=== PATIENT | male | born 1960 | race Caucasian/White ===

== ENCOUNTER 2019-01-20 11:30 | Inpatient (IN) ==
[2019-01-20] MEDS ORDERED: ASPIRIN CHEW 324 MG PO STA (12:30)
--- NOTE | 2019-01-20 13:02 | XRay Report ---
XR chest 1V portable CLINICAL HISTORY: 59 years-old Male presenting with Chest Pain. TECHNIQUE: Portable upright AP view of the chest was obtained. COMPARISON: 09/15/2018. FINDINGS: Cardiac silhouette moderately enlarged. Pulmonary vascular prominence. Bronchial wall cuffing. Vague added density in the central and bibasilar regions. Prominent lung markings. Trace right pleural effu crys. No pneumothorax. Degenerative changes of the thoracic spine. IMPRESSION: 1. Cardiomegaly with volume overload/congestive change and mild pulmonary edema. Electronically signed by: Bryan Cottrell M.D. 01/20/2019 1:01 PM
[2019-01-20 13:07] LABS: Basophils # (auto) 0.02 K/uL (0-0.2); Basophils % (auto) 0.2 %; Eosinophils # (auto) 0.09 K/uL (0-0.5); Hematocrit (blood only) 41.3 % (42-52); Hemoglobin 12.9 g/dL (14.0-18.0); Immature Granulocytes # (auto) 0.02 K/uL (0.00-0.02); Immature Granulocytes % (auto) 0.2 %; Lymphocytes # (auto) 1.16 K/uL (1.2-3.4); Lymphocytes % (auto) 12.7 %; Mean Corpuscular Hgb Conc 31.2 g/dL (32-36); Mean Corpuscular Volume 84.1 fL (80-100); Mean Platelet Volume 9.7 fL (7.4-10.4); Monocytes # (auto) 0.77 K/uL (0.11-0.59); Monocytes % (auto) 8.4 %; Neutrophils # (auto) 7.08 K/uL (1.4-6.5); Neutrophils % (auto) 77.5 %; Platelet Count 276 K/uL (130-400); RDW Coefficient of Variation 15.8 % (11.5-14.5); RDW Standard Deviation 48.3 fL (36.4-46.3); Red Blood Count 4.91 M/uL (4.7-6.1); White Blood Count 9.14 K/uL (4.8-10.8)
[2019-01-20 13:08] LABS: Albumin Level 3.1 gm/dl (3.4-5.0); BUN Creatinine Ratio 16.3 (10-20); Calcium 8.4 mg/dl (8.5-10.1); Creatinine Clr Calc Pharmacy 118.2 ml/min; Est GFR (African American) 111.1; Est GFR (Non-African American) 95.8; Potassium 4.3 mmol/L (3.5-5.1)
[2019-01-20 13:13] LABS: Albumin Globulin Ratio 0.9 (0.9-2); Globulin 3.3 gm/dl (2.5-4.0); Total Protein 6.4 gm/dl (6.4-8.2); Troponin I 0.032 ng/ml (0-0.045)
[2019-01-20 13:16] LABS: D Dimer 1880 ug/L FEU (0-500)
[2019-01-20 13:33] LABS: iSTAT Creatinine 0.9 mg/dl (0.6-1.3); iSTAT Hemoglobin 14.3 g/dl (14.0-18.0); iSTAT Ionized Calcium 1.2 mmol/l (1.12-1.32); iSTAT Potassium 4.3 mEq/L (3.3-5.0)
[2019-01-20] MEDS ORDERED: OPTIRAY 320 125ml IV PRN (13:36)
--- NOTE | 2019-01-20 13:38 | Ultrasound Report ---
US venous doppler LE LT CLINICAL HISTORY: Left lower extremity swelling COMPARISON STUDY: No previous studies for comparison. FINDINGS: Real-time and color flow Doppler imaging were performed. Flow was seen within the femoral, popliteal and calf veins with no intraluminal thrombus demonstrated. The saphenous vein is patent. IMPRESSION: No evidence of left lower extremity DVT. Electronically signed by: Kuldip Flowers M.D. 01/20/2019 1:37 PM
[2019-01-20] MEDS ORDERED: FUROSEMIDE 40 MG/4 ML VIAL IV STA (13:51)
--- NOTE | 2019-01-20 13:53 | CT Scan Report ---
CT ANGIOGRAPHY OF THE CHEST, PULMONARY EMBOLUS PROTOCOL CLINICAL HISTORY: Shortness of breath. Chest pain. Evaluate for pulmonary embolus. COMPARISON STUDY: Chest radiograph January 20, 2019 and September 15, 2018. TECHNIQUE: Following IV administration of 119 mL of Optiray-320, helical axial images of the chest we re obtained utilizing the pulmonary embolus protocol. Maximal intensity projections and sagittal and coronal reformats were viewed on an independent 3D workstation. IV contrast was administered withou t complication. Automated exposure control was utilized for the study. A dose lowering technique wa s utilized adhering to the principles of ALARA. CT DOSE: 538.47 mGy.cm FINDINGS: No pulmonary emboli are identified. The heart is moderately enlarged. Coronary artery sten t is noted. There is no pericardial effusion. There are mildly enlarged mediastinal and bilateral hil ar lymph nodes. Index prevascular node on image 186 of 301 measures 1.1 cm in short axis diameter. Ca lcified thoracic lymph nodes indicating a prior granulomatous process. Small right and trace left ple ural effusions are noted. There is no pneumothorax. Interlobular septal thickening indicates pulmonar y edema. Ground glass opacities within the lungs are noted. A few small airspace opacities within the right lung are noted. The largest is a 1.4 cm right upper lobe opacity on image 184 of 301. No centr al obstructing mass is present. Mild dilatation of the ascending aorta, measuring 4.1 cm is noted. John ny thorax and upper abdomen are unremarkable. IMPRESSION: 1. No pulmonary emboli identified. 2. Small right and trace left pleural effusions. Interstitial and alveolar pulmonary edema. 3. A few airspace opacities within the right upper lung, including a 1.4 cm right upper lobe opacity. This favors alveolar edema or a mild infectious process. A pulmonary nodule is considered less likel y however a follow-up chest CT in 3 months to ensure resolution is recommended. 4. Moderate cardiomegaly. 5. Mild mediastinal and bilateral hilar lymphadenopathy which may be related to pulmonary edema howev er can be assessed on follow-up chest CT to ensure resolution. Electronically signed by: Rene Davis M.D. 01/20/2019 1:51 PM
--- NOTE | 2019-01-20 16:54 | Cardiology Consultation ---
Date of Consultation January 20, 2019 Assessment & Plan (1) Acute HFrEF (heart failure with reduced ejection fraction): (2) Ischemic cardiomyopathy: The patient presents with progressive symptoms of systolic heart failure. He has new decline in his LVEF compared to his initial myocardial infarction in August. Is difficult to determine if this is all scar related to his initial MD, as the degree of LV systolic dysfunction appears to be out of proportion to the single- vessel distribution of his myocardial infarction. At present, we will proceed with cautious diuresis as he received IV contrast today for CT of the chest. He has received 40 mg IV furosemide so far in the emergency room, I would provide a dose of 40 mg IV tomorrow morning. Continue prior to hospital cardiac medications including aspirin, clopidogrel, metoprolol succinate, lisinopril, and spironolactone. Ultimate plan is for optimization of his volume status and then consideration toward diagnostic cardiac catheterization. (3) Abnormality of lung: Abnormal CT of the lung, this could be atypical heart failure findings versus a lung nodule per the radiology findings, a repeat CT of the chest was recommended in the radiology report at a 3-month interval. History of Present Illness History of Present Illness Chuy Underwood is a 59 year old male seen in cardiology consultation per the request of Dr Espinoza of the emergency room for the evaluation of shortness of breath, with recent abnormal outpatient nuclear stress test. The patient and his note that he has been having progressive generalized fatigue and exertional shortness of breath since his initial hospital stay back in August. The patient's recent medical history dates back to 09/15/18 when he presented to the emergency department with 2 hours of severe chest discomfort. He was found to have an anterior, anterolateral ST segment elevation myocardial infarction and was taken to the cardiac catheterization laboratory in a emergent fashion via the "Heart Alert" protocol by Dr Galeana of interventional cardiology where he was found to have a 100% acute late proximal occlusion of the LAD at the takeoff of the first diagonal. The report describes that after flow was reestablished severe diffuse disease extending into the mid segment LAD past the third diagonal was noted. In addition to stenosis of diagonal 1, the second diagonal was noted to have a 50-60% ostial stenosis in the third diagonal with a 70% ostial stenosis. Circumflex coronary was a codominant large caliber vessel without significant disease. The right coronary artery was a codominant vessel with 20-30% proximal to mid disease distal luminal irregularities without significant obstruction. The patient underwent complex intervention of the p roximal to mid LAD with 2 overlapping drug-eluting stents and plain balloon angioplasty of the ostium of the third diagonal. The troponin peaked to greater than 200 NG per mL. The day after the procedure and echocardiogram was performed on 09/16/18 revealed a large wall motion abnormality with akinesis of the apical wall, mid anterior, septal, anteroseptal with an ejection fraction in the range of 35-40%. The patient was discharged on medications including metoprolol tartrate, lovastatin, lisinopril, aspirin, and clopidogrel. He was also diagnosed with diabetes and was transitioned to metformin at discharge. The patient had not establish with a primary care provider, until ultimately seeing Dr. Lagos on 11/30/18. At that time arrangements were made for him to establish with [facility] cardiology. The patient underwent an echocardiogram performed as an outpatient at [facility] on 12/29/18 that revealed an interval decline in his LVEF with ejection fraction now in the range of 25-29%. Grade 3 diastolic dysfunction was noted. Mild mitral regurgitation was present, mild tricuspid regurgitation was present mild pulmonary hypertension was present with the PA systolic pressure in the range of 51 mmHg. The patient had recently seen Dr. Tamez of our practice on 01/12/19 which time the patient described exertional shortness of breath and fatigue. Medication changes were made including transition to metoprolol succinate, spironolactone,. The patient was on uninterrupted aspirin and clopidogrel. A nuclear stress test performed in our office yesterday 01/19/19 revealed a large scar involving the mid and apical levels of the left ventricle with sparing of only the basal segments. Severe LV systolic dysfunction was noted in the range of 25%. Past Medical History: CAD Ischemic CM DM2 HTN Dyslipidemia smoker up until August 2018 Social History: Former smoker Marrried Works at [employer] Allergies Allergy/AdvReac Type Severity Reaction Status Date / Time No Known Allergies Allergy Unverified 01/20/19 12:20 Home Medications Home Medications Medication Instructions Recorded Confirmed Type aspirin [Ecotrin Low Strength] 81 mg PO QAM #30 tab 09/17/18 01/20/19 Rx clopidogrel 75 mg PO QAM #30 tab 09/17/18 01/20/19 Rx lisinopril [Zestril] 5 mg PO QAM #30 tab 09/17/18 01/20/19 Rx lovastatin 20 mg PO DAILY@1700 #30 tab 09/17/18 01/20/19 Rx metformin 500 mg PO BID17 01/20/19 01/20/19 History metoprolol tartrate 25 mg PO BID17 01/20/19 01/20/19 History spironolactone 25 mg PO 1700 01/20/19 01/20/19 History Patient History Medical History Tobacco use disorder (Chronic) HLD (hyperlipidemia) (Chronic) HTN (hypertension) (Chronic) Tobacco use disorder Social History Preferred Language: Malawian Beliefs That Will Affect Care: None marital status: Current Living Situation: Spouse current occupational status: employed Feels Safe at Home: Yes Smoking Status: Former smoker Hx Alcohol Use: No Hx Substance Use: No Review of Systems 10 point review of systems is reviewed and is negative with the exception of that above Physical Exam Vital Signs (Past 24 Hours): Last Vital Signs Temp 36.8 C 01/20/19 11:35 Pulse 80 01/20/19 16:35 Resp 18 01/20/19 16:35 BP 131/81 01/20/19 16:35 Pulse Ox 94 01/20/19 16:35 Physical Exam: General: no acute distress and stated age Chest: normal shape and normal respiratory effort Lungs: Decreased breath sounds the bases Cardiac Exam: - regular heart sounds, no murmurs, rubs, or gallops, no jugular venous distention Abdomen: abdomen soft, non-tender, no abnormal masses and no hepatosplenomegaly Extremities: 1+ left lower extremity edema Neuro:awake, coversant, follows commands, no focal motor deficits Psych: appropriate affect and insight. Results & Data Laboratory Results Cardiac Enzymes 01/20/19 Range/Units 12:10 AST 28 (15-37) U/L CK-MB (CK-2) 5.0 H (0.5-3.6) ng/ml Troponin I 0.032 (0-0.045) ng/ml CBC 01/20/19 Range/Units 12:10 WBC 9.14 (4.8-10.8) K/uL RBC 4.91 (4.7-6.1) M/uL Hgb 12.9 L (14.0-18.0) g/dL Hct 41.3 L (42-52) % Plt Count 276 (130-400) K/uL Neut # (Auto) 7.08 H (1.4-6.5) K/uL Lymph # (Auto) 1.16 L (1.2-3.4) K/uL [place] # (Auto) 0.77 H (0.11-0.59) K/uL Eos # (Auto) 0.09 (0-0.5) K/uL Baso # (Auto) 0.02 (0-0.2) K/uL Comprehensive Metabolic Panel 01/20/19 Range/Units 12:10 Sodium 139 (136-145) mmol/L Potassium 4.3 (3.5-5.1) mmol/L Chloride 108 H (98-107) mmol/L Carbon Dioxide 26 (21-32) mmol/L BUN 14 (7-18) mg/dl Creatinine 0.84 (0.6-1.4) mg/dl Glucose 107 H (70-99) mg/dl Calcium 8.4 L (8.5-10.1) mg/dl AST 28 (15-37) U/L ALT 54 (12-78) U/L Alkaline Phosphatase 232 H (45-117) U/L Total Protein 6.4 (6.4-8.2) gm/dl Albumin 3.1 L (3.4-5.0) gm/dl Intake and Output 01/20/19 01/20/19 01/20/19 06:59 14:59 22:59 Other: Weight 107.6 kg Patient Weight 01/21/19 06:59 Weight 107.6 kg Diagnostic Findings EKG performed today 01/20/19 reviewed and apparently revealed sinus rhythm at 88 bpm, with right bundle branch block QRS duration 120 ms, age-indeterminate anteroseptal infarction pattern dating back to August 2018, compared to the prior tracing performed 09/15/[address] segment elevation is no longer present. Summary of transthoracic echocardiogram recently performed 12/29/18 at [facility] with images having been reviewed independently by the undersigned at that time: The left ventricular cavity size is severely enlarged. There is a large sized apical, septal, anteroseptal, anterior, and lateral wall motion abnormality with hypokinesis to akinesis of the segments. The qualitative LV ejection fraction is 25-29% (severely reduced). The left ventricular diastolic function is severely abnormal (grade III). The left ventricular diastolic fillling pressure is elevated. Mild mitral regurgitation is present. Mild tricuspid regurgitation is present. Moderate pulmonary hypertension is present. The estimated pulmonary artery systolic pressure is 51mm Hg. The aortic root and proximal ascending aorta are mildly enlarged. Compared to the report the prior echocardiogram performed at [facility] dated 09/16/2018, a large left anterior descending coronary artery territory wall motion abnormality was described at that time with apical akinesis, and hypokinesis of the anterior, lateral, anteroseptum and septum. The ejection fraction at that time was graded to be 35 to 40%. Left lower extremity venous duplex study performed 01/20/19 reveals no evidence of left lower extremity DVT CT angiogram of the chest performed 01/20/19 revealed no pulmonary emboli Small right and trace left pleural effusions, interstitial and alveolar pulmonary edema pattern, 1.4 cm right upper lobe opacity, alveolar edema versus mild infectious process versus pulmonary nodule, radiology recommends repeat CT in 3 months.
--- NOTE | 2019-01-20 18:15 | History & Physical Report ---
Date of Service January 20, 2019 Assessment & Plan (1) Acute HFrEF (heart failure with reduced ejection fraction): (2) Ischemic cardiomyopathy: This is a 59yo M with a PMH of systolic heart failure, ischemic cardiomyopathy, HTN, HLD and h/o tobacco use who presents after an abnormal nuclear stress test yesterday and evidence of decompensated systolic heart failure. -H/o anterior wall IA in August 2018 and had 2 stents placed emergently by Dr Galeana. -Has progressive systolic heart failure with nuclear stress test performed yesterday and showed severe systolic dysfunction was noted in the range of 25% -CTA chest with small right and trace left pleural effusions. Interstitial and alveolar pulmonary edema. No pulmonary emboli identified -Given 40mg IV Lasix in ED and will continue to diurese with 40mg IV Lasix daily. Strict I&Os, daily weights -Per Dr Sevilla, the degree of LV systolic dysfunction appears to be out of proportion to the single-vessel distribution of his myocardial infarction -Cardiology to follow over weekend with plans for possible cardiac catheterization on Wednesday/Wednesday depending on renal function -Continue home dose aspirin, plavix, toprol, lisinopril and spironolactone (3) HTN (hypertension): Normotensive. Continue Toprol, spironolactone, lisinopril (4) HLD (hyperlipidemia): Continue statin (5) Diabetes mellitus, type II: Recently diagnosed during Aug 2018 admission with a1c of 7.3 -Repeat a1c -Hold oral agent -SSI while in-patient -BSG AC HS (6) Tobacco use disorder: Has not smoked for the past 4 months since STEMI (7) Lung abnormality: Alveolar edema vs pulmonary nodule seen on chest CTA -A repeat CT of the chest was recommended in the radiology report at a 3-month interval DVT Ppx: SCDs Code status: FULL PCP: [facility] Dispo: Admitted to telemetry. Plan to return home once medically stable. Patient seen in collaboration with Dr. Aguilera. Please see addendum. History of Present Illness Chief Complaint: fatigue, lower extremity swelling Primary Care Provider: Zachary Lagos This is a 59yo M with a PMH of systolic heart failure, ischemic cardiomyopathy, HTN, HLD and h/o tobacco use who presents after an abnormal nuclear stress test yesterday. Patient had an anterior wall IA in August 2018 and had 2 stents placed emergently by Dr Galeana, where he was found to have a 100% acute late proximal occlusion of the LAD at the takeoff of the first diagonal. Echo performed during this admission showed EF of 35-40% with akinesis of the apical wall, mid anterior, septal and anteroseptal leavitt. Did not establish with PCP or [facility] cardiology until recently, when he had a resting 2D echo with ED: 25- 29% with grade 3 diastolic dysfunction as well as mild valvular disease. A nuclear stress test performed yesterday and showed severe systolic dysfunction was noted in the range of 25%. Patient denies any chest pain but endorses fatigue and dyspnea on exertion. Also has been having intermittent edema of left lower extremity. States he has been taking all medications as prescribed and has not missed doses. Denies fever, chills, lightheadedness, headache, chest pain, palpitations, SOB, nausea, vomiting, abdominal pain, dysuria, diarrhea or constipation. CXR with evidence of cardiomegaly with volume overload and congestive change. Given 40mg IV Lasix in ED and evaluated by Dr. Sevilla. Allergies Allergy/AdvReac Type Severity Reaction Status Date / Time No Known Allergies Allergy Unverified 01/20/19 12:20 Home Medications Home Medications Medication Instructions Recorded Confirmed Type aspirin [Ecotrin Low Strength] 81 mg PO QAM #30 tab 09/17/18 01/20/19 Rx clopidogrel 75 mg PO QAM #30 tab 09/17/18 01/20/19 Rx lisinopril [Zestril] 5 mg PO QAM #30 tab 09/17/18 01/20/19 Rx atorvastatin 80 mg PO HS 01/20/19 01/20/19 History metformin 500 mg PO BID17 01/20/19 01/20/19 History metoprolol tartrate 25 mg PO BID17 01/20/19 01/20/19 History spironolactone 12.5 mg PO 1700 01/20/19 01/20/19 History Past Med/Surg History Medical History Diabetes mellitus, type II (Chronic) History of acute anterior wall IA (Resolved) s/p stents x 2 Tobacco use disorder (Resolved) NSVT (nonsustained ventricular tachycardia) (Resolved) HLD (hyperlipidemia) (Chronic) HTN (hypertension) (Chronic) Surgical History H/O heart artery stent (Chronic) August 2018 Family History Other Diabetes mellitus Social History Preferred Language: Dominican Communication Ability: Effective Staff Trainer Required: No Beliefs That Will Affect Care: Hinduism marital status: Current Living Situation: Spouse current occupational status: employed Other Information That Helps Us Care for You: No Feels Safe at Home: Yes Safety Concerns: Feels Safe At This Time Smoking Status: Former smoker Hx Alcohol Use: Yes Hx Substance Use: No Review of Systems All systems reviewed & are unremarkable except as noted in HPI & below Physical Exam Vital Signs (Past 24 Hours): Last Vital Signs Temp 36.8 C 01/20/19 11:35 Pulse 80 01/20/19 16:35 Resp 18 01/20/19 16:35 BP 131/81 01/20/19 16:35 Pulse Ox 94 01/20/19 16:35 Physical Exam: General Appearance: WD/WN, no apparent distress, resting comfortably Head: normocephalic, atraumatic Eyes: normal inspection, PERRL, EOMI ENT: hearing grossly normal, pharynx normal (moist mucous membranes) Neck: supple, no JVD, no adenopathy Respiratory/Chest: lungs clear to auscultation. No wheezes, rales or rhonci. No respiratory distress or accessory muscle use Cardiovascular: regular rate, rhythm, no murmur, normal peripheral pulses, 1+ LLE edema, trace RLE edema Abdomen/GI: normal bowel sounds, soft, non-tender to palpation Extremities/Musculoskelatal: normal inspection, no calf tenderness, normal capillary refill, BLE with hyperpigmentation Neurologic/Psych: alert, normal mood/affect, oriented x 3 Skin: normal color, warm/dry Results & Data Laboratory Results Short CBC 01/20/19 Range/Units 12:10 WBC 9.14 (4.8-10.8) K/uL Hgb 12.9 L (14.0-18.0) g/dL Hct 41.3 L (42-52) % Plt Count 276 (130-400) K/uL BMP 01/20/19 12:10 Sodium 139 Potassium 4.3 Chloride 108 H Carbon Dioxide 26 BUN 14 Creatinine 0.84 Glucose 107 H Calcium 8.4 L Cardiac Enzymes 01/20/19 Range/Units 12:10 Total Creatine Kinase 157 (39-308) U/L CK-MB (CK-2) 5.0 H (0.5-3.6) ng/ml Troponin I 0.032 (0-0.045) ng/ml Liver Function 01/20/19 Range/Units 12:10 Total Bilirubin 1.0 (0.2-1) mg/dl AST 28 (15-37) U/L ALT 54 (12-78) U/L Alkaline Phosphatase 232 H (45-117) U/L Albumin 3.1 L (3.4-5.0) gm/dl Diagnostic Findings CXR: IMPRESSION: 1. Cardiomegaly with volume overload/congestive change and mild pulmonary edema. Left venous doppler: IMPRESSION: No evidence of left lower extremity DVT. Chest CTA: IMPRESSION: 1. No pulmonary emboli identified. 2. Small right and trace left pleural effusions. Interstitial and alveolar pulmonary edema. 3. A few airspace opacities within the right upper lung, including a 1.4 cm right upper lobe opacity. This favors alveolar edema or a mild infectious process. A pulmonary nodule is considered less likely however a follow-up chest CT in 3 months to ensure resolution is recommended. 4. Moderate cardiomegaly. 5. Mild mediastinal and bilateral hilar lymphadenopathy which may be related to pulmonary edema however can be assessed on follow-up chest CT to ensure resolution. ECG Additional Comments: Normal sinus rhythm, Possible Left atrial enlargement, Left anterior fascicular block, Right bundle branch block, Anteroseptal infarct (cited on or before 15-SEP-2018) When compared with ECG of 15-SEP-2018 14:13, ST no longer elevated in Anterior leads, T wave inversion now evident in Anterior leads Supervising Physician Co-Signing Physician Notes Attending Addendum The patient was seen and examined in ER He is a 59yo M with a PMH of systolic heart failure, ischemic cardiomyopathy, HTN, HLD and h/o tobacco use who presents after an abnormal nuclear stress test yesterday and evidence of decompensated systolic heart failure. Minimal symptoms during my exam On Exam No apparent distress Hemodynamically stable Chest-decreased breath sound bilaterally with bi basilar crackles Heart-S1 S2 Abdomen-benign Extremities-1 + edema bilaterally Admission labs and imaging studies were reviewed Agree with thw assessment and plan as outlined by Dulce Aguilera
[2019-01-20] MEDS ORDERED: CARBOHYDRATES FOR HYPOGLYCEMIA PO PRN (19:32)
[2019-01-20] MEDS ORDERED: POLYETHYLENE (MIRALAX) 17 GM PACK PO PRN (19:32)
[2019-01-20] MEDS ORDERED: ONDANSETRON INJ 2 MG/ML 2 ML VIAL IV PRN (19:32)
[2019-01-20] MEDS ORDERED: DEXTROSE 50% 50 ML SYRINGE IV PRN (19:32)
[2019-01-20] MEDS ORDERED: GLUCOSE 10 TABS/TUBE PO PRN (19:32)
[2019-01-20] MEDS ORDERED: GLUCAGON FOR INJ 1 MG VIAL SQ PRN (19:32)
[2019-01-20] MEDS ORDERED: GLUCOSE 40% GEL 15 GM TUBE PO PRN (19:32)
--- NOTE | 2019-01-20 19:43 | Emergency Department Note ---
Entered by Kelsey Sanches acting as a scribe for Jitendra Espinoza MD History of Present Illness General Chief complaint: Cardiac Assessment Stated complaint: LABORED BREATHING,PROBLEMS WITH STENTS Time Seen by Provider: 01/20/19 12:10 Source: patient History of Present Illness Onset (ago): day(s) (a few days ago) Location: chest Pain Consistency: + other (worsening) Maximum Pain Intensity: 0 Quality: + other (shortness of breath) Exacerbated By: + movement (exertion) Associated symptoms: + other (difficulty sleeping, fatigue); no chest pain The patient is a 59 year old male who presents to the Emergency Room with complaints of worsening shortness of breath starting a few days ago. The patient states that he has a history of two stents being placed in August of last year. He states that recently he hasn�t been sleeping well and his breathing has been labored. He states that yesterday he ran a stress test and when he called into Dr. Tamez today, he said to come to the ED as both of his stents that were placed are blocked. He notes that exertion makes his shortness of breath worse. The patient complains of fatigue. The patient denies chest pain. The patient notes that he does take a baby aspirin daily and is on Plavix. He notes that he hasn�t missed a dose and took them both 7 hours ago. Home Medications Home Medications Medication Instructions Recorded Confirmed Type aspirin [Ecotrin Low Strength] 81 mg PO QAM #30 tab 09/17/18 01/20/19 Rx clopidogrel 75 mg PO QAM #30 tab 09/17/18 01/20/19 Rx lisinopril [Zestril] 5 mg PO QAM #30 tab 09/17/18 01/20/19 Rx atorvastatin 80 mg PO HS 01/20/19 01/20/19 History metformin 500 mg PO BID17 01/20/19 01/20/19 History metoprolol tartrate 25 mg PO BID17 01/20/19 01/20/19 History spironolactone 12.5 mg PO 1700 01/20/19 01/20/19 History Allergies Allergy/AdvReac Type Severity Reaction Status Date / Time No Known Allergies Allergy Unverified 01/20/19 12:20 Past Med/Surg History Medical History Diabetes mellitus, type II (Chronic) History of acute anterior wall CT (Resolved) s/p stents x 2 Tobacco use disorder (Resolved) NSVT (nonsustained ventricular tachycardia) (Resolved) HLD (hyperlipidemia) (Chronic) HTN (hypertension) (Chronic) Surgical History H/O heart artery stent (Chronic) August 2018 Family History Other Diabetes mellitus Social History Preferred Language: Ukrainian Communication Ability: Effective 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 and A total of 10 systems reviewed and were otherwise negative Physical Exam Vital Signs Vital Signs - 24 hr 01/20/19 11:35 01/20/19 12:04 01/20/19 12:11 Temperature 36.8 C Temperature Source Oral Sepsis Recent Fever Within 48 Hours No Sepsis New/Unexplained Change in Mental Status No Sepsis Action Taken by Nursing No Action Required Pulse Rate 88 81 81 Pulse Rate [Finger] Pulse Rate from SpO2 Sensor 81 81 Pulse Rhythm [Finger] Pulse Strength [Finger] Respiratory Rate 18 14 18 Respiratory Effort / Characteristics Non-Labored Spontaneous Respiratory Depth Normal Respiratory Pattern Regular Blood Pressure 122/81 121/78 Blood Pressure [Right Arm] Blood Pressure Mean 94 92 Blood Pressure Mean [Right Arm] Blood Pressure Position Sitting Blood Pressure Position [Right Arm] Pulse Oximetry 98 96 95 Oxygen Delivery Method Room Air 01/20/19 14:43 01/20/19 16:35 01/20/19 17:45 Temperature Temperature Source Sepsis Recent Fever Within 48 Hours Sepsis New/Unexplained Change in Mental Status Sepsis Action Taken by Nursing Pulse Rate Pulse Rate [Finger] 87 80 Pulse Rate from SpO2 Sensor Pulse Rhythm [Finger] Pulse Strength [Finger] Respiratory Rate 22 18 Respiratory Effort / Characteristics Non-Labored Spontaneous Respiratory Depth Normal Respiratory Pattern Regular Blood Pressure Blood Pressure [Right Arm] 135/80 131/81 Blood Pressure Mean Blood Pressure Mean [Right Arm] 98 97 Blood Pressure Position Blood Pressure Position [Right Arm] Pulse Oximetry 96 94 Oxygen Delivery Method Room Air Room Air Room Air 01/20/19 18:27 01/20/19 18:38 01/20/19 19:32 Temperature 36.9 C Temperature Source Oral Sepsis Recent Fever Within 48 Hours Sepsis New/Unexplained Change in Mental Status Sepsis Action Taken by Nursing Pulse Rate Pulse Rate [Finger] 88 87 Pulse Rate from SpO2 Sensor Pulse Rhythm [Finger] Regular Pulse Strength [Finger] Normal Respiratory Rate 22 22 20 Respiratory Effort / Characteristics Non-Labored Spontaneous Respiratory Depth Normal Respiratory Pattern Regular Blood Pressure Blood Pressure [Right Arm] 137/92 146/93 H Blood Pressure Mean Blood Pressure Mean [Right Arm] 107 110 Blood Pressure Position Blood Pressure Position [Right Arm] Sitting Pulse Oximetry 100 100 98 Oxygen Delivery Method Room Air Room Air Room Air GENERAL: Awake, alert, well-appearing, in no distress HENT: Normocephalic, atraumatic. Oropharynx unremarkable. EYES: Normal conjunctiva. Sclera non-icteric. NECK: Supple. No nuchal rigidity. FROM. No masses. RESPIRATORY: Clear to auscultation. No wheezes. No rales. Normal respiratory effort. CARDIAC: Normal rate. Normal rhythm. No murmurs. No rubs. Extremities warm and well perfused. Pulses equal. No JVD. GI: Soft, non-distended. No tenderness to palpation. No rebound or guarding. No masses. RECTAL: Deferred. MUSCULOSKELETAL: Atraumatic. Chest examination reveals no tenderness. The back is symmetrical on inspection without obvious abnormality. There is no CVA tenderness to palpation. No joint edema. LOWER EXTREMITIES: Calves are equal size bilaterally and non-tender. No edema. No discoloration. NEURO: Normal sensorium. No sensory or motor deficits noted. Course 1226: Past medical records reviewed. The patient was evaluated in room C8, and a complete history and physical examination were performed. 1243: I discussed the patient's case with Dr. Pisano Cardiology. He states that the patient hasn't followed up since his initial CT, but his last EF was 25%. He states that we should do a D-Dimer and a duplex. 1244: I reevaluated the patient and updated him on the plan. He verbally agrees and understands. 1434: I discussed the patient's case with Dr. Pisano Cardiology. He will come see the patient. 1436: I reevaluated the patient and updated him on his test results and the treatment plan. He verbally agrees and understands. 1601: I reevaluated the patient and he is currently eating. Dr. Sevilla is at bedside. 1623: I discussed the patient's case with Dr. Pisano Cardiology. He is going to talk to internal medicine to bring the patient in for further evaluation. Consultations Consultation #1: I discussed the patient's case with Dr. Norris Oglesby. He states that the patient hasn't followed up since his initial CT, but his last EF was 25%. He states that we should do a D-Dimer and a duplex. Time: 12:43 Consultation #2: I discussed the patient's case with Dr. Norris Oglesby. He will come see the patient. Time: 14:34 Consultation #3: I discussed the patient's case with Dr. Norris Oglesby. He is going to talk to internal medicine to bring the patient in for further evaluation. Time: 16:23 Administered Medications Discontinued Medications Aspirin (Aspirin) 324 mg PO NOW STA Stop: 01/20/19 12:31 Last Admin: 01/20/19 12:58 Dose: 324 mg Documented by: [id number] Furosemide (Lasix) 40 mg IV NOW STA Stop: 01/20/19 13:52 Last Admin: 01/20/19 14:39 Dose: 40 mg Documented by: [id number] Ioversol (Optiray 320 125ml) 119 ml IV ONCE PRN PRN Reason: Interaction Checking Stop: 01/24/19 13:35 Last Admin: 01/20/19 13:38 Dose: 119 ml Documented by: [id number] Medical Decision Making Differential Diagnosis Differential diagnosis: Etiologies such as infections, reactive airway disease, COPD, pneumonia, pleural effusion, pulmonary edema, ARDS, pneumothorax, CHF, cardiac ischemia, cardiac tamponade, dysrhythmia, anemia, pulmonary embolism, musculoskeletal, gastrointestinal process, as well as others were entertained. Medical Records Attestation: I reviewed the patient's medical records. Home Medications Current Medication List: was personally reviewed by me Laboratory Data Attestation: I reviewed the patient's lab results. Result diagrams: 01/20/19 12:10 01/20/19 12:10 Lab Results 01/20/19 01/20/19 01/20/19 Range/Units 12:10 12:10 12:10 WBC 9.14 (4.8-10.8) K/uL RBC 4.91 (4.7-6.1) M/uL Hgb 12.9 L (14.0-18.0) g/dL POC Hgb (14.0-18.0) g/dl Hct 41.3 L (42-52) % POC Hct (42-52) % MCV 84.1 (80-100) fL MCH 26.3 (25-34) pg MCHC 31.2 L (32-36) g/dL RDW Std Deviation 48.3 H (36.4-46.3) fL RDW Coeff of Sebastian 15.8 H (11.5-14.5) % Plt Count 276 (130-400) K/uL MPV 9.7 (7.4-10.4) fL Immature Gran % (Auto) 0.2 % Neut % (Auto) 77.5 % Lymph % (Auto) 12.7 % Hand % (Auto) 8.4 % Eos % (Auto) 1.0 % Baso % (Auto) 0.2 % Immature Gran # (Auto) 0.02 (0.00-0.02) K/uL Neut # (Auto) 7.08 H (1.4-6.5) K/uL Lymph # (Auto) 1.16 L (1.2-3.4) K/uL Hand # (Auto) 0.77 H (0.11-0.59) K/uL Eos # (Auto) 0.09 (0-0.5) K/uL Baso # (Auto) 0.02 (0-0.2) K/uL D-Dimer 1880 H* (0-500) ug/L FEU POC Sodium (135-144) mEq/L Sodium 139 (136-145) mmol/L POC Potassium (3.3-5.0) mEq/L Potassium 4.3 (3.5-5.1) mmol/L POC Chloride (101-112) mEq/L Chloride 108 H (98-107) mmol/L Carbon Dioxide 26 (21-32) mmol/L POC Total CO2 (24-31) mEq/l Anion Gap 5.0 (3-11) POC Anion Gap (16-25) mmol/L POC BUN (7-18) mg/dl BUN 14 (7-18) mg/dl Creatinine 0.84 (0.6-1.4) mg/dl POC Creatinine (0.6-1.3) mg/dl Est Cr Clr Drug Dosing 118.2 ml/min Est GFR ( Amer) 111.1 Est GFR (Non-Af Amer) 95.8 BUN/Creatinine Ratio 16.3 (10-20) Glucose 107 H (70-99) mg/dl POC Glucose (other) (70-99) mg/dl Calcium 8.4 L (8.5-10.1) mg/dl POC Ioniz Calcium Janice (1.12-1.32) mmol/l Total Bilirubin 1.0 (0.2-1) mg/dl AST 28 (15-37) U/L ALT 54 (12-78) U/L Alkaline Phosphatase 232 H (45-117) U/L Total Creatine Kinase 157 (39-308) U/L CK-MB (CK-2) 5.0 H (0.5-3.6) ng/ml CK/CKMB % Calc 3.2 H (0-3.0) Troponin I 0.032 (0-0.045) ng/ml NT-Pro-B Natriuret Pep 3813 H (0-900) pg/ml Total Protein 6.4 (6.4-8.2) gm/dl Albumin 3.1 L (3.4-5.0) gm/dl Globulin 3.3 (2.5-4.0) gm/dl Albumin/Globulin Ratio 0.9 (0.9-2) Lipase 66 L (73-393) U/L 01/20/19 Range/Units 13:00 WBC (4.8-10.8) K/uL RBC (4.7-6.1) M/uL Hgb (14.0-18.0) g/dL POC Hgb 14.3 (14.0-18.0) g/dl Hct (42-52) % POC Hct 42 (42-52) % MCV (80-100) fL MCH (25-34) pg MCHC (32-36) g/dL RDW Std Deviation (36.4-46.3) fL RDW Coeff of Sebastian (11.5-14.5) % Plt Count (130-400) K/uL MPV (7.4-10.4) fL Immature Gran % (Auto) % Neut % (Auto) % Lymph % (Auto) % Hand % (Auto) % Eos % (Auto) % Baso % (Auto) % Immature Gran # (Auto) (0.00-0.02) K/uL Neut # (Auto) (1.4-6.5) K/uL Lymph # (Auto) (1.2-3.4) K/uL Hand # (Auto) (0.11-0.59) K/uL Eos # (Auto) (0-0.5) K/uL Baso # (Auto) (0-0.2) K/uL D-Dimer (0-500) ug/L FEU POC Sodium 142 (135-144) mEq/L Sodium (136-145) mmol/L POC Potassium 4.3 (3.3-5.0) mEq/L Potassium (3.5-5.1) mmol/L POC Chloride 103 (101-112) mEq/L Chloride (98-107) mmol/L Carbon Dioxide (21-32) mmol/L POC Total CO2 26 (24-31) mEq/l Anion Gap (3-11) POC Anion Gap 18.0 (16-25) mmol/L POC BUN 14 (7-18) mg/dl BUN (7-18) mg/dl Creatinine (0.6-1.4) mg/dl POC Creatinine 0.9 (0.6-1.3) mg/dl Est Cr Clr Drug Dosing ml/min Est GFR ( Amer) Est GFR (Non-Af Amer) BUN/Creatinine Ratio (10-20) Glucose (70-99) mg/dl POC Glucose (other) 108 H (70-99) mg/dl Calcium (8.5-10.1) mg/dl POC Ioniz Calcium Janice 1.20 (1.12-1.32) mmol/l Total Bilirubin (0.2-1) mg/dl AST (15-37) U/L ALT (12-78) U/L Alkaline Phosphatase (45-117) U/L Total Creatine Kinase (39-308) U/L CK-MB (CK-2) (0.5-3.6) ng/ml CK/CKMB % Calc (0-3.0) Troponin I (0-0.045) ng/ml NT-Pro-B Natriuret Pep (0-900) pg/ml Total Protein (6.4-8.2) gm/dl Albumin (3.4-5.0) gm/dl Globulin (2.5-4.0) gm/dl Albumin/Globulin Ratio (0.9-2) Lipase (73-393) U/L Imaging Data Radiologist's Impression: Radiology results as stated below per my review and the radiologist's interpretation: XR chest 1V portable CLINICAL HISTORY: 59 years-old Male presenting with Chest Pain. TECHNIQUE: Portable upright AP view of the chest was obtained. COMPARISON: 09/15/2018. FINDINGS: Cardiac silhouette moderately enlarged. Pulmonary vascular prominence. Bronchial wall cuffing. Vague added density in the central and bibasilar regions. Prominent lung markings. Trace right pleural effusion. No pneumothorax. Degenerative changes of the thoracic spine. IMPRESSION: 1. Cardiomegaly with volume overload/congestive change and mild pulmonary edema. Electronically signed by: Bryan Cottrell M.D. 01/20/2019 1:01 PM US venous doppler LE LT CLINICAL HISTORY: Left lower extremity swelling COMPARISON STUDY: No previous studies for comparison. FINDINGS: Real-time and color flow Doppler imaging were performed. Flow was seen within the femoral, popliteal and calf veins with no intraluminal thrombus demonstrated. The saphenous vein is patent. IMPRESSION: No evidence of left lower extremity DVT. Electronically signed by: Kuldip Flowers M.D. 01/20/2019 1:[address] ANGIOGRAPHY OF THE CHEST, PULMONARY EMBOLUS PROTOCOL CLINICAL HISTORY: Shortness of breath. Chest pain. Evaluate for pulmonary embolus. COMPARISON STUDY: Chest radiograph January 20, 2019 and September 15, 2018. TECHNIQUE: Following IV administration of 119 mL of Optiray-320, helical axial images of the chest were obtained utilizing the pulmonary embolus protocol. Maximal intensity projections and sagittal and coronal reformats were viewed on an independent 3D workstation. IV contrast was administered without complic ation. Automated exposure control was utilized for the study. A dose lowering technique was utilized adhering to the principles of ALARA. CT DOSE: 538.47 mGy.cm FINDINGS: No pulmonary emboli are identified. The heart is moderately enlarged. Coronary artery stent is noted. There is no pericardial effusion. There are mildly enlarged mediastinal and bilateral hilar lymph nodes. Index prevascular node on image 186 of 301 measures 1.1 cm in short axis diameter. Calcified thoracic lymph nodes indicating a prior granulomatous process. Small right and trace left pleural effusions are noted. There is no pneumothorax. Interlobular septal thickening indicates pulmonary edema. Ground glass opacities within the lungs are noted. A few small airspace opacities within the right lung are noted. The largest is a 1.4 cm right upper lobe opacity on image 184 of 301. No central obstructing mass is present. Mild dilatation of the ascending aorta, measuring 4.1 cm is noted. Bony thorax and upper abdomen are unremarkable. IMPRESSION: 1. No pulmonary emboli identified. 2. Small right and trace left pleural effusions. Interstitial and alveolar pulmonary edema. 3. A few airspace opacities within the right upper lung, including a 1.4 cm right upper lobe opacity. This favors alveolar edema or a mild infectious process. A pulmonary nodule is considered less likely however a follow-up chest CT in 3 months to ensure resolution is recommended. 4. Moderate cardiomegaly. 5. Mild mediastinal and bilateral hilar lymphadenopathy which may be related to pulmonary edema however can be assessed on follow-up chest CT to ensure resolution. Electronically signed by: Rene Davis M.D. 01/20/2019 1:51 PM ECG Data Attestation: I personally reviewed and interpreted this ECG as follows: Indication: SOB/dyspnea Rate (beats per minute): 88 Rhythm: normal sinus Findings: + other (old anterior septal infarct), + RBBB and + T-wave inversion (lateral leads) Comparison ECG Date: from (09/15/2018) Change: the following changes noted (markedly improved) Blood Pressure Blood Pressure Findings: Normal blood pressure Blood Pressure Disposition: did not require urgent referral MDM Narrative This is a 59-year-old male who presents emergency department. The patient has a history of an CT approximately 4 months ago. He reports he is extremely short of breath lately. He apparently failed a stress test yesterday. He arrives to the emergency department during. Of high-volume high acuity. I did discuss his case with the testing engineer who asked for the patient to be admitted to the hospitalist service. Patient was given Lasix for what appears to be pulmonary edema on CAT scan. Patient and are in agreement with the treatment plan. Impression & Plan Shortness of breath, CHF (congestive heart failure) Discharge Plan Visit Data *Final* Discharge Date/Time: 01/20/19 18:38 Chief Complaint: Cardiac Assessment Stated Complaint: LABORED BREATHING,PROBLEMS WITH STENTS ED Provider: Jitendra Espinoza Discharge Problem: Shortness of breath, CHF (congestive heart failure) Patient Disposition: Admitted As Inpatient Discharge Instructions Interventions: ED Discharge Assessment Last Done: 01/20/19 18:38 The scribe's documentation has been prepared under my direction and personally reviewed by me in its entirety. I confirm that the note above accurately reflects all work, treatment, procedures, and medical decision making performed by me.
[2019-01-20] MEDS: ATORVASTATIN 40 MG TAB PO SCH (20:57)
[2019-01-20] MEDS: INSULIN ASPART 100 UNITS/ML 3 ML PEN SC SCH (21:01)
[2019-01-21 06:15] LABS: Hematocrit (blood only) 40.6 % (42-52); Hemoglobin 13.1 g/dL (14.0-18.0); Mean Corpuscular Hgb Conc 32.3 g/dL (32-36); Mean Corpuscular Volume 83.9 fL (80-100); Mean Platelet Volume 9.4 fL (7.4-10.4); Platelet Count 228 K/uL (130-400); RDW Standard Deviation 48.4 fL (36.4-46.3); Red Blood Count 4.84 M/uL (4.7-6.1); White Blood Count 9.08 K/uL (4.8-10.8)
[2019-01-21 06:52] LABS: BUN Creatinine Ratio 13.3 (10-20); Calcium 8.6 mg/dl (8.5-10.1); Creatinine Clr Calc Pharmacy 108.6 ml/min; Est GFR (African American) 108.5; Est GFR (Non-African American) 93.6; Potassium 4.2 mmol/L (3.5-5.1)
[2019-01-21 07:16] LABS: Estimated Average Glucose 154 mg/dl
--- NOTE | 2019-01-21 08:20 | Cardiology Progress Note ---
Date of Service January 21, 2019 Assessment & Plan (1) Acute HFrEF (heart failure with reduced ejection fraction): Volume status improving. Will increase Lasix to 40 mg IV twice daily. Increase Aldactone to 25 mg daily. (2) Ischemic cardiomyopathy: Optimize current heart failure medications. Heart rate borderline elevated. Recommend titration of metoprolol to 25 mg 3 times daily. Increase Aldactone to 25 mg daily and continue lisinopril at current dose. Follow fluid balance, daily weight, electrolytes, and glomerular filtration rate. Consider repeat cardiac catheterization prior to discharge given significant decline in LV function which appears to be out of proportion to CAD noted at time of myocardial infarction August 2018. (3) Abnormality of lung: Abnormal CT of the lung, this could be atypical heart failure findings versus a lung nodule per the radiology findings, a repeat CT of the chest was recommended in the radiology report at a 3-month interval. Subjective Patient seen and examined at the bedside. Left lower extremity edema improving. Patient slept better last evening. Reports difficulty sleeping over the past few nights. In general,he sleeps in 2-3-hour intervals. Denies paroxysmal nocturnal dyspnea or orthopnea. Telemetry demonstrates sinus rhythm with borderline elevated heart rates. No dysrhythmias. Occasional PVCs with one isolated PVC triplet recorded. Patient denies palpitations. No signs/symptoms of GI/ blood loss. Review of Systems All systems reviewed & are unremarkable except as noted in HPI & below Physical Exam Vital Signs (Past 24 Hours): Last Vital Signs Temp 36.9 C 01/21/19 04:00 Pulse 82 01/21/19 04:00 Resp 16 01/21/19 04:00 BP 137/90 01/21/19 04:00 Pulse Ox 94 01/21/19 04:00 Physical Exam: General: NAD, AAO x3, well nourished. HEENT: Normocephalic. Atraumatic. Conjunctiva pink, no scleral icterus. Neck: No carotid bruits, the carotid upstrokes are brisk. No JVD. No HJR Heart: Regular, borderline tachycardic, normal S-1 and S-2 no S-3 or S-4 gallop. No murmurs or rub appreciated. PMI is not displaced. No RV heave. Lungs: Scant crackles at the bases bilaterally. No rhonchi or wheeze. Abdomen: Normal bowel sounds. Soft. Nontender. No masses or organomegaly. No abdominal bruits. Extremities: 1+ bilateral pedal and ankle edema, left greater than right. No clubbing, or cyanosis. Pulses: radial=2/4, Dorsalis pedis =2/4, posterior tibial=2/4. Neuro: Cranial nerves grossly intact. No focal motor deficit.
[2019-01-21] MEDS ORDERED: FUROSEMIDE 40 MG in SYRINGE 0 ML IV SCH (09:00)
[2019-01-21] MEDS ORDERED: METOPROLOL TARTRATE 25 MG TAB PO SCH (09:00)
[2019-01-21] MEDS ORDERED: FUROSEMIDE 40 MG/4 ML VIAL IV SCH (09:00)
[2019-01-21] MEDS: METOPROLOL TARTRATE 25 MG TAB PO SCH ×3 (09:06→21:11)
[2019-01-21] MEDS: ASPIRIN 81 MG ECTAB PO SCH (09:07)
[2019-01-21] MEDS: CLOPIDOGREL BISULFATE 75 MG TAB PO SCH (09:07)
[2019-01-21] MEDS: LISINOPRIL 5 MG TAB PO SCH (09:07)
[2019-01-21] MEDS: FUROSEMIDE 40 MG in SYRINGE 0 ML IV SCH ×2 (09:08→21:12)
[2019-01-21] MEDS: INSULIN ASPART 100 UNITS/ML 3 ML PEN SC SCH ×4 (09:16→21:09)
--- NOTE | 2019-01-21 14:49 | Hospitalist Progress Note ---
Date of Service January 21, 2019 Assessment & Plan (1) Acute HFrEF (heart failure with reduced ejection fraction): (2) Ischemic cardiomyopathy: per admitting service notes: This is a 59yo M with a PMH of systolic heart failure, ischemic cardiomyopathy, HTN, HLD and h/o tobacco use who presents after an abnormal nuclear stress test yesterday and evidence of decompensated systolic heart failure. -H/o anterior wall CT in August 2018 and had 2 stents placed emergently by Dr Galeana. -Has progressive systolic heart failure with nuclear stress test performed yesterday and showed severe systolic dysfunction was noted in the range of 25% -CTA chest with small right and trace left pleural effusions. Interstitial and alveolar pulmonary edema. No pulmonary emboli identified -Given 40mg IV Lasix in ED and will continue to diurese with 40mg IV Lasix daily. Strict I&Os, daily weights - Lasix increased to 40mg IV BID Spironalactone also increased to 25mg po daily Metoprolol increased to 25m po TID - monitor closely (3) HTN (hypertension): stable continue Lisinopril (4) HLD (hyperlipidemia): Continue statin (5) Diabetes mellitus, type II: Recently diagnosed during Aug 2018 admission with a1c of 7.3 A1c 7.0 -Hold oral agent -SSI while in-patient -BSG AC HS (6) Tobacco use disorder: Has not smoked for the past 4 months since STEMI (7) Lung abnormality: Alveolar edema vs pulmonary nodule seen on chest CTA -A repeat CT of the chest was recommended in the radiology report at a 3-month interval (8) Fever: tmax 38.1 denies symptoms of infection no clear focus of infection identified at this time will continue to monitor trend if persistent, will order blood and urine cultures (9) DVT prophylaxis: SCDs (10) Discharge planning issues: DVT Ppx: SCDs Code status: FULL PCP: [facility] Dispo: Plan to return home once medically stable. Subjective ff up for systolic CHF seen sitting up in bed, watching TV comfortable states he feels fine overall denies dyspnea, chest pain, palpitations, nausea, dizziness no other symptoms Physical Exam Vital Signs (Past 24 Hours): Last Vital Signs Temp 38.1 C H 01/21/19 12:00 Pulse 87 01/21/19 12:00 Resp 18 01/21/19 12:00 BP 110/69 01/21/19 12:00 Pulse Ox 94 01/21/19 12:00 Physical Exam: General- oriented x 3, not in distress, speaks in sentences with no effort or accessory muscle use Eyes- anicteric Neck- no JVD Lungs- clear breath sounds bilaterally, no rales/wheezes Heart- normal rate, regular rhythm; no murmurs Abdomen- normal bowel sounds, nondistended, soft, nontender Extremities- grade 1 lower leg edema left >right, no calf tenderness/erythema/warmth Neuro- alert, oriented x 3; no gross focal neurologic deficits Skin- warm & dry Results & Data Laboratory Results Laboratory Results - last 24 hr 01/20/19 01/21/19 01/21/19 20:42 05:57 05:57 WBC 9.08 RBC 4.84 Hgb 13.1 L Hct 40.6 L MCV 83.9 MCH 27.1 MCHC 32.3 RDW Std Deviation 48.4 H RDW Coeff of Sebastian 16.0 H Plt Count 228 MPV 9.4 Sodium 139 Potassium 4.2 Chloride 106 Carbon Dioxide 28 Anion Gap 5.0 BUN 12 Creatinine 0.89 Est Cr Clr Drug Dosing 108.6 Est GFR ( Amer) 108.5 Est GFR (Non-Af Amer) 93.6 BUN/Creatinine Ratio 13.3 Glucose 120 H POC Glucose 127 H Estimat Average Glucose Hemoglobin A1c Calcium 8.6 NT-Pro-B Natriuret Pep 3844 H 01/21/19 01/21/19 01/21/19 05:57 07:31 11:44 WBC RBC Hgb Hct MCV MCH MCHC RDW Std Deviation RDW Coeff of Sebastian Plt Count MPV Sodium Potassium Chloride Carbon Dioxide Anion Gap BUN Creatinine Est Cr Clr Drug Dosing Est GFR ( Amer) Est GFR (Non-Af Amer) BUN/Creatinine Ratio Glucose POC Glucose 118 H 147 H Estimat Average Glucose 154 Hemoglobin A1c 7.0 H Calcium NT-Pro-B Natriuret Pep
[2019-01-21] MEDS ORDERED: SPIRONOLACTONE 25 MG TAB PO SCH (17:00)
[2019-01-21] MEDS: SPIRONOLACTONE 25 MG TAB PO SCH (17:37)
[2019-01-21] MEDS: ATORVASTATIN 40 MG TAB PO SCH (21:12)
[2019-01-22] MEDS: METOPROLOL TARTRATE 25 MG TAB PO SCH ×3 (06:12→21:11)
[2019-01-22 06:40] LABS: Hematocrit (blood only) 42.3 % (42-52); Hemoglobin 13.4 g/dL (14.0-18.0); Mean Corpuscular Hgb Conc 31.7 g/dL (32-36); Mean Corpuscular Volume 83.4 fL (80-100); Mean Platelet Volume 9.5 fL (7.4-10.4); Platelet Count 238 K/uL (130-400); RDW Standard Deviation 48.1 fL (36.4-46.3); Red Blood Count 5.07 M/uL (4.7-6.1); White Blood Count 9.05 K/uL (4.8-10.8)
[2019-01-22 07:30] LABS: BUN Creatinine Ratio 14.2 (10-20); Calcium 8.3 mg/dl (8.5-10.1); Creatinine Clr Calc Pharmacy 116.1 ml/min; Est GFR (African American) 112.2; Est GFR (Non-African American) 96.8
[2019-01-22] MEDS: ASPIRIN 81 MG ECTAB PO SCH (08:08)
[2019-01-22] MEDS: FUROSEMIDE 40 MG in SYRINGE 0 ML IV SCH ×2 (08:08→21:11)
[2019-01-22] MEDS: LISINOPRIL 5 MG TAB PO SCH (08:09)
[2019-01-22] MEDS: CLOPIDOGREL BISULFATE 75 MG TAB PO SCH (08:09)
[2019-01-22] MEDS: INSULIN ASPART 100 UNITS/ML 3 ML PEN SC SCH ×4 (08:12→21:11)
--- NOTE | 2019-01-22 10:54 | Cardiology Progress Note ---
Date of Service January 22, 2019 Assessment & Plan (1) Acute HFrEF (heart failure with reduced ejection fraction): Volume status improving. Will increase Lasix to 40 mg IV twice daily. Increase Aldactone to 25 mg daily. (2) Ischemic cardiomyopathy: Metoprolol and Aldactone increased yesterday. Continue current medications including intravenous furosemide. Patient will receive his evening dose of IV Lasix with recommendations to hold the a.m. dose in anticipation of repeat basic metabolic panel. We will likely proceed with cardiac catheterization if renal function remains stable. (3) Abnormality of lung: Abnormal CT of the lung, this could be atypical heart failure findings versus a lung nodule per the radiology findings, a repeat CT of the chest was recommended in the radiology report at a 3-month interval. Subjective Patient seen and examined at the bedside. Edema improving. Reports episodes of orthopnea and paroxysmal nocturnal dyspnea in the outpatient setting. This is improved significantly. Renal function remained stable. No chest discomfort. Heart rate mildly improved with titration of metoprolol. Blood pressure stable. Patient offers no complaints at this time. Review of Systems All systems reviewed & are unremarkable except as noted in HPI & below Physical Exam Vital Signs (Past 24 Hours): Last Vital Signs Temp 37.1 C 01/22/19 07:35 Pulse 68 01/22/19 07:35 Resp 18 01/22/19 07:35 BP 101/65 01/22/19 07:35 Pulse Ox 96 01/22/19 07:35 Physical Exam: General: NAD, AAO x3, well nourished. HEENT: Normocephalic. Atraumatic. Conjunctiva pink, no scleral icterus. Neck: No carotid bruits, the carotid upstrokes are brisk. No JVD. No HJR Heart: Regular, borderline tachycar dic, normal S-1 and S-2 no S-3 or S-4 gallop. No murmurs or rub appreciated. PMI is not displaced. No RV heave. Lungs: Scant crackles at the bases bilaterally. No rhonchi or wheeze. Abdomen: Normal bowel sounds. Soft. Nontender. No masses or organomegaly. No abdominal bruits. Extremities: 1+ bilateral pedal and ankle edema, left greater than right. No clubbing, or cyanosis. Pulses: radial=2/4, Dorsalis pedis =2/4, posterior tibial=2/4. Neuro: Cranial nerves grossly intact. No focal motor deficit.
--- NOTE | 2019-01-22 13:34 | Hospitalist Progress Note ---
Date of Service January 22, 2019 Assessment & Plan (1) Acute HFrEF (heart failure with reduced ejection fraction): (2) Ischemic cardiomyopathy: per admitting service notes: This is a 59yo M with a PMH of systolic heart failure, ischemic cardiomyopathy, HTN, HLD and h/o tobacco use who presents after an abnormal nuclear stress test yesterday and evidence of decompensated systolic heart failure. -H/o anterior wall [place] in August 2018 and had 2 stents placed emergently by Dr Galeana. -Has progressive systolic heart failure with nuclear stress test performed yesterday and showed severe systolic dysfunction was noted in the range of 25% -CTA chest with small right and trace left pleural effusions. Interstitial and alveolar pulmonary edema. No pulmonary emboli identified -Given 40mg IV Lasix in ED and will continue to diurese with 40mg IV Lasix daily. Strict I&Os, daily weights - Lasix increased to 40mg IV BID Spironolactone also increased to 25mg po daily Metoprolol increased to 25m po TID -Diuresing well Plan for cardiac cath tomorrow (3) HTN (hypertension): stable continue Lisinopril (4) HLD (hyperlipidemia): Continue statin (5) Diabetes mellitus, type II: Recently diagnosed during Aug 2018 admission with a1c of 7.3 A1c 7.0 -Hold oral agent -SSI while in-patient -BSG AC HS (6) Tobacco use disorder: Has not smoked for the past 4 months since STEMI (7) Lung abnormality: Alveolar edema vs pulmonary nodule seen on chest CTA -A repeat CT of the chest was recommended in the radiology report at a 3-month interval (8) Fever: 01/21/2019 Tmax 38.1 denies symptoms of infection no clear focus of infection identified at this time will continue to monitor trend if persistent, will order blood and urine cultures 01/22/2019 No fever Monitor (9) DVT prophylaxis: SCDs (10) Discharge planning issues: DVT Ppx: SCDs Code status: FULL PCP: [facility] Dispo: Plan to return home once medically stable. Subjective ff up for systolic CHF seen sitting up at the edge of the bed, comfortable States he feels fine today Denies shortness of breath, dizziness, chest pain, palpitations no other symptoms Physical Exam Vital Signs (Past 24 Hours): Last Vital Signs Temp 37.1 C 01/22/19 12:00 Pulse 75 01/22/19 12:00 Resp 18 01/22/19 12:00 BP 106/68 01/22/19 12:00 Pulse Ox 95 01/22/19 12:00 Physical Exam: General- oriented x 3, not in distress, speaks in sentences with no effort or accessory muscle use Eyes- anicteric Neck- no JVD Lungs- clear BS bilaterally, no crackles or wheezing Heart- normal rate, regular rhythm; no murmurs Abdomen- normal bowel sounds, nondistended, soft, nontender Extremities-mild lower leg edema, no calf tenderness Neuro- alert, oriented x 3; no gross focal neurologic deficits Skin- warm & dry Results & Data Laboratory Results Laboratory Results - last 24 hr 01/21/19 01/22/19 01/22/19 20:06 06:05 06:05 WBC 9.05 RBC 5.07 Hgb 13.4 L Hct 42.3 MCV 83.4 MCH 26.4 MCHC 31.7 L RDW Std Deviation 48.1 H RDW Coeff of Sebastian 16.0 H Plt Count 238 MPV 9.5 Sodium 139 Potassium 4.0 Chloride 103 Carbon Dioxide 30 Anion Gap 6.0 BUN 12 Creatinine 0.82 Est Cr Clr Drug Dosing 116.1 Est GFR ( Amer) 112.2 Est GFR (Non-Af Amer) 96.8 BUN/Creatinine Ratio 14.2 Glucose 115 H POC Glucose 112 H Calcium 8.3 L NT-Pro-B Natriuret Pep 3153 H 01/22/19 01/22/19 01/22/19 07:30 11:24 16:18 WBC RBC Hgb Hct MCV MCH MCHC RDW Std Deviation RDW Coeff of Sebastian Plt Count MPV Sodium Potassium Chloride Carbon Dioxide Anion Gap BUN Creatinine Est Cr Clr Drug Dosing Est GFR ( Amer) Est GFR (Non-Af Amer) BUN/Creatinine Ratio Glucose POC Glucose 136 H 108 H 81 Calcium NT-Pro-B Natriuret Pep
[2019-01-22] MEDS: SPIRONOLACTONE 25 MG TAB PO SCH (16:59)
[2019-01-22] MEDS: ATORVASTATIN 40 MG TAB PO SCH (21:11)
[2019-01-23 02:13] LABS: Potassium 3.8 mmol/L (3.5-5.1)
[2019-01-23 02:15] LABS: Magnesium 1.9 mg/dl (1.8-2.4)
[2019-01-23] MEDS: METOPROLOL TARTRATE 25 MG TAB PO SCH ×3 (06:18→21:09)
[2019-01-23] MEDS: INSULIN ASPART 100 UNITS/ML 3 ML PEN SC SCH ×4 (06:28→21:10)
[2019-01-23] MEDS: LISINOPRIL 5 MG TAB PO SCH (08:46)
[2019-01-23] MEDS: ASPIRIN 81 MG ECTAB PO SCH (08:47)
[2019-01-23] MEDS: CLOPIDOGREL BISULFATE 75 MG TAB PO SCH (08:47)
[2019-01-23 08:50] LABS: BUN Creatinine Ratio 13.3 (10-20); Calcium 9.2 mg/dl (8.5-10.1); Creatinine Clr Calc Pharmacy 99.3 ml/min; Est GFR (African American) 101.1; Est GFR (Non-African American) 87.3; Potassium 4.3 mmol/L (3.5-5.1)
[2019-01-23 10:17] LABS: INR 1.1 (0.9-1.1); Partial Thromboplastin Ratio 0.9; Partial Thromboplastin Time 25.3 Seconds (21.0-31.0); Prothrombin Time 11.5 Seconds (9.0-12.0)
[2019-01-23] MEDS ORDERED: LIDOCAINE HCL 1% 20 ML VIAL ONE (10:43)
[2019-01-23] MEDS ORDERED: MIDAZOLAM HCL 1 MG/ML 2ML VIAL ONE (10:44)
[2019-01-23] MEDS ORDERED: NiCARDipine HCL INJ 2.5 MG/ML 10 ML AMP ONE (10:45)
[2019-01-23] MEDS ORDERED: fentaNYL citrate 100 MCG/2 ML VIAL ONE (10:45)
[2019-01-23] MEDS ORDERED: HEPARIN (PORCINE) 1000 UNIT/ML 10 ML (CATH LAB USE ONLY) ONE (10:45)
[2019-01-23] MEDS ORDERED: NITROGLYCERIN/D5W 100MCG/ML 20ML SYR ONE (10:45)
--- NOTE | 2019-01-23 11:14 | Cardiology Progress Note ---
Date of Service January 23, 2019 Assessment & Plan (1) Acute HFrEF (heart failure with reduced ejection fraction): Cardiac catheterization with coronary angiography will be performed today. Risks, benefits, alternatives discussed with patient. Intravenous Lasix on hold. Further recommendation pending review of result. Consider transition to Entresto after 48-hour washout of AUDREY inhibitor. Transition to metoprolol succinate prior to discharge. (2) Ischemic cardiomyopathy: As Above. (3) Abnormality of lung: Abnormal CT of the lung, this could be atypical heart failure findings versus a lung nodule per the radiology findings, a repeat CT of the chest was recommended in the radiology report at a 3-month interval. Subjective Patient seen and examined the bedside. Edema improving. Ambulating in the halls. Previously noted orthopnea has resolved. Denies chest pain. Nonsustained ventricular tachycardia noted on telemetry overnight. Review of Systems All systems reviewed & are unremarkable except as noted in HPI & below Physical Exam Vital Signs (Past 24 Hours): Last Vital Signs Temp 37.0 C 01/23/19 10:34 Pulse 71 01/23/19 10:34 Resp 18 01/23/19 10:34 BP 105/65 01/23/19 10:34 Pulse Ox 98 01/23/19 10:34 Physical Exam: General: NAD, AAO x3, well nourished. HEENT: Normocephalic. Atraumatic. Conjunctiva pink, no scleral icterus. Neck: No carotid bruits, the carotid upstrokes are brisk. No JVD. No HJR Heart: Regular normal S-1 and S-2 no S-3 or S-4 gallop. No murmurs or rub appreciated. PMI is not displaced. No RV heave. Lungs: Clear bilateral without rales , rhonchi, or wheeze. Abdomen: Normal bowel sounds. Soft. Nontender. No masses or organomegaly. No abdominal bruits. Extremities: Trace to mild bilateral pedal edema, left greater than right. No clubbing, or cyanosis. Pulses: radial=2/4, Dorsalis pedis =2/4, posterior tibial=2/4. Neuro: Cranial nerves grossly intact. No focal motor deficit.
--- NOTE | 2019-01-23 11:15 | Pre Anesthesia Assessment ---
Date of Service January 23, 2019 Pre Sedation Assessment Vital Signs Temp Pulse Pulse Resp BP BP Pulse Ox 01/25/19 10:57 36.9 C 79 19 112/80 97 01/25/19 08:00 88 01/25/19 07:15 36.6 C 75 18 128/78 98 01/25/19 04:52 36.9 C 81 18 135/93 95 01/24/19 23:47 37.3 C 81 18 130/92 96 01/24/19 19:07 37.0 C 75 18 112/67 95 01/24/19 17:38 80 01/24/19 15:30 37.2 C 81 18 122/80 96 Cardiovascular + regular rate + pedal edema Respiratory normal respiratory effort, lungs clear to auscultation Pre-Sedation Airway Assessment Smoking Status: Former smoker Hx Sleep Apnea: No Hx Difficult Intubation: No Short, Thick Neck: No Thyromental Distance: > or= 3.5 Finger Breadths Oral Cavity: + WNL Mallampati Class: III ASA: ASA3 NPO Status Date of Last Intake of Fluids: 01/23/19 Time of Last Intake of Fluids: 08:00 Date of Last Intake of Solid Food: 01/22/19 Procedure Planning Contraindications for Sedation: none Current Medications Reviewed: Yes Notes The planned sedation has been discussed with the patient. Informed Consent was obtained. I have identified the patient, determined the appropriateness of sedation and have assessed the patient immediately prior to the procedure. All medicine(s) and interventions are by my order.
--- NOTE | 2019-01-23 11:54 | Post Anesthesia Assessment ---
Date of Service January 23, 2019 Post Sedation Assessment Vital Signs Temp Pulse Pulse Resp BP BP Pulse Ox 01/25/19 10:57 36.9 C 79 19 112/80 97 01/25/19 08:00 88 01/25/19 07:15 36.6 C 75 18 128/78 98 01/25/19 04:52 36.9 C 81 18 135/93 95 01/24/19 23:47 37.3 C 81 18 130/92 96 01/24/19 19:07 37.0 C 75 18 112/67 95 01/24/19 17:38 80 01/24/19 15:30 37.2 C 81 18 122/80 96 Post Sedation Plan On clinical assessment, the patient appears to have tolerated the sedation without complications. Patient is recovering as anticipated. Patient will continue to be monitored by nursing and may be discharged when sedation discharge criteria are met per below protocol. Upon Completions of procedure and additional 15 minutes continue every 5 minute vital signs and the P.A.R. score; then discharge to a Phase I or Fast Track to Phase II per the following guidelines: * Discharge Patient to appropriate Phase II area if PAR is 8 or greater or return to pre- procedure baseline. The post - procedure orders will be as directed. * If PAR score is less than 8 or not return to pre-procedure baseline then patient will follow Phase I monitoring till PAR is reached for Phase II. The Phase I may be done in procedure room or may call to secure a Phase I area. * �If naloxone or flumazenil are used for reversal, hold in Phase I for continued monitoring from when last reversal dose was given for a minimum of 60 minutes or longer pending the nurse and/or physician discretion of patient condition before discharge to Phase II.� Please call the Sedation Physician to re-evaluate and complete post-note for discharge to Phase II area. Do NOT discharge from procedure sedation or Phase 1 until post- sedation evaluation note is complete by procedure /sedation MD Sedation Discharge Instructions to be given to the patient at discharge to home.
--- NOTE | 2019-01-23 11:57 | Cardiac Catheterization ---
Cardiac Cath Procedure Full Procedure Date January 23, 2019 Pre-Procedure Diagnosis Pre-Procedure Diagnosis: CAD, CHF, Cardiomyopathy and Cardiothoracic Symptom AUC Score AUC Score: 9 Post-Procedure Diagnosis Post-Procedure Diagnosis: Mild CAD and Elevated Intracardiac Pressures Procedure(s) Performed Procedure(s) Performed: Coronary Angiography, Left Heart Cath and LV Angiography Chief Librarian Branch Leno Voss DO Nurse General Duty(s) Maude CORPORATE RECEPTIONIST Estimated Blood Loss Estimated Blood Loss: 5cc Medication(s) Medication(s): Fentanyl, Heparin, Nicardipine and Versed Summary of Findings Patent LAD stent Hemodynamics Rest Ao:: 90/56/70 Final Ao: 96/59/75 LV: 88/3/15 Recommendations Recommendations: Medical Therapy and/or Counseling and Management Recommendatons (Electrophysiology consultation for ICD implantation.) Specimens Specimens: None Radiation Exposure (mGy) 1174 Contrast (mls) 100 Fluids (cc crystalloids) Fluids (cc crystalloids): 30nss Anesthesia Moderate sedation. Start 1122. End 1147. Sedation monitor: Showers RN Procedural Complication(s) None Disposition PCU ACC Data: Good Humor Vendor Cardiac Status Clinical evaluation leading to the procedure CAD Presenation: Stable angina Anginal Classification: CCS III Heart Failure: NYHA Class: CCS III Coronary Anatomy Dominant: Co-Dominant Left Main (% Stenosis): Normal LAD (% Stenosis): Proximal (Patent stent extending through the mid segment.) and Distal (20%) D1 (% Stenosis): Ostial (70% covered by LAD stent) D2 (% Stenosis): Ostial (70%, covered by LAD stent) D3 (% Stenosis): Ostial (70% covered by LAD stent.) Circumflex (% Stenosis): Normal OM1 (% Stenosis): Normal OM2 (% Stenosis): Normal L PL1 (% Stenosis): Normal L PL2 (% Stenosis): Normal L PDA (% Stenosis): Normal RCA (% Stenosis): Proximal (30%) R PDA (% Stenosis): Normal AM (% Stenosis): Mid (30%) Left Ventricular Angiography EF (%): 20% Wall Motion: Anterior (Akinetic), Apical (Akinetic) and Inferior (Apical segment is akinetic with hypokinetic mid segment. The basal portion appears to contract normally.) Mitral Regurgitation: None Diagnostic Physicians Name: Leno Voss DO Status: Elective Closure Device Percutaneous Entry Location: Radial Recommendations: Medical Therapy and/or Counseling and Management Recommendatons (Electrophysiology consultation for ICD implantation.) Intraprocedure Events Significant Disection: No Perforation: No
[2019-01-23] MEDS ORDERED: Nursing to Pharmacy Communication ONE (16:27)
[2019-01-23] MEDS: SPIRONOLACTONE 25 MG TAB PO SCH (16:37)
--- NOTE | 2019-01-23 17:27 | Hospitalist Progress Note ---
Date of Service January 23, 2019 Assessment & Plan (1) Acute HFrEF (heart failure with reduced ejection fraction): (2) Ischemic cardiomyopathy: per admitting service notes: This is a 59yo M with a PMH of systolic heart failure, ischemic cardiomyopathy, HTN, HLD and h/o tobacco use who presents after an abnormal nuclear stress test yesterday and evidence of decompensated systolic heart failure. -H/o anterior wall [place] in August 2018 and had 2 stents placed emergently by Dr Galeana. -Has progressive systolic heart failure with nuclear stress test performed yesterday and showed severe systolic dysfunction was noted in the range of 25% -CTA chest with small right and trace left pleural effusions. Interstitial and alveolar pulmonary edema. No pulmonary emboli identified -Given 40mg IV Lasix in ED and will continue to diurese with 40mg IV Lasix daily. Strict I&Os, daily weights - Lasix 40mg IV BID Spironolactone 25mg po daily Metoprolol increased to 25m po TID - diuresed well s/p Cardiac Cath 01/23/19 Dr. Fajardo consulted for possible ICD placement (3) HTN (hypertension): stable continue Lisinopril (4) HLD (hyperlipidemia): Continue statin (5) Diabetes mellitus, type II: Recently diagnosed during Aug 2018 admission with a1c of 7.3 A1c 7.0 -Hold oral agent -SSI while in-patient -BSG AC HS (6) Tobacco use disorder: Has not smoked for the past 4 months since STEMI (7) Lung abnormality: Alveolar edema vs pulmonary nodule seen on chest CTA -A repeat CT of the chest was recommended in the radiology report at a 3-month interval (8) Fever: 01/21/2019 Tmax 38.1 denies symptoms of infection no clear focus of infection identified at this time will continue to monitor trend if persistent, will order blood and urine cultures 01/22/2019 No fever Monitor 01/23/19 remains afebrile (9) DVT prophylaxis: SCDs (10) Discharge planning issues: DVT Ppx: SCDs Code status: FULL PCP: [facility] Dispo: Plan to return home once medically stable. Subjective ff up for CHF s/p Cardiac Cath today seen resting in bedside chair, comfortable states he feels fine overall denies chest pain, dizziness, nausea noted to have non sustained V tach overnight - asymptomatic no other symptoms Physical Exam Vital Signs (Past 24 Hours): Last Vital Signs Temp 36.8 C 01/23/19 15:06 Pulse 73 01/23/19 15:06 Resp 18 01/23/19 15:06 BP 96/62 L 01/23/19 15:06 Pulse Ox 99 01/23/19 15:06 Physical Exam: General- oriented x 3, not in distress, speaks in sentences with no effort or accessory muscle use Eyes- anicteric Neck- no JVD Lungs- clear BS BL, no rales/wheezing Heart- normal rate, regular rhythm; no murmurs Abdomen- normal bowel sounds, nondistended, soft, nontender Extremities- trace lower ext edema, no calf tenderness Neuro- alert, oriented x 3; no gross focal neurologic deficits Skin- warm & dry Results & Data Laboratory Results Laboratory Results - last 24 hr 01/22/19 01/23/19 01/23/19 20:38 01:53 06:06 PT INR APTT PTT Ratio Sodium Potassium 3.8 Chloride Carbon Dioxide Anion Gap BUN Creatinine Est Cr Clr Drug Dosing Est GFR ( Amer) Est GFR (Non-Af Amer) BUN/Creatinine Ratio Glucose POC Glucose 126 H 101 H Calcium Magnesium 1.9 01/23/19 01/23/19 01/23/19 08:21 09:43 10:37 PT 11.5 INR 1.1 APTT 25.3 PTT Ratio 0.9 Sodium 140 Potassium 4.3 Chloride 102 Carbon Dioxide 31 Anion Gap 7.0 BUN 13 Creatinine 0.95 Est Cr Clr Drug Dosing 99.3 Est GFR ( Amer) 101.1 Est GFR (Non-Af Amer) 87.3 BUN/Creatinine Ratio 13.3 Glucose 112 H POC Glucose 108 H Calcium 9.2 Magnesium 01/23/19 16:15 PT INR APTT PTT Ratio Sodium Potassium Chloride Carbon Dioxide Anion Gap BUN Creatinine Est Cr Clr Drug Dosing Est GFR ( Amer) Est GFR (Non-Af Amer) BUN/Creatinine Ratio Glucose POC Glucose 120 H Calcium Magnesium
[2019-01-23] MEDS: ATORVASTATIN 40 MG TAB PO SCH (21:11)
[2019-01-24] MEDS: METOPROLOL TARTRATE 25 MG TAB PO SCH ×3 (06:43→21:45)
[2019-01-24] MEDS: INSULIN ASPART 100 UNITS/ML 3 ML PEN SC SCH ×4 (09:44→20:23)
[2019-01-24] MEDS: CLOPIDOGREL BISULFATE 75 MG TAB PO SCH (10:53)
[2019-01-24] MEDS: ASPIRIN 81 MG ECTAB PO SCH (10:53)
[2019-01-24] MEDS: ACETAMINOPHEN 325 MG TAB PO PRN (16:01)
[2019-01-24] MEDS: SPIRONOLACTONE 25 MG TAB PO SCH (16:54)
--- NOTE | 2019-01-24 18:46 | Cardiology Progress Note ---
Date of Service January 24, 2019 Assessment & Plan (1) Acute HFrEF (heart failure with reduced ejection fraction): Cardiac catheterization performed 01/23/19 demonstrating patent LAD stents otherwise nonobstructive CAD. Elevated left ventricular end-diastolic pressure noted. Patient appears compensated. Transition to oral furosemide tomorrow, 40 mg daily. Lisinopril discontinued. Will initiate low-dose Entresto in a.m. as well. Transition metoprolol tartrate to succinate formulation at time of discharge. Continue Aldactone 25 mg daily. Plan for defibrillator implantation tomorrow. Patient will be n.p.o. except medications after midnight. (2) Ischemic cardiomyopathy: As Above. (3) Abnormality of lung: Abnormal CT of the lung, this could be atypical heart failure findings versus a lung nodule per the radiology findings, a repeat CT of the chest was recommended in the radiology report at a 3-month interval. Subjective Patient seen and examined at the bedside. ICD was not implanted due to scheduling constraints. Denies chest pain or shortness of breath. No lower extremity edema. Tolerating medications listed below. Review of Systems All systems reviewed & are unremarkable except as noted in HPI & below Physical Exam Vital Signs (Past 24 Hours): Last Vital Signs Temp 37.2 C 01/24/19 15:30 Pulse 80 01/24/19 17:38 Resp 18 01/24/19 15:30 BP 122/80 01/24/19 15:30 Pulse Ox 96 01/24/19 15:30 Physical Exam: General: NAD, AAO x3, well nourished. HEENT: Normocephalic. Atraumatic. Conjunctiva pink, no scleral icterus. Neck: No carotid bruits, the carotid upstrokes are brisk. No JVD. No HJR Heart: Regular normal S-1 and S-2 no S-3 or S-4 gallop. No murmurs or rub appreciated. PMI is not displaced. No RV heave. Lungs: Clear bilateral without rales , rhonchi, or wheeze. Abdomen: Normal bowel sounds. Soft. Nontender. No masses or organomegaly. No abdominal bruits. Extremities: No clubbing, cyanosis, or edema. Pulses: radial=2/4, Dorsalis pedis =2/4, posterior tibial=2/4. Neuro: Cranial nerves grossly intact. No focal motor deficit.
[2019-01-24] MEDS: ATORVASTATIN 40 MG TAB PO SCH (20:22)
[2019-01-25] MEDS: ACETAMINOPHEN 325 MG TAB PO PRN ×2 (02:36→19:49)
[2019-01-25] MEDS: METOPROLOL TARTRATE 25 MG TAB PO SCH ×3 (06:11→20:36)
[2019-01-25] MEDS: SACUBITRIL-VALSARTAN 24-26 MG TAB PO SCH ×2 (06:11→17:31)
[2019-01-25 06:53] LABS: BUN Creatinine Ratio 19.6 (10-20); Calcium 8.7 mg/dl (8.5-10.1); Creatinine Clr Calc Pharmacy 117.8 ml/min; Est GFR (African American) 113.3; Est GFR (Non-African American) 97.8; Potassium 4.3 mmol/L (3.5-5.1)
[2019-01-25] MEDS: ASPIRIN 81 MG ECTAB PO SCH (08:03)
[2019-01-25] MEDS: CLOPIDOGREL BISULFATE 75 MG TAB PO SCH (08:03)
[2019-01-25] MEDS: FUROSEMIDE 40 MG TAB PO SCH (08:03)
[2019-01-25] MEDS: INSULIN ASPART 100 UNITS/ML 3 ML PEN SC SCH ×4 (08:04→20:37)
--- NOTE | 2019-01-25 08:34 | Hospitalist Progress Note ---
Date of Service January 25, 2019 delayed entry date of service as noted above Assessment & Plan (1) Acute HFrEF (heart failure with reduced ejection fraction): (2) Ischemic cardiomyopathy: per admitting service notes: This is a 59yo M with a PMH of systolic heart failure, ischemic cardiomyopathy, HTN, HLD and h/o tobacco use who presents after an abnormal nuclear stress test yesterday and evidence of decompensated systolic heart failure. -H/o anterior wall [place] in August 2018 and had 2 stents placed emergently by Dr Galeana. -Has progressive systolic heart failure with nuclear stress test performed yesterday and showed severe systolic dysfunction was noted in the range of 25% -CTA chest with small right and trace left pleural effusions. Interstitial and alveolar pulmonary edema. No pulmonary emboli identified -Given 40mg IV Lasix in ED and will continue to diurese with 40mg IV Lasix daily. Strict I&Os, daily weights - on Lasix 40mg IV BID Spironolactone 25mg po daily Metoprolol increased to 25m po TID - diuresed well s/p Cardiac Cath 01/23/19 EPS consulted for possible ICD placement--> plan for placement tomorrow (3) HTN (hypertension): stable continue Lisinopril (4) HLD (hyperlipidemia): Continue statin (5) Diabetes mellitus, type II: Recently diagnosed during Aug 2018 admission with a1c of 7.3 A1c 7.0 -Hold oral agent -SSI while in-patient -BSG HS (6) Tobacco use disorder: Has not smoked for the past 4 months since STEMI (7) Lung abnormality: Alveolar edema vs pulmonary nodule seen on chest CTA -A repeat CT of the chest was recommended in the radiology report at a 3-month interval (8) Fever: 01/21/2019 Tmax 38.1 denies symptoms of infection no clear focus of infection identified at this time will continue to monitor trend if persistent, will order blood and urine cultures 01/22/2019 No fever Monitor 01/24/19 remains afebrile (9) DVT prophylaxis: SCDs (10) Discharge planning issues: DVT Ppx: SCDs Code status: FULL PCP: [facility] Dispo: Plan to return home once medically stable. Subjective ff up for CHF states he feels fine overall comfortable, resting in bed denies chest pain, dizziness ambulating with no problems no other symptoms Physical Exam Vital Signs (Past 24 Hours): Last Vital Signs Temp 36.6 C 01/25/19 07:15 Pulse 75 01/25/19 07:15 Resp 18 01/25/19 07:15 BP 128/78 01/25/19 07:15 Pulse Ox 98 01/25/19 07:15 Physical Exam: General- oriented x 3, not in distress, speaks in sentences with no effort or accessory muscle use Eyes- anicteric Neck- no JVD Lungs- clear breath sounds bilaterally, no crackles Heart- normal rate, regular rhythm; no murmurs Abdomen- normal bowel sounds, nondistended, soft, nontender Extremities- no edema, no calf tenderness Neuro- alert, oriented x 3; no gross focal neurologic deficits Skin- warm & dry Results & Data Laboratory Results noted and reviewed
--- NOTE | 2019-01-25 12:40 | Cardiology Progress Note ---
Date of Service January 25, 2019 Assessment & Plan (1) Acute HFrEF (heart failure with reduced ejection fraction): Cardiac catheterization performed 01/23/19 demonstrating patent LAD stents. Elevated left ventricular end-diastolic pressure noted. Patient appears compensated. Continue current heart failure medications including furosemide 40 mg daily, Aldactone 25 mg daily, and Entresto. Transition metoprolol tartrate to succinate formulation at time of discharge. ICD implantation scheduled today. (2) Ischemic cardiomyopathy: As Above. (3) Abnormality of lung: Abnormal CT of the lung, this could be atypical heart failure findings versus a lung nodule per the radiology findings, a repeat CT of the chest was recommended in the radiology report at a 3-month interval. Subjective Patient seen and examined the bedside. Scheduled for ICD implantation today. Received his first dose of Entresto this a.m. Labs are stable. Denies chest pain or shortness of breath. Orthopnea has resolved. No edema. Offers no complaints. No wrist ecchymosis or hematoma. Review of Systems All systems reviewed & are unremarkable except as noted in HPI & below Physical Exam Vital Signs (Past 24 Hours): Last Vital Signs Temp 36.9 C 01/25/19 10:57 Pulse 79 01/25/19 10:57 Resp 19 01/25/19 10:57 BP 112/80 01/25/19 10:57 Pulse Ox 97 01/25/19 10:57 Physical Exam: General: NAD, AAO x3, well nourished. HEENT: Normocephalic. Atraumatic. Conjunctiva pink, no scleral icterus. Neck: No carotid bruits, the carotid upstrokes are brisk. No JVD. No HJR Heart: Regular normal S-1 and S-2 no S-3 or S-4 gallop. No murmurs or rub appreciated. PMI is not displaced. No RV heave. Lungs: Clear bilateral without rales , rhonchi, or wheeze. Abdomen: Normal bowel sounds. Soft. Nontender. No masses or organomegaly. No abdominal bruits. Extremities: No clubbing, cyanosis, or edema. Pulses: radial=2/4, Dorsalis pedis =2/4, posterior tibial=2/4. Neuro: Cranial nerves grossly intact. No focal motor deficit.
--- NOTE | 2019-01-25 14:48 | Pre Anesthesia Assessment ---
Date of Service January 25, 2019 Pre Sedation Assessment Vital Signs Temp Pulse Pulse Resp BP BP Pulse Ox 01/25/19 10:57 36.9 C 79 19 112/80 97 01/25/19 08:00 88 01/25/19 07:15 36.6 C 75 18 128/78 98 01/25/19 04:52 36.9 C 81 18 135/93 95 01/24/19 23:47 37.3 C 81 18 130/92 96 01/24/19 19:07 37.0 C 75 18 112/67 95 01/24/19 17:38 80 01/24/19 15:30 37.2 C 81 18 122/80 96 Cardiovascular + regular rate Respiratory + respiratory effort normal Pre-Sedation Airway Assessment Smoking Status: Former smoker Hx Sleep Apnea: No Hx Difficult Intubation: No Short, Thick Neck: No Thyromental Distance: > or= 3.5 Finger Breadths Oral Cavity: + WNL Mallampati Class: III ASA: ASA3 NPO Status Date of Last Intake of Fluids: 01/23/19 Time of Last Intake of Fluids: 08:00 Date of Last Intake of Solid Food: 01/22/19 Procedure Planning Contraindications for Sedation: none Current Medications Reviewed: Yes Notes The planned sedation has been discussed with the patient. Informed Consent was obtained. I have identified the patient, determined the appropriateness of sedation and have assessed the patient immediately prior to the procedure. All medicine(s) and interventions are by my order.
--- NOTE | 2019-01-25 14:48 | History & Physical Bridge Note ---
Date of Service January 25, 2019 History & Physical Bridge Note I have examined the patient, reviewed the History & Physical and in the interval since the performance of the History & Physical I have noted the following changes of clinical significance: Pt underwent cardiac cath that revealed patent stents. He has a persistent cardiomyopathy; for a single chamber ICD. I discussed the procedure and potential risks with the patient. Consents obtained.
[2019-01-25] MEDS ORDERED: LIDOCAINE HCL 1% 20 ML VIAL ONE (15:03)
[2019-01-25] MEDS ORDERED: BUPIVACAINE 0.5 % 5 MG/1 ML PF 10ML VIAL ONE (15:03)
[2019-01-25] MEDS ORDERED: BACITRACIN INJ 50,000 UNIT VIAL ONE (15:03)
[2019-01-25] MEDS ORDERED: CEFAZOLIN 250 MG/ML 1 GM VIAL ONE (15:10)
[2019-01-25] MEDS ORDERED: MIDAZOLAM HCL 5 MG/ML 1 ML VIAL ONE (15:10)
[2019-01-25] MEDS ORDERED: fentaNYL citrate 100 MCG/2 ML VIAL ONE (15:10)
[2019-01-25] MEDS ORDERED: OXYCODONE/ACETAMINOPHEN 5mg/325mg TAB PO PRN (16:14)
--- NOTE | 2019-01-25 16:15 | Post Anesthesia Assessment ---
Date of Service January 25, 2019 Post Sedation Assessment Vital Signs Temp Pulse Pulse Resp BP BP Pulse Ox 01/25/19 10:57 36.9 C 79 19 112/80 97 01/25/19 08:00 88 01/25/19 07:15 36.6 C 75 18 128/78 98 01/25/19 04:52 36.9 C 81 18 135/93 95 01/24/19 23:47 37.3 C 81 18 130/92 96 01/24/19 19:07 37.0 C 75 18 112/67 95 01/24/19 17:38 80 Recovery Score Activity: Moves 4 extremities Respiration: Deep Breath/Cough Circulation: +/-20% PreAnes Value Consciousness: Fully Awake Oxygen Saturation: > 92% On Room Air Discharge Sedation Level of Care: Fast Track Phase II Post Sedation Plan On clinical assessment, the patient appears to have tolerated the sedation without complications. Patient is recovering as anticipated. Patient will continue to be monitored by nursing and may be discharged when sedation discharge criteria are met per below protocol. Upon Completions of procedure and additional 15 minutes continue every 5 minute vital signs and the P.A.R. score; then discharge to a Phase I or Fast Track to Phase II per the following guidelines: * Discharge Patient to appropriate Phase II area if PAR is 8 or greater or return to pre- procedure baseline. The post - procedure orders will be as directed. * If PAR score is less than 8 or not return to pre-procedure baseline then patient will follow Phase I monitoring till PAR is reached for Phase II. The Phase I may be done in procedure room or may call to secure a Phase I area. * �If naloxone or flumazenil are used for reversal, hold in Phase I for continued monitoring from when last reversal dose was given for a minimum of 60 minutes or longer pending the nurse and/or physician discretion of patient condition before discharge to Phase II.� Please call the Sedation Physician to re-evaluate and complete post-note for discharge to Phase II area. Do NOT discharge from procedure sedation or Phase 1 until post- sedation evaluation note is complete by procedure /sedation MD Sedation Discharge Instructions to be given to the patient at discharge to home.
--- NOTE | 2019-01-25 16:16 | Operative Report ---
Post Operative Report Pre & Post Diagnosis ICM Operation Date: 01/23/19 11:00 <No data on this case meets the specified criteria> Operation Date: 01/25/19 15:00 <No data on this case meets the specified criteria> Procedure Operation Date: 01/23/19 11:00 Actual Procedures p Cath, Left with Cors and Vent - Leno Voss DO s Cineradiography w/Routine Exam - Leno Voss DO Operation Date: 01/25/19 15:00 Actual Procedures p ICD Insertion Single or Dual - Belen Lopez DO Surgeon Belen Lopez, [employer]er none Estimated Blood Loss 5 Findings Consistent with Post-Op Diagnosis Specimens none Description of Procedure see official report I attest to the content of the Intraoperative Record and any orders documented therein. Any exceptions are noted below.
[2019-01-25] MEDS: SPIRONOLACTONE 25 MG TAB PO SCH (17:31)
[2019-01-25] MEDS: ATORVASTATIN 40 MG TAB PO SCH (20:36)
--- NOTE | 2019-01-25 21:00 | Hospitalist Progress Note ---
Date of Service January 25, 2019 Assessment & Plan (1) Acute HFrEF (heart failure with reduced ejection fraction): (2) Ischemic cardiomyopathy: per admitting service notes: This is a 59yo M with a PMH of systolic heart failure, ischemic cardiomyopathy, HTN, HLD and h/o tobacco use who presents after an abnormal nuclear stress test yesterday and evidence of decompensated systolic heart failure. -H/o anterior wall [place] in August 2018 and had 2 stents placed emergently by Dr Galeana. -Has progressive systolic heart failure with nuclear stress test performed yesterday and showed severe systolic dysfunction was noted in the range of 25% -CTA chest with small right and trace left pleural effusions. Interstitial and alveolar pulmonary edema. No pulmonary emboli identified -Given 40mg IV Lasix in ED and will continue to diurese with 40mg IV Lasix daily. Strict I&Os, daily weights - on Lasix 40mg po daily Spironolactone 25mg po daily Metoprolol increased to 25m po TID - diuresed well s/p Cardiac Cath 01/23/19 EPS consulted for possible ICD placement--> ICD placement today (3) HTN (hypertension): stable continue Lisinopril (4) HLD (hyperlipidemia): Continue statin (5) Diabetes mellitus, type II: Recently diagnosed during Aug 2018 admission with a1c of 7.3 A1c 7.0 -Hold oral agent -SSI while in-patient -BSG AC HS (6) Tobacco use disorder: Has not smoked for the past 4 months since STEMI (7) Lung abnormality: Alveolar edema vs pulmonary nodule seen on chest CTA -A repeat CT of the chest was recommended in the radiology report at a 3-month interval (8) Fever: 01/21/2019 Tmax 38.1 denies symptoms of infection no clear focus of infection identified at this time will continue to monitor trend if persistent, will order blood and urine cultures 01/22/2019 No fever Monitor 01/24/19 remains afebrile (9) DVT prophylaxis: SCDs (10) Discharge planning issues: DVT Ppx: SCDs Code status: FULL PCP: [facility] Dispo: Plan to return home once medically stable. Subjective ff up for CHF resting in bed, comfortable states he feels fine denies dizziness, dyspnea, palpitations, chest pain awaiting ICD placement no other symptoms Physical Exam Vital Signs (Past 24 Hours): Last Vital Signs Temp 37 C 03/06/19 19:53 Pulse 87 01/25/19 19:53 Resp 18 01/25/19 19:53 BP 121/86 01/25/19 19:53 Pulse Ox 97 01/25/19 19:53 Physical Exam: General- oriented x 3, not in distress, speaks in sentences with no effort or accessory muscle use Eyes- anicteric Neck- no JVD Lungs- clear BS BL, no rales, no wheezing Heart- normal rate, regular rhythm; no murmurs Abdomen- normal bowel sounds, nondistended, soft, nontender Extremities- no pretibial edema, no calf tenderness Neuro- alert, oriented x 3; no gross focal neurologic deficits Skin- warm & dry Results & Data Laboratory Results Laboratory Results - last 24 hr 01/25/19 01/25/19 01/25/19 06:03 07:18 11:10 Sodium 138 Potassium 4.3 Chloride 106 Carbon Dioxide 26 Anion Gap 6.0 BUN 16 Creatinine 0.80 Est Cr Clr Drug Dosing 117.8 Est GFR ( Amer) 113.3 Est GFR (Non-Af Amer) 97.8 BUN/Creatinine Ratio 19.6 Glucose 133 H POC Glucose 117 H 125 H Calcium 8.7 01/25/19 01/25/19 16:31 20:24 Sodium Potassium Chloride Carbon Dioxide Anion Gap BUN Creatinine Est Cr Clr Drug Dosing Est GFR ( Amer) Est GFR (Non-Af Amer) BUN/Creatinine Ratio Glucose POC Glucose 104 H 151 H Calcium
[2019-01-26] MEDS: ACETAMINOPHEN 325 MG TAB PO PRN (00:07)
[2019-01-26] MEDS: METOPROLOL TARTRATE 25 MG TAB PO SCH (06:29)
[2019-01-26] MEDS: SACUBITRIL-VALSARTAN 24-26 MG TAB PO SCH (06:29)
--- NOTE | 2019-01-26 06:45 | XRay Report ---
XR chest 2V routine CLINICAL HISTORY: post implant COMPARISON STUDY: 01/20/2019 FINDINGS: Placement of a permanent unipolar cardiac pacemaker/defibrillator. Slight prominence of pul monary vasculature. Diaphragms smooth. No evidence of pneumothorax. IMPRESSION: Anatomic alignment post cardiac pacemaker/fibrillator placement. No evidence for pneumot horax. The above report was generated using voice recognition software. It may contain grammatical, syntax or spelling errors. Electronically signed by: Florian Jenkins M.D. 01/26/2019 6:43 AM
[2019-01-26] MEDS: FUROSEMIDE 40 MG TAB PO SCH (07:30)
[2019-01-26] MEDS: CLOPIDOGREL BISULFATE 75 MG TAB PO SCH (07:30)
[2019-01-26] MEDS: ASPIRIN 81 MG ECTAB PO SCH (07:30)
--- NOTE | 2019-01-26 09:56 | Cardiology Progress Note ---
Date of Service January 26, 2019 Assessment & Plan (1) Acute HFrEF (heart failure with reduced ejection fraction): Cardiac catheterization performed 01/23/19 demonstrating patent LAD stents. Elevated left ventricular end-diastolic pressure noted. Patient appears compensated. Continue current heart failure medications including furosemide 40 mg daily, Aldactone 25 mg daily, and Entresto. Prophylactic ICD placed. We will change metoprolol tartrate to metoprolol succinate 25 mg twice per day Plan follow-up with [facility] cardiology scheduled Stable for discharge today (2) Ischemic cardiomyopathy: As Above. (3) Abnormality of lung: Abnormal CT of the lung, this could be atypical heart failure findings versus a lung nodule per the radiology findings, a repeat CT of the chest was recommended in the radiology report at a 3-month interval. Subjective Patient seen and examined at the bedside. Chart, telemetry, laboratory studies reviewed. Patient tolerated ICD implantation well. No complaints overnight. Ambulatory in room this morning without difficulty. Telemetry reveals no arrhythmias Patient denies chest pain shortness of breath orthopnea worsening peripheral edema. Procedure incisions healing well. Physical Exam Vital Signs (Past 24 Hours): Last Vital Signs Temp 36.5 C 01/26/19 07:18 Pulse 79 01/26/19 07:18 Resp 18 01/26/19 07:18 BP 95/92 L 01/26/19 07:18 Pulse Ox 96 01/26/19 07:18 Constitutional: WD/WN, vitals as above Eyes: PERRL Neck: trachea midline, no thyromegaly Respiratory: normal respiratory effort, lungs clear to auscultation Cardiovascular: RRR, no murmur, no edema Heart Sounds: no gallop Chest (Breasts): Additional Comments: Pacer defibrillator site and left shoulder with surrounding mild ecchymosis but no hematoma incisional line intact Gastrointestinal (Abdomen): normal bowel sounds, soft, nontender, no hepatosplenomegaly Musculoskeletal: no cyanosis or clubbing, extremities motor strength 5/5 Psychiatric: A+Ox3, euthymic affect Results & Data Laboratory Results Laboratory Results - last 24 hr 01/25/19 01/25/19 01/25/19 11:10 16:31 20:24 POC Glucose 125 H 104 H 151 H 01/26/19 07:16 POC Glucose 144 H
[2019-01-26] MEDS: INSULIN ASPART 100 UNITS/ML 3 ML PEN SC SCH (10:02)
--- NOTE | 2019-01-26 13:17 | Hospitalist Progress Note ---
Date of Service January 26, 2019 Assessment & Plan (1) Acute HFrEF (heart failure with reduced ejection fraction): (2) Ischemic cardiomyopathy: per admitting service notes: This is a 59yo M with a PMH of systolic heart failure, ischemic cardiomyopathy, HTN, HLD and h/o tobacco use who presents after an abnormal nuclear stress test yesterday and evidence of decompensated systolic heart failure. -H/o anterior wall [place] in August 2018 and had 2 stents placed emergently by Dr Galeana. -Has progressive systolic heart failure with nuclear stress test performed yesterday and showed severe systolic dysfunction was noted in the range of 25% -CTA chest with small right and trace left pleural effusions. Interstitial and alveolar pulmonary edema. No pulmonary emboli identified -Given 40mg IV Lasix in ED and will continue to diurese with 40mg IV Lasix daily. Strict I&Os, daily weights the patient was referred to terrazzo pol[employer] helper Dr. Voss Given Lasix IV twice a day and Aldactone Diuresed well Underwent a cardiac catheterization January 23, 2019 demonstrating patent LAD stents. Elevated left ventricular end-diastolic pressure noted. underwent AICD placement on January 25, 2019 Discharge medications: Entresto 1 tablet twice a day Toprol succinate 25 mg p.o. daily Lasix 40 mg p.o. daily Aldactone 25 mg p.o. daily Aspirin 81 mg daily Plavix 70 mg p.o. daily Lipitor 80 mg p.o. daily Follow-up with primary care physician in 1 week as outlined in discharge instruction Follow-up with [employer] pol[employer] helper as scheduled s/p Cardiac Cath 01/23/19 EPS consulted for possible ICD placement--> ICD placement today (3) HTN (hypertension): stable Medication management as noted above (4) HLD (hyperlipidemia): Continue Lipitor 80 mg p.o. daily (5) Diabetes mellitus, type II: Recently diagnosed during Aug 2018 admission with a1c of 7.3 A1c 7.0 Resume metformin p.o. daily Outpatient follow-up (6) Tobacco use disorder: Has not smoked for the past 4 months since STEMI (7) Lung abnormality: Alveolar edema vs pulmonary nodule seen on chest CTA -A repeat CT of the chest was recommended in the radiology report at a 3-month interval (8) Fever: 01/21/2019 Tmax 38.1 denies symptoms of infection no clear focus of infection identified at this time will continue to monitor trend if persistent, will order blood and urine cultures 01/22/2019 No fever Monitor 01/24/19 remains afebrile (9) DVT prophylaxis: SCDs (10) Discharge planning issues: DVT Ppx: SCDs Code status: FULL PCP: [facility] Dispo: Plan to return home once medically stable. Disposition discharge home Follow-up as per #1 diagnosis Subjective ff up for CHF Seen sitting up in bedside chair, comfortable States he feels fine overall Denies chest pain, shortness of breath, dizziness, palpitations Minimal discomfort on the incision site of the pacemaker Denies other symptoms States he is ready would like to be surgery no other symptoms Physical Exam Vital Signs (Past 24 Hours): Last Vital Signs Temp 36.5 C 01/26/19 13:01 Pulse 77 01/26/19 13:01 Resp 18 01/26/19 13:01 BP 97/60 L 01/26/19 13:01 Pulse Ox 92 01/26/19 13:01 Physical Exam: General- oriented x 3, not in distress, speaks in sentences with no effort or accessory muscle use Eyes- anicteric Neck- no JVD Lungs- clear breath sounds bilaterally No crackles No wheezing Left upper anterior chest: Pacemaker incision site healing well, no bleeding no discharge no erythema no warmth, no hematoma Heart- normal rate, regular rhythm; no murmurs Abdomen- normal bowel sounds, nondistended, soft, nontender Extremities- no pretibial edema, no calf tenderness Neuro- alert, oriented x 3; no gross focal neurologic deficits Skin- warm & dry Results & Data Laboratory Results Laboratory Results - last 24 hr 01/25/19 01/25/19 01/25/19 11:10 16:31 20:24 POC Glucose 125 H 104 H 151 H 01/26/19 01/26/19 07:16 11:05 POC Glucose 144 H 273 H
--- NOTE | 2019-01-26 13:21 | Discharge Summary ---
Date of Service January 26, 2019 Admission HPI Per Admitting Provider This is a 59yo M with a PMH of systolic heart failure, ischemic cardiomyopathy, HTN, HLD and h/o tobacco use who presents after an abnormal nuclear stress test yesterday. Patient had an anterior wall DE in August 2018 and had 2 stents placed emergently by Dr Galeana, where he was found to have a 100% acute late proximal occlusion of the LAD at the takeoff of the first diagonal. Echo performed during this admission showed EF of 35-40% with akinesis of the apical wall, mid anterior, septal and anteroseptal leavitt. Did not establish with PCP or [facility] cardiology until recently, when he had a resting 2D echo with ED: 25- 29% with grade 3 diastolic dysfunction as well as mild valvular disease. A nuclear stress test performed yesterday and showed severe systolic dysfunction was noted in the range of 25%. Patient denies any chest pain but endorses fatigue and dyspnea on exertion. Also has been having intermittent edema of left lower extremity. States he has been taking all medications as prescribed and has not missed doses. Denies fever, chills, lightheadedness, headache, chest pain, palpitations, SOB, nausea, vomiting, abdominal pain, dysuria, diarrhea or constipation. CXR with evidence of cardiomegaly with volume overload and congestive change. Given 40mg IV Lasix in ED and evaluated by Dr. Sevilla. Admission Exam Per Admitting Provider Vital Signs (Past 24 Hours): Last Vital Signs Temp 36.8 C 01/20/19 11:35 Pulse 80 01/20/19 16:35 Resp 18 01/20/19 16:35 BP 131/81 01/20/19 16:35 Pulse Ox 94 01/20/19 16:35 Physical Exam: General Appearance: WD/WN, no apparent distress, resting comfortably Head: normocephalic, atraumatic Eyes: normal inspection, PERRL, EOMI ENT: hearing grossly normal, pharynx normal (moist mucous membranes) Neck: supple, no JVD, no adenopathy Respiratory/Chest: lungs clear to auscultation. No wheezes, rales or rhonci. No respiratory distress or accessory muscle use Cardiovascular: regular rate, rhythm, no murmur, normal peripheral pulses, 1+ LLE edema, trace RLE edema Abdomen/GI: normal bowel sounds, soft, non-tender to palpation Extremities/Musculoskelatal: normal inspection, no calf tenderness, normal capillary refill, BLE with hyperpigmentation Neurologic/Psych: alert, normal mood/affect, oriented x 3 Skin: normal color, warm/dry Principal Diagnosis Acute decompensation of systolic congestive heart failure Discharge Exam Vital Signs (Past 24 Hours): Last Vital Signs Temp 36.5 C 01/26/19 13: Pulse 77 01/26/19 13:01 Resp 18 01/26/19 13:01 BP 97/60 L 01/26/19 13:01 Pulse Ox 92 01/26/19 13:01 Physical Exam: General- oriented x 3, not in distress, speaks in sentences with no effort or accessory muscle use Eyes- anicteric Neck- no JVD Lungs- clear breath sounds bilaterally No crackles No wheezing Left upper anterior chest: Pacemaker incision site healing well, no bleeding no discharge no erythema no warmth, no hematoma Heart- normal rate, regular rhythm; no murmurs Abdomen- normal bowel sounds, nondistended, soft, nontender Extremities- no pretibial edema, no calf tenderness Neuro- alert, oriented x 3; no gross focal neurologic deficits Skin- warm & dry Discharge Data Allergies Allergy/AdvReac Type Severity Reaction Status Date / Time No Known Allergies Allergy Unverified 01/20/19 12:20 Consultations 01/20/19 14:34 Consult Cardiology Stat 01/20/19 16:24 ED Decision to Admit Stat 01/23/19 12:11 Consult Cardiology Routine Procedures Performed Operation Date: 01/23/19 11:00 Actual Procedures p Cath, Left with Cors and Vent - Leno Voss DO s Cineradiography w/Routine Exam - Leno Voss DO Operation Date: 01/25/19 15:00 Actual Procedures p ICD Insertion Single or Dual - Belen Lopez DO Ordered Studies 01/20/19 12:44 US venous doppler LE LT Stat IMPRESSION: No evidence of left lower extremity DVT. 01/20/19 13:20 CT angio chest PE protocol Stat IMPRESSION: 1. No pulmonary emboli identified. 2. Small right and trace left pleural effusions. Interstitial and alveolar pulmonary edema. 3. A few airspace opacities within the right upper lung, including a 1.4 cm right upper lobe opacity. This favors alveolar edema or a mild infectious process. A pulmonary nodule is considered less likely however a follow-up chest CT in 3 months to ensure resolution is recommended. 4. Moderate cardiomegaly. 5. Mild mediastinal and bilateral hilar lymphadenopathy which may be related to pulmonary edema however can be assessed on follow-up chest CT to ensure resolution. 01/23/19 10:40 CL Cath Imgs for PACS use only Routine 01/25/19 15:00 EP Lab Images for PACS ONCE Hospital Course (1) Acute HFrEF (heart failure with reduced ejection fraction): (2) Ischemic cardiomyopathy: per admitting service notes: This is a 59yo M with a PMH of systolic heart failure, ischemic cardiomyopathy, HTN, HLD and h/o tobacco use who presents after an abnormal nuclear stress test yesterday and evidence of decompensated systolic heart failure. -H/o anterior wall DE in August 2018 and had 2 stents placed emergently by Dr Galeana. -Has progressive systolic heart failure with nuclear stress test performed yesterday and showed severe systolic dysfunction was noted in the range of 25% -CTA chest with small right and trace left pleural effusions. Interstitial and alveolar pulmonary edema. No pulmonary emboli identified -Given 40mg IV Lasix in ED and will continue to diurese with 40mg IV Lasix daily. Strict I&Os, daily weights the patient was referred to ingot supervisor Dr. Voss Given Lasix IV twice a day and Aldactone Diuresed well Underwent a cardiac catheterization January 23, 2019 demonstrating patent LAD stents. Elevated left ventricular end-diastolic pressure noted. underwent AICD placement on January 25, 2019 Discharge medications: Entresto 1 tablet twice a day Toprol succinate 25 mg p.o. daily Lasix 40 mg p.o. daily Aldactone 25 mg p.o. daily Aspirin 81 mg daily Plavix 70 mg p.o. daily Lipitor 80 mg p.o. daily Follow-up with primary care physician in 1 week as outlined in discharge instruction Follow-up with ingot supervisor as scheduled (3) HTN (hypertension): stable Medication management as noted above (4) HLD (hyperlipidemia): Continue Lipitor 80 mg p.o. daily (5) Diabetes mellitus, type II: Recently diagnosed during Aug 2018 admission with a1c of 7.3 A1c 7.0 Resume metformin p.o. daily Outpatient follow-up (6) Tobacco use disorder: Has not smoked for the past 4 months since STEMI (7) Lung abnormality: Alveolar edema vs pulmonary nodule seen on chest CTA -A repeat CT of the chest was recommended in the radiology report at a 3-month interval (8) Discharge planning issues: DVT Ppx: SCDs Code status: FULL PCP: [facility] Dispo: Plan to return home once medically stable. Disposition discharge home Follow-up as per #1 diagnosis Total Time Total Time Spent Total Time Spent (In Minutes): 30 minutes Discharge Plan Discharge Items Patient Disposition: Home - Home Health Services Reason For Visit: ACUTE DECOMPENSATED SYSTOLIC HF,CARDIOMYOPATHY Discharge Diagnosis: Acute decompensated systolic congestive heart failure Discharge Goals: Diagnostic testing and Therapeutic intervention Activity: As commented below Activity Comment: do not lift the left elbow over the left shoulder for 1 month Lifting: No more than 10 pounds Lifting Comment: do not lift more than 10 pounds with the left arm for 2 weeks Bathing Comment: can shower wednesday01/27/2019 Exercise/Sports: Wait until after follow-up appointment Driving/Machine Use Comment: No driving until reevaluated by primary care physician Non-emergency contact: Primary Care Provider Call non-emergency contact if: you have any medication questions, your symptoms worsen, your pain is not controlled and you have a fever Follow-up/Referrals: Zachary Lagos M.D. [Primary Care Provider] - 02/01/19 12:45 pm Diet: Carb Consistent or DM2 and Heart Healthy Addtl Provider Instructions: Please follow-up with primary care physician as noted above. Please follow-up with ingot supervisor as scheduled. Call primary care physician or return to the ER immediately if increasing shortness of breath, leg swelling, weakness, dizziness, increasing swelling/pain/discharge on the incision site, fever/chills. Please review your new medication list as noted below. Prescriptions: New spironolactone 25 mg Tablet 25 mg PO 1700 30 Days Qty: 30 RF: 2 metoprolol succinate 25 mg Tablet Extended Release 24 Hr 25 mg PO BID 30 Days Qty: 60 RF: 2 Entresto 24-26 mg Tablet 1 tab PO Q12H 30 Days Qty: 60 RF: 2 furosemide 40 mg Tablet 40 mg PO QAM 30 Days Qty: 30 RF: 2 Continued clopidogrel 75 mg Tablet 75 mg PO QAM Qty: 30 RF: 11 aspirin [Ecotrin Low Strength] 81 mg Tablet,Delayed Release (Dr/Ec) 81 mg PO QAM Qty: 30 RF: 0 metformin 500 mg tablet 500 mg PO BID17 RF: 0 atorvastatin 80 mg tablet 80 mg PO HS RF: 0 Discontinued lisinopril [Zestril] 5 mg Tablet 5 mg PO QAM Qty: 30 RF: 6 spironolactone 25 mg tablet 12.5 mg PO 1700 RF: 0 metoprolol tartrate 25 mg tablet 25 mg PO BID17 RF: 0 Stand-Alone Forms: [facility] Discharge Orders: Discharge Order (Routine); Ordered 01/26/19 Ordered By: Filemon Vazquez Admission Data Admit Date/Time: 01/20/19 17:36 Attending Provider: Filemon Vazquez Admit Provider: Giuseppe Aguilera Primary Care Provider: Zachary Lagos Other Providers: Thom Sevilla ; Giuseppe Aguilera ; Cecilio Fajardo Service: Telemetry Other Interventions: Discharge Summary Assessment (RN) Last Done: 01/26/19 13:01
[2019-01-26] MEDS ORDERED: METOPROLOL SUCC 25MG EXT REL TAB PO SCH (21:00)
--- NOTE | 2019-01-27 12:50 | Operative Report ---
Post Operative Report Pre & Post Diagnosis Operation Date: 01/23/19 11:00 <No data on this case meets the specified criteria> Operation Date: 01/25/19 15:00 <No data on this case meets the specified criteria> Procedure Operation Date: 01/23/19 11:00 Actual Procedures p Cath, Left with Cors and Vent - Leno Voss DO s Cineradiography w/Routine Exam - Leno Voss DO Operation Date: 01/25/19 15:00 Actual Procedures p ICD Insertion Single or Dual - Belen Lopez DO Surgeon Belen Lopez, Furnace [employer] Equipment Operator none Estimated Blood Loss 5 I attest to the content of the Intraoperative Record and any orders documented therein. Any exceptions are noted below.
--- NOTE | 2019-01-31 01:03 | Operative Report ---
DATE OF OPERATION: 01/25/2019 PREOPERATIVE DIAGNOSIS: Ischemic cardiomyopathy. POSTOPERATIVE DIAGNOSIS: Ischemic cardiomyopathy. PROCEDURE: Single chamber defibrillator under fluoroscopic guidance. SURGEON: Belen Lopez DO RN TRIAGE: None. ANESTHESIA: Monitored conscious sedation administered under my supervision by Brenda Ardon Start time 1521 end time 1606. Total of 4 mg of Versed, 100 mcg of fentanyl. IV FLUIDS: 25 mL ANTIBIOTICS: Two grams of Ancef. ESTIMATED BLOOD LOSS: Less than 20 mL URINE OUTPUT: Not applicable. SPECIMENS: None. FINDINGS: See below. DRAINS: None. INDICATIONS: This is a 59-year-old who has a past medical history for ischemic cardiomyopathy, chronic coronary artery disease, history of a catheterization in 01/2018 where his stents were patent. Most recent catheterization in this month during this hospitalization, stents were still patent, right bundle branch block, chronic systolic heart failure, [place] Heart Association class II, hypertension, hyperlipidemia, tobacco and diabetes. Due to the patient's persistent ischemic cardiomyopathy and most recent catheterization showed patent stents. He was recommended a single chamber defibrillator. CONSENT: Consent was obtained prior to the patient going into electrophysiology lab. The patient, benefits, alternatives of procedure. Risks include but not limited to sudden cardiac , cardiac as fast as migration, injury to the blood vessels, chamber of the heart, lung, bleeding and infection. The patient understood these risks and agreed to the 10. DESCRIPTION OF THE PROCEDURE: The patient was brought into the electrophysiology lab in a fasting state. He was connected to continuous network systems administrator. A timeout was performed to ensure patient identity and procedure correctly. The patient was prepped and draped over the left infraclavicular space in normal surgical standard fashion. Monitored conscious was given throughout the procedure for patient's comfort level. [place] precautions maintained throughout the procedure. Ten mL of 1% lidocaine and bupivacaine mixture were given in left deltopectoral groove. Incision was made in the left deltopectoral groove. Blunt dissection was performed down to identify cephalic vein. Cephalic vein was identified and isolated using 0 silk ties. The vein was nicked with #11 blade and a guidewire was inserted without any resistance. A 9.5-[place] sheath was inserted over the guidewire without any resistance. The guidewire and dilator were removed. The right ventricular lead was then advanced into right ventricle and positioned into intraventricular apex under fluoroscopic guidance. There was adequate pacing and sensing thresholds and no diaphragmatic stimulation with pacing. The 9.5-[place] sheath was peeled away and lead was fixated to pectoralis muscle using a silk suture. The defibrillator pocket was then created over the pectoralis muscle within the pectoralis fascia using blunt dissection. The pocket was flushed with copious amounts bacitracin and saline wash and inspected for hemostasis. The defibrillator was then attached to the leads, making sure that the pins were in appropriate position, passed set screw and set screws were tightened. Defibrillator then placed in the pocket making sure that the leads were lying flat beneath the device. Felipe stat was placed in the pocket. The incision was closed in a 3-layer fashion using a 2-0 Vicryl interrupted suture followed by a 3-0 Vicryl interrupted suture followed by a 4-0 Monocryl running stitch and Dermabond was applied. EQUIPMENT: 1. Pulse generator is a [employer] AF MRI SureScan [id number], serial number [id number]. 2. Right ventricular lead [employer] 6935M-62 cm, serial # [id number]. INTRAOPERATIVE TESTING: Right ventricular lead: R-wave 17.3 millivolts, impedance 963 ohms, threshold 0.8 volts at 0.9 milliamps. FINAL MEASUREMENTS THROUGH THE DEVICE: 1. Right ventricular lead: R-wave 18 millivolts, impedance 817 ohms, threshold 1 volt at 0.4 milliseconds. 2. RV coil is 65 ohms. FINAL PARAMETERS: VVI 40; right ventricular amplitude 3.5 volts, pulse width 0.4 milliseconds, sensitivity 0.3 millivolts, VF zone 188 beats per minute for 30/40 detection intervals. IMPRESSION: Successful implantation of a single chamber rate responsive implantable cardiac defibrillator secondary to ischemic cardiomyopathy. PLAN: Monitor patient overnight with 12-lead ECG, chest x-ray. He is not allowed to lift left elbow or left shoulder for 1 month. He cannot lift more than 10 pounds with the left arm for 2 weeks. He can shower tomorrow, let water run over incision, do not scrub it. He should follow up in our [facility] office for device and wound check on Wednesday02/03/2019. I attest to the content of the Intraoperative Record and any orders documented therein. Any exceptions are noted below. MTDD
== END 2019-01-26 14:19 | disposition home health service (06) | DRG 224 ==
LOC: ED 11:30 → 2E 17:36
PROC: EPB.ICD (2019-01-25 15:00)

== ENCOUNTER 2022-12-28 11:08 | Inpatient (IN) ==
[2022-12-28 11:44] LABS: Basophils # (auto) 0.03 K/uL (0-0.2); Basophils % (auto) 0.4 %; Eosinophils # (auto) 0.12 K/uL (0-0.50); Eosinophils % (auto) 1.5 %; Hematocrit (blood only) 41.5 % (42.0-52.0); Hemoglobin 13.2 g/dl (14.0-18.0); Immature Granulocytes # (auto) 0.04 K/uL (0.01-0.20); Immature Granulocytes % (auto) 0.5 %; Lymphocytes # (auto) 1.12 K/uL (1.2-3.4); Lymphocytes % (auto) 14.2 %; Mean Corpuscular Hemoglobin 26.9 pg (25.0-34.0); Mean Corpuscular Hgb Conc 31.8 g/dL (32.0-36.0); Mean Corpuscular Volume 84.5 fL (80.0-100.0); Mean Platelet Volume 9.4 fL (9.4-12.4); Monocytes # (auto) 0.62 K/uL (0.11-0.59); Monocytes % (auto) 7.9 %; Neutrophils # (auto) 5.94 K/uL (1.40-6.50); Neutrophils % (auto) 75.5 %; Platelet Count 228 K/uL (130-400); RDW Coefficient of Variation 19.3 % (11.5-14.5); RDW Standard Deviation 59.5 fL (36.4-46.3); Red Blood Count 4.91 M/uL (4.70-6.10); White Blood Count 7.87 K/ul (4.8-10.8)
--- NOTE | 2022-12-28 11:46 | XRay Report ---
XR chest 1V portable HISTORY: 62 years-old Male chf acute shortness of breath COMPARISON: 01/26/2019 TECHNIQUE: AP view of the chest FINDINGS: Cardiac silhouette is enlarged. Coronary arterial stenting. Left subclavian pacer/AICD. No pneumothor ax or large pleural effusion. Pulmonary vascular congestion with mild interstitial coarsening. Degene rative changes of the shoulders and spine. IMPRESSION: Cardiomegaly with pulmonary vascular congestion. ACT 112: Negative or not required by law. The above report was generated using voice recognition software. It may contain grammatical, syntax o r spelling errors. Electronically signed by: Seferino Ruvalcaba M.D. 12/28/2022 11:44 AM
[2022-12-28 12:07] LABS: INR 5.2 (0.9-1.1); Prothrombin Time 50.9 Seconds (9.0-12.0)
[2022-12-28 12:23] LABS: Albumin Globulin Ratio 1.1 (0.9-2); Albumin Level 3.6 gm/dl (3.4-5.0); BUN Creatinine Ratio 23.6 (10-20); Bilirubin,Total 1.6 mg/dl (0.2-1.0); Creatinine Clr Calc Pharmacy 92.7 ml/min; Est GFR (African American) 82.9 ml/min; Est GFR (Non-African American) 71.6 ml/min; Globulin 3.2 gm/dl (2.5-4.0); Potassium 4.6 mmol/L (3.5-5.1); Total Protein 6.8 gm/dl (6.0-8.3)
[2022-12-28 12:26] LABS: Troponin I High Sensitivity 45.3 pg/ml (0-20)
[2022-12-28] MEDS ORDERED: FUROSEMIDE 40 MG/4 ML VIAL IV ONE ×2 (12:27→19:13)
--- NOTE | 2022-12-28 12:34 | Electrocardiogram Report ---
Test Reason : Blood Pressure : / mmHG Vent. 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
--- NOTE | 2022-12-28 12:40 | Emergency Department Note ---
Impression & Plan DM type 2 (diabetes mellitus, type 2), Atrial flutter with rapid ventricular response, Supratherapeutic INR, Acute HFrEF (heart failure with reduced ejection fraction) ED Provider Note NAME: ALESHIA TORRES AGE: 62 SEX: M ARRIVES VIA: Walk-In INFORMANT: Patient ED PROVIDER(S): Alejo Nolasco MD CHIEF COMPLAINT: Edema, SOB, referred. PLAN: Disposition: Admit MEDICAL DECISION MAKING: The patient is a pleasant 62-year-old gentleman with a past medical history ischemic cardiomyopathy with EF of 20% status post AICD, hypertension, diabetes, history of apical mural thrombus on warfarin who presents to the emergency department accompanied by his via walk-in, referred by his cardiology office for evaluation of decompensated heart failure in the setting of the patient reporting rapid increase in fluid retention with lower extremity edema, orthopnea. The patient also further noted that he has had uncontrolled blood sugar over the past week or so in the 200s-300s where previously he was well controlled in the 100s. Patient denies any cough, congestion, chest pain but does feel increased shortness of breath from his baseline. He denies any change in his diet or increase in fluid intake. He reports he has been urinating his normal amount and frequently needs to urinate abruptly when he is in bed at night. On arrival the patient is in acute distress, afebrile, heart in the 100s and other with stable vital signs. He appears hypervolemic with 2+ bilateral lower extremity pitting edema. EKG demonstrates suspected atrial flutter with variable AV block. No overt acute ischemia. Chest x-ray demonstrates evidence of congestive failure. WBC and platelets within normal limits. H/H 13.2/41.5 similar to prior values in 2019. INR 5.2 supratherapeutic but no evidence of active bleeding. Chemistry without metabolic acidosis though with glucose of 273. TB. 1.6, nonspecific. ALT 53 and alk phos 475 without recent value for comparison. H igh-sensitivity troponin 45.3 likely related to the patient's hypervolemia as is his elevated BNP of 888. Lipase is not elevated. TSH within normal limits. Patient ordered for IV Lasix. Given the extent of the patient's worsening complicated by his uncontrolled diabetes and new onset aFib/flutter reasonable to admit the patient for further treatment of his decompensated CHF. Case was discussed with Martina PEREZ with Dr. Shelton, [facility] hospitalist, who will evaluate the patient for admission. Triage Nursing notes reviewed and agree them. Prior/outside medical records reviewed Vital Signs: reviewed Differential diagnosis: Reactive airway disease, pneumonia, pneumothorax, COPD, CHF, infections, cardiac ischemia, pulmonary embolism, musculoskeletal, gastrointestinal, as well as other pathologies. ER treatment provided: See below. Diagnostics interpreted by me: ECG: Suspected atrial flutter with variable AV block and PVCs, right bundle branch block, no overt ST elevation or depression, QTc 456, QRS 140 Cardiac Monitoring: An order for continuous cardiac monitoring was placed and demonstrated atrial flutter with variable AV block, 106 bpm, intermittent PVCs per my interpretation. Laboratory studies: See below Imaging studies: See below Consultation(s): Case was discussed with Martina PEREZ with Dr[facility] Shel[facility], [facility], who will evaluate the patient for admission. HPI: The patient is a pleasant 62-year-old gentleman with a past medical history ischemic cardiomyopathy with EF of 20% status post AICD, hypertension, diabetes, history of apical mural thrombus on warfarin who presents to the emergency department accompanied by his via walk-in, referred by his cardiology office for evaluation of decompensated heart failure in the setting of the sara ent reporting rapid increase in fluid retention with lower extremity edema, orthopnea. The patient also further noted that he has had uncontrolled blood sugar over the past week or so in the 200s-300s where previously he was well controlled in the 100s. Patient denies any cough, congestion, chest pain but does feel increased shortness of breath from his baseline. He denies any change in his diet or increase in fluid intake. He reports he has been urinating his normal amount and frequently needs to urinate abruptly when he is in bed at night. ROS: See above HPI for pertinent positives & negatives. A total of 10 systems reviewed and were otherwise negative. VITALS:See Below PHYSICAL EXAMINATION: GENERAL: Awake, alert, fatigued-appearing, in no distress HENT: Normocephalic, atraumatic. Oropharynx unremarkable. EYES: Normal conjunctiva. Sclera non-icteric. NECK: Supple. No nuchal rigidity. FROM. No JVD. RESPIRATORY: Clear to auscultation. CARDIAC: Tachycardic rate, irregular rhythm. Extremities warm and well perfused. Pulses equal. ABDOMEN: Soft, non-distended. No tenderness to palpation. No rebound or guarding. No masses. RECTAL: Deferred. MUSCULOSKELETAL: Chest examination reveals no tenderness. The back is symmetrical on inspection without obvious abnormality. There is no CVA tenderness to palpation. No joint edema. LOWER EXTREMITIES: Calves are equal size bilaterally and non-tender. 2+ BLE pit ting edema. No discoloration. NEURO: Normal sensorium. No sensory or motor deficits noted. SKIN: No rash or jaundice noted. Alejo Nolasco MD Past Med/Surg History Medical History (Updated 12/29/22 @ 02:22 by Alejo Nolasco MD) Apical mural thrombus Diabetes mellitus, type II History of acute anterior wall HI s/p PCI to LAD HLD (hyperlipidemia) HTN (hypertension) Ischemic cardiomyopathy NSVT (nonsustained ventricular tachycardia) Tobacco use disorder Surgical History H/O heart artery stent August 2018 Family History Other Diabetes Social History (Updated 12/28/22 @ 15:24 by CHRIS Wheeler) Smoking Status: Former smoker Cigarettes Per Day: 10; Second Hand Exposure: No; Hx Alcohol Use: Yes Alcohol type: wine Hx Substance Use: No Preferred Language: Cape Verdean Communication Ability: Effective Showroom Executive Director Required: No Beliefs That Will Affect Care: Adventist Adventist Beliefs: Hoahaoism marital status: Current Living Situation: Spouse current occupational status: employed current occupation: [employer] Other Information That Helps Us Care for You: No Feels Safe at Home: Yes Safety Concerns: Feels Safe At This Time Assistive Devices: None Allergies Allergies Allergy/AdvReac Type Severity Reaction Status Date / Time No Known Allergies Allergy Unverified 01/20/19 12:20 Home Meds Home Medications Medication Instructions Recorded Confirmed atorvastatin 80 mg tablet 80 mg PO HS 01/20/19 12/28/22 metformin 500 mg tablet 1,000 mg PO BID 01/20/19 12/28/22 furosemide 40 mg tablet 40 mg PO DAILY 12/28/22 12/28/22 metoprolol succinate 50 mg 50 mg PO DAILY 12/28/22 12/28/22 tablet,extended release 24 hr sacubitril 24 mg-valsartan 26 mg 1 tab PO BID 12/28/22 12/28/22 tablet (Entresto) spironolactone 25 mg tablet 12.5 mg PO DAILY 12/28/22 12/28/22 warfarin 5 mg tablet 7.5 mg PO DAILY 12/28/22 12/28/22 Previous Rx's Medication Instructions Recorded aspirin 81 mg tablet,delayed 81 mg PO QAM #30 tabs 09/17/18 release (Ecotrin Low Strength) Results & Data (ED) Vital Signs Vital Signs - 24 hr 12/28/22 11:12 12/28/22 11:38 12/28/22 12:54 Temperature 36.7 C Temperature Source Temporal Artery Scan Pulse Rate 113 H 103 H Pulse Rate [Apical] 102 H Pulse Rhythm Regular Respiratory Rate 18 18 Respiratory Effort / Characteristics Non-Labored Spontaneous Non-Labored Spontaneous Respiratory Depth Normal Normal Respiratory Pattern Regular Blood Pressure 135/86 Blood Pressure [Right Arm] 132/72 Blood Pressure Mean 102 Blood Pressure Mean [Right Arm] 92 Pulse Oximetry 94 95 96 Oxygen Delivery Method Room Air Room Air Room Air Sepsis Recent Fever Within 48 Hours No Sepsis New/Unexplained Change in Mental Status N/A Sepsis Action Taken by Nursing No Action Required Laboratory Data Attestation: I reviewed the patient's lab results. 12/28/22 11:30 12/28/22 11:30 Lab Results 12/28/22 12/28/22 12/28/22 Range/Units 11:30 11:30 11:30 WBC 7.87 (4.8-10.8) K/ul RBC 4.91 (4.70-6.10) M/uL Hgb 13.2 L (14.0-18.0) g/dl Hct 41.5 L (42.0-52.0) % MCV 84.5 (80.0-100.0) fL MCH 26.9 (25.0-34.0) pg MCHC 31.8 L (32.0-36.0) g/dL RDW Std Deviation 59.5 H (36.4-46.3) fL RDW Coeff of Sebastian 19.3 H (11.5-14.5) % Plt Count 228 (130-400) K/uL MPV 9.4 (9.4-12.4) fL Immature Gran % (Auto) 0.5 % Neut % (Auto) 75.5 % Lymph % (Auto) 14.2 % Charles % (Auto) 7.9 % Eos % (Auto) 1.5 % Baso % (Auto) 0.4 % Neut # (Auto) 5.94 (1.40-6.50) K/uL Lymph # (Auto) 1.12 L (1.2-3.4) K/uL Charles # (Auto) 0.62 H (0.11-0.59) K/uL Eos # (Auto) 0.12 (0-0.50) K/uL Baso # (Auto) 0.03 (0-0.2) K/uL Immature Gran # (Auto) 0.04 (0.01-0.20) K/uL PT (9.0-12.0) Seconds INR (0.9-1.1) Sodium 136 (136-145) mmol/L Potassium 4.6 (3.5-5.1) mmol/L Chloride 104 (98-107) mmol/L Carbon Dioxide 25 (21-32) mmol/L Anion Gap 7 (3-11) BUN 26 H (6-23) mg/dl Creatinine 1.10 (0.6-1.4) mg/dl Est Cr Clr Drug Dosing 92.7 ml/min Est GFR ( Amer) 82.9 ml/min Est GFR (Non-Af Amer) 71.6 ml/min BUN/Creatinine Ratio 23.6 H (10-20) Glucose 273 H (70-99(Fasting)) mg/dl Calcium 9.0 (8.5-10.1) mg/dl Magnesium 2.0 (1.7-2.4) mg/dl Total Bilirubin 1.6 H (0.2-1.0) mg/dl AST 35 (13-39) U/L ALT 53 H (7-52) U/L Alkaline Phosphatase 475 H (34-104) U/L Troponin I High Sens 45.3 H (0-20) pg/ml B-Natriuretic Peptide 888 H (0-100) pg/ml Total Protein 6.8 (6.0-8.3) gm/dl Albumin 3.6 (3.4-5.0) gm/dl Globulin 3.2 (2.5-4.0) gm/dl Albumin/Globulin Ratio 1.1 (0.9-2) Lipase 32 (11-82) U/L TSH (0.300-4.500) uIu/ml SARS-CoV-2, RNA, NAAT (NEGATIVE) 12/28/22 12/28/22 12/28/22 Range/Units 11:30 11:30 12:53 WBC (4.8-10.8) K/ul RBC (4.70-6.10) M/uL Hgb (14.0-18.0) g/dl Hct (42.0-52.0) % MCV (80.0-100.0) fL MCH (25.0-34.0) pg MCHC (32.0-36.0) g/dL RDW Std Deviation (36.4-46.3) fL RDW Coeff of Sebastian (11.5-14.5) % Plt Count (130-400) K/uL MPV (9.4-12.4) fL Immature Gran % (Auto) % Neut % (Auto) % Lymph % (Auto) % Charles % (Auto) % Eos % (Auto) % Baso % (Auto) % Neut # (Auto) (1.40-6.50) K/uL Lymph # (Auto) (1.2-3.4) K/uL Charles # (Auto) (0.11-0.59) K/uL Eos # (Auto) (0-0.50) K/uL Baso # (Auto) (0-0.2) K/uL Immature Gran # (Auto) (0.01-0.20) K/uL PT 50.9 H (9.0-12.0) Seconds INR 5.2 H (0.9-1.1) Sodium (136-145) mmol/L Potassium (3.5-5.1) mmol/L Chloride (98-107) mmol/L Carbon Dioxide (21-32) mmol/L Anion Gap (3-11) BUN (6-23) mg/dl Creatinine (0.6-1.4) mg/dl Est Cr Clr Drug Dosing ml/min Est GFR ( Amer) ml/min Est GFR (Non-Af Amer) ml/min BUN/Creatinine Ratio (10-20) Glucose (70-99(Fasting)) mg/dl Calcium (8.5-10.1) mg/dl Magnesium (1.7-2.4) mg/dl Total Bilirubin (0.2-1.0) mg/dl AST (13-39) U/L ALT (7-52) U/L Alkaline Phosphatase (34-104) U/L Troponin I High Sens (0-20) pg/ml B-Natriuretic Peptide (0-100) pg/ml Total Protein (6.0-8.3) gm/dl Albumin (3.4-5.0) gm/dl Globulin (2.5-4.0) gm/dl Albumin/Globulin Ratio (0.9-2) Lipase (11-82) U/L TSH 2.324 (0.300-4.500) uIu/ml SARS-CoV-2, RNA, NAAT NEGATIVE (NEGATIVE) Administered Medications Furosemide (Furosemide 40 Mg/4 Ml Vial) 40 mg IV BID LAURI Stop: 01/27/23 20:59 Last Admin: 12/28/22 19:15 Dose: Not Given Documented By: JAN Insulin Aspart (Insulin Aspart Per Unit) 0 units SC ACHS LAURI Stop: 01/27/23 16:29 Last Admin: 12/28/22 20:47 Dose: 2 units Documented By: JAN Co-signed By: AMANDA Admin: 12/28/22 17:18 Dose: 6 units Documented By: JAN Co-signed By: WEST Insulin Glargine (Lantus Per Unit Charge) 10 units SQ HS [facility] Stop: 01/27/23 16:59 Last Admin: 12/28/22 17:17 Dose: 10 units Documented By: JAN Co-signed By: WEST Metoprolol Tartrate (Metoprolol Tartrate 25 Mg Tab) 25 mg PO TID LAURI Stop: 01/27/23 20:59 Last Admin: 12/28/22 20:14 Dose: 25 mg Documented By: JAN Sacubitril/Valsartan (Valsartan/Sacubitril 26/24mg Tab) 1 tab PO BID LAURI Stop: 01/27/23 20:59 Last Admin: 12/28/22 20:14 Dose: 1 tab Documented By: JAN Discontinued Medications Furosemide (Furosemide 40 Mg/4 Ml Vial) 40 mg IV ONE ONE Stop: 12/28/22 12:28 Last Admin: 12/28/22 12:45 Dose: 40 mg Documented By: NA Furosemide (Furosemide 40 Mg/4 Ml Vial) Confirm Administered Dose 40 mg IV .STK- MED ONE Stop: 12/28/22 19:14 Last Admin: 12/28/22 19:15 Dose: 40 mg Documented By: JAN Metoprolol Tartrate (Metoprolol Tartrate 25 Mg Tab) 25 mg PO NOW STA Stop: 12/28/22 14:28 Last Admin: 12/28/22 14:41 Dose: 25 mg Documented By: PETEY Imaging Data Radiologist's Impression: Chest X-Ray 12/28/22 11:19 XR chest 1V portable HISTORY: 62 years-old Male chf acute shortness of breath COMPARISON: 01/26/2019 TECHNIQUE: AP view of the chest FINDINGS: Cardiac silhouette is enlarged. Coronary arterial stenting. Left subclavian p acer/AICD. No pneumothorax or large pleural effusion. Pulmonary vascular congestion with mild interstitial coarsening. Degenerative changes of the shoulders and spine. IMPRESSION: Cardiomegaly with pulmonary vascular congestion. ACT 112: Negative or not required by law. The above report was generated using voice recognition software. It may contain grammatical, syntax or spelling errors. Electronically signed by: Seferino Ruvalcaba M.D. 12/28/2022 11:44 AM Discharge Plan Visit Data Chief Complaint: Swelling/Edema to Extremity Stated Complaint: EDEMA BUILD UP ED Provider: Alejo Nolasco Discharge Problem: DM type 2 (diabetes mellitus, type 2), Atrial flutter with rapid ventricular response, Supratherapeutic INR, Acute HFrEF (heart failure with reduced ejection fraction) Patient Disposition: Admitted As Inpatient Discharge Instructions Interventions: ED Discharge Assessment Last Done: 12/28/22 14:56
--- NOTE | 2022-12-28 13:49 | Cardiology Consultation ---
Date of Consultation December 28, 2022 Assessment & Plan (1) Acute HFrEF (heart failure with reduced ejection fraction): (2) Ischemic cardiomyopathy: (3) Atrial flutter with rapid ventricular response: (4) Supratherapeutic INR: Plan 62-year-old patient admitted with acute decompensated heart failure with reduced ejection fraction. ECG with evidence of new onset atrial flutter. ICD interrogation pending to determine onset of atrial flutter. Recommend IV diuresis with furosemide 40mg twice daily. Monitor daily weight, fluid balance, electrolytes, and GFR. Transition metoprolol succinate to tartrate formulation during hospitalization to allow for titration. We will ini tiate metoprolol tartrate 25 mg 3 times daily. First dose now. Continue Entresto and spironolactone as previously ordered. INR therapeutic since August 2022. Patient is chronically anticoagulated due to history of left ventricular apical thrombus. We will plan cardioversion during hospitalization when volume status improved. Repeat INR in a.m. Hold warfarin today due to supratherapeutic INR. Repeat resting 2D transthoracic echocardiogram. History of Present Illness Reason for Consultation: Acute on chronic heart failure with reduced ejection fraction. Requesting Physician: Martina PEREZ Attending Physician: Dr. Aggie Shelton History of Present Illness 62-year-old patient referred to the emergency department by the outpatient cardiology office due to weight gain and shortness of breath. 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 ECG on admission demonstrating probable atrial flutter. Chronically anticoagulated for history of apical mural thrombus. INR therapeutic since 09/14/2022 per review of the [facility] medical record. Supratherapeutic today at 5.2. ICD interrogation performed 10/26/2022 demonstrating elevated OptiVol fluid index indicative of possible volume overload Allergies Allergy/AdvReac Type Severity Reaction Status Date / Time No Known Allergies Allergy Unverified 01/20/19 12:20 Home Medications Medication Instructions Recorded Confirmed Type aspirin 81 mg tablet,delayed 81 mg PO QAM #30 tabs 09/17/18 12/28/22 Rx release (Ecotrin Low Strength) atorvastatin 80 mg tablet 80 mg PO HS 01/20/19 12/28/22 History metformin 500 mg tablet 1,000 mg PO BID 01/20/19 12/28/22 History furosemide 40 mg tablet 40 mg PO DAILY 12/28/22 12/28/22 History metoprolol succinate 50 mg 50 mg PO DAILY 12/28/22 12/28/22 History tablet,extended release 24 hr sacubitril 24 mg-valsartan 26 mg 1 tab PO BID 12/28/22 12/28/22 History tablet (Entresto) spironolactone 25 mg tablet 12.5 mg PO DAILY 12/28/22 12/28/22 History warfarin 5 mg tablet 7.5 mg PO DAILY 12/28/22 12/28/22 History Patient History Medical History Apical mural thrombus Diabetes mellitus, type II History of acute anterior wall NV s/p PCI to LAD HLD (hyperlipidemia) HTN (hypertension) Ischemic cardiomyopathy NSVT (nonsustained ventricular tachycardia) Tobacco use disorder Surgical History H/O heart artery stent August 2018 Family History Other Diabetes Social History Smoking Status: Former smoker Cigarettes Per Day: 10; Second Hand Exposure: No; Hx Alcohol Use: Yes Alcohol type: wine Hx Substance Use: No Preferred Language: Armenian Communication Ability: Effective Computer Networking Instructor Required: No Beliefs That Will Affect Care: Adventism Adventism Beliefs: Spiritism marital status: Current Living Situation: Spouse current occupational status: employed current occupation: [employer] Other Information That Helps Us Care for You: No Feels Safe at Home: Yes Safety Concerns: Feels Safe At This Time Assistive Devices: None Review of Systems Review of Systems: All systems reviewed & are unremarkable except as noted in Subjective Physical Exam Constitutional: well nourished; no acute distress Respiratory: no respiratory distress, no labored breathing and no retractions Auscultation: + rales (Bases bilateral) Cardiovascular: Rate/Rhythm: + irregularly irregular Heart Sounds: normal S1 and normal S2; no murmur Vessels: + JVD and radial pulses present; no carotid bruit Extremities: + edema (2+ bilateral pretibial edema) Gastrointestinal (Abdomen): Inspection/Auscultation: normal bowel sounds; abdomen not distended Percussion/Palpation: abdomen soft; abdomen nontender, no guarding and abdomen not rigid Neurologic: CN's II-XI intact bilaterally and moves all extremities; no focal motor deficits Motor/Sensory: no tremor Psychiatric: A+Ox3, euthymic affect Results & Data (MN) Vital Signs (Past 12 Hours) Vital Signs Temp Pulse Pulse Resp BP BP Pulse Ox 12/28/22 12:54 102 H 18 132/72 96 12/28/22 11:38 103 H 95 12/28/22 11:12 36.7 C 113 H 18 135/86 94 O2 Del Method 12/28/22 12:54 Room Air 12/28/22 11:38 Room Air 12/28/22 11:12 Room Air Diagnostic Findings 2D echocardiogram report summary 05/14/2022: The qualitative LV ejection fraction is 20-24% (severely reduced). The left ventricular cavity is severely dilated (LVED volume >100 ml/m^2). There is a large sized apical, septal, anteroseptal, anterior, inferior, posterior, and lateral wall motion abnormality with hypokinesis to dyskinesis of the segments. There is a moderate sized apical and anteroseptal scar. The left atrium is severely enlarged (>48 ml/m^2,). The left ventricular diastolic function is severely abnormal (grade III). Mild mitral regurgitation is present. Mild tricuspid regurgitation is present. The estimated pulmonary artery systolic pressure is 46mm Hg. The aortic root and proximal ascending aorta are mildly enlarged. Compared to last available study changes are noted as follows: Mild pulmonary hypertension now present. Cardiac catheterization report summary 01/23/2019: Dominant: Co-Dominant Left Main (% Stenosis): Normal LAD (% Stenosis): Proximal (Patent stent extending through the mid segment.) and Distal (20%) D1 (% Stenosis): Ostial (70% covered by LAD stent) D2 (% Stenosis): Ostial (70%, covered by LAD stent) D3 (% Stenosis): Ostial (70% covered by LAD stent.) Circumflex (% Stenosis): Normal OM1 (% Stenosis): Normal OM2 (% Stenosis): Normal L PL1 (% Stenosis): Normal L PL2 (% Stenosis): Normal L PDA (% Stenosis): Normal RCA (% Stenosis): Proximal (30%) R PDA (% Stenosis): Normal AM (% Stenosis): Mid (30%) Left Ventricular Angiography EF (%): 20% Wall Motion: Anterior (Akinetic), Apical (Akinetic) and Inferior (Apical segment is akinetic with hypokinetic mid segment. The basal portion appears to contract normally.) Mitral Regurgitation: None
[2022-12-28] MEDS ORDERED: METOPROLOL TARTRATE 25 MG TAB PO STA (14:27)
--- NOTE | 2022-12-28 15:20 | History & Physical Report ---
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 Holding statin due to elevated LFTs. Metoprolol succinate transitioned to tartrate by cardiology to allow for titration for atrial flutter as below Cardiology consult, Dr. Voss notified via tiger text (3) Atrial flutter with rapid ventricular response: Plan: EKG shows new onset atrial flutter Home dose metoprolol succinate 50 mg daily changed to metoprolol tartrate 25 mg TID by cardiology On Coumadin for history of apical mural thrombus, INR 5.2 --hold Coumadin today AICD interrogation (4) Apical mural thrombus: (5) Supratherapeutic INR: Plan: On Coumadin, INR 5.2 --holding Coumadin today (6) Elevated LFTs: Plan: T. bili 1.6, AST 35, ALT 53, alk phos 475 Likely hepatic congestion in the setting of acute CHF Monitor LFTs Hold statin (7) DM type 2 (diabetes mellitus, type 2): Plan: HgbA1c 8.7 10/2022, metformin increased as an outpatient Glucose 273 today Hold metformin and utilize Lantus and NovoLog per protocol while hospitalized. 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 Patient reports symptoms began about 2 weeks ago. Patient notes increasing lower extremity edema and worsening shortness of breath on exertion. Patient also reports orthopnea. Patient states that he has had a 15 pound weight gain in 2 weeks. Patient denies any changes in dietary habits or medication adjustments. Patient denies chest pain and palpitations. No lightheadedness, dizziness, diaphoresis, syncopal events. Patient reports intermittent nosebleeds over the past couple of weeks as well, last one being 2 days ago. Denies any other recent illnesses, fevers, chills. No abdominal pain, nausea, vomiting, diarrhea. Denies urinary symptoms. In the ED, patient was found to be in new onset atrial flutter. Labs show INR 5.2, glucose 273, total bili 1.6, ALT 53, alk phos 475, HS troponin 45, proBNP 888. CXR showing pulmonary vascular congestion. Patient was given Lasix 40 mg IV. Allergies Allergy/AdvReac Type Severity Reaction Status Date / Time No Known Allergies Allergy Unverified 01/20/19 12:20 Home Medications Medication Instructions Recorded Confirmed Type aspirin 81 mg tablet,delayed 81 mg PO QAM #30 tabs 09/17/18 12/28/22 Rx release (Ecotrin Low Strength) atorvastatin 80 mg tablet 80 mg PO HS 01/20/19 12/28/22 History metformin 500 mg tablet 1,000 mg PO BID 01/20/19 12/28/22 History furosemide 40 mg tablet 40 mg PO DAILY 12/28/22 12/28/22 History metoprolol succinate 50 mg 50 mg PO DAILY 12/28/22 12/28/22 History tablet,extended release 24 hr sacubitril 24 mg-valsartan 26 mg 1 tab PO BID 12/28/22 12/28/22 History tablet (Entresto) spironolactone 25 mg tablet 12.5 mg PO DAILY 12/28/22 12/28/22 History warfarin 5 mg tablet 7.5 mg PO DAILY 12/28/22 12/28/22 History Past Med/Surg History Medical History (Updated 12/28/22 @ 15:32 by CHRIS Wheeler) Apical mural thrombus Diabetes mellitus, type II History of acute anterior wall TX s/p PCI to LAD HLD (hyperlipidemia) HTN (hypertension) Ischemic cardiomyopathy NSVT (nonsustained ventricular tachycardia) Tobacco use disorder Surgical History H/O heart artery stent August 2018 Family History Other Diabetes Social History (Updated 12/28/22 @ 15:24 by CHRIS Wheeler) Smoking Status: Former smoker Cigarettes Per Day: 10; Second Hand Exposure: No; Hx Alcohol Use: Yes Alcohol type: wine Hx Substance Use: No Preferred Language: Pashto Communication Ability: Effective 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 Beliefs That Will Affect Care: Yazidism Yazidism Beliefs: Mosque marital status: Current Living Situation: Spouse current occupational status: employed current occupation: [employer] Other Information That Helps Us Care for You: No Feels Safe at Home: Yes Safety Concerns: Feels Safe At This Time Assistive Devices: None Review of Systems Review of Systems: ROS per HPI, all other systems reviewed and negative Physical Exam Constitutional: WD/WN, vitals as above Eyes: PERRL, conjunctivae normal, anicteric sclerae ENMT: external ear and nose normal, oropharynx normal Respiratory: normal respiratory effort; no respiratory distress Auscultation: + crackles (faint, BL bases) Cardiovascular: Rate/Rhythm: regular rhythm and + tachycardic Vessels: normal peripheral pulses Extremities: + edema (+3 pitting edema BLE) Gastrointestinal (Abdomen): normal bowel sounds, soft, nontender, no hepatosplenomegaly Musculoskeletal: no cyanosis or clubbing, extremities motor strength 5/5 Skin: no rashes, warm and dry chronic venous changes BLE, small area of weeping noted right anterior prasad Neurologic: PERRL, EOMI, accommodation nl, no face palsy, no dysarthria Psychiatric: A+Ox3, euthymic affect Genitourinary: + scrotal swelling Results & Data Results & Data ([facility]) Vital Signs (Past 12 Hours) Vital Signs Temp Pulse Pulse Resp BP BP Pulse Ox 12/28/22 14:56 12/28/22 14:40 105 H 20 125/79 95 12/28/22 12:54 102 H 18 132/72 96 12/28/22 11:38 103 H 95 12/28/22 11:12 36.7 C 113 H 18 135/86 94 O2 Del Method 12/28/22 14:56 Room Air 12/28/22 14:40 Room Air 12/28/22 12:54 Room Air 12/28/22 11:38 Room Air 12/28/22 11:12 Room Air Laboratory Results Short CBC 12/28/22 Range/Units 11:30 WBC 7.87 (4.8-10.8) K/ul Hgb 13.2 L (14.0-18.0) g/dl Hct 41.5 L (42.0-52.0) % Plt Count 228 (130-400) K/uL BMP 12/28/22 11:30 Sodium 136 Potassium 4.6 Chloride 104 Carbon Dioxide 25 BUN 26 H Creatinine 1.10 Glucose 273 H Calcium 9.0 Liver Function 12/28/22 Range/Units 11:30 Total Bilirubin 1.6 H (0.2-1.0) mg/dl AST 35 (13-39) U/L ALT 53 H (7-52) U/L Alkaline Phosphatase 475 H (34-104) U/L Albumin 3.6 (3.4-5.0) gm/dl Diagnostic Findings Chest X-Ray 12/28/22 11:19 XR chest 1V portable HISTORY: 62 years-old Male chf acute shortness of breath COMPARISON: 01/26/2019 TECHNIQUE: AP view of the chest FINDINGS: Cardiac silhouette is enlarged. Coronary arterial stenting. Left subclavian pacer/AICD. No pneumothorax or large pleural effusion. Pulmonary vascular congestion with mild interstitial coarsening. Degenerative changes of the shoulders and spine. IMPRESSION: Cardiomegaly with pulmonary vascular congestion. ACT 112: Negative or not required by law. The above report was generated using voice recognition software. It may contain grammatical, syntax or spelling errors. Electronically signed by: Seferino Ruvalcaba M.D. 12/28/2022 11:44 AM Code Status & VTE Plan Code Status Patient is a full code as per my discussion with him. Supervising Physician Co-Signing Physician Notes I have seen and examined the patient and have discussed the case with the provider above. I agree with the assessment and plan as stated with the following exceptions. 62 yo diabetic man with a h/o CAD and heart failure presents with progressive shortness of breath x 2 weeks. Clinical picture is consistent with an acute heart failure exacerbation including weight gain, progressive dyspnea, orthopnea, and lower extremity swelling. On physical exam he appears hypervolemic but is in NAD. He is mentating clearly. There is no increased work of breathing, but he is winded with minimal exertion. Pulmonary auscultation with crackles throughout, cardiac exam with S1/2 heard and no murmurs present. 2+LE charito and there is seepage of serosanguinous fluid coming thorught the anterior right lower extremity. Workup in the ER reveals INR 5.2, which was likely contributing to hiss reported recent epistaxis. LFTs mildly elevated. CXR with pulmonary congestion. Trop trended down 45?44. EKG reveals atrial flutter with rate of 106bpm and no ST changes to indicate acute ischemia. He is being admitted for acute heart failure exacerbation in the setting of new onset atrial flutter with rapid ventricular response. He has been seen by cardiology who performed a repeat echo tonight. He will continue intravenous furosemide, daily standing weights, strict I/Os and replacement of electrolytes as needed. Cont home Entresto, ASA, spironolactone, beta mariely. DO Nikita
[2022-12-28] MEDS ORDERED: GLUCAGON FOR INJ 1 MG VIAL SQ PRN (15:52)
[2022-12-28] MEDS ORDERED: DEXTROSE 50% 50 ML SYRINGE IV PRN (15:52)
[2022-12-28] MEDS ORDERED: ACETAMINOPHEN 325 MG TAB PO PRN (15:52)
[2022-12-28] MEDS ORDERED: CARBOHYDRATES FOR HYPOGLYCEMIA PO PRN (15:52)
[2022-12-28] MEDS ORDERED: GLUCOSE 40% GEL 15 GM TUBE PO PRN (15:52)
[2022-12-28] MEDS ORDERED: PHARMACY GLYCEMIC MGMT CONSULT PRN (15:52)
[2022-12-28] MEDS ORDERED: GLUCOSE 10 TAB/TUBE PO PRN (15:52)
[2022-12-28] MEDS: LANTUS PER UNIT CHARGE SQ SCH (17:17)
[2022-12-28] MEDS: INSULIN ASPART PER UNIT SC SCH ×2 (17:18→20:47)
[2022-12-28] MEDS: FUROSEMIDE 40 MG/4 ML VIAL IV SCH (19:15)
[2022-12-28] MEDS: VALSARTAN/SACUBITRIL 26/24MG TAB PO SCH (20:14)
[2022-12-28] MEDS: METOPROLOL TARTRATE 25 MG TAB PO SCH (20:14)
[2022-12-28] MEDS ORDERED: LANTUS PER UNIT CHARGE SQ SCH (21:00)
[2022-12-29 06:15] LABS: Hematocrit (blood only) 42.2 % (42.0-52.0); Hemoglobin 13.3 g/dl (14.0-18.0); Mean Corpuscular Hemoglobin 26.8 pg (25.0-34.0); Mean Corpuscular Hgb Conc 31.5 g/dL (32.0-36.0); Mean Corpuscular Volume 84.9 fL (80.0-100.0); Mean Platelet Volume 9.5 fL (9.4-12.4); Platelet Count 223 K/uL (130-400); RDW Coefficient of Variation 19.1 % (11.5-14.5); RDW Standard Deviation 58.7 fL (36.4-46.3); Red Blood Count 4.97 M/uL (4.70-6.10); White Blood Count 7.98 K/ul (4.8-10.8)
[2022-12-29 06:26] LABS: Albumin Globulin Ratio 1.1 (0.9-2); Albumin Level 3.5 gm/dl (3.4-5.0); BUN Creatinine Ratio 25.4 (10-20); Bilirubin,Total 1.5 mg/dl (0.2-1.0); Calcium 9.3 mg/dl (8.5-10.1); Creatinine Clr Calc Pharmacy 89.7 ml/min; Est GFR (African American) 79.4 ml/min; Est GFR (Non-African American) 68.5 ml/min; Globulin 3.1 gm/dl (2.5-4.0); Potassium 4.3 mmol/L (3.5-5.1); Total Protein 6.6 gm/dl (6.0-8.3)
[2022-12-29 06:42] LABS: INR 3.6 (0.9-1.1); Prothrombin Time 35.7 Seconds (9.0-12.0)
--- NOTE | 2022-12-29 08:01 | Electrocardiogram Report ---
Test Reason : Blood Pressure : / mmHG Vent. 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
[2022-12-29] MEDS: INSULIN ASPART PER UNIT SC SCH ×4 (08:09→20:31)
[2022-12-29] MEDS: METOPROLOL TARTRATE 25 MG TAB PO SCH ×3 (08:12→20:31)
[2022-12-29] MEDS: SPIRONOLACTONE 12.5 MG TAB PO SCH (08:12)
[2022-12-29] MEDS: ASPIRIN 81 MG ECTAB PO SCH (08:12)
[2022-12-29] MEDS: FUROSEMIDE 40 MG/4 ML VIAL IV SCH ×2 (08:12→20:30)
[2022-12-29] MEDS: METOPROLOL SUCC 50MG EXT REL TAB PO SCH (08:12)
[2022-12-29] MEDS: VALSARTAN/SACUBITRIL 26/24MG TAB PO SCH ×2 (08:12→20:31)
[2022-12-29 11:12] LABS: Estimated Average Glucose 249 mg/dl; Hemoglobin A1C 10.3 % (4.5-5.6)
--- NOTE | 2022-12-29 11:14 | Cardiology Progress Note ---
Date of Service December 29, 2022 Assessment & Plan (1) Acute HFrEF (heart failure with reduced ejection fraction): (2) Ischemic cardiomyopathy: (3) Atrial flutter with rapid ventricular response: (4) Supratherapeutic INR: Plan 62-year-old patient admitted with acute decompensated heart failure with reduced ejection fraction. ECG with evidence of new onset atrial flutter. ICD interrogation pending. Continue IV diuresis with furosemide 40mg twice daily. Monitor daily weight, fluid balance, electrolytes, and GFR. Continue Entresto, metoprolol, and spironolactone as previously ordered. Coumadin on hold due to supratherapeutic INR on admission. Trending downward to 3.6 today. Patient is chronically anticoagulated due to history of left ventricular apical thrombus. Plan cardioversion during hospitalization when volume status improved. Repeat INR in a.m. Hold warfarin today due to supratherapeutic INR. Admission and Anticipated Discharge Date Admission Date: December 28, 2022 Subjective Patient seen examined the bedside. Fluid balance negative more than 2 L overnight. Respiratory status improved. Edema unchanged. Telemetry reveals atrial flutter with heart rate ranging from 80 bpm at rest up to 110 bpm with minimal activity. No orthopnea overnight. Review of Systems Review of Systems: All systems reviewed & are unremarkable except as noted in Subjective Physical Exam Constitutional: well nourished; no acute distress Respiratory: no respiratory distress, no labored breathing and no retractions Auscultation: + rales (Bases bilateral) Cardiovascular: Rate/Rhythm: + irregularly irregular Heart Sounds: normal S1 and normal S2; no murmur Vessels: + JVD and radial pulses present; no carotid bruit Extremities: + edema (2+ bilateral pretibial edema) Gastrointestinal (Abdomen): Inspection/Auscultation: normal bowel sounds; abdomen not distended Percussion/Palpation: abdomen soft; abdomen nontender, no guarding and abdomen not rigid Neurologic: CN's II-XI intact bilaterally and moves all extremities; no focal motor deficits Motor/Sensory: no tremor Psychiatric: A+Ox3, euthymic affect Results & Data ([facility]) Vital Signs (Past 12 Hours) Vital Signs Temp Pulse Pulse Resp BP Pulse Ox O2 Del Method 12/29/22 07:45 103 H 12/29/22 07:45 Room Air 12/29/22 07:36 36.5 C 16 104/72 93 Room Air 12/29/22 03:27 36.6 C 88 16 105/60 93 Room Air
--- NOTE | 2022-12-29 13:25 | Pharmacy Report ---
Pharmacy Glycemic Short Note 2 - Date of Service December 29, 2022 - Glycemic Short BSG Results (Last 24 hours): 12/28/22 12/28/22 12/29/22 16:13 20:22 05:29 Glucose 97 POC Glucose 212 H 179 H 12/29/22 12/29/22 07:39 11:16 Glucose POC Glucose 107 H 191 H OUTPATIENT ANTIDIABETIC REGIMEN: * Metformin 1000mg BID ASSESSMENT: * Mr Underwood is a 62 year old gentleman who presented to [facility] 12/28/22 due to HF exacerbation. * Upon admission, POC glucose was measured at 273 mg/dL. He was given 10 units of lantus and started on Novolog with 35-10 parameters, which was calculated from a weight-based stress of 1. * Since then, BSG's have been 179 mg/dL at bedtime on 12/28, 107 mg/dL fasting on 12/29, and then 191 mg/dL at lunch time. * Novolog parameters will be tightened to provider better carbohydrate coverage and to correct higher values more efficiently. * Will continue 10 units of Lantus at bedtime given deficit of fasting data; will reevaluate tomorrow when another fasting has been recorded. PLAN FOR INPATIENT GLYCEMIC CONTROL: * Hold outpatient oral diabetes medications * Basal insulin * Lantus 10 units SQ HS * Bolus insulin * NovoLog per scale ACHS or Q6hrs while NPO * Goal Range: Low 110 mg/dL - High 140 mg/dL * Correction Factor: 30 mg/dL/unit * Nutritional / Prandial insulin per carb ratio of 1 unit per 10 grams CHO consumed
--- NOTE | 2022-12-29 14:17 | Hospitalist Progress Note ---
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 Patient reports drinking 1 to 1-1/2 gallons of fluid per day. 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 Patient reports drinking excessive fluids, patient counseled regarding importance of low-sodium diet and fluid restricted diet and long-term management of heart failure. Admitting BNP 888, admitting CXR with cardiomegaly with pulmonary vascular congestion. 12/28 echo: EF of 15 to 20%, severely reduced LV systolic function, severely dilated LV. Moderately reduced RV systolic function. Patient started on IV diuresis, reports improvement in his breathing, cumulative fluid balance -2.4 L. Monitor and replete electrolytes as appropriate. Continue with home Entresto/Aldactone. Continue with telemetry monitoring Cardiology on board, appreciate recommendation. On metoprolol tartrate and succinate, and IV diuresis. Supratherapeutic INR: 5.2 at presentation, downtrending, hold Coumadin today, INR in AM. Patient on Coumadin for history of left ventricular apical thrombus. Atrial flutter with rapid ventricular response, new onset Admitting EKG showed new onset atrial flutter Cardiology on board, metoprolol being optimized, plan for cardioversion during hospitalization when volume status improves. AICD interrogation. Monitor replete electrolytes INR supratherapeutic due to Coumadin use for a different reason. Elevated LFTs: Likely secondary to hepatic congestion in the setting of acute CHF. Monitor LFT. Other chronic medical conditions History of apical mural thrombus: INR in a.m., resume Coumadin likely tomorrow DM type II: A1c of 8.7 in 10/2022, sliding scale while in hospital, glycemic pharmacy consult. telehealth nurse educator consult. Consider adding Jardiance at discharge. DVT prophylaxis: On Coumadin, on hold, currently supratherapeutic INR Full code Admission and Anticipated Discharge Date Admission Date: December 28, 2022 Subjective Patient seen and examined at bedside as a follow-up of acute on chronic heart failure with reduced ejection fraction, supratherapeutic INR, atrial flutter with rapid ventricular response, elevated LFTs. Patient was sitting up in bed, on room air, NAD, reports no new acute event overnight, reports eating okay and moving bowels okay, reports improvement in his shortness of breath. Patient denies any headache or dizziness or chest pain or palpitation or sore throat or cough or other review of symptoms. Patient reports drinking 1 to 1-1/2 gallons of fluid per day. Patient counseled regarding importance of low-sodium diet and fluid restricted diet for chronic management of heart failure. Physical Exam Physical Exam: GENERAL: Alert and oriented x3. NAD, on RA. HEENT: No pallor, no icterus. Pupils equal, round and reactive to light. Oral mucosa moist. NECK: No JVD, no neck masses. HEART: S1 and S2 heard. irregular rate and rhythm. No murmur, no gallop. RESPIRATORY SYSTEM: Normal AP diameter. No accessory muscle use. No wheezing, b/b rales. ABDOMEN: Soft, bowel sounds present, nontender, no distention. CENTRAL NERVOUS SYSTEM: No facial droop. Speech is clear. Obeys simple commands. Moves extremities. EXTREMITIES: 2+ BLE edema, ble chronic skin changes noted. Results & Data Results & Data ([facility]) Vital Signs (Past 12 Hours) Vital Signs Temp Pulse Pulse Resp BP Pulse Ox O2 Del Method 12/29/22 11:26 36.7 C 48 L 16 90/59 L 95 Room Air 12/29/22 07:45 103 H 12/29/22 07:45 Room Air 12/29/22 07:36 36.5 C 16 104/72 93 Room Air 12/29/22 03:27 36.6 C 88 16 105/60 93 Room Air
[2022-12-29] MEDS: LANTUS PER UNIT CHARGE SQ SCH (20:32)
[2022-12-29] MEDS ORDERED: bisacodyL 5 MG TABEC PO ONE (21:48)
[2022-12-30 06:28] LABS: BUN Creatinine Ratio 28.3 (10-20); Calcium 9.3 mg/dl (8.5-10.1); Creatinine Clr Calc Pharmacy 67.3 ml/min; Est GFR (African American) 56.1 ml/min; Est GFR (Non-African American) 48.4 ml/min; Magnesium 2.1 mg/dl (1.7-2.4); Potassium 4.3 mmol/L (3.5-5.1)
[2022-12-30 06:36] LABS: INR 2.1 (0.9-1.1); Prothrombin Time 21.7 Seconds (9.0-12.0)
[2022-12-30] MEDS: METOPROLOL SUCC 50MG EXT REL TAB PO SCH (08:23)
[2022-12-30] MEDS: METOPROLOL TARTRATE 25 MG TAB PO SCH ×3 (08:23→21:56)
[2022-12-30] MEDS: VALSARTAN/SACUBITRIL 26/24MG TAB PO SCH (08:24)
[2022-12-30] MEDS: SPIRONOLACTONE 12.5 MG TAB PO SCH (08:24)
[2022-12-30] MEDS: ASPIRIN 81 MG ECTAB PO SCH (08:24)
[2022-12-30] MEDS: INSULIN ASPART PER UNIT SC SCH ×4 (08:27→21:56)
--- NOTE | 2022-12-30 08:31 | Electrocardiogram Report ---
Test Reason : Blood Pressure : / mmHG Vent. 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
[2022-12-30] MEDS ORDERED: WARFARIN SOD 7.5 MG TAB PO ONE (08:45)
--- NOTE | 2022-12-30 10:45 | Cardiology Progress Note ---
Date of Service December 30, 2022 Assessment & Plan (1) Acute HFrEF (heart failure with reduced ejection fraction): (2) Ischemic cardiomyopathy: (3) Atrial flutter with rapid ventricular response: (4) Supratherapeutic INR: Plan 62-year-old patient admitted with acute decompensated heart failure with reduced ejection fraction. ECG with evidence of new onset atrial flutter. Serum creatinine trending upward. Will place IV diuretics and Aldactone on hold today. Repeat basic metabolic panel in a.m. Remains in atrial flutter on telemetry. Recommend external direct-current cardioversion. INR therapeutic dating back to August 2022. Patient will be n.p.o. except medications after midnight with plans for external direct-current cardioversion in a.m. 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 Recommend 7.5 mg of oral warfarin now. Then restart 7.5 mg daily. Patient chronically anticoagulated due to history of left ventricular apical thrombus. No thrombus per repeat echocardiogram on admission. Admission and Anticipated Discharge Date Admission Date: December 28, 2022 Subjective Patient seen and examined at bedside. Feeling better today. Able to sleep overnight without orthopnea. Creatinine trending upward today to 1.5. Denies palpitations. Heart rate unchanged on telemetry. INR therapeutic. Review of Systems Review of Systems: All systems reviewed & are unremarkable except as noted in Subjective Physical Exam Constitutional: well nourished; no acute distress Respiratory: no respiratory distress, no labored breathing and no retractions Auscultation: + rales (Bases bilateral) Cardiovascular: Rate/Rhythm: + irregularly irregular Heart Sounds: normal S1 and normal S2; no murmur Vessels: + JVD and radial pulses present; no carotid bruit Extremities: + edema (1+ bilateral pretibial edema) Gastrointestinal (Abdomen): Inspection/Auscultation: normal bowel sounds; abdomen not distended Percussion/Palpation: abdomen soft; abdomen nontender, no guarding and abdomen not rigid Neurologic: CN's II-XI intact bilaterally and moves all extremities; no focal motor deficits Motor/Sensory: no tremor Psychiatric: A+Ox3, euthymic affect Results & Data ([facility]) Vital Signs (Past 12 Hours) Vital Signs Temp Pulse Resp BP Pulse Ox O2 Del Method 12/30/22 07:53 37.1 C 86 18 118/69 94 Room Air 12/30/22 04:30 36.6 C 86 20 105/72 93 Room Air
--- NOTE | 2022-12-30 12:29 | Anesthesiology Consultation ---
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 History Height/Weight Height: 6 ft Weight: 118.5 kg Allergies Allergy/AdvReac Type Severity Reaction Status Date / Time No Known Allergies Allergy Unverified 01/20/19 12:20 Medications Home Medications Medication Instructions Recorded Confirmed Last Taken aspirin 81 mg tablet,delayed 81 mg PO QAM #30 tabs 09/17/18 12/28/22 01/20/19 06:30 release (Ecotrin Low Strength) atorvastatin 80 mg tablet 80 mg PO HS 01/20/19 12/28/22 Unknown metformin 500 mg tablet 1,000 mg PO BID 01/20/19 12/28/22 01/20/19 06:30 furosemide 40 mg tablet 40 mg PO DAILY 12/28/22 12/28/22 Unknown metoprolol succinate 50 mg 50 mg PO DAILY 12/28/22 12/28/22 Unknown tablet,extended release 24 hr sacubitril 24 mg-valsartan 26 mg 1 tab PO BID 12/28/22 12/28/22 Unknown tablet (Entresto) spironolactone 25 mg tablet 12.5 mg PO DAILY 12/28/22 12/28/22 Unknown warfarin 5 mg tablet 7.5 mg PO DAILY 12/28/22 12/28/22 Unknown Active Medications Generic Name Dose Route Start Last Admin Trade Name Freq PRN Reason Stop Dose Admin Aspirin 81 mg 12/29/22 09:00 12/30/22 08:24 Aspirin 81 Mg Ectab PO 01/28/23 08:59 81 mg QAM LAURI Administration Furosemide 40 mg 12/28/22 21:00 12/29/22 20:30 Furosemide 40 Mg/4 Ml Vial IV 01/27/23 20:59 40 mg BID LAURI Administration Insulin Aspart 0 units 12/28/22 16:30 12/30/22 08:27 Insulin Aspart Per Unit SC 01/27/23 16:29 5 units ACHS LAURI Administration Insulin Glargine 10 units 12/28/22 17:00 12/29/22 20:32 Lantus Per Unit Charge SQ 01/27/23 16:59 10 units HS LAURI Administration Metoprolol Tartrate 25 mg 12/28/22 21:00 12/30/22 08:23 Metoprolol Tartrate 25 Mg Tab PO 01/27/23 20:59 25 mg TID LAURI Administration Sacubitril/Valsartan 1 tab 12/28/22 21:00 12/30/22 08:24 Valsartan/Sacubitril 26/24mg Tab PO 01/27/23 20:59 1 tab BID LAURI Administration Spironolactone 12.5 mg 12/29/22 09:00 12/30/22 08:24 Spironolactone 12.5 Mg Tab PO 01/28/23 08:59 12.5 mg DAILY LAURI Administration Past Medical History Medical History Apical mural thrombus Diabetes mellitus, type II History of acute anterior wall SD s/p PCI to LAD HLD (hyperlipidemia) HTN (hypertension) Ischemic cardiomyopathy NSVT (nonsustained ventricular tachycardia) Tobacco use disorder Past Family History Family History Other Diabetes Past Surgical History Surgical History H/O heart artery stent August 2018 Social History Smoking Status: Former smoker tobacco type: cigarettes Smoking cigarettes per day: 10 Hx Alcohol Use: Yes Alcohol type: wine alcohol intake frequency: holidays/special occasions only Hx Substance Use: No substance use type: does not use Physical Exam Vital Signs Last Vital Signs Temp 98.1 F 12/30/22 11:01 Pulse 85 12/30/22 11:01 Resp 18 12/30/22 11:01 BP 91/62 L 12/30/22 11:01 Pulse Ox 94 12/30/22 11:01 O2 Del Method 12/30/22 11:01 Testing Laboratory Results 12/29/22 05:29 12/30/22 05:23 PT 21.7 Seconds (9.0-12.0) H 12/30/22 05:23 INR 2.1 (0.9-1.1) H 12/30/22 05:23 Hemoglobin A1c 10.3 % (4.5-5.6) H 12/29/22 05:29 12/30/22 12/30/22 11:29 07:25 POC Glucose 139 H 84 Electrocardiogram Date: 12/30/22 Probable Atrial flutter with occasional Premature ventricular complexes, rate 91 bpm Left axis deviation Right bundle branch block 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 Coronary arterial stenting. Left subclavian pacer/AICD. No pneumothorax or large pleural effusion. Pulmonary vascular congestion with mild interstitial coarsening. Degenerative changes of the shoulders and spine. IMPRESSION: Cardiomegaly with pulmonary vascular congestion. Echocardiogram Date: 12/28/22 Compared to study dated 09/16/2018, LV systolic function has declined LV is severely dilated LV systolic function is severely reduced EF = 15-20% RV is mildly dilated RV systolic function is moderately reduced Moderated biatrial enlargement Mod MR Mod TR Estimated systolic pulmonary pressure is 51mmHg Dilated IVC with normal inspiratory variation suggesting right atrial pressure of 8mmHg
--- NOTE | 2022-12-30 15:26 | Hospitalist Progress Note ---
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 Patient stated that he had 15 pound weight gain in 2 weeks [employer]ESS TANK T[employer]ER. Patient reports drinking 1 to 1-1/2 gallons of fluid per day. 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 Patient reports drinking excessive fluids, patient counseled regarding importance of low-sodium diet and fluid restricted diet and long-term management of heart failure. Admitting BNP 888, admitting CXR with cardiomegaly with pulmonary vascular congestion. 12/28 echo: EF of 15 to 20%, severely reduced LV systolic function, severely dilated LV. Moderately reduced RV systolic function. Patient started on IV diuresis, reports improvement in his breathing, cumulative fluid balance -2.3 L. Cr uptrending, iv diuresis, entresto and aldactone on hold. Monitor and replete electrolytes as appropriate. Continue with telemetry monitoring Cardiology on board, appreciate recommendation. On metoprolol tartrate and succinate. Supratherapeutic INR: 5.2 at presentation, therapeutic today, coumadin restarted with additional dose today per cardio, INR in AM. Patient on Coumadin for history of left ventricular apical thrombus. Atrial flutter with rapid ventricular response, new onset Admitting EKG showed new onset atrial flutter Cardiology on board, metoprolol being optimized, plan for cardioversion likely evens, npo midnight Monitor replete electrolytes Therapeutic inr, c/w coumadin Elevated LFTs: Likely secondary to hepatic congestion in the setting of acute CHF. Monitor LFT. Other chronic medical conditions History of apical mural thrombus: c/w coumadin DM type II: A1c of 8.7 in 10/2022, sliding scale while in hospital, glycemic pharmacy consult. senior health educator consult. Consider adding Jardiance at discharge.a1c 10.3 this admission DVT prophylaxis: On Coumadin Full code Admission and Anticipated Discharge Date Admission Date: December 28, 2022 Subjective Patient seen and examined at bedside as a follow-up of acute on chronic heart failure with reduced ejection fraction, supratherapeutic INR, atrial flutter with rapid ventricular response, elevated LFTs. Patient was lying in bed, on room air, NAD, reports no new acute event overnight, reports eating okay and moving bowels okay, reports continued improvement in his shortness of breath. Patient denies any headache or dizziness or chest pain or palpitation or sore throat or cough or other review of symptoms. Telemetry review w/ a flutter in 70s. Physical Exam Physical Exam: GENERAL: Alert and oriented x3. NAD, on RA. HEENT: No pallor, no icterus. Pupils equal, round and reactive to light. Oral mucosa moist. NECK: No JVD, no neck masses. HEART: S1 and S2 heard. irregular rate and rhythm. No murmur, no gallop. RESPIRATORY SYSTEM: Normal AP diameter. No accessory muscle use. No wheezing, b/b rales. ABDOMEN: Soft, bowel sounds present, nontender, no distention. CENTRAL NERVOUS SYSTEM: No facial droop. Speech is clear. Obeys simple commands. Moves extremities. EXTREMITIES: 2+ BLE edema, ble chronic skin changes noted. Results & Data Results & Data ([facility]) Vital Signs (Past 12 Hours) Vital Signs Temp Pulse Resp BP Pulse Ox O2 Del Method 12/30/22 11:01 36.7 C 85 18 91/62 L 94 Room Air 12/30/22 07:53 37.1 C 86 18 118/69 94 Room Air 12/30/22 04:30 36.6 C 86 20 105/72 93 Room Air
[2022-12-30] MEDS ORDERED: WARFARIN SOD 7.5 MG TAB PO SCH (16:00)
[2022-12-30 16:50] LABS: BUN Creatinine Ratio 29.2 (10-20); Calcium 9.2 mg/dl (8.5-10.1); Est GFR (African American) 44.2 ml/min; Est GFR (Non-African American) 38.2 ml/min; Potassium 4.6 mmol/L (3.5-5.1)
[2022-12-30 19:27] LABS: INR 1.8 (0.9-1.1); Prothrombin Time 18.2 Seconds (9.0-12.0)
[2022-12-30] MEDS ORDERED: HEPARIN SODIUM/DEXTROSE 25,000 UNITS/500 ML BAG IV SCH (21:45)
[2022-12-30] MEDS: LANTUS PER UNIT CHARGE SQ SCH (21:56)
[2022-12-30] MEDS ORDERED: HEPARIN SOD (PORCINE) 1000 UNIT/ML IV ONE (22:15)
[2022-12-30 23:02] LABS: Basophils # (auto) 0.05 K/uL (0-0.2); Basophils % (auto) 0.6 %; Eosinophils # (auto) 0.08 K/uL (0-0.50); Hematocrit (blood only) 42.3 % (42.0-52.0); Hemoglobin 13.6 g/dl (14.0-18.0); Immature Granulocytes # (auto) 0.03 K/uL (0.01-0.20); Immature Granulocytes % (auto) 0.4 %; Lymphocytes # (auto) 1.54 K/uL (1.2-3.4); Lymphocytes % (auto) 18.8 %; Mean Corpuscular Hemoglobin 26.9 pg (25.0-34.0); Mean Corpuscular Hgb Conc 32.2 g/dL (32.0-36.0); Mean Corpuscular Volume 83.8 fL (80.0-100.0); Mean Platelet Volume 9.3 fL (9.4-12.4); Monocytes # (auto) 0.78 K/uL (0.11-0.59); Monocytes % (auto) 9.5 %; Neutrophils # (auto) 5.72 K/uL (1.40-6.50); Neutrophils % (auto) 69.7 %; Platelet Count 247 K/uL (130-400); RDW Coefficient of Variation 19.2 % (11.5-14.5); RDW Standard Deviation 57.4 fL (36.4-46.3); Red Blood Count 5.05 M/uL (4.70-6.10)
[2022-12-30 23:29] LABS: Partial Thromboplastin Ratio 1.2; Partial Thromboplastin Time 32.2 Seconds (21.0-31.0)
[2022-12-31 06:16] LABS: BUN Creatinine Ratio 32.9 (10-20); Calcium 8.8 mg/dl (8.5-10.1); Creatinine Clr Calc Pharmacy 65.9 ml/min; Est GFR (African American) 54.8 ml/min; Est GFR (Non-African American) 47.3 ml/min; Phosphorus 4.7 mg/dl (2.5-4.9); Potassium 4.5 mmol/L (3.5-5.1)
[2022-12-31 06:41] LABS: INR 2.1 (0.9-1.1); Partial Thromboplastin Ratio > 5.1; Prothrombin Time 21.8 Seconds (9.0-12.0)
[2022-12-31 06:50] LABS: Partial Thromboplastin Time > 139.0 Seconds (21.0-31.0)
[2022-12-31] MEDS ORDERED: HEPARIN STOP ORDER ONE (07:45)
[2022-12-31] MEDS ORDERED: ePHEDrine sulfate 50 MG/ML AMP IV PRN (07:47)
[2022-12-31] MEDS ORDERED: ATROPINE SULFATE 0.1 MG/ML 10ML SYR IV PRN (07:47)
[2022-12-31] MEDS ORDERED: LIDOCAINE 2% MPF LOCAL 5 ML VIAL INFIL ONE (08:13)
[2022-12-31] MEDS ORDERED: PROPOFOL IV EMULSION 10 MG/ML 20 ML VIAL IV ONE (08:13)
--- NOTE | 2022-12-31 08:30 | Cardioversion ---
Date of Service December 31, 2022 Electrical Cardioversion Rpt Electrical Cardioversion Report Indication: Paroxysmal atrial flutter with rapid ventricular response. Complications: None Estimated blood loss: None Anesthesia: Conscious sedation provided by the anesthesia service with propofol. Please see separate report. Procedural summary: Patient was brought to the cardiac catheterization holding area in a fasting state. Defibrillator pads were placed in anterior and posterior position. Atrial flutter confirmed on monitor. Defibrillator synced to the QRS complex. When adequate sedation achieved, a single 100 J shock was delivered. Patient successfully converted from atrial flutter to sinus rhythm. ICD interrogated post procedure demonstrating normal function. Patient tolerated procedure well. No focal neurologic deficits post procedure. Conclusion: Successful external direct-current cardioversion from atrial flutter to sinus rhythm with 100 J.
[2022-12-31] MEDS: METOPROLOL TARTRATE 25 MG TAB PO SCH ×3 (09:15→20:40)
[2022-12-31] MEDS: ASPIRIN 81 MG ECTAB PO SCH (09:15)
[2022-12-31] MEDS: Heparin IV Adult Wt-Based Standard WITH Bolus Protocol IV SCH ×4 (09:26→19:06)
[2022-12-31] MEDS: INSULIN ASPART PER UNIT SC SCH ×4 (09:28→20:39)
--- NOTE | 2022-12-31 12:03 | Anesthesiology Progress Note ---
Date of Service December 31, 2022 Anesthesia Post Procedure Vital Signs Vital Signs: Temp Pulse Pulse Resp BP BP Pulse Ox 12/31/22 08:25 72 14 98/70 L 96 12/31/22 08:10 74 14 91/65 L 96 12/31/22 07:21 92 H 16 109/86 96 12/31/22 02:56 36.3 C L 86 20 94/59 L 98 12/30/22 22:14 85 12/30/22 20:05 12/30/22 23:04 36.9 C 86 20 95/66 L 92 12/30/22 21:39 88 20 118/79 97 12/30/22 19:19 36.6 C 70 18 92/59 L 96 12/30/22 16:10 37 C 80 18 103/64 92 O2 Del Method 12/31/22 08:25 Room Air 12/31/22 08:10 Room Air 12/31/22 07:21 Room Air 12/31/22 02:56 Room Air 12/30/22 22:14 12/30/22 20:05 Room Air 12/30/22 23:04 Room Air 12/30/22 21:39 Room Air 12/30/22 19:19 Room Air 12/30/22 16:10 Room Air Transfer of Care Handoff Completed per policy Notes Mental Status: alert / awake / arousable Patient Amnestic to Procedure: Yes Nausea / Vomiting: adequately controlled Pain: adequately controlled Airway Patency, RR, SpO2: stable & adequate BP & HR: stable & adequate Hydration State: stable & adequate Anesthetic Complications: no major complications apparent
--- NOTE | 2022-12-31 12:17 | Electrocardiogram Report ---
Test Reason : Blood Pressure : / mmHG Vent. 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
--- NOTE | 2022-12-31 12:38 | Cardiology Progress Note ---
Date of Service December 31, 2022 Assessment & Plan (1) Acute HFrEF (heart failure with reduced ejection fraction): (2) Ischemic cardiomyopathy: (3) Atrial flutter with rapid ventricular response: (4) Supratherapeutic INR: Plan 62-year-old patient admitted with acute decompensated heart failure with reduced ejection fraction. ECG with evidence of new onset atrial flutter. Continue to hold Lasix, Aldactone, and Entresto today. Continue metoprolol tartrate 25 mg 3 times daily. Repeat basic metabolic panel in a.m. Continue warfarin 7.5 mg daily for goal INR of 2.0-3.0. Admission and Anticipated Discharge Date Admission Date: December 28, 2022 Subjective Patient seen examined the bedside post cardioversion. Remains in sinus rhythm in the 70s. States "I slept better last night and and weeks". No orthopnea or PND. Lower extremity edema unchanged. Diuretic, Aldactone, and Entresto on hold due to renal insufficiency. Intermittent asymptomatic mild hypotension unchanged. Review of Systems Review of Systems: All systems reviewed & are unremarkable except as noted in Subjective Physical Exam Constitutional: well nourished; no acute distress Respiratory: no respiratory distress, no labored breathing and no retractions Auscultation: + rales (Bases bilateral) Cardiovascular: Rate/Rhythm: + irregularly irregular Heart Sounds: normal S1 and normal S2; no murmur Vessels: + JVD and radial pulses present; no carotid bruit Extremities: + edema (1+ bilateral pretibial edema) Gastrointestinal (Abdomen): Inspection/Auscultation: normal bowel sounds; abdomen not distended Percussion/Palpation: abdomen soft; abdomen nontender, no guarding and abdomen not rigid Neurologic: CN's II-XI intact bilaterally and moves all extremities; no focal motor deficits Motor/Sensory: no tremor Psychiatric: A+Ox3, euthymic affect Results & Data ([facility]) Vital Signs (Past 12 Hours) Vital Signs Temp Pulse Pulse Resp BP BP Pulse Ox 12/31/22 08:00 78 12/31/22 12:20 36.7 C 74 16 112/74 97 12/31/22 08:25 72 14 98/70 L 96 12/31/22 08:10 74 14 91/65 L 96 12/31/22 07:21 92 H 16 109/86 96 12/31/22 02:56 36.3 C L 86 20 94/59 L 98 O2 Del Method 12/31/22 08:00 12/31/22 12:20 Room Air 12/31/22 08:25 Room Air 12/31/22 08:10 Room Air 12/31/22 07:21 Room Air 12/31/22 02:56 Room Air
--- NOTE | 2022-12-31 13:19 | Pharmacy Report ---
Pharmacy Glycemic Short Note 2 - Date of Service December 31, 2022 - Glycemic Short BSG Results (Last 24 hours): 12/30/22 12/30/22 12/30/22 15:22 16:29 21:32 Glucose 163 H POC Glucose 142 H 130 H 12/31/22 12/31/22 05:31 11:43 Glucose 130 H POC Glucose 131 H OUTPATIENT ANTIDIABETIC REGIMEN: * Metformin 1000mg BID ASSESSMENT: 12/31/22 * Since being taken on as a pharmacy glycemic consult, Mr Underwood's blood glucose values have been well in order in respect to his target goal range. * on 12/30, fasting BSG was recorded at 84 mg/dL. HS lantus dose was decreased in response; a fasting was not obtained today (12/31) to assess the effect of this change as the patient was being cardioverted. Lab-drawn AM BSG of 130 mg/dL and lunchtime BSG of 131 suggests this dose would be appropriate to repeat this evening. Initial Assessment, 12/29/22: * Mr Underwood is a 62 year old gentleman who presented to [facility] 12/28/22 due to HF exacerbation. * Upon admission, POC glucose was measured at 273 mg/dL. He was given 10 units of lantus and started on Novolog with 35-10 parameters, which was calculated from a weight-based stress of 1. * Since then, BSG's have been 179 mg/dL at bedtime on 12/28, 107 mg/dL fasting on 12/29, and then 191 mg/dL at lunch time. * Novolog parameters will be tightened to provider better carbohydrate coverage and to correct higher values more efficiently. * Will continue 10 units of Lantus at bedtime given deficit of fasting data; will reevaluate tomorrow when another fasting has been recorded. PLAN FOR INPATIENT GLYCEMIC CONTROL: * Hold outpatient oral diabetes medications * Basal insulin * Lantus 8 units SQ HS * Bolus insulin * NovoLog per scale ACHS or Q6hrs while NPO * Goal Range: Low 110 mg/dL - High 140 mg/dL * Correction Factor: 30 mg/dL/unit * Nutritional / Prandial insulin per carb ratio of 1 unit per 10 grams CHO consumed
[2022-12-31] MEDS: WARFARIN SOD 7.5 MG TAB PO SCH (15:37)
--- NOTE | 2022-12-31 15:46 | Hospitalist Progress Note ---
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 Patient reports drinking 1 to 1-1/2 gallons of fluid per day. 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 Patient reports drinking excessive fluids, patient counseled regarding importance of low-sodium diet and fluid restricted diet and long-term management of heart failure. Admitting BNP 888, admitting CXR with cardiomegaly with pulmonary vascular congestion. 12/28 echo: EF of 15 to 20%, severely reduced LV systolic function, severely dilated LV. Moderately reduced RV systolic function. Patient started on IV diuresis, reports improvement in his breathing, cumulative fluid balance -1.7 L. Cr elevated, iv diuresis, entresto and aldactone on hold. Monitor and replete electrolytes as appropriate. Continue with telemetry monitoring Cardiology on board, appreciate recommendation. On metoprolol Supratherapeutic INR: 5.2 at presentation, therapeutic today, coumadin restarted 12/30, INR in AM. Patient on Coumadin for history of left ventricular apical thrombus. Atrial flutter with rapid ventricular response, new onset Admitting EKG showed new onset atrial flutter Cardiology on board, metoprolol being optimized, s/p successful cardioversion 12/31 am Monitor replete electrolytes Therapeutic inr, c/w coumadin Elevated LFTs: Likely secondary to hepatic congestion in the setting of acute CHF. Monitor LFT. Other chronic medical conditions History of apical mural thrombus: c/w coumadin DM type II: A1c of 8.7 in 10/2022, sliding scale while in hospital, glycemic pharmacy consult. hydrotechnical specialist consult. Consider adding Jardiance at discharge.a1c 10.3 this admission DVT prophylaxis: On Coumadin Full code Admission and Anticipated Discharge Date Admission Date: December 28, 2022 Subjective Patient seen and examined at bedside as a follow-up of acute on chronic heart failure with reduced ejection fraction, supratherapeutic INR, atrial flutter with rapid ventricular response, elevated LFTs. Patient was lying in bed, on room air, NAD, reports no new acute event overnight, reports eating okay and moving bowels okay, denies shortness of breath. Patient denies any headache or dizziness or chest pain or palpitation or sore throat or cough or other review of symptoms. Telemetry review w/ a flutter overnight, s/p cardioversion in am, sinus rhythm since then. Physical Exam Physical Exam: GENERAL: Alert and oriented x3. NAD, on RA. HEENT: No pallor, no icterus. Pupils equal, round and reactive to light. Oral mucosa moist. NECK: No JVD, no neck masses. HEART: S1 and S2 heard. irregular rate and rhythm. No murmur, no gallop. RESPIRATORY SYSTEM: Normal AP diameter. No accessory muscle use. No wheezing, no crackles. ABDOMEN: Soft, bowel sounds present, nontender, no distention. CENTRAL NERVOUS SYSTEM: No facial droop. Speech is clear. Obeys simple commands. Moves extremities. EXTREMITIES: 2+ BLE edema, ble chronic skin changes noted. Results & Data Results & Data ([facility]) Vital Signs (Past 12 Hours) Vital Signs Temp Pulse Pulse Resp BP BP Pulse Ox 12/31/22 08:00 78 12/31/22 12:20 36.7 C 74 16 112/74 97 12/31/22 08:25 72 14 98/70 L 96 12/31/22 08:10 74 14 91/65 L 96 12/31/22 07:21 92 H 16 109/86 96 O2 Del Method 12/31/22 08:00 12/31/22 12:20 Room Air 12/31/22 08:25 Room Air 12/31/22 08:10 Room Air 12/31/22 07:21 Room Air
[2022-12-31] MEDS: LANTUS PER UNIT CHARGE SQ SCH (20:42)
[2023-01-01 06:34] LABS: INR 2.1 (0.9-1.1); Prothrombin Time 21.5 Seconds (9.0-12.0)
[2023-01-01 06:40] LABS: Magnesium 2.2 mg/dl (1.7-2.4); Potassium 4.6 mmol/L (3.5-5.1)
[2023-01-01 06:46] LABS: BUN Creatinine Ratio 35.2 (10-20); Creatinine Clr Calc Pharmacy 79.7 ml/min; Est GFR (African American) 69.1 ml/min; Est GFR (Non-African American) 59.6 ml/min
[2023-01-01] MEDS: ASPIRIN 81 MG ECTAB PO SCH (08:40)
[2023-01-01] MEDS: INSULIN ASPART PER UNIT SC SCH ×4 (08:40→21:12)
[2023-01-01] MEDS: METOPROLOL TARTRATE 25 MG TAB PO SCH (08:41)
[2023-01-01] MEDS: FUROSEMIDE 40 MG/4 ML VIAL IV SCH (08:43)
--- NOTE | 2023-01-01 10:31 | Cardiology Progress Note ---
Date of Service January 01, 2023 Assessment & Plan (1) Acute HFrEF (heart failure with reduced ejection fraction): (2) Ischemic cardiomyopathy: (3) Atrial flutter with rapid ventricular response: Plan Successful external direct-current cardioversion performed 12/31/2022. Patient re daphney in sinus rhythm. Renal function has trended down towards baseline. Patient received 1 dose of IV Lasix this morning. We will hold additional Lasix at this time. Restart Aldactone and Entresto. Transition metoprolol to tartrate to succinate. Follow daily weight, electrolytes, GFR, and fluid balance. Titrate evidence- based heart failure therapy as tolerated. Admission and Anticipated Discharge Date Admission Date: December 28, 2022 Subjective Patient seen examined the bedside. Slept well overnight. Remains in sinus rhythm. Denies orthopnea or PND. Lower extremity edema unchanged. Right leg more swollen than left. No palpitations or lightheadedness. Entresto, and Aldactone remain on hold. Received a.m. dose of IV Lasix today. Review of Systems Review of Systems: All systems reviewed & are unremarkable except as noted in Subjective Physical Exam Constitutional: well nourished; no acute distress Respiratory: no respiratory distress, no labored breathing and no retractions Auscultation: + rales (Bases bilateral) Cardiovascular: Rate/Rhythm: + irregularly irregular Heart Sounds: normal S1 and normal S2; no murmur Vessels: + JVD and radial pulses present; no carotid bruit Extremities: + edema (1+ bilateral pretibial edema R>L) Gastrointestinal (Abdomen): Inspection/Auscultation: normal bowel sounds; abdomen not distended Percussion/Palpation: abdomen soft; abdomen nontender, no guarding and abdomen not rigid Neurologic: CN's II-XI intact bilaterally and moves all extremities; no focal motor deficits Motor/Sensory: no tremor Psychiatric: A+Ox3, euthymic affect Results & Data ([facility]) Vital Signs (Past 12 Hours) Vital Signs Temp Pulse Pulse Resp BP Pulse Ox O2 Del Method 01/01/23 07:37 36.3 C L 48 L 18 117/79 92 Room Air 01/01/23 03:00 36.6 C 61 18 101/76 94 Room Air 01/01/23 00:39 68 12/31/22 23:12 36.7 C 82 18 100/68 97 Room Air
[2023-01-01] MEDS ORDERED: SPIRONOLACTONE 12.5 MG TAB PO ONE (10:45)
--- NOTE | 2023-01-01 11:39 | Ultrasound Report ---
US venous doppler LE RT HISTORY: 62 years-old Male Asymmetric edema acute pain and swelling of the right lower leg COMPARISON: 01/20/2019 TECHNIQUE: Multiple real-time sonographic images of the right lower extremity deep venous structures were obtained assessing grayscale appearance, color and spectral flow. FINDINGS: Normal flow, compressibility, phasicity and augmentation. Subcutaneous edema. IMPRESSION: No sonographic evidence of deep venous thrombosis. ACT 112: Negative or not required by law. The above report was generated using voice recognition software. It may contain grammatical, syntax o r spelling errors. Electronically signed by: Seferino Ruvalcaba M.D. 01/01/2023 11:37 AM
[2023-01-01] MEDS: METOPROLOL SUCC 50MG EXT REL TAB PO SCH (12:00)
--- NOTE | 2023-01-01 13:59 | Pharmacy Report ---
Pharmacy Glycemic Short Note 2 - Date of Service January 01, 2023 - Glycemic Short BSG Results (Last 24 hours): 12/31/22 12/31/22 01/01/23 16:31 20:03 05:45 Glucose 78 POC Glucose 106 H 122 H 01/01/23 01/01/23 07:31 11:38 Glucose POC Glucose 74 137 H OUTPATIENT ANTIDIABETIC REGIMEN: * Metformin 1000mg BID ASSESSMENT: 01/01/23: * Last evening (12/31/22), patient received Lantus 8 units at bedtime and no bolus insulin overnight. Patient experienced lower fasting BSG's this morning (74 and 78 mg/dL). Correction factor and carbohydrate ratio were loosened to CF 35 and CR 15, and HS Lantus dose was reduced to 5 units. 12/31/22 * Since being taken on as a pharmacy glycemic consult, Mr Underwood's blood glucose values have been well in order in respect to his target goal range. * on 12/30, fasting BSG was recorded at 84 mg/dL. HS lantus dose was decreased in response; a fasting was not obtained today (12/31) to assess the effect of this change as the patient was being cardioverted. Lab-drawn AM BSG of 130 mg/dL and lunchtime BSG of 131 suggests this dose would be appropriate to repeat this evening. Initial Assessment, 12/29/22: * Mr Underwood is a 62 year old gentleman who presented to [facility] 12/28/22 due to HF exacerbation. * Upon admission, POC glucose was measured at 273 mg/dL. He was given 10 units of lantus and started on Novolog with 35-10 parameters, which was calculated from a weight-based stress of 1. * Since then, BSG's have been 179 mg/dL at bedtime on 12/28, 107 mg/dL fasting on 12/29, and then 191 mg/dL at lunch time. * Novolog parameters will be tightened to provider better carbohydrate coverage and to correct higher values more efficiently. * Will continue 10 units of Lantus at bedtime given deficit of fasting data; will reevaluate tomorrow when another fasting has been recorded. PLAN FOR INPATIENT GLYCEMIC CONTROL: * Hold outpatient oral diabetes medications * Basal insulin * Lantus 5 units SQ HS * Bolus insulin * NovoLog per scale ACHS or Q6hrs while NPO * Goal Range: Low 110 mg/dL - High 140 mg/dL * Correction Factor: 35 mg/dL/unit * Nutritional / Prandial insulin per carb ratio of 1 unit per 15 grams CHO consumed
--- NOTE | 2023-01-01 16:11 | Hospitalist Progress Note ---
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 Patient stated that he had 15 pound weight gain in 2 weeks AMBULANCE ATTENDANT. Patient reports drinking 1 to 1-1/2 gallons of fluid per day. He is being managed for the following: Acute on chronic HFrEF History of ischemic cardiomyopathy Patient presents with worsening leg edema/weight gain/shortness of breath for 2 weeks AMBULANCE ATTENDANT. Patient reports drinking excessive fluids, patient counseled regarding importance of low-sodium diet and fluid restricted diet and long-term management of heart failure. Admitting BNP 888, admitting CXR with cardiomegaly with pulmonary vascular congestion. 12/28 echo: EF of 15 to 20%, severely reduced LV systolic function, severely dilated LV. Moderately reduced RV systolic function. Cards on board, aldactone and entresto restarted w/ improvement of renal fxn, received a dose of iv lasix in am, further dose held. Monitor and replete electrolytes as appropriate. Continue with telemetry monitoring metoprolol succinate, cumulative balace of -2.7 litre, track is and os Supratherapeutic INR: 5.2 at presentation, therapeutic today, coumadin restarted 12/30, INR in AM. Patient on Coumadin for history of left ventricular apical thrombus. Atrial flutter with rapid ventricular response, new onset Admitting EKG showed new onset atrial flutter Cardiology on board, metoprolol being optimized, s/p successful cardioversion 12/31 am Monitor replete electrolytes Therapeutic inr, c/w coumadin Elevated LFTs: Likely secondary to hepatic congestion in the setting of acute CHF. Monitor LFT. Other chronic medical conditions History of apical mural thrombus: c/w coumadin DM type II: A1c of 8.7 in 10/2022, sliding scale while in hospital, glycemic pharmacy consult. rounding machine tender consult. Consider adding Jardiance at discharge.a1c 10.3 this admission DVT prophylaxis: On Coumadin Full code Admission and Anticipated Discharge Date Admission Date: December 28, 2022 Subjective Patient seen and examined at bedside as a follow-up of acute on chronic heart failure with reduced ejection fraction, supratherapeutic INR, atrial flutter with rapid ventricular response, elevated LFTs. Patient was lying in bed, on room air, NAD, reports no new acute event overnight, reports eating okay and moving bowels okay, denies shortness of breath. Patient denies any headache or dizziness or chest pain or palpitation or sore throat or cough or other review of symptoms. Telemetry review w/ sinus rhythm after cardioversion on 12/31/22 AM. Physical Exam Physical Exam: GENERAL: Alert and oriented x3. NAD, on RA. HEENT: No pallor, no icterus. Pupils equal, round and reactive to light. Oral mucosa moist. NECK: No JVD, no neck masses. HEART: S1 and S2 heard. irregular rate and rhythm. No murmur, no gallop. RESPIRATORY SYSTEM: Normal AP diameter. No accessory muscle use. No wheezing, no crackles. ABDOMEN: Soft, bowel sounds present, nontender, no distention. CENTRAL NERVOUS SYSTEM: No facial droop. Speech is clear. Obeys simple commands. Moves extremities. EXTREMITIES: 2+ BLE edema, ble chronic skin changes noted. Results & Data Results & Data ([facility]) Vital Signs (Past 12 Hours) Vital Signs Temp Pulse Pulse Resp BP Pulse Ox O2 Del Method 01/01/23 11:42 36.8 C 91 H 16 139/83 93 Room Air 01/01/23 08:00 75 01/01/23 07:37 36.3 C L 48 L 18 117/79 92 Room Air
[2023-01-01] MEDS: WARFARIN SOD 7.5 MG TAB PO SCH (17:22)
[2023-01-01] MEDS ORDERED: METOPROLOL SUCC 25MG EXT REL TAB PO SCH (21:00)
[2023-01-01] MEDS ORDERED: LANTUS PER UNIT CHARGE SQ SCH (21:00)
[2023-01-01] MEDS: VALSARTAN/SACUBITRIL 26/24MG TAB PO SCH (21:11)
[2023-01-02 06:57] LABS: BUN Creatinine Ratio 29.7 (10-20); Calcium 8.9 mg/dl (8.5-10.1); Creatinine Clr Calc Pharmacy 86.4 ml/min; Est GFR (African American) 76.2 ml/min; Est GFR (Non-African American) 65.7 ml/min; Potassium 4.2 mmol/L (3.5-5.1)
[2023-01-02 07:02] LABS: INR 2.7 (0.9-1.1); Prothrombin Time 26.8 Seconds (9.0-12.0)
[2023-01-02] MEDS: INSULIN ASPART PER UNIT SC SCH ×2 (08:48→13:24)
[2023-01-02] MEDS: METOPROLOL SUCC 50MG EXT REL TAB PO SCH (09:08)
[2023-01-02] MEDS: SPIRONOLACTONE 12.5 MG TAB PO SCH (09:08)
[2023-01-02] MEDS: ASPIRIN 81 MG ECTAB PO SCH (09:08)
[2023-01-02] MEDS: VALSARTAN/SACUBITRIL 26/24MG TAB PO SCH (09:08)
--- NOTE | 2023-01-02 12:17 | Cardiology Progress Note ---
Date of Service January 02, 2023 Assessment & Plan (1) Acute HFrEF (heart failure with reduced ejection fraction): (2) Ischemic cardiomyopathy: (3) Atrial flutter with rapid ventricular response: Plan Successful external direct-current cardioversion performed 12/31/2022. Patient re daphney in sinus rhythm. Renal function has trended down towards baseline. Patient on guideline directed medical regimen Stable for discharge with plan to follow-up with Dr. Tamez on 01/04/2020 Would recommend sleep medicine evaluation post disc Admission and Anticipated Discharge Date Admission Date: December 28, 2022 Subjective Patient seen and examined, chart, medications, telemetry reviewed. Patient comfortable lying flat in bed. No shortness of breath no dizziness. Ambulatory in room. Telemetry demonstrates persistent sinus with short runs of atrial tachycardia nonsustained Review of Systems Review of Systems: All systems reviewed & are unremarkable except as noted in Subjective Physical Exam Constitutional: well nourished; no acute distress Respiratory: no respiratory distress, no labored breathing and no retractions Auscultation: + rales (Bases bilateral) Cardiovascular: Rate/Rhythm: + irregularly irregular Heart Sounds: normal S1 and normal S2; no murmur Vessels: + JVD and radial pulses present; no carotid bruit Extremities: + edema (1+ bilateral pretibial edema R>L) Gastrointestinal (Abdomen): Inspection/Auscultation: normal bowel sounds; abdomen not distended Percussion/Palpation: abdomen soft; abdomen nontender, no guarding and abdomen not rigid Neurologic: CN's II-XI intact bilaterally and moves all extremities; no focal motor deficits Motor/Sensory: no tremor Psychiatric: A+Ox3, euthymic affect Results & Data ([facility]) Vital Signs (Past 12 Hours) Vital Signs Temp Pulse Resp BP Pulse Ox O2 Del Method 01/02/23 08:00 36.8 C 88 20 109/66 97 Room Air 01/02/23 03:51 36.5 C 76 18 115/74 97 Room Air Laboratory Results Laboratory Results - last 24 hr 01/01/23 01/01/23 01/02/23 16:27 20:56 06:04 PT INR Sodium 136 Potassium 4.2 Chloride 101 Carbon Dioxide 28 Anion Gap 7 BUN 35 H Creatinine 1.18 Est Cr Clr Drug Dosing 86.4 Est GFR ( Amer) 76.2 Est GFR (Non-Af Amer) 65.7 BUN/Creatinine Ratio 29.7 H Glucose 113 H POC Glucose 131 H 146 H Calcium 8.9 01/02/23 01/02/23 06:04 11:49 PT 26.8 H INR 2.7 H Sodium Potassium Chloride Carbon Dioxide Anion Gap BUN Creatinine Est Cr Clr Drug Dosing Est GFR ( Amer) Est GFR (Non-Af Amer) BUN/Creatinine Ratio Glucose POC Glucose 167 H Calcium
--- NOTE | 2023-01-02 13:13 | Discharge Summary ---
Date of Service January 02, 2023 Admission HPI Per Admitting Provider 62-year-old female with PMH of mixed ischemic and nonischemic cardiomyopathy s/p AICD EF 20%, CAD s/p PCI to LAD in 2018, DM type II, HTN, apical mural thrombus on Coumadin, and other problems listed below who presents to the ED for evaluation of weight gain and shortness of breath. Patient reports symptoms began about 2 weeks ago. Patient notes increasing lower extremity edema and worsening shortness of breath on exertion. Patient also reports orthopnea. Patient states that he has had a 15 pound weight gain in 2 weeks. Patient denies any changes in dietary habits or medication adjustments. Patient denies chest pain and palpitations. No lightheadedness, dizziness, diaphoresis, syncopal events. Patient reports intermittent nosebleeds over the past couple of weeks as well, last one being 2 days ago. Denies any other recent illnesses, fevers, chills. No abdominal pain, nausea, vomiting, diarrhea. Denies urinary symptoms. In the ED, patient was found to be in new onset atrial flutter. Labs show INR 5.2, glucose 273, total bili 1.6, ALT 53, alk phos 475, HS troponin 45, proBNP 888. CXR showing pulmonary vascular congestion. Patient was given Lasix 40 mg IV. Admission Exam Per Admitting Provider Constitutional: WD/WN, vitals as above Eyes: PERRL, conjunctivae normal, anicteric sclerae ENMT: external ear and nose normal, oropharynx normal Respiratory: normal respiratory effort; no respiratory distress Auscultation: + crackles (faint, BL bases) Cardiovascular: Rate/Rhythm: regular rhythm and + tachycardic Vessels: normal peripheral pulses Extremities: + edema (+3 pitting edema BLE) Gastrointestinal (Abdomen): normal bowel sounds, soft, nontender, no hepatosplenomegaly Musculoskeletal: no cyanosis or clubbing, extremities motor strength 5/5 Skin: no rashes, warm and dry chronic venous changes BLE, small area of weeping noted right anterior prasad Neurologic: PERRL, EOMI, accommodation nl, no face palsy, no dysarthria Psychiatric: A+Ox3, euthymic affect Genitourinary: + scrotal swelling Principal Diagnosis Acute on chronic HFrEF History of ischemic cardiomyopathy Supratherapeutic INR Atrial flutter with rapid ventricular response, new onset History of apical mural thrombus on Coumadin Discharge Exam GENERAL: Alert and oriented x3. NAD, on RA. HEENT: No pallor, no icterus. Pupils equal, round and reactive to light. Oral mucosa moist. NECK: No JVD, no neck masses. HEART: S1 and S2 heard. irregular rate and rhythm. No murmur, no gallop. RESPIRATORY SYSTEM: Normal AP diameter. No accessory muscle use. No wheezing, no crackles. ABDOMEN: Soft, bowel sounds present, nontender, no distention. CENTRAL NERVOUS SYSTEM: No facial droop. Speech is clear. Obeys simple commands. Moves extremities. EXTREMITIES: 1-2+ BLE edema, ble chronic skin changes noted. Discharge Data Allergies Allergy/AdvReac Type Severity Reaction Status Date / Time No Known Allergies Allergy Unverified 01/20/19 12:20 Consultations 12/28/22 12:59 ED Decision to Admit Stat 12/28/22 13:35 Consult Cardiology Routine 12/30/22 10:01 Consult Anesthesiology Routine Procedures Performed Operation Date: 12/31/22 07:45 Actual Procedures p Cardioversion - Leno Voss DO Ordered Studies 01/01/23 10:25 US venous duplex leg [US venous doppler LE RT] Routine Diabetes Follow up Diabetes Follow-up Needed for HgbA1c >9% Hospital Course (1) Acute HFrEF (heart failure with reduced ejection fraction): (2) Atrial flutter with rapid ventricular response: Plan 62-year-old male with PMH of 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 Patient stated that he had 15 pound weight gain in 2 weeks MUD MILL TENDER. Patient reports drinking 1 to 1-1/2 gallons of fluid per day. He was managed for the following: Acute on chronic HFrEF History of ischemic cardiomyopathy Patient presents with worsening leg edema/weight gain/shortness of breath for 2 weeks MUD MILL TENDER. Patient reports drinking excessive fluids, patient counseled regarding importance of low-sodium diet and fluid restricted diet and long-term management of heart failure. Admitting BNP 888, admitting CXR with cardiomegaly with pulmonary vascular congestion. 12/28 echo: EF of 15 to 20%, severely reduced LV systolic function, severely dilated LV. Moderately reduced RV systolic function. Status post successful cardioversion on 12/31/2022, patient has remained in sinus rhythm. Cardiology evaluated, continuing with prior dose of Aldactone, Entresto, Lasix, optimized dose of metoprolol succinate. Patient to follow-up with PCP and cardiology in a week time upon discharge, and likely he will need labs CBC/CMP/magnesium/phosphorus. Patient advised to follow-up with heart healthy diet, low-sodium diet, fluid restriction of 50 to 70 ounces per day. Patient agreeable. Supratherapeutic INR: 5.2 at presentation, therapeutic today, coumadin restarted 12/30, INR in AM. Patient on Coumadin for history of left ventricular apical thrombus. Patient to follow-up with Coumadin clinic upon discharge in a week time. Atrial flutter with rapid ventricular response, new onset Admitting EKG showed new onset atrial flutter Cardiology on board, metoprolol being optimized, s/p successful cardioversion 12/31 am Monitor replete electrolytes Therapeutic inr, c/w coumadin Elevated LFTs: Likely secondary to hepatic congestion in the setting of acute CHF. Improving trend. Other chronic medical conditions History of apical mural thrombus: c/w coumadin DM type II: A1c of 8.7 in 10/2022, sliding scale while in hospital, glycemic pharmacy consult. family living educator consult. Added Jardiance at discharge.a1c 10.3 this admission. Patient to follow-up closely with either PCP office or diabetic clinic for ongoing management of his diabetes. DVT prophylaxis: On Coumadin Full code Patient being discharged home with following instruction at the point of discharge: Follow-up with your primary care physician within a week time and likely you will need labs CBC/CMP/magnesium/phosphorus. You were evaluated for acute on chronic heart failure with reduced ejection fraction and new onset atrial flutter with rapid ventricular response. You underwent cardioversion on 12/31/2022 which was successful. You will continue your Coumadin, continue to follow-up with your Coumadin clinic. Your cardiac medication has been optimized, take them as prescribed. Follow-up with Dr. Tamez on 01/04/2023. Maintain heart healthy diet, low-sodium diet [less than 2 g/day], maintain fluid intake between 50 to 70 ounces of fluids per day. You are A1c was 10.3 this admission, your diabetes is poorly controlled, hence Jardiance has been added to your diabetic medication on discharge. Continue to follow-up with your PCP or diabetic clinic for ongoing management of her diabetes. Take your medications as prescribed. Please make sure that you are able to get your medications today by calling your pharmacy before you leave the hospital so that your treatment continuity is not broken. Home Health Attestation I certify that this patient is under my care and that I, or a physicians cardiology physician assistant working with me, had a face to-face encounter that meets the home health [id number] encounter requirements with this patient. The encounter with the patient was in whole, or in part, for the following medical condition, which is the primary reason for home health care (list medical condition): I certify that, based on my findings, the following services are medically necessary home health services: My clinical findings support the need for the above services because: Further, I certify that my clinical findings support that this patient is homebound (i.e. absences from home require considerable and taxing effort and are for medical reasons or worship services or infrequently or of short duration when for other reasons) because: Certification for Home Health Services: Based on the above findings, I certify that this patient is confined to the home and needs intermittent shelter care, physical therapy and/or speech therapy or continues to need occupational therapy. The patient is under my care, and I have initiated the establishment of the plan of care. This patient will be followed by a physician who will periodically review the plan of care. Total Time Total Time Spent Total Time Spent (In Minutes): 45 Discharge Plan Discharge Items Patient Disposition: Home - Self-Care Reason For Visit: CHF Discharge Diagnosis: Acute on chronic HFrEF History of ischemic cardiomyopathy Supratherapeutic INR Atrial flutter with rapid ventricular response, new onset History of apical mural thrombus on Coumadin Activity: Resume your previous activity Non-emergency contact: Primary Care Provider Call non-emergency contact if: you have any medication questions, your symptoms worsen and your temperature is above 101 Follow-up/Referrals: Zachary Lagos MD [Primary Care Provider] - Diet: Carb Consistent or DM2 and Heart Healthy Addtl Attending Provider Instructions: Follow-up with your primary care physician within a week time and likely you will need labs CBC/CMP/magnesium/phosphorus. You were evaluated for acute on chronic heart failure with reduced ejection fraction and new onset atrial flutter with rapid ventricular response. You underwent cardioversion on 12/31/2022 which was successful. You will continue your Coumadin, continue to follow-up with your Coumadin clinic. Your cardiac medication has been optimized, take them as prescribed. Follow-up with Dr. Tmaez on 01/04/2023. Maintain heart healthy diet, low-sodium diet [less than 2 g/day], maintain fluid intake between 50 to 70 ounces of fluids per day. You are A1c was 10.3 this admission, your diabetes is poorly controlled, hence Jardiance has been added to your diabetic medication on discharge. Continue to follow-up with your PCP or diabetic clinic for ongoing management of her diabetes. Take your medications as prescribed. Please make sure that you are able to get your medications today by calling your pharmacy before you leave the hospital so that your treatment continuity is not broken. Addtl Ambulette Driver Provider Instructions: Call 911 and go to the Emergency Room if: * You have tightness or pain in your chest that does not go away with rest or Nitroglycerin * You are very short of breath even with rest Call your doctor if any of the following symptoms or problems start or get worse: * Shortness of breath or difficulty breathing * Wake up at night short of breath * Chest pain * Cough * Swelling of your hands, fee, or legs * More fatigued or tired with your normal activity * Palpitations - sudden fast heart beats WEIGHT * Weigh yourself every morning after using the bathroom. * Use the same scale. * Wear the same amount of clothing. * Write your weight down on your chart. * Call your doctor if you gain more than 2-3 pounds in 1-2 days. MEDICATIONS * Use this discharge instruction sheet for instructions. * Take your medications at the time your doctor ordered. * Do not skip a dose of your medicines. * If you miss a dose of medicine, take as soon as possible, but DO NOT DOUBLE A DOSE. * Read your medicine information when you get home. * Know all of the side effects of your medicine. * Call your doctor's office if you have any side effects. * Be sure all of your doctors know what medicine and herbs you take (including cold, flu, and herbal medicine). * Pain Medicine: If you do not get relief from your pain, please call your doctor for help. Take the following with you to your follow-up doctor appointments: * Weight Chart * Medication List * List of questions Do not drink excessive alcohol, beer or wine. Pending Studies at Discharge: No Stand-Alone Forms: [facility], Smoking Cessation Medications and DC Order Prescriptions: New metoprolol succinate 25 mg Tablet Extended Release 24 Hr 25 mg PO HS Qty: 30 0RF metoprolol succinate 50 mg Tablet Extended Release 24 Hr 50 mg PO QAM Qty: 30 0RF Jardiance 10 mg tablet 10 mg PO DAILY Qty: 30 0RF Continued aspirin [Ecotrin Low Strength] 81 mg Tablet,Delayed Release (Dr/Ec) 81 mg PO QAM Qty: 30 0RF metformin 500 mg tablet 1,000 mg PO BID atorvastatin 80 mg tablet 80 mg PO HS furosemide 40 mg Tablet 40 mg PO DAILY spironolactone 25 mg Tablet 12.5 mg PO DAILY warfarin 5 mg tablet 7.5 mg PO DAILY Entresto 24-26 mg tablet 1 tab PO BID Discontinued metoprolol succinate 50 mg tablet extended release 24 hr 50 mg PO DAILY Discharge Orders: Discharge Order- CHF (Routine); Ordered 01/02/23 Ordered By: Suyapa Kwong Admission Data Admit Date/Time: 12/28/22 13:01 Attending Provider: Suyapa Kwong Admit Provider: Aggie Shelton Primary Care Provider: Zachary Lagos Other Providers: Leno Voss ; Aggie Shelton ; Jadyn Easton ; Shameka Marlow ; Nancy Jaramillo ; Nicolette Handley ; Daria Sales ; Mk Rodarte ; Addison Woods ; Alfonso Poole ; Bert Rincon ; Sol Rincon ; Jesús Menjivar ; Aixa Becerril ; Rony Naik ; Ryan Abernathy ; Jeffrey Bernardo ; Chinmay Eldridge ; Angelita Alvares ; Florian Diane ; Lilian Maynard ; Martina Diane ; Yonis Lara ; Thu Pearson ; Lucas Byrnes ; Deepali Luciano ; Belen Herrera ; Eddie Nunn ; Mckenzie Macias ; Kerline Rivera ; Jael Mckeon ; Savana Blanc A ; Nico Blanc V ; Nikolay Rachel ; Shameka Kelly ; Bird Cuevas ; Adelia Mcconnell ; Nico Nieves ; Jacky Alvares ; Figueroa Loera ; Annamarie Benedict ; Cata Vela ; Nico Louise ; Froy Mejia ; Veena Duval ; Thom Daigle ; Ramiro Eldridge ; Fidelia Mcmahon ; Papo Chiu ; Inderjit Calles ; Mo Hollingsworth ; Papo Kidd ; Mk Hirsch Jr ; Astrid Mauricio ; Dottie Dorantes A. ; Yessenia Saucedo. ; Eddie Meier ; Nicolette Hoff ; Bert Menard ; Jonel Santillan I. ; Torri Smith S. ; Dottie Cherry A. ; Licha Perez. ; Michelet Ruvalcaba ; Satya Raman
== END 2023-01-02 16:02 | disposition home health service (06) | DRG 291 ==
LOC: ED 11:08 → SUATTDRO 13:01 → 2S 13:01

== ENCOUNTER 2025-02-13 19:09 | Inpatient (IN) ==
[2025-02-13 20:22] LABS: Basophils # (auto) 0.06 K/uL (0.00-0.20); Basophils % (auto) 0.7 %; Eosinophils # (auto) 0.09 K/uL (0.00-0.50); Hemoglobin 12.3 g/dl (14.0-18.0); Immature Granulocytes # (auto) 0.03 K/uL (0.01-0.20); Immature Granulocytes % (auto) 0.3 %; Lymphocytes # (auto) 1.07 K/uL (1.20-3.40); Lymphocytes % (auto) 12.4 %; Mean Corpuscular Hemoglobin 21.8 pg (25.0-34.0); Mean Corpuscular Volume 72.8 fL (80.0-100.0); Mean Platelet Volume 9.5 fL (9.4-12.4); Monocytes # (auto) 0.86 K/uL (0.11-0.59); Monocytes % (auto) 9.9 %; Neutrophils # (auto) 6.55 K/uL (1.40-6.50); Neutrophils % (auto) 75.7 %; Nucleated RBC # (auto) 0.06 K/uL (0.00-0.12); Nucleated RBC % (auto) 0.7 %; Platelet Count 324 K/uL (130-400); RDW Standard Deviation 46.7 fL (36.4-46.3); Red Blood Count 5.63 M/uL (4.70-6.10); White Blood Count 8.66 K/ul (4.8-10.8)
[2025-02-13 20:39] LABS: Albumin Globulin Ratio 1.5 (0.9-2); Albumin Level 4.4 gm/dl (3.4-5.0); BUN Creatinine Ratio 34.7 (10-20); Bilirubin,Total 1.4 mg/dl (0.2-1.0); Calcium 9.8 mg/dl (8.6-10.3); Creatinine Clr Calc Pharmacy 74.4 ml/min; Potassium 6.3 mmol/L (3.5-5.1); Total Protein 7.4 gm/dl (6.0-8.3)
[2025-02-13] MEDS ORDERED: INSULIN HUMAN REGULAR PER UNIT 5 UNITS in SYRINGE 9.9 ML IV STA (20:48)
[2025-02-13 20:50] LABS: Troponin I High Sensitivity 46.8 pg/ml (0-20)
[2025-02-13] MEDS: INSULIN HUMAN REGULAR PER UNIT 5 UNITS in SYRINGE 4.95 ML IV STA (21:07)
[2025-02-13] MEDS: CALCIUM GLUCONATE 1,000 MG/60 ML BAG IV STA (21:08)
[2025-02-13] MEDS: DEXTROSE 50% 50 ML SYRINGE IV STA (21:08)
--- NOTE | 2025-02-13 21:10 | XRay Report ---
Exam(s): XR CXR 1 VIEW EXAM: XR Chest, 1 View CLINICAL HISTORY: Reason for exam: Chest pain, nonspecific. TECHNIQUE: Frontal view of the chest. COMPARISON: 01/20/19 FINDINGS: Lungs: Vascular congestion and interstitial prominence suggesting pulmonary edema. Pleural space: No pleural effusion or pneumothorax. Heart: Cardiomegaly. Bones/joints: No acute fracture. No dislocation. Tubes, lines and devices: Left chest wall ICD with single right ventricular lead. IMPRESSION: 1. Vascular congestion and interstitial prominence suggesting pulmonary edema. 2. Cardiomegaly. Electronically signed by: Tung Garzon M.D. 02/13/25 21:10 PM
[2025-02-13] MEDS: FUROSEMIDE 40 MG/4 ML VIAL IV ONE (21:25)
--- NOTE | 2025-02-13 21:40 | History & Physical Report ---
Date of Service February 13, 2025 Assessment & Plan (1) Acute HFrEF (heart failure with reduced ejection fraction): Plan: Will continue diuresis with Lasix 40 mg IV twice daily Daily weights Accurate I&O Consult cardiology Patient had an echocardiogram in September 2024. Will defer to cardiology if they want a repeat echo (2) Hyperkalemia: Plan: Trend labs Will hold spironolactone for now Patient given insulin and calcium gluconate in the ED (3) History of atrial fibrillation: Plan: Continue apixaban His rate is controlled Continue metoprolol succinate (4) DM type 2 (diabetes mellitus, type 2): Plan: Sliding scale insulin Hold metformin Continue Jardiance Check hemoglobin A1c (5) HLD (hyperlipidemia): Plan: Continue high-dose atorvastatin (6) HTN (hypertension): Plan: Follow BPs Continue metoprolol Patient is a full code VTE prophylaxis: Continue apixaban A total of 80 minutes was spent in the care plan for this patient. 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 He presents to the ED for evaluation of weight gain, edema and shortness of breath. Patient reports symptoms began about 1 weeks ago. Patient notes increasing lower extremity edema up to abdomen and worsening shortness of breath on exertion. Patient also reports orthopnea. Patient states that he has had weight gain in the past week. Patient denies any changes in dietary habits or medication adjustments. Patient denies chest pain and palpitations. No lightheadedness, dizziness, diaphoresis, syncopal events. Denies any other recent illnesses, fevers, chills. No abdominal pain, nausea, vomiting, diarrhea. Denies urinary symptoms. In the ED, patient was found to be hyperkalemic. He was given calcium gluconate and insulin. Labs show glucose 133, total bili 1.4, HS troponin 46.85, proBNP 1425. CXR shows pulmonary vascular congestion, interstitial prominence and cardiomegaly. Patient was given Lasix 40 mg IV in the ED. Allergies Allergy/AdvReac Type Severity Reaction Status Date / Time No Known Allergies Allergy Verified 02/13/25 21:40 Home Medications Medication Instructions Recorded Confirmed Type aspirin 81 mg tablet,delayed 81 mg PO QAM #30 tabs 09/17/18 02/13/25 Rx release (Ecotrin Low Strength) atorvastatin 80 mg tablet 80 mg PO HS 01/20/19 02/13/25 History sacubitril 24 mg-valsartan 26 mg 1 tab PO BID 12/28/22 02/13/25 History tablet (Entresto) empagliflozin 10 mg tablet 10 mg PO QAM 05/07/23 02/13/25 History (Jardiance) apixaban 5 mg tablet (Eliquis) 5 mg PO BID 02/13/25 02/13/25 History ascorbic acid (vitamin C) 500 mg 500 mg PO DAILY 02/13/25 02/13/25 History capsule,extended release cholecalciferol (vitamin D3) 25 25 mcg PO DAILY 02/13/25 02/13/25 History mcg (1,000 unit) capsule (Vitamin D3) coenzyme Q10 100 mg capsule 100 mg PO DAILY 02/13/25 02/13/25 History (CoQ-10) furosemide 40 mg tablet 40 mg PO QAM 02/13/25 02/13/25 History metformin 500 mg tablet,extended 1,000 mg PO BID 02/13/25 02/13/25 History release 24 hr metoprolol succinate 25 mg 25 mg PO QAM 02/13/25 02/13/25 History tablet,extended release 24 hr spironolactone 25 mg tablet 25 mg PO QAM 02/13/25 02/13/25 History Past Med/Surg History Problem List (Updated 02/13/25 @ 22:39 by Ramiro Pichardo DO) Hyperkalemia Atrial fibrillation with RVR CAD (coronary artery disease) s/p PCI to LAD 2017 (anterior wall [place] 2017) History of atrial fibrillation dx'ed during [facility] admission 12/2022>cardioversion effective per patient (done at [facility]) on warfarin Acute HFrEF (heart failure with reduced ejection fraction) (Acute) Atrial flutter with rapid ventricular response (Acute) Supratherapeutic INR (Acute) DM type 2 (diabetes mellitus, type 2) (Acute) Elevated LFTs Encounter for pre-operative examination Apical mural thrombus On Coumadin Ischemic cardiomyopathy (Acute) mixed ischemic and nonischemic CM per records EF 20% followed by [facility] cardiology HLD (hyperlipidemia) (Chronic) HTN (hypertension) (Chronic) Medical History Heart failure EF 15-20% per 12/2022 ECHO ICD (implantable cardioverter-defibrillator) in place Implanted 2018 "Primary prevention ICD" per cardio records- EF 15-20% per 12/2022 ECHO History of cardioversion 12/2022>[facility] [place] [facility] Diabetes mellitus, type II Surgical History H/O abdominal surgery ? details>done as an infant for poor digestion of food History of tooth extraction History of tonsillectomy H/O heart artery stent August 2018>1 stent placed [facility] Family History Other Diabetes No family history of adverse response to anesthesia Social History Smoking Status: Never smoker Cigarettes Per Day: 2018; Second Hand Exposure: Yes (as a child); Do You Dip or Chew Tobacco: No; Hx Alcohol Use: Yes Alcohol type: wine Hx Substance Use: No Preferred Language: Turkmen Communication Ability: Effective [employer] Che[employer] Specials Required: No Beliefs That Will Affect Care: None marital status: Current Living Situation: Spouse current occupational status: employed current occupation: [employer] Feels Safe at Home: Yes Assistive Devices: Contacts and Glasses Review of Systems Review of Systems: Constitutional- no fever; pos weight gain Eyes- no acute visual changes ENT- no sinus drainage; no pharyngitis Pulmonary- no cough, no wheezing, has shortness of breath Cardiac- no chest pain, no palpitations, has orthopnea and dependent edema GI- no nausea, no vomiting, no diarrhea, no melena, no hematochezia - no dysuria, no hematuria Musculoskeletal- no arthralgias, no myalgias Derm- no rashes, no new skin lesions, no changing skin lesions Hematologic- no unusual bruising, no unusual bleeding Lymphatics- no adenopathy Endocrine- no polyuria or polydipsia; no heat or cold intolerance Neuro- no headaches, no focal neurologic symptoms Psych- no anxiety, no depression Physical Exam Physical Exam: General- adult obese male examined at bedside in the ED. Head- atraumatic Eyes- PERRL, EOMI, anicteric ENT- oropharynx clear Neck- supple, no JVD, no adenopathy, no thyromegaly; carotids +2/2, no bruits appreciated Lungs-fine crackles bilateral bases Heart-irregularly irregular with a controlled rate of 88; Abdomen- normal bowel sounds, soft, nontender, no masses or hepatosplenomegaly Extremities- 3 plus pretibial edema, no calf tenderness; peripheral pulses intact Neuro- alert, oriented x 3; PERRL, EOMI; no facial palsy; no dysarthria; motor 5/5 bilaterally; Skin- warm & dry Results & Data Results & Data Vital Signs (Past 12 Hours) Vital Signs Temp Pulse Pulse Resp BP BP Pulse Ox 02/13/25 21:00 104/70 02/13/25 21:00 95 H 18 104/70 97 02/13/25 20:30 94 H 20 107/75 95 02/13/25 20:00 100 H 20 95/74 L 94 02/13/25 19:48 103 H 02/13/25 19:45 98 02/13/25 19:43 94 H 20 126/103 H 98 02/13/25 19:14 36.6 C 109 H 18 127/63 100 O2 Del Method 02/13/25 21:00 02/13/25 21:00 02/13/25 20:30 02/13/25 20:00 02/13/25 19:48 02/13/25 19:45 Room Air 02/13/25 19:43 Room Air 02/13/25 19:14 Room Air Diagnostic Findings Laboratory Results WBC 8.66 K/ul (4.8-10.8) 02/13/25 19:33 RBC 5.63 M/uL (4.70-6.10) 02/13/25 19:33 Hgb 12.3 g/dl (14.0-18.0) L 02/13/25 19:33 Hct 41.0 % (42.0-52.0) L 02/13/25 19:33 MCV 72.8 fL (80.0-100.0) L 02/13/25 19:33 MCH 21.8 pg (25.0-34.0) L 02/13/25 19: MCHC 30.0 g/dL (32.0-36.0) L 02/13/25 19: RDW Std Deviation 46.7 fL (36.4-46.3) H 02/13/25: RDW Coeff of Sebastian 19.0 % (11.5-14.5) H 02/13/25: Plt Count 324 K/uL (130-400) 02/13/25 19: MPV 9.5 fL (9.4-12.4) 02/13/25: Immature Gran % (Auto) 0.3 % 02/13/25: Neut % (Auto) 75.7 % 02/13/25 19: Lymph % (Auto) 12.4 % 02/13/25: [place] % (Auto) 9.9 % 02/13/25: Eos % (Auto) 1.0 % 02/13/25: Baso % (Auto) 0.7 % 02/13/25: Neut # (Auto) 6.55 K/uL (1.40-6.50) H 02/13/25 19: Lymph # (Auto) 1.07 K/uL (1.20-3.40) L 02/13/25 19: [place] # (Auto) 0.86 K/uL (0.11-0.59) H 02/13/25: Eos # (Auto) 0.09 K/uL (0.00-0.50) 02/13/25 19: Baso # (Auto) 0.06 K/uL (0.00-0.20) 02/13/25: Immature Gran # (Auto) 0.03 K/uL (0.01-0.20) 02/13/25: Absolute Nucleated RBC 0.06 K/uL (0.00-0.12) 02/13/25: Nucleated RBC % (auto) 0.7 % 02/13/25 19: PT Cancelled 02/13/25: INR Cancelled 02/13/25 19: APTT Cancelled 02/13/25 19:33 PTT Ratio Cancelled 02/13/25 19:33 Sodium 134 mmol/L (136-145) L 02/13/25 19:33 Potassium 6.3 mmol/L (3.5-5.1) H* 02/13/25 19:33 Chloride 103 mmol/L (98-107) 02/13/25 19:33 Carbon Dioxide 22 mmol/L (21-32) 02/13/25 19:33 Anion Gap 9 (3-11) 02/13/25 19:33 BUN 43 mg/dl (6-23) H 02/13/25 19:33 Creatinine 1.24 mg/dl (0.6-1.4) 02/13/25 19:33 Est Cr Clr Drug Dosing 74.4 ml/min 02/13/25 19:33 eGFR 64.52 02/13/25 19:33 BUN/Creatinine Ratio 34.7 (10-20) H 02/13/25 19:33 Glucose 133 mg/dl (70-99(Fasting)) H 02/13/25 19:33 Calcium 9.8 mg/dl (8.6-10.3) 02/13/25 19:33 Total Bilirubin 1.4 mg/dl (0.2-1.0) H 02/13/25 19:33 AST 49 U/L (13-39) H 02/13/25 19:33 ALT 29 U/L (7-52) 02/13/25 19:33 Alkaline Phosphatase 300 U/L (34-104) H 02/13/25 19:33 Troponin I High Sens 46.8 pg/ml (0-20) H 02/13/25 19:33 B-Natriuretic Peptide 1425 pg/ml (0-100) H 02/13/25 19:33 Total Protein 7.4 gm/dl (6.0-8.3) 02/13/25 19:33 Albumin 4.4 gm/dl (3.4-5.0) 02/13/25 19:33 Globulin 3.0 gm/dl (2.5-4.0) 02/13/25 19:33 Albumin/Globulin Ratio 1.5 (0.9-2) 02/13/25 19:33 Impressions Chest X-Ray 02/13/25 19:19 Exam(s): XR CXR 1 VIEW EXAM: XR Chest, 1 View CLINICAL HISTORY: Reason for exam: Chest pain, nonspecific. TECHNIQUE: Frontal view of the chest. COMPARISON: 01/20/19 FINDINGS: Lungs: Vascular congestion and interstitial prominence suggesting pulmonary edema. Pleural space: No pleural effusion or pneumothorax. Heart: Cardiomegaly. Bones/joints: No acute fracture. No dislocation. Tubes, lines and devices: Left chest wall ICD with single right ventricular lead. IMPRESSION: 1. Vascular congestion and interstitial prominence suggesting pulmonary edema. 2. Cardiomegaly. Electronically signed by: Tung Garzon M.D. 02/13/25 21:10 PM
[2025-02-13 22:10] LABS: INR 1.3 (0.9-1.1); Partial Thromboplastin Ratio 1.1; Partial Thromboplastin Time 30 Seconds (21-31); Prothrombin Time 13.6 Seconds (9.0-12.0)
--- NOTE | 2025-02-13 23:38 | Emergency Department Note ---
History of Present Illness General Chief Complaint: Hypotension Stated Complaint: EDEMA, LOW BP, SOB, WEIGHT GAIN Time Seen by Provider: 02/13/25 20:47 History of Present Illness Provider Complaint: shortness of breath Onset (ago): week(s) (2) Severity: similar to previous episodes Consistency/Duration: + progressively worsening Relieved By: + nothing Exacerbated By: + lying flat Known history of: congestive heart failure Associated symptoms: + orthopnea and + chest congestion; no chest pain, no pain with inspiration, no fever, no cough, no wheezing, no sputum production, no lower extremity pain or no abdominal pain Home Medications Medication Instructions Recorded Confirmed Type aspirin 81 mg tablet,delayed 81 mg PO QAM #30 tabs 09/17/18 02/13/25 Rx release (Ecotrin Low Strength) atorvastatin 80 mg tablet 80 mg PO HS 01/20/19 02/13/25 History sacubitril 24 mg-valsartan 26 mg 1 tab PO BID 12/28/22 02/13/25 History tablet (Entresto) empagliflozin 10 mg tablet 10 mg PO QAM 05/07/23 02/13/25 History (Jardiance) apixaban 5 mg tablet (Eliquis) 5 mg PO BID 02/13/25 02/13/25 History ascorbic acid (vitamin C) 500 mg 500 mg PO DAILY 02/13/25 02/13/25 History capsule,extended release cholecalciferol (vitamin D3) 25 25 mcg PO DAILY 02/13/25 02/13/25 History mcg (1,000 unit) capsule (Vitamin D3) coenzyme Q10 100 mg capsule 100 mg PO DAILY 02/13/25 02/13/25 History (CoQ-10) furosemide 40 mg tablet 40 mg PO QAM 02/13/25 02/13/25 History metformin 500 mg tablet,extended 1,000 mg PO BID 02/13/25 02/13/25 History release 24 hr metoprolol succinate 25 mg 25 mg PO QAM 02/13/25 02/13/25 History tablet,extended release 24 hr spironolactone 25 mg tablet 25 mg PO QAM 02/13/25 02/13/25 History Allergies Allergy/AdvReac Type Severity Reaction Status Date / Time No Known Allergies Allergy Verified 02/13/25 21:40 Past Med/Surg History Problem List (Updated 02/13/25 @ 23:37 by Zack Vargas MD) Hyperkalemia (Acute) Atrial fibrillation with RVR CAD (coronary artery disease) s/p PCI to LAD 2017 (anterior wall [place] 2017) History of atrial fibrillation dx'ed during [facility] admission 12/2022>cardioversion effective per patient (done at [facility]) on warfarin Acute HFrEF (heart failure with reduced ejection fraction) (Acute) Atrial flutter with rapid ventricular response (Acute) Supratherapeutic INR (Acute) DM type 2 (diabetes mellitus, type 2) (Acute) Elevated LFTs Encounter for pre-operative examination Apical mural thrombus On Coumadin Ischemic cardiomyopathy (Acute) mixed ischemic and nonischemic CM per records EF 20% followed by [facility] cardiology HLD (hyperlipidemia) (Chronic) HTN (hypertension) (Chronic) Medical History Heart failure EF 15-20% per 12/2022 ECHO ICD (implantable cardioverter-defibrillator) in place Implanted 2018 "Primary prevention ICD" per cardio records- EF 15-20% per 12/2022 ECHO History of cardioversion 12/2022>[facility] [place] Diabetes mellitus, type II Surgical History H/O abdominal surgery ? details>done as an for poor digestion of food History of tooth extraction History of tonsillectomy H/O heart artery stent August 2018>1 stent placed [facility] Family History Other Diabetes No family history of adverse response to anesthesia Social History Smoking Status: Never smoker Cigarettes Per Day: 2018; Second Hand Exposure: Yes (as a child); Do You Dip or Chew Tobacco: No; Hx Alcohol Use: Yes Alcohol type: wine Hx Substance Use: No Preferred Language: German Communication Ability: Effective Concrete Mixer Required: No Beliefs That Will Affect Care: None marital status: Current Living Situation: Spouse current occupational status: employed current occupation: [employer] Feels Safe at Home: Yes Assistive Devices: Contacts and Glasses Physical Exam 2 Vital Signs: Vital Signs - 24 hr 02/13/25 19:14 02/13/25 19:43 02/13/25 19:45 Temperature 36.6 C Temperature Source Temporal Artery Sc an Pulse Rate 109 H Pulse Rate [Finger ] 94 H Respiratory Rate 18 20 Respiratory Effort / Characteristics Non-Labored Sponta neous Non-Labored Sponta neous Respiratory Depth Normal Normal Respiratory Patter n Regular Blood Pressure 127/63 Blood Pressure [Ri ght Arm] 126/103 H Blood Pressure Apryl n 84 Blood Pressure Apryl n [Right Arm] 110 Blood Pressure Pos ition Sitting Pulse Oximetry 100 98 98 Oxygen Delivery Me thod Room Air Room Air Room Air Sepsis Recent Feve r Within 48 Hours No Sepsis New/Unexpla ined Change in Men rocael Status N/A Sepsis Action Take n by Nursing No Action Required 02/13/25 19:48 02/13/25 20:00 02/13/25 20:30 Temperature Temperature Source Pulse Rate 103 H 100 H 94 H Pulse Rate [Finger ] Respiratory Rate 20 20 Respiratory Effort / Characteristics Respiratory Depth Respiratory Patter n Blood Pressure 95/74 L 107/75 Blood Pressure [Ri ght Arm] Blood Pressure Apryl n 79 78 Blood Pressure Apryl n [Right Arm] Blood Pressure Pos ition Pulse Oximetry 94 95 Oxygen Delivery Me thod Sepsis Recent Feve r Within 48 Hours Sepsis New/Unexpla ined Change in Men rocael Status Sepsis Action Take n by Nursing 02/13/25 21:00 02/13/25 21:00 02/13/25 21:30 Temperature Temperature Source Pulse Rate 95 H 96 H Pulse Rate [Finger ] Respiratory Rate 18 20 Respiratory Effort / Characteristics Respiratory Depth Respiratory Patter n Blood Pressure 104/70 104/70 108/66 Blood Pressure [Ri ght Arm] Blood Pressure Apryl n 81 75 90 Blood Pressure Apryl n [Right Arm] Blood Pressure Pos ition Pulse Oximetry 97 98 Oxygen Delivery Me thod Sepsis Recent Feve r Within 48 Hours Sepsis New/Unexpla ined Change in Men rocael Status Sepsis Action Take n by Nursing 02/13/25 22:01 02/13/25 23:26 Temperature Temperature Source Pulse Rate 97 H Pulse Rate [Finger ] Respiratory Rate 20 Respiratory Effort / Characteristics Respiratory Depth Respiratory Patter n Blood Pressure 106/81 Blood Pressure [Ri ght Arm] Blood Pressure Apryl n 93 Blood Pressure Apryl n [Right Arm] Blood Pressure Pos ition Pulse Oximetry 98 Oxygen Delivery Me thod Room Air Sepsis Recent Feve r Within 48 Hours Sepsis New/Unexpla ined Change in Men rocael Status Sepsis Action Take n by Nursing Physical Exam: Physical Exam GENERAL: oriented to person, place, and time. appears well-developed and well- nourished. HENT: Exam performed. - Head: Normocephalic and atraumatic. EYES: Conjunctivae and EOM are normal. Right eye exhibits no discharge. Left eye exhibits no discharge. No scleral icterus. NECK: Normal range of motion. Neck supple. No JVD present. CV: Normal rate, irregular rhythm, normal heart sounds and intact distal pulses. There is 2+ pitting edema of the bilateral lower extremities. Palpable radial pulses bue. PULM/CHEST: Rales bilaterally ABD: The abdomen is soft. There is no tenderness. NEURO: Motor and sensation grossly intact. SKIN: Skin is warm and dry. He is not diaphoretic. PSYCH: normal mood and affect. Behavior is normal. Judgment and thought content normal. Course Course 2046: The patient was evaluated in room 90. A complete history and physical exam was performed Administered Medications Discontinued Medications Dextrose (Dextrose 50% 50 Ml Syringe) 50 ml IV NOW STA Stop: 02/13/25 20:49 Last Admin: 02/13/25 21:08 Dose: 50 ml Documented By: RASHAD Furosemide (Furosemide 40 Mg/4 Ml Vial) 40 mg IV ONE ONE Stop: 02/13/25 21:14 Last Admin: 02/13/25 21:25 Dose: 40 mg Documented By: RASHAD Calcium Gluconate () 1,000 mg in 60 mls @ 240 mls/hr IV NOW STA Stop: 02/13/25 21:02 Last Infusion: 02/13/25 21:25 Dose: Infused Documented By: Admin: 02/13/25 21:08 Dose: 240 mls/hr Documented By: RASHAD Insulin Human Regular 5 units/ (Syringe) 5 mls @ 3 mls/sec IV ONE STA Stop: 02/13/25 20:58 Last Admin: 02/13/25 21:07 Dose: 3 mls/sec Documented By: RASHAD Co-signed By: EMERSON Medical Decision Making Laboratory Data Attestation: I reviewed the patient's lab results. 02/13/25 19:33 02/13/25 19:33 Lab Results 02/13/25 02/13/25 02/13/25 Range/Units 19:33 21:21 22:31 WBC 8.66 (4.8-10.8) K/ul RBC 5.63 (4.70-6.10) M/uL Hgb 12.3 L (14.0-18.0) g/dl Hct 41.0 L (42.0-52.0) % MCV 72.8 L (80.0-100.0) fL MCH 21.8 L (25.0-34.0) pg MCHC 30.0 L (32.0-36.0) g/dL RDW Std Deviation 46.7 H (36.4-46.3) fL RDW Coeff of Sebastian 19.0 H (11.5-14.5) % Plt Count 324 (130-400) K/uL MPV 9.5 (9.4-12.4) fL Immature Gran % (Auto) 0.3 % Neut % (Auto) 75.7 % Lymph % (Auto) 12.4 % [place] % (Auto) 9.9 % Eos % (Auto) 1.0 % Baso % (Auto) 0.7 % Neut # (Auto) 6.55 H (1.40-6.50) K/uL Lymph # (Auto) 1.07 L (1.20-3.40) K/uL [place] # (Auto) 0.86 H (0.11-0.59) K/uL Eos # (Auto) 0.09 (0.00-0.50) K/uL Baso # (Auto) 0.06 (0.00-0.20) K/uL Immature Gran # (Auto) 0.03 (0.01-0.20) K/uL Absolute Nucleated RBC 0.06 (0.00-0.12) K/uL Nucleated RBC % (auto) 0.7 % PT Cancelled 13.6 H INR Cancelled 1.3 H APTT Cancelled 30 PTT Ratio Cancelled 1.1 Sodium 134 L (136-145) mmol/L Potassium 6.3 H* (3.5-5.1) mmol/L Chloride 103 (98-107) mmol/L Carbon Dioxide 22 (21-32) mmol/L Anion Gap 9 (3-11) BUN 43 H (6-23) mg/dl Creatinine 1.24 (0.6-1.4) mg/dl Est Cr Clr Drug Dosing 74.4 ml/min eGFR 64.52 BUN/Creatinine Ratio 34.7 H (10-20) Glucose 133 H (70-99(Fasting)) mg/dl POC Glucose 93 (70-99) mg/dl Calcium 9.8 (8.6-10.3) mg/dl Total Bilirubin 1.4 H (0.2-1.0) mg/dl AST 49 H (13-39) U/L ALT 29 (7-52) U/L Alkaline Phosphatase 300 H (34-104) U/L Troponin I High Sens 46.8 H 42.9 H (0-20) pg/ml B-Natriuretic Peptide 1425 H (0-100) pg/ml Total Protein 7.4 (6.0-8.3) gm/dl Albumin 4.4 (3.4-5.0) gm/dl Globulin 3.0 (2.5-4.0) gm/dl Albumin/Globulin Ratio 1.5 (0.9-2) Imaging Data Attestation: I personally reviewed and interpreted this imaging study as follows: My Impression: Chest x-ray: Cardiomegaly with cephalization Radiologist's Impression: Chest X-Ray 02/13/25 19:19 Exam(s): XR CXR 1 VIEW EXAM: XR Chest, 1 View CLINICAL HISTORY: Reason for exam: Chest pain, nonspecific. TECHNIQUE: Frontal view of the chest. COMPARISON: 01/20/19 FINDINGS: Lungs: Vascular congestion and interstitial prominence suggesting pulmonary edema. Pleural space: No pleural effusion or pneumothorax. Heart: Cardiomegaly. Bones/joints: No acute fracture. No dislocation. Tubes, lines and devices: Left chest wall ICD with single right ventricular lead. IMPRESSION: 1. Vascular congestion and interstitial prominence suggesting pulmonary edema. 2. Cardiomegaly. Electronically signed by: Tung Garzon M.D. 02/13/25 21:10 PM ECG Data Attestation: I personally reviewed and interpreted this ECG as follows: Interpretation: Atrial fibrillation with rate of 97. QRS [address] elevation or ST depression. Right bundle branch block present. No significant change from the EKG done in July 2024. MDM Narrative Cardiac monitoring: An order was placed for continuous cardiac monitoring. The monitor shows a rate of atrial fibrilation with 90 rhythm interpreted by me Patient was seen during a time of extreme volume and extreme acuity in the emergency department. Nursing triage protocols were initiated and labs were drawn by protocol in the triage area. Labs show an elevated high-sensitivity troponin. Potassium 6.3. Patient was treated with calcium gluconate IV insulin and IV dextrose. Lasix ordered for the patient IV. [facility] Impression & Plan Hyperkalemia, Acute HFrEF (heart failure with reduced ejection fraction) Critical Care Time Critical Care Time: Yes Total Critical Care Time: 36 I have personally spent greater than 36 minutes of critical care time in the direct management of this patient. This includes bedside care, interpretation of diagnostic studies, and testing, discussion with consultants, patient, and family members, and other required patient management activities. This 36 minutes is in excess of all separately billable procedures. Discharge Plan Visit Data Chief Complaint: Hypotension Stated Complaint: EDEMA, LOW BP, SOB, WEIGHT GAIN ED Provider: Zack Vargas Discharge Problem: Hyperkalemia, Acute HFrEF (heart failure with reduced ejection fraction) Patient Disposition: Admitted As Inpatient Discharge Instructions Interventions: ED Discharge Assessment Last Done: 02/13/25 23:26 Forms Stand Alone Forms: [facility] Prescriptions Prescriptions: No Action aspirin [Ecotrin Low Strength] 81 mg Tablet,Delayed Release (Dr/Ec) 81 mg PO QAM Qty: 30 0RF atorvastatin 80 mg tablet 80 mg PO HS Entresto 24-26 mg tablet 1 tab PO BID Jardiance 10 mg tablet 10 mg PO QAM furosemide 40 mg tablet 40 mg PO QAM spironolactone 25 mg tablet 25 mg PO QAM ascorbic acid (vitamin C) [Vitamin C] 500 mg Capsule, Extended Release 500 mg PO DAILY metformin 500 mg tablet extended release 24 hr 1,000 mg PO BID cholecalciferol (vitamin D3) [Vitamin D3] 25 mcg (1,000 unit) Capsule 25 mcg PO DAILY coenzyme Q10 [CoQ-10] 100 mg Capsule 100 mg PO DAILY Eliquis 5 mg tablet 5 mg PO BID metoprolol succinate 25 mg tablet extended release 24 hr 25 mg PO QAM Referrals Referrals: Kelvin Gongora M.D. [Primary Care Provider] -
[2025-02-13] MEDS ORDERED: NITROGLYCERIN SL 0.4 MG/TAB TAB SL PRN (23:42)
[2025-02-13] MEDS ORDERED: GLUCOSE 40% GEL 15 GM TUBE PO PRN (23:42)
[2025-02-13] MEDS ORDERED: ONDANSETRON INJ 2 MG/ML 2 ML VIAL IV PRN (23:42)
[2025-02-13] MEDS ORDERED: DEXTROSE 50% 50 ML SYRINGE IV PRN (23:42)
[2025-02-13] MEDS ORDERED: CARBOHYDRATES FOR HYPOGLYCEMIA PO PRN (23:42)
[2025-02-13] MEDS ORDERED: GLUCAGON FOR INJ 1 MG VIAL SQ PRN (23:42)
[2025-02-13] MEDS ORDERED: MAGNESIUM HYDROXIDE SUSP 30 ML UDC PO PRN (23:42)
[2025-02-13] MEDS ORDERED: GLUCOSE 10 TAB/TUBE PO PRN (23:42)
[2025-02-13] MEDS ORDERED: ACETAMINOPHEN 325 MG TAB PO PRN (23:42)
[2025-02-13] MEDS ORDERED: POLYETHYLENE (MIRALAX) 17 GM PACK PO PRN (23:42)
[2025-02-14 07:02] LABS: Hematocrit (blood only) 38.1 % (42.0-52.0); Hemoglobin 11.4 g/dl (14.0-18.0); Mean Corpuscular Hemoglobin 21.6 pg (25.0-34.0); Mean Corpuscular Hgb Conc 29.9 g/dL (32.0-36.0); Mean Corpuscular Volume 72.2 fL (80.0-100.0); Mean Platelet Volume 9.3 fL (9.4-12.4); Nucleated RBC # (auto) 0.03 K/uL (0.00-0.12); Nucleated RBC % (auto) 0.4 %; Platelet Count 299 K/uL (130-400); RDW Coefficient of Variation 18.7 % (11.5-14.5); RDW Standard Deviation 46.7 fL (36.4-46.3); Red Blood Count 5.28 M/uL (4.70-6.10); White Blood Count 8.41 K/ul (4.8-10.8)
[2025-02-14 07:16] LABS: BUN Creatinine Ratio 40.5 (10-20); Calcium 9.3 mg/dl (8.6-10.3); Creatinine Clr Calc Pharmacy 82.8 ml/min; Magnesium 2.1 mg/dl (1.7-2.4); Potassium 5.5 mmol/L (3.5-5.1)
[2025-02-14 08:26] LABS: Estimated Average Glucose 186 mg/dl; Hemoglobin A1C 8.1 % (4.5-5.6)
--- NOTE | 2025-02-14 08:48 | Cardiology Consultation ---
Date of Consultation February 14, 2025 Assessment & Plan (1) Acute HFrEF (heart failure with reduced ejection fraction): (2) Hyperkalemia: (3) Atrial fibrillation with RVR: Plan Patient admitted with acute on chronic HFrEF with evidence of volume overload on exam. Treated with IV lasix on admission. Received several doses so far with good diuresis. Monitor I+O's Daily weight with standing scale. Continue furosemide IV 40 BID today Spironolactone on hold Hyperkalemia note don admission -Hold spironolactone -Hold Entresto -Continue IV lasix -He received calcium gluconate and insulin on admission -Veltassa ordered this morning. Repeat Potassium levels this afternoon. PAF, likely more persistent afib per device interrogations and EP notes. Rates borderline elevated on admission Increase metoprolol to 25 mg BID. Continue anticoagulation with Eliquis 5 mg BID. CAD/ischemic cardiomyopathy -known LVEF < 20% -Dual chamber ICD in place. Further recommendations pending review and evaluation with Dr. Sevilla I spent a total of 60 minutes on the date of service in preparation, delivery, and documentation of the care provided to this patient, excluding any time spent in the performance of separately billed services. Depeali Walker PA-C Department of Cardiology, [facility] This chart was completed in part utilizing Speech Voice Recognition Software. Grammatical errors, random word insertions, pronoun errors, and incomplete sentences are an occasional consequence of this system due to software limitations, ambient noise, and hardware issues. Any formal questions or concerns about the content, text, or information contained within the body of this dictation should be directly addressed to the provider for clarification. Supervising Physician Co-Signing Physician Notes Attending attestation: Case reviewed with the advanced practitioner. I have personally performed a history and physical examination on the patient. I have reviewed the advanced practitioner's documentation on the date of service referenced in note, and I agree with, and take responsibility for the plan of care. Continue IV diuretics. Spironolactone and Entresto on hold due to relative hypotension and hyperkalemia. Repeat potassium level has been drawn, results are pending as of 1641. I spent a total of 20 minutes coordinating, documenting, and providing care for this patient excluding time spent in the performance of separately billed services or time spent by another provider. Thom Sevilla, DO History of Present Illness Reason for Consultation: CHF Requesting Physician: [facility] [employer] Attending Physician: Dr. Sevilla History of Present Illness Patient is a complex 65 year old male admitted to [facility] with complaints of worsening SOB, fluid retention, edema, abdominal bloating. Patient reports weight was trending upward over the last week, approx 10-15 lbs above his baseline with worsening SOB, edema, abdominal bloating. No changes to his medications. Compliant with oral medications at home. Upon admission, pulm vascular congestion noted on chest xray. Started on IV lasix. Hyperkalemia noted and started on calcium gluconate and insulin. Potassium improved this morning but remains elevated. At time of consult, patient feeling "better". Down a few lbs on scale this morning. SOB improving. Still has LE edema b/l. No chest pain. No sense of palpitations. No orthopnea. No fever, cough, chills. Complex history, followed by [facility] [place] - Dr. Lopez History includes: CAD s/p PCI of LAD ICM s/p SC ICD 01/25/2019 Hx apical thrombus pAF, becoming more persistent per last EP notes in Nov 2024. Ongoing rate control recommended. HTN DM II HLD History of tobacco use Allergies Allergy/AdvReac Type Severity Reaction Status Date / Time No Known Allergies Allergy Verified 02/13/25 21:40 Home Medications Medication Instructions Recorded Confirmed Type aspirin 81 mg tablet,delayed 81 mg PO QAM #30 tabs 09/17/18 02/13/25 Rx release (Ecotrin Low Strength) atorvastatin 80 mg tablet 80 mg PO HS 01/20/19 02/13/25 History sacubitril 24 mg-valsartan 26 mg 1 tab PO BID 12/28/22 02/13/25 History tablet (Entresto) empagliflozin 10 mg tablet 10 mg PO QAM 05/07/23 02/13/25 History (Jardiance) apixaban 5 mg tablet (Eliquis) 5 mg PO BID 02/13/25 02/13/25 History ascorbic acid (vitamin C) 500 mg 500 mg PO DAILY 02/13/25 02/13/25 History capsule,extended release cholecalciferol (vitamin D3) 25 25 mcg PO DAILY 02/13/25 02/13/25 History mcg (1,000 unit) capsule (Vitamin D3) coenzyme Q10 100 mg capsule 100 mg PO DAILY 02/13/25 02/13/25 History (CoQ-10) furosemide 40 mg tablet 40 mg PO QAM 02/13/25 02/13/25 History metformin 500 mg tablet,extended 1,000 mg PO BID 02/13/25 02/13/25 History release 24 hr metoprolol succinate 25 mg 25 mg PO QAM 02/13/25 02/13/25 History tablet,extended release 24 hr spironolactone 25 mg tablet 25 mg PO QAM 02/13/25 02/13/25 History Patient History Medical History Heart failure EF 15-20% per 12/2022 ECHO ICD (implantable cardioverter-defibrillator) in place Implanted 2018 "Primary prevention ICD" per cardio records- EF 15-20% per 12/2022 ECHO History of cardioversion 12/2022>[facility] Diabetes mellitus, type II Surgical History H/O abdominal surgery ? details>done as an for poor digestion of food History of tooth extraction History of tonsillectomy H/O heart artery stent August 2018>1 stent placed [facility] Family History Other Diabetes No family history of adverse response to anesthesia Social History Smoking Status: Former smoker Cigarettes Per Day: 2018; Second Hand Exposure: Yes (as a child); Do You Dip or Chew Tobacco: No; Hx Alcohol Use: Yes Alcohol type: beer and wine Hx Substance Use: No Preferred Language: Yi Communication Ability: Effective Host/Hostess Head Required: No Beliefs That Will Affect Care: None marital status: Current Living Situation: Spouse current occupational status: employed current occupation: [employer] Other Information That Helps Us Care for You: No Feels Safe at Home: Yes Safety Concerns: Feels Safe At This Time Assistive Devices: None Review of Systems Review of Systems: All systems reviewed & are unremarkable except as noted in HPI & below Physical Exam Constitutional: no acute distress Respiratory: no labored breathing Auscultation: + diminished lung sounds and + crackles (faint bibasilar) Cardiovascular: Rate/Rhythm: + irregularly irregular Heart Sounds: normal S1 and normal S2; no murmur Vessels: + JVD Extremities: + edema (2+ edema b/l to knees) Gastrointestinal (Abdomen): normal bowel sounds, soft, nontender, no hepatosplenomegaly Skin: no rashes, warm and dry Neurologic: PERRL, EOMI, accommodation nl, no face palsy, no dysarthria Results & Data Vital Signs (Past 12 Hours) Vital Signs Temp Pulse Pulse Resp BP BP Pulse Ox 02/14/25 07:00 36.5 C 100 H 20 100/67 94 02/14/25 03:45 36.8 C 96 H 19 106/66 96 02/14/25 00:01 111 H 02/14/25 00:01 02/13/25 23:42 36.5 C 92 H 18 113/70 98 02/13/25 23:26 02/13/25 22:01 97 H 20 106/81 98 02/13/25 21:30 96 H 20 108/66 98 02/13/25 21:00 104/70 02/13/25 21:00 95 H 18 104/70 97 O2 Del Method 02/14/25 07:00 Room Air 02/14/25 03:45 Room Air 02/14/25 00:01 02/14/25 00:01 Room Air 02/13/25 23:42 Room Air 02/13/25 23:26 Room Air 02/13/25 22:01 02/13/25 21:30 02/13/25 21:00 02/13/25 21:00 Laboratory Results Cardiac Enzymes 02/13/25 02/13/25 Range/Units 19:33 21:21 AST 49 H (13-39) U/L Troponin I High Sens 46.8 H 42.9 H (0-20) pg/ml B-Natriuretic Peptide 1425 H (0-100) pg/ml Coagulation 02/13/25 02/13/25 Range/Units 19:33 21:21 PT Cancelled 13.6 H APTT Cancelled 30 B-Natriuretic Peptide 1425 H (0-100) pg/ml CBC 02/13/25 02/14/25 Range/Units 19:33 06:07 WBC 8.66 8.41 (4.8-10.8) K/ul RBC 5.63 5.28 (4.70-6.10) M/uL Hgb 12.3 L 11.4 L (14.0-18.0) g/dl Hct 41.0 L 38.1 L (42.0-52.0) % Plt Count 324 299 (130-400) K/uL Neut # (Auto) 6.55 H (1.40-6.50) K/uL Lymph # (Auto) 1.07 L (1.20-3.40) K/uL [place] # (Auto) 0.86 H (0.11-0.59) K/uL Eos # (Auto) 0.09 (0.00-0.50) K/uL Baso # (Auto) 0.06 (0.00-0.20) K/uL Comprehensive Metabolic Panel 02/13/25 02/14/25 Range/Units 19:33 06:07 Sodium 134 L 134 L (136-145) mmol/L Potassium 6.3 H* 5.5 H (3.5-5.1) mmol/L Chloride 103 104 (98-107) mmol/L Carbon Dioxide 22 23 (21-32) mmol/L BUN 43 H 45 H (6-23) mg/dl Creatinine 1.24 1.11 (0.6-1.4) mg/dl Glucose 133 H 109 H (70-99(Fasting)) mg/dl Calcium 9.8 9.3 (8.6-10.3) mg/dl AST 49 H (13-39) U/L ALT 29 (7-52) U/L Alkaline Phosphatase 300 H (34-104) U/L Total Protein 7.4 (6.0-8.3) gm/dl Albumin 4.4 (3.4-5.0) gm/dl Intake and Output 02/13/25 02/14/25 02/14/25 22:59 06:59 14:59 Intake Total 60 / 610 550 / 610 Output Total 700 / 1250 550 / 1250 Balance -640 / -640 0 / -640 Intake: IV 60 / 60 Calcium Gluconate 1,000 mg In 60 / 60 60 ml @ 240 mls/hr IV NOW STA Rx#:[id number] Oral 550 / 550 Output: Urine 700 / 1250 550 / 1250 Other: Weight 104.9 kg 104.2 kg Weight Measurement Method Chair Scale Standing Scale Diagnostic Findings Telemetry reviewed: Afib with rates ranging 100-110 EKG reviewed from admission: Afib with controlled rates at 97 LAD RBBB Anteroseptal infarct No significant change Chest X-Ray 02/13/25 19:19 IMPRESSION: 1. Vascular congestion and interstitial prominence suggesting pulmonary edema. 2. Cardiomegaly. Electronically signed by: Tung Garzon M.D. 02/13/25 21:10 PM Outpatient data reviewed: Device interrogation reviewed from January 2025: Appropriate function and battery longevity of 4.33 years RV pacing < 0.07%, 0% afib burden Non sustained VT - several episodes of non sustained VT Possible fluid accumulation since Dec 2024 - ongoing Echocardiograms 09/27/24 The examination is adequate to evaluate the referral indication. Rate controlled atrial fibrillation/flutter was present during the echocardiogram study. The left ventricular cavity is severely dilated (LVED volume >100 ml/m^2). There is diffuse myocardial thinning. There is severe diffuse left ventricular hypokinesis. The qualitative LV ejection fraction is <20% (severely reduced). The left atrium is severely enlarged (>48 ml/m^2,). Mild mitral regurgitation is present. Moderate tricuspid regurgitation is present. Intermediate IVC size and collapsability. Right atrial pressure estimated at 8 mmHg. [id number]-[id number] pulmonary hypertension is present (likely related to elevated left-sided filling pressure. The pulmonary artery systolic pressure is estimated to be 50 mm Hg. The aortic root is mildly enlarged, 4.3 cm. The proximal ascending thoracic aorta is mildly enlarged, 4.2 cm. Compared to the previous study performed on 05/14/2022, there has been a subtle further decline in the ejection fraction. The pulmonary artery systolic pressure was estimated be 46 mm Hg at that time. The aortic root and proximal ascending aorta diameters are relatively unchanged Medications Administered Current Inpatient Medications Acetaminophen (Acetaminophen 325 Mg Tab) 650 mg PO Q4H PRN PRN Reason: Pain or Fever Stop: 03/15/25 23:41 Apixaban (Apixaban 5 Mg Tablet) 5 mg PO BID [facility] Stop: 03/16/25 08:59 Ascorbic Acid (Ascorbic Acid 500 Mg Tab) 500 mg PO DAILY [facility] Stop: 03/16/25 08:59 Aspirin (Aspirin 81 Mg Ectab) 81 mg PO QAM [facility] Stop: 03/16/25 08:59 Atorvastatin Calcium (Atorvastatin 40 Mg Tab) 80 mg PO HS [facility] Stop: 03/16/25 20:59 Dextrose (Dextrose 50% 50 Ml Syringe) 25 - 50 ml IV UD PRN; Protocol PRN Reason: Hypoglycemia Protocol Stop: 03/15/25 23:41 Furosemide (Furosemide 40 Mg/4 Ml Vial) 40 mg IV BID17 [facility] Stop: 03/16/25 08:59 Glucagon (Glucagon For Inj 1 Mg Vial) 1 mg SQ UD PRN; Protocol PRN Reason: Hypoglycemia Protocol Stop: 03/15/25 23:41 Glucose (Glucose 40% Gel 15 Gm Tube) 15 - 30 gm PO UD PRN; Protocol PRN Reason: Hypoglycemia Protocol Stop: 03/15/25 23:41 Glucose (Glucose 10 Tab/Tube) 4 - 8 tab PO UD PRN; Protocol PRN Reason: Hypoglycemia Protocol Stop: 03/15/25 23:41 Insulin Aspart (Insulin Aspart Per Unit Charge) 0 units SC ACHS [facility] Stop: 03/16/25 07:29 Magnesium Hydroxide (Magnesium Hydroxide Susp 30 Ml Udc) 30 ml PO Q12H PRN PRN Reason: Constipation Stop: 03/15/25 23:41 Metoprolol Succinate (Metoprolol Succ 25mg Ext Rel Tab) 25 mg PO QAM [facility] Stop: 03/16/25 08:59 Miscellaneous (Jardiance 10mg - Order Awaiting Action) 1 each N/A QS [facility] Stop: 03/16/25 07:59 Miscellaneous (Carbohydrates For Hypoglycemia ) 15 - 30 gm PO UD PRN PRN Reason: Hypoglycemia Protocol Stop: 03/15/25 23:41 Nitroglycerin (Nitroglycerin Sl 0.4 Mg/Tab Tab) 0.4 mg SL Q5M PRN PRN Reason: Chest Pain Stop: 03/15/25 23:41 Ondansetron HCl (Ondansetron Inj 2 Mg/Ml 2 Ml Vial) 4 mg IV Q6H PRN PRN Reason: Nausea Stop: 03/15/25 23:41 Patiromer (Patiromer Calcium Sorbitex 8.4 Gm Pack) 8.4 gm PO DAILY@1200 [facility] Stop: 03/16/25 11:59 Polyethylene Glycol (Polyethylene (Miralax) 17 Gm Pack) 17 gm PO DAILY PRN PRN Reason: Constipation Stop: 03/15/25 23:41 Vitamin D (Cholecalciferol 25 Mcg (1000 Units) Tab) 25 mcg PO DAILY [facility] Stop: 03/16/25 08:59
[2025-02-14] MEDS ORDERED: VALSARTAN/SACUBITRIL 26/24MG TAB PO SCH (09:00)
[2025-02-14] MEDS ORDERED: NON-FORMULARY MEDICATION (Coenzyme Q10 [Coq-10] 100 mg Capsule) PO SCH (09:00)
[2025-02-14] MEDS: INSULIN ASPART PER UNIT CHARGE SC SCH (09:04)
[2025-02-14] MEDS: CHOLECALCIFEROL 25 MCG (1000 UNITS) TAB PO SCH (09:05)
[2025-02-14] MEDS: APIXABAN 5 MG TABLET PO SCH (09:05)
[2025-02-14] MEDS: FUROSEMIDE 40 MG/4 ML VIAL IV SCH (09:05)
[2025-02-14] MEDS: METOPROLOL SUCC 25MG EXT REL TAB PO SCH ×2 (09:06→20:48)
[2025-02-14] MEDS: ASCORBIC ACID 500 MG TAB PO SCH (09:07)
[2025-02-14] MEDS: ASPIRIN 81 MG ECTAB PO SCH (09:07)
--- OUTSIDE RECORDS SUMMARY | 2025-02-14 09:45 | External Medical Summary | Summary of Care ---
Author Name Unknown Organization [facility] Address [address] [facility] [place] [address] Phone [phone] Care Team Providers Care Tenant Relations Coordinator Name Role Phone Kelvin Gongora MD Primary Care Provider Reason for Visit * Reason Onset Date Comments Medication Refill 02/08/2025 Encounter Details Date Type Department Care Team (Late st Contact Info) Description 02/08/2025 Refill Cardiology, [place] [address] [place] [id number] Connie Amaral PA-C [address] [facility] [place] [id number] Allergies No known active allergiesdocumented as of this encounter (statuses as of 02/09/2025) Medications aspirin enteric coated 81 MG TBEC Take 1 Tablet by mouth in the morning. 01/12/2019 Active Metoprolol Succinate ER 25 MG Oral Tablet Extended Release 24 Hour (toPROL XL) Take 1 Tablet by mouth in the morning. 01/02/2023 Active CoQ10 100 MG Oral Capsule Take by mouth at bedtime. Active Vitamin C 500 MG Oral Capsule Take 1 Capsule by mouth in the morning. Active Vitamin D-3 25 MCG (1000 UT) Oral Capsule Take 1 Capsule by mouth in the morning. Active Apixaban 5 MG Oral Tablet (Eliquis) Take 1 Tablet by mouth in the morning and 1 Tablet before bedtime. 180 Tablet 3 08/09/2024 Active metFORMIN HCl ER 500 MG Oral Tablet Extended Release 24 Hour (Glucophage XR)Indications: Type 2 diabetes mellitus with hemoglobin A1c goal of less than 7.0% (HCC) TAKE 2 TABLETS BY MOUTH TWICE A DAY WITH MORNING AND EVENING MEAL 360 Tablet 3 08/16/2024 Active Empagliflozin 10 MG Oral Tablet (Jardiance)Chantel cations:Type 2 diabetes mellitus with hemoglobin A1c goal of less than 7.0% (HCC) Take 1 Tablet by mouth in the morning. 90 Tablet 3 08/30/2024 Active Furosemide 40 MG Oral Tablet (Lasix) Take 1 Tablet by mouth in the morning. 90 Tablet 3 08/30/2024 Active Spironolactone 25 MG Oral Tablet (Aldactone) Take 1 Tablet by mouth in the morning. 90 Tablet 3 08/30/2024 Active Entresto 24-26 MG Oral TabletIndicatio ns:Heart failure, systolic, due to CAD (HCC),HTN, goal below 130/80,Coronary artery disease involving [place] coronary artery of [place] heart without angina pectoris TAKE 1 TABLET BY MOUTH IN THE MORNING AND BEFORE BEDTIME 180 Tablet 1 11/12/2024 Active Atorvastatin Calcium 80 MG Oral Tablet (Lipitor)Indica tions:Dyslipide oxana Take 1 tablet by mouth once daily 90 Tablet 1 02/05/2025 Active documented as of this encounter (statuses as of 02/09/2025) Active Problems Problem Noted Date Diagnosed Date Apical mural thrombus 12/05/2020 Presence of single chamber i mplantable cardioverter-defibrillator (ICD) 02/01/2019 Overview (02/01/2019): Dr. Lopez January 2019 Ischemic cardiomyopathy 02/01/2019 Heart failure, systolic, due to CAD 12/30/2018 Overview (12/30/2018): EF 25% on echo from 12/2018 History of coronary artery stent placement 12/01 Type 2 diabetes mellitus wit h hemoglobin A1c goal of less than 7.0% 11/30/2018 Dyslipidemia 11/30/2018 HTN, goal below 130/80 11/30/2018 Coronary artery disease invo lving [place] coronary artery of [place] heart without angina pectoris 11/30/2018 Old VT (myocardial infarction) 11/30/2018 documented as of this encounter (statuses as of 02/09/2025) Social History Tobacco Use Types Packs/Day Years Used Date Smoking Tobacco: Former Cigarettes 0.5 5 0 06/22/2001 - 06/22/2006 Smokeless Tobacco: Never Alcohol Use Standard Drinks/Week Comments Yes 0 (1 standard drink = 0.6 oz pur e alcohol) glass of wine twice weekly PHQ-2 Answer Date Recorded PHQ Adult Total Score 0 08/30/2024 Hunger Vital Sign Answer Date Recorded Within the past 12 months, y ou worried that your food would run out before you got the money to buy more. Never true 08/30/20 24 Within the past 12 months, t he food you bought just didn't last and you didn't have money to get more. Never true 08/30/2024 Childcare Answer Date Recorded Do you feel overwhelmed with taking care of a child, family member or friend? No 08/30/2024 Does your family need help f inding childcare? (Household - for ages 0-17 years) Not on file 08/30/2024 Clothing Answer Date Recorded Have you been unable to get clothing when it was really needed? No 08/30/2024 Is your family able to get c lothes or diapers when needed? (Household - for ages 0-17 years) Not on file 08/30/2024 Personal Safety Answer Date Recorded Do you feel unsafe or have concerns for your saf ety? No 08/30/2024 Do you have concerns for you r family's safety? (Household - for ages 0-17 years) Not on file 08/30/2024 Utilities Answer Date Recorded Do you have trouble paying y our heating, water, or electric bill? No 08/30/2024 Is your family able to pay t he heat, water, or electric bill? (Household - for ages 0-17 years) Not on file 08/30/2024 Does your family have access to good internet? (Household - for ages 0-17 years) Not on file 08/30/2024 Employment Status Answer Date Recorded Are you unemployed or without regular income? No 08/30/2024 Does the household have a re gular source of income? (Household - for ages 0-17 years) Not on file 08/30/2024 Social Connections Answer Date Recorded How often do you feel lonely or isolated from th ose around you? Never 08/30/2024 Financial Resource Strain Answer Date R ecorded Do you have any trouble payi ng for your medications, or do you think you might in the future? No 08/30/2024 Does your family have troubl e paying for medicine? (Household - for ages 0-17 years) Not on file 08/30/2024 Transportation Needs Answer Date Record ed Do you have trouble getting a ride to medical visits or work? (Adult - for ages 18 years and over) Not on file 08/30/2024 Does your family have a hard time getting a ride to doctors visits? (Household - for ages 0-17 years) Not on file 08/30/2024 Has lack of transportation k ept you from medical appointments, meetings, work, or from getting things needed for daily living? Check all that apply. No 08/30/2024 Do you (or your family) have trouble finding or paying for a ride (transportation)? (Household - for ages 0-17 years) Not on file 08/30/2024 Housing Stability Answer Date Recorded Do you currently live in a s helter or have no steady place to sleep at night? No 08/30/2024 Do you think you are at risk of becoming homeless? (Adult - for ages 18 years and over) Not on file 08/30/2024 Does your family worry about paying for your home or becoming homeless? (Household - for ages 0-17 years) Not on file 1 Are you homeless or worried that you might be in the future? No 08/30/2024 Are you (or your family) adrian eless or worried that you might be in the future? (Household - for ages 0-17 years) Not on file Food Insecurity Answer Date Recorded Do you need food for this week? No 08/30/2024 Are you able to get enough f ood for your family? (Household - for ages 0-17 years) Not on file 08/30/2024 Does your family need food t his week? (Household - for ages 0-17 years) Not on file 08/30/2024 Do you always have enough fo od for your family? (Household - for ages 0-17 years) Not on file 08/30/2024 Food Insecurity Answer Date Recorded Within the past 12 months, y ou worried that your food would run out before you got the money to buy more. Never true 08/30/20 24 Within the past 12 months, t he food you bought just didn't last and you didn't have money to get more. Never true 08/30/2024 Do you need food for this week? 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 Not on file Not on fi le documented as of this encounter Miscellaneous Notes * Telephone Encounter - Arun P[facility] - 02/09/2025 1:28 PM EDTRefused Prescriptions: Disp Refills Apixaban 5 MG Oral Tablet (Eliquis) 180 Ta*3 Sig: Take 1 Tabletby mouth in the morning and 1 Tablet before bedtime.Refused By: ARUN PENA stephania for Refusal: Too soonReason for Refusal Comment: 1 y supply sent 08/09/24 documented in this encounter Plan of Treatment Health Maintenance Due Date Last Done Comments DTap/Tdap Vaccines (1 - Tdap) 1979 Pneumococcal Vaccine: 50+ Years (1 of 2 - PCV) 1979 Colonoscopy 2005 Fecal Occult Blood Test 2005 Sigmoidoscopy 2005 Influenza Vaccine (FLU shot) (#1) 2024 AAA Screening 2025 HbA1c 01/28/2025 07/31/2024, 05/0 06/2024, 03/03/2023, Additional history exists Albumin/Creatinine Ratio 03/29/2025 03/29/2024 B-12 03/29/2025 03/29/2024, 03/23, 12/01/2018 Diabetic Foot Exam 07/31/2025 07/31/2024, 07/31/2024 GFR 08/10/2025 08/10/2024, 09/0 07/2024, 03/29/2024, Additional history exists Depression Screening 08/30/2025 08/30/2024 Diabetic Eye Exam 09/06/2025 09/06/2024 Cologuard 09/14/2027 09/14/2024, 08/22, 09/08/2024 Colorectal Cancer Screening 09/14/2027 COVID-19 Vaccine Discontinued HIV Screening Discontinued HPV (Gardasil) Vaccine Aged Out No lo nger eligible based on patient's age to complete this topic Hepatitis B Vaccine Aged Out No longe r eligible based on patient's age to complete this topic Hepatitis C Screening Discontinued MENINGOCOCCAL (MENACTRA/MENVEO) Aged Out No longer eligible based on patient's age to complete this topic Meningitis B Vaccine (Bexsero/Trumemba) Aged Out No longer eligible based on patient's age to complete this topic Zoster Vaccines Discontinued documented as of this encounter Medical Devices Not on filedocumented as of this encounter Care Teams Tenant Relations Coordinator Relationship Specialty Start Date End Date Kelvin Gongora MD [address] [id number] PCP - General Family Medicine 08/30/24 documented as of this encounter
--- OUTSIDE RECORDS SUMMARY | 2025-02-14 09:45 | External Medical Summary | Summary of Care ---
Author Name Unknown Organization [facility] Address [address] [address] Phone [phone] Care Team Providers Care Commercial Coordinator Name Role Phone Kelvin Gongora MD Primary Care Provider Encounter Details Date Type Department Care Team (Late st Contact Info) Description 02/01/2025 Result Scan Unspecified Department Belen Lopez, DO [address] [facility] [place] [address] <No scans attached> Allergies No known active allergiesdocumented as of this encounter (statuses as of 02/02/2025) Medications aspirin enteric coated 81 MG TBEC [...] the morning. 90 Tablet 3 08/30/2024 Active Atorvastatin Calcium 80 MG Oral Tablet (Lipitor)Indica tions:Dyslipide oxana TAKE 1 TABLET BY MOUTH EVERY DAY 90 Tablet 3 09/20/2024 Active Entresto 24-26 MG Oral TabletIndicatio ns:Heart failure, systolic, due to CAD (HCC),HTN, goal below 130/80,Coronary artery disease involving [place] coronary artery of [place] heart without angina pectoris TAKE 1 TABLET BY MOUTH IN THE MORNING AND BEFORE BEDTIME 180 Tablet 1 11/12/2024 Active documented as of this encounter (statuses as of 02/02/2025) Active Problems Problem Noted Date Diagnosed Date [...] 130/80 11/30/2018 Coronary artery disease invo lving [place] coronary artery of [place] heart without angina pectoris 11/30/2018 [place] (myocardial infarction) 11/30/2018 documented as of this encounter (statuses as of 02/02/2025) Social History Tobacco Use Types Packs/Day Years [...] fi le documented as of this encounter Plan of Treatment Health Maintenance Due Date Last Done Comments DTap/Tdap Vaccines (1 - Tdap) 1979 Pneumococcal Vaccine: 50+ Years (1 of 2 - PCV) 1979 Colonoscopy 2005 Fecal Occult Blood Test 2005 Sigmoidoscopy 2005 Influenza Vaccine (FLU shot) (#1) 2024 AAA Screening 2025 HbA1c 01/28/2025 07/31/2024, 050 06/2024, 03/03/2023, Additional history exists Albumin/Creatinine Ratio 03/29/2025 03/29/2024 B-12 03/29/2025 03/29/2024, 052 01/2022, 12/01/2018 Diabetic Foot Exam 07/31/2025 07/31/2024, 07/31/2024 GFR 08/10/2025 08/10/2024, 090 07/2024, 03/29/2024, Additional history exists Depression Screening [...] Not on filedocumented as of this encounter Procedures Procedure Name Priority Date/Time Associated Diagnosis Comments CARDIOLOGY SCANNED RESULT 02/01/2025 documented in this encounter Results * CARDIOLOGY SCANNED RESULT (02/01/2025) 02/01/2025 Belen Lopez DO OTHER Final R esult documented in this encounter Care Teams Commercial Coordinator Relationship Specialty Start Date End Date Kelvin Gongora MD [address] [facility] [place] [address] PCP - General Family Medicine 08/30/24 documented as of this encounter
--- OUTSIDE RECORDS SUMMARY | 2025-02-14 09:45 | External Medical Summary | Summary of Care ---
Author Name Unknown Organization [facility] Address [address] [place] [address] Phone [phone] Care Team Providers Care Mri Tech Name Role Phone Kelivn Gongora MD Primary Care Provider Reason for Visit * Reason Onset Date Comments Medication Refill 01/31/2025 Encounter Details Date Type Department Care Team (Late st Contact Info) Description 01/31/2025 Refill Family Practice [facility] [address] [place] [address] Zachary Lagos MD [address] [place] [address] Dyslipidemia Allergies No known active allergiesdocumented as of [...] (HCC),HTN, goal below 130/80,Coronary artery disease involving [place] coronary artery of [place] heart without angina pectoris TAKE 1 TABLET [...] 130/80 11/30/2018 Coronary artery disease invo lving [place] coronary artery of [place] heart without angina pectoris 11/30/2018 Old [place] (myocardial infarction) 11/30/2018 documented as of this [...] encounter Miscellaneous Notes * Telephone Encounter - Urbano Guaman [facility] - 02/02/2025 8:03 AM EDT Refused Prescriptions: Disp Refills Atorvastatin Calcium 80 MG Oral Tablet (Li*90 Tab*3 Sig: Take 1 Tablet by mouth in the morning.Refused By: URBANO GUAMAN for Refusal: Too soon------ documented in this encounter Plan of Treatment [...] Not on filedocumented as of this encounter Visit Diagnoses Diagnosis Dyslipidemia Other and unspecified hyperlipidemia documented in this encounter Care Teams Mri Tech Relationship Specialty Start Date End Date Kelvin Gongora MD [address] [place] [address] PCP - General Family Medicine 08/30/24 documented as of this encounter
--- OUTSIDE RECORDS SUMMARY | 2025-02-14 09:45 | External Medical Summary | Summary of Care ---
Author Name Unknown Organization [facility] Address [address] [place] [facility] [place] [address] Phone [phone] Care Team Providers Care Senior Account Director Name Role Phone Kelvin Gongora MD Primary Care Provider Reason for Visit * Reason Comments New Med Request Encounter Details Date Type Department Care Team (Late st Contact Info) Description 02/03/2025 Refill Family Practice [facility] [address] [place] [address] Kelvin Gongora MD [address] [place] [address] Dyslipidemia Allergies No known active allergiesdocumented as of this encounter (statuses as of 02/05/2025) Medications aspirin enteric coated 81 MG TBEC Take 1 Tablet by mouth in the morning. 9 Active Metoprolol Succinate ER 25 MG Oral Tablet Extended Release 24 Hour (toPROL XL) Take 1 Tablet by mouth in the morning. 3 Active CoQ10 100 MG Oral Capsule Take [...] 1 Tablet before bedtime. 180 Tablet 3 4 Active metFORMIN HCl ER 500 MG Oral Tablet Extended Release 24 Hour (Glucophage XR)Indications :Type 2 diabetes mellitus with hemoglobin A1c goal of less than 7.0% (HCC) TAKE 2 TABLETS BY MOUTH TWICE A DAY WITH MORNING AND EVENING MEAL 360 Tablet 3 4 Active Empagliflozin 10 MG Oral Tablet (Jardiance)Ind ications:Type 2 diabetes mellitus with hemoglobin A1c goal of less than 7.0% (HCC) Take 1 Tablet by mouth in the morning. 90 Tablet 3 4 Active Furosemide 40 MG Oral Tablet (Lasix) Take 1 Tablet by mouth in the morning. 90 Tablet 3 4 Active Spironolactone 25 MG Oral Tablet (Aldactone) Take 1 Tablet by mouth in the morning. 90 Tablet 3 4 Active Entresto 24-26 MG Oral TabletIndicati ons:Heart failure, systolic, due to CAD (HCC),HTN, goal below 130/80,Coronar y artery disease involving [place] coronary artery of [place] heart without angina pectoris TAKE 1 TABLET BY MOUTH IN THE MORNING AND BEFORE BEDTIME 180 Tablet 1 4 Active Atorvastatin Calcium 80 MG Oral Tablet (Lipitor)Indic ations:Dyslipi demia Take 1 tablet by mouth once daily 90 Tablet 1 5 Active Atorvastatin Calcium 80 MG Oral Tablet (Lipitor)Indic ations:Dyslipi demia TAKE 1 TABLET BY MOUTH EVERY DAY 90 Tablet 3 4 02/06/20 25 Discontinued documented as of this encounter (statuses as of 02/05/2025) Active Problems Problem Noted Date Diagnosed Date [...] 130/80 11/30/2018 Coronary artery disease invo lving [place] coronary artery of [place] heart without angina pectoris 11/30/2018 Old [place] (myocardial infarction) 11/30/2018 documented as of this encounter (statuses as of 02/05/2025) Social History Tobacco Use Types Packs/Day Years [...] encounter Miscellaneous Notes * Telephone Encounter - Lucía Kim RPh - 02/05/2025 10:39 AM EDT Signed Prescriptions: Disp Refills Atorvastatin Calcium 80 MG Oral Tablet (Li*90 Tab*1 Sig: Take 1 tablet by mouth once dailyAuthorizing Provider: KELVIN GONGORA User: LUCÍA KIM documented in this encounter Plan of Treatment [...] Albumin/Creatinine Ratio 03/29/2025 03/29/2024 B-12 03/29/2025 03/29/2024, 05/2 01/2022, 12/01/2018 Diabetic Foot Exam 07/31/2025 07/31/2024, 07/31/2024 GFR 08/10/2025 08/10/2024, 0 07/2024, 03/29/2024, Additional history exists Depression Screening [...] hyperlipidemia documented in this encounter Care Teams Senior Account Director Relationship Specialty Start Date End Date Kelvin Gongora MD [address] [facility] [place] [address] PCP - General Family Medicine 08/30/24 documented as of this encounter
--- OUTSIDE RECORDS SUMMARY | 2025-02-14 09:45 | External Medical Summary | Summary of Care ---
Author Name Unknown Organization [facility] Address [address] [facility] [place] [address] Phone [phone] Care Team Providers Care Medical Reimbursement Manager Name Role Phone Kelvin Gongora MD Primary Care Provider Reason for Visit * Reason Onset Date Comments Medication Refill 12/29/2024 Encounter Details Date Type Department Care Team (Late st Contact Info) Description 12/29/2024 Refill Family Practice [facility] [address] [place] [address] Kelvin Gongora MD [address] [place] [address] Type 2 diabetes mellitus with hemoglobin A1c goal of less than 7.0% ([facility]) Allergies No known active allergiesdocumented as of this encounter (statuses as of 12/30/2024) Medications aspirin enteric coated 81 MG TBEC [...] (HCC),HTN, goal below 130/80,Coronary artery disease involving [place] coronary artery of [place] heart without angina pectoris TAKE 1 TABLET BY MOUTH IN THE MORNING AND BEFORE BEDTIME 180 Tablet 1 11/12/2024 Active documented as of this encounter (statuses as of 12/30/2024) Active Problems Problem Noted Date Diagnosed Date [...] 130/80 11/30/2018 Coronary artery disease invo lving [place] coronary artery of [place] heart without angina pectoris 11/30/2018 Old [place] (myocardial infarction) 11/30/2018 documented as of this encounter (statuses as of 12/30/2024) Social History Tobacco Use Types Packs/Day Years [...] encounter Miscellaneous Notes * Telephone Encounter - Aniya Khan [facility] - 12/30/2024 1:23 PM EST Refused Prescriptions: Disp Refills Empagliflozin 10 MG Oral Tablet (Jardiance)90 Tab*3 Sig: Take 1Tablet by mouth in the morning.Refused By: ANIYA KHAN for Refusal: Too soon Furosemide 40 MG Oral Tablet (Lasix) 90 Tab*3 Sig: Take 1 Tablet by mouth in the morning.Refused By: ANIYA KHAN for Refusal: Too soon Spironolactone 25 MG Oral Tablet ([place]*90 Tab*3Sig: Take 1 Tablet by mouth in the morning.Refused By: ANIYA KHAN for Refusal: Too s oon documented in this encounter Plan of Treatment Health Maintenance Due Date Last Done Comments DTap/Tdap Vaccines (1 - Tdap) 1979 Pneumococcal Vaccine: 50+ Years (1 of 2 - PCV) 1979 Colonoscopy 2005 Fecal Occult Blood Test 2005 Sigmoidoscopy 2005 Influenza Vaccine (FLU shot) (#1) 2024 HbA1c 01/28/2025 07/31/2024, 0 06/2024, 03/03/2023, Additional history exists Albumin/Creatinine Ratio 03/29/2025 03/29/2024 B-12 03/29/2025 03/29/2024, 2 01/2022, 12/01/2018 Diabetic Foot Exam 07/31/2025 07/31/2024, 07/31/2024 GFR 08/10/2025 08/10/2024, 07/2024, 03/29/2024, Additional history exists Depression Screening [...] as of this encounter Visit Diagnoses Diagnosis Type 2 diabetes mellitus with hemoglobin A1c goal of less than 7.0% (HCC) documented in this encounter Care Teams Medical Reimbursement Manager Relationship Specialty Start Date End Date Kelvin Gongora MD [address] [place] [address] PCP - General Family Medicine 08/30/24 documented as of this encounter
--- OUTSIDE RECORDS SUMMARY | 2025-02-14 09:46 | External Medical Summary | Summary of Care ---
Author Name Unknown Organization [facility] Address [address] [place] [address] Phone [phone] Care Team Providers Care Home Supervisor Name Role Phone Kelvin Gongora MD Primary Care Provider Reason for Visit * Reason Onset Date Comments Health Maintenance 10/05/2024 Encounter Details Date Type Department Care Team (Late st Contact Info) Description 10/05/2024 Telephone Family Practice [facility] [address] [address] [place] [address] Kelvin Gongora MD [address] [facility] [place] [address] Health Maintenance Allergies No known active allergiesdocumented as of this encounter (statuses as of 10/05/2024) Medications aspirin enteric coated 81 MG TBEC [...] EVENING MEAL 360 Tablet 3 08/16/2024 Active Entresto 24-26 MG Oral TabletIndicatio ns:Heart failure, systolic, due to CAD (HCC),HTN, goal below 130/80,Coronary artery disease involving [place] coronary artery of [place] heart without angina pectoris Take 1 Tablet by mouth in the morning and 1 Tablet before bedtime. 180 Tablet 08/24/2024 Active Empagliflozin 10 MG Oral Tablet (Jardiance)Chantel [...] EVERY DAY 90 Tablet 3 09/20/2024 Active documented as of this encounter (statuses as of 10/05/2024) Active Problems Problem Noted Date Diagnosed Date [...] 130/80 11/30/2018 Coronary artery disease invo lving [place] coronary artery of [place] heart without angina pectoris 11/30/2018 [place] (myocardial infarction) 11/30/2018 documented as of this encounter (statuses as of 10/05/2024) Social History Tobacco Use Types Packs/Day Years [...] do you feel lonely or isolated from ose around you? Never 08/30/2024 Financial Resource [...] ages 0-17 years) Not on file 08/30/2024 Sex and Gender Information Value Date [...] encounter Miscellaneous Notes * Telephone Encounter - Sakshi Guardado LPN - 10/05/2024 12:36 PM EST Care Gaps Comprehensive Care Outreach Last Office/Telemedicine Visit: 08/30/2024 (in office), Visit date not found (telemedicine) Next Office Visit: Visit date not found Hemoglobin AIC Results: Lab Results Component Value Date/Time HEMOGLOBIN A1C - [facility] 7.2 (H) 07/31/2024 10:12 AM HEMOGLOBIN A1C - [facility] 7.1 (H) 03/29/2024 01:19 PM HEMOGLOBIN A1C - [facility] 8.2 (H) 03/03/2023 03:16 PM HEMOGLOBIN A1C - [facility] 6.5 (H) 12/01/2018 10:32 AM BP Readings from Last 1 Encounters: 08/30/24 122/66 Reviewed Health Maintenance below: Health Maintenance Topic Date Due DTap/Tdap Vaccines (1 - Tdap) Never done Influenza Vaccine (FLU shot) (1) Never done HbA1c 01/28/2025 Albumin/Creatinine Ratio 03/29/2025 B-12 03/29/2025 Diabetic Foot Exam 07/31/2025 GFR 08/10/2025 Depression Screening 08/30/2025 Diabetic Eye Exam 09/06/2025 Colorectal Cancer Screening 09/14/2027 Hepatitis B Vaccine Aged Out MENINGOCOCCAL (MENACTRA/MENVEO) Aged Out HPV (Gardasil) Vaccine Aged Out Hepatitis C Screening Discontinued HIV Screening Discontinued Zoster Vaccines Discontinued Pneumococcal Vaccine: Pediatrics (0 to 5 Years) and At-Risk Patients (6 to 64 Years) Discontinued COVID-19 Vaccine Discontinued Positive cologuard Referral was placed by pcp scheduling has reached out Care Gap Outreach Action Taken: Outreach not indicated documented in this encounter Plan of Treatment Upcoming Encounters Date Type Department Care Team (Late st Contact Info) Description 11/10/2024 3:30 PM EST Office Visit Cardiology, [facility] [address] [facility] [place] [address] Thu Aguila CRNP [address] [place] [address] Health Maintenance Due Date Last Done Comments DTap/Tdap Vaccines (1 - Tdap) 1979 Colonoscopy 2005 Fecal Occult Blood Test [...] on patient's age to complete this topic Pneumococcal Vaccine: Pediatrics (0 to 5 Years) and At-Risk Patients (6 to 64 Years) Discontinued Zoster Vaccines Discontinued documented as of this encounter Medical Devices Not on filedocumented as of this encounter Care Teams Home Supervisor Relationship Specialty Start Date End Date Kelvin Gongora MD [address] [place] [address] PCP - General Family Medicine 08/30/24 documented as of this encounter
--- OUTSIDE RECORDS SUMMARY | 2025-02-14 09:46 | External Medical Summary | Summary of Care ---
Author Name Unknown Organization [facility] Address [address] [place] [address] Phone [phone] Care Team Providers Care Chemical Laboratory Scientist Name Role Phone Kelvin Gongora MD Primary Care Provider Reason for Referral * Ancillary Services (Within 10 days (routine)) - Pending Review Specialty Diagnoses / Procedures Referred By Contac t Referred To Contact Gastroenterology Diagnoses Positive colorectal cancer screening using DNA-based stool test Kelvin Gongora MD [address] [place] [address] Referral ID Status Reason Start Date Expiration Date Visits Requested Visits Authorized [id number] Pending Review Ancillary Services Required [phone] Question Answer Referral Priority Within 10 days (routine) Where should this appointment be scheduled? [facility] Comments ALERT: Do not order for pediatric patients (18 years or younger). Cancel off screen and order PEDS GASTROENTEROLOGY CONSULT (Type: 1 visit only-Evaluate and Treat) The following Pt. Instructions are available: - Gastro Colonoscopy Prep Instructions [00052] - Gastro Colonoscopy Prep Instructions (Frisian Version) [16331] Go to the Pt. Instructions section within the Visit Navigator to access. Colonoscopy ASGE Guidelines: Average risk screening (begin at age 50, 10 year intervals) and Positive Cologuard ADDITIONAL INFORMATION 1. Is the patient on Coumadin? No 2. Is the patient on Pradaxa? No Reason for Visit * Reason Onset Date Comments Abnormal Test Results 09/14/2024 Encounter Details Date Type Department Care Team ([facility] Contact Info) Description 09/14/2024 Telephone Family Practice [facility] [address] [place] [address] Kelvin Gongora MD [address] [place] [address] Abnormal Test Results Allergies No known active allergiesdocumented as of this encounter (statuses as of 09/19/2024) Medications Medication Sig Dispensed Refills Start Date End Date Status aspirin enteric coated 81 MG TBEC Take 1 Tablet by mouth in the morning. 01/12/2019 Active Metoprolol Succinate ER 25 MG Oral Tablet Extended Release 24 Hour (toPROL XL) Take 1 Tablet by mouth in the morning. 01/02/2023 Active Atorvastatin Calcium 80 MG Oral Tablet (Lipitor)Indications :Dyslipidemia TAKE 1 TABLET BY MOUTH EVERY DAY 90 Tablet 06/21/2024 Active CoQ10 100 MG Oral Capsule Take [...] Oral Tablet Extended Release 24 Hour (Glucophage XR)Indications:Type 2 diabetes mellitus with hemoglobin A1c goal of less than 7.0% ([facility]) TAKE 2 TABLETS BY MOUTH TWICE A DAY WITH MORNING AND EVENING MEAL 360 Tablet 3 08/16/2024 Active Entresto 24-26 MG Oral TabletIndications:He art failure, systolic, due to CAD (HCC),HTN, goal below 130/80,Coronary artery disease involving [place] coronary artery of [place] heart without angina pectoris Take 1 Tablet by mouth in the morning and 1 Tablet before bedtime. 180 Tablet 08/24/2024 Active Empagliflozin 10 MG Oral Tablet (Jardiance)Indicatio ns:Type 2 diabetes mellitus with hemoglobin A1c goal of less than 7.0% (HCC) Take 1 Tablet by mouth in the morning. 90 Tablet 3 08/30/2024 Active Furosemide 40 MG Oral Tablet (Lasix) Take 1 Tablet by mouth in the morning. 90 Tablet 3 08/30/2024 Active Spironolactone 25 MG Oral Tablet (Aldactone) Take 1 Tablet by mouth in the morning. 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 Lopez January 2019 Ischemic cardiomyopathy 02/01/2019 Heart failure, systolic, due to CAD 12/30/2018 Overview: EF 25% on echo from 12/2018 History of coronary artery stent placement 12/01 Type 2 diabetes mellitus wit h hemoglobin A1c goal of less than 7.0% 11/30/2018 Dyslipidemia 11/30/2018 HTN, goal below 130/80 11/30/2018 Coronary artery disease invo lving [place] coronary artery of [place] heart without angina pectoris 11/30/2018 Old [place] (myocardial infarction) 11/30/2018 documented as of this encounter (statuses as of 09/19/2024) Social History Tobacco Use Types Packs/Day Years [...] No 08/30/2024 Does the household have a [facility] source of income? (Household - for ages [...] Assigned at Male 04/08/2023 2:07 PM EDT Gender Identity Male 04/08/2023 2:07 PM EDT Sexual Orientation Straight 04/08/2023 2: 07 PM EDT Job Start Date Occupation Industry Not on file Not on file Not on file documented as of this encounter Miscellaneous Notes * Telephone Encounter - Chantell Vázquez OSA - 09/14/2024 1:14 PM EDT Please see message below and call pt for colonoscopy * Telephone Encounter - Kelvin Gongora MD - 09/14/2024 12:44 PM EDT + cologuard. Referral created for colonoscopy. AC will need to help for procedure. documented in this encounter Plan of Treatment Upcoming Encounters Date Type Department Care Team (Late st Contact Info) Description 09/27/2024 7:15 AM EST Cardiac Studies Cardiac Studies, [facility] [address] [facility] [place] [address] 11/10/2024 3:30 PM EST Office Visit Cardiology, [facility] [address] [facility] [place] [address] Thu Aguila CRNP [address] [place] [address] Scheduled Referrals Name Type Priority Associated Diagnoses Orde r Schedule COLONOSCOPY, GI REFERRAL OP Referral Within 10 days (routine) Positive colorectal cancer screening using DNA-based stool test Ordered: 09/14/2024 Health Maintenance Due Date Last Done Comments DTap/Tdap Vaccines (1 - Tdap) 1979 Colonoscopy 2005 Fecal Occult Blood Test 2005 Sigmoidoscopy 2005 Influenza Vaccine (FLU shot) (#1) 2024 HbA1c 01/28/2025 07/31/2024, 05/0 06/2024, 03/03/2023, Additional history exists Albumin/Creatinine Ratio 03/29/2025 03/29/2024 B-12 03/29/2025 03/29/2024, 052 01/2022, 12/01/2018 Diabetic Foot Exam 07/31/2025 07/31/2024, 07/31/2024 GFR 08/10/2025 08/10/2024, 09/0 07/2024, 03/29/2024, Additional history exists Depression Screening 08/30/2025 08/30/2024 Diabetic Eye Exam 09/06/2025 09/06/2024 Cologuard 09/08/2027 09/08/2024 Colorectal Cancer Screening 09/08/2027 COVID-19 Vaccine Discontinued HIV Screening Discontinued HPV [...] as of this encounter Visit Diagnoses Diagnosis Positive colorectal cancer screening using DNA-based stool test- Primary documented in this encounter Care Teams Chemical Laboratory Scientist Relationship Specialty Start Date End Date Kelvin Gongora MD [address] [place] [address] PCP - General Family Medicine 08/30/24 documented as of this encounter
--- OUTSIDE RECORDS SUMMARY | 2025-02-14 09:46 | External Medical Summary | Summary of Care ---
Author Name Unknown Organization [facility] Address [address] [place] [address] Phone [phone] Care Team Providers Care Salvage Inspector [employer] Name Role Phone Kelvin Gongora MD Primary Care Provider Reason for Visit * Reason Onset Date Comments Scan To Read 09/06/2024 Encounter Details Date Type Department Care Team (Late st Contact Info) Description 09/06/[address] [facility] [place] [address] [place] [address] Kelvin Gongora MD [address] [place] [address] Scan To Read Allergies No known active allergiesdocumented as of this encounter (statuses as of 09/10/2024) Medications Medication Sig Dispensed Refills Start Date [...] (HCC),HTN, goal below 130/80,Coronary artery disease involving [place] coronary artery of [place] heart without angina pectoris Take 1 Tablet [...] as of this encounter (statuses as of 09/10/2024) Active Problems Problem Noted Date Diagnosed Date [...] 130/80 11/30/2018 Coronary artery disease invo lving [place] coronary artery of [place] heart without angina pectoris 11/30/2018 Old [place] (myocardial infarction) 11/30/2018 documented as of this encounter (statuses as of 09/10/2024) Social History Tobacco Use Types Packs/Day Years [...] encounter Miscellaneous Notes * Telephone Encounter - Bryan Wills MD - 09/06/2024 1:10 PM EDT Retinal Scan Imaging [facility] [id number] Retinal Scan Interpretation: There is no retinopathy in both eyes Diabetes Retinal Imaging Care Plan: The retinal scan results are normal - I will forward this encounter to the Ophthalmology DM Letter Pool [[id number]], they will send a normal retinal scan letter to the patient, and the patient will be seen back for a yearly scan. Bryan Wills MD 09/06/2024 1:11 PM * Telephone Encounter - Kierra Hernandez LPN - 09/06/2024 8:36 AM EDT A Diabetic Telemed Eye image was taken and requires your interpretation for Dr Gongora. Please check your inbasket for image. Patient prefers to be seen at [facility] if a follow-up appointment is needed. documented in this encounter Plan of Treatment Upcoming Encounters Date Type Department Care Team (Late st Contact Info) Description 09/27/2024 7:15 AM EST [facility] 132 [facility] [place] [address] 11/10/2024 3:30 PM EST Office Visit Cardiology, [facility] [place] 132 [facility] [place] [address] Thu Aguila CRNP [address] [place] [address] Health Maintenance Due Date Last Done Comments DTap/Tdap Vaccines (1 - Tdap) 1979 Cologuard 2005 Colonoscopy 2005 Colorectal Cancer Screening 2005 Fecal Occult Blood Test 2005 Sigmoidoscopy 2005 Influenza Vaccine (FLU shot) (#1) 2024 HbA1c 01/28/2025 07/31/2024, 05/0 06/2024, 03/03/2023, Additional history exists Albumin/Creatinine Ratio 03/29/2025 03/29/2024 B-12 03/29/2025 03/29/2024, 052 01/2022, 12/01/2018 Diabetic Foot Exam 07/31/2025 07/31/2024, 07/31/2024 GFR 08/10/2025 08/10/2024, 07/2024, 03/29/2024, Additional history exists Depression Screening 08/30/2025 08/30/2024 Diabetic Eye Exam 09/06/2025 09/06/2024 COVID-19 Vaccine Discontinued HIV Screening Discontinued HPV [...] filedocumented as of this encounter Care Teams Salvage Inspector Wood Parts Relationship Specialty Start Date End Date Kelvin Gongora MD 132 [facility] [place] [address] PCP - General Family Medicine 08/30/24 documented as of this encounter
--- OUTSIDE RECORDS SUMMARY | 2025-02-14 09:46 | External Medical Summary | Summary of Care ---
Author Name Unknown Organization [facility] Address [address] [place] [address] Phone [phone] Care Team Providers Care Court Deputy Name Role Phone Kelvin Gongora MD Primary Care Provider Reason for Referral * Ancillary Services (Within 10 days (routine)) - Pending Review Specialty Diagnoses / Procedures Referred By Contac t Referred To Contact Gastroenterology Diagnoses Positive colorectal cancer screening using DNA-based stool test Kelvin Gongora MD [address] [place] [address] Referral ID Status Reason Start Date Expiration Date Visits Requested Visits Authorized [id number] Pending Review Ancillary Services Required [phone] Question Answer Referral Priority Within 10 days (routine) Where should this appointment be scheduled? [facility] Comments ALERT: Do not order for pediatric patients (18 years or younger). Cancel off screen and order PEDS GASTROENTEROLOGY CONSULT (Type: 1 visit only-Evaluate and Treat) The following Pt. Instructions are available: - Gastro Colonoscopy Prep Instructions [[id number]] - Gastro Colonoscopy Prep Instructions (Kinyarwanda Version) [[id number]] Go to the Pt. Instructions section within the Visit Navigator to access. Colonoscopy ASGE Guidelines: Average risk screening (begin at age 50, 10 year intervals) and Positive Cologuard ADDITIONAL INFORMATION 1. Is the patient on Coumadin? No 2. Is the patient on Pradaxa? No Reason for Visit * Reason Onset Date Comments Abnormal Test Results 09/14/2024 Encounter Details Date Type Department Care Team ([facility] Contact Info) Description 09/14/2024 Telephone Family Practice [facility] [address] [place] [address] Kelvin Gongora MD [address] [place] [address] Abnormal Test Results Allergies No known active [...] hemoglobin A1c goal of less than 7.0% ([facility]) TAKE 2 TABLETS BY MOUTH TWICE A DAY WITH MORNING AND EVENING MEAL 360 Tablet 3 08/16/2024 Active Entresto 24-26 MG Oral TabletIndications:He art failure, systolic, due to CAD (HCC),HTN, goal below 130/80,Coronary artery disease involving [place] coronary artery of [place] heart without angina pectoris Take 1 Tablet [...] 130/80 11/30/2018 Coronary artery disease invo lving [place] coronary artery of [place] heart without angina pectoris 11/30/2018 Old [place] [...] No 08/30/2024 Does the household have a [facility] source of income? (Household - for [...] encounter Miscellaneous Notes * Telephone Encounter - Amanda Hinojosa OSA - 09/19/2024 1:50 PM EDT lmm * Telephone Encounter - Chantell Vázquez OSA [...] 7:15 AM EST Cardiac Studies Cardiac Studies, [facility] 132 [facility] [place] [address] 11/10/2024 3:30 PM EST Office Visit Cardiology, [facility] 132 [facility] [place] [address] Thu Aguila CRNP [address] [place] [address] Scheduled Referrals Name Type Priority Associated Diagnoses [...] Primary documented in this encounter Care Teams Court Deputy Relationship Specialty Start Date End Date Kelvin Gongora MD [address] [place] [address] PCP - General Family Medicine 08/30/24 documented as of this encounter
--- OUTSIDE RECORDS SUMMARY | 2025-02-14 09:46 | External Medical Summary | Summary of Care ---
Author Name Unknown Organization [facility] Address [address] [place] [place] [place] [address] Phone [phone] Care Team Providers Care Radon Inspector Name Role Phone Kelvin Gongora MD Primary Care Provider Reason for Visit * Reason Comments Defibrillator Clinic Encounter Details Date Type Department Care Team (Latest Contact Info) Description 09/27/2024 8:00 AM EST Cardiac Studies Cardiology, [facility] [address] [facility] [address] [place] 132 [place] [address] ICD (implantable cardioverter-defibril lator) in place*; Paroxysmal atrial fibrillation (HCC) Allergies No known active allergiesdocumented as of this encounter (statuses as of 09/27/2024) Medications Medication Sig Dispensed Refills Start Date [...] hemoglobin A1c goal of less than 7.0% ([facility]) TAKE 2 TABLETS BY MOUTH TWICE A DAY WITH MORNING AND EVENING MEAL 360 Tablet 3 08/16/2024 Active Entresto 24-26 MG Oral TabletIndications:He art failure, systolic, due to CAD ([facility]),HTN, goal below 130/80,Coronary artery disease involving [place] coronary artery of [place] heart without angina pectoris Take 1 Tablet by mouth in the morning and 1 Tablet before bedtime. 180 Tablet 08/24/2024 Active Empagliflozin 10 MG Oral Tablet (Jardiance)Indicatio ns:Type 2 diabetes mellitus with hemoglobin A1c goal of less than 7.0% ([facility]) Take 1 Tablet by mouth in the [...] EVERY DAY 90 Tablet 3 09/20/2024 Active Hospital, Clinic, or Other Facility Administered Medication Ordered Dose Route Frequency Start Date End Date Status perflutren lipid microsphere inj SUSP 1.956 mgIndications:Acute on chronic systolic congestive heart failure (HCC) 1.956 mg IV ONCE PRN 09/27/2024 09/27/2024 Activ e documented as of this encounter (statuses as of 09/27/2024) Active Problems Problem Noted Date Diagnosed Date [...] 130/80 11/30/2018 Coronary artery disease invo lving [place] coronary artery of [place] heart without angina pectoris 11/30/2018 Old [place] (myocardial infarction) 11/30/2018 documented as of this encounter (statuses as of 09/27/2024) Social History Tobacco Use Types Packs/Day Years [...] on file documented as of this encounter Progress Notes * Shameka Hobson LPN - 09/27/2024 9:22 AM EST Atrial lead/therapies turned off due to chronic AF documented in this encounter Plan of Treatment Upcoming Encounters Date Type Department Care Team (Late st Contact Info) Description 11/10/2024 3:30 PM EST Office Visit Cardiology, [facility] 132 [facility] [place] [phone] Thu Aguila CRNP [address] [place] [address] [place] [address] Scheduled Orders Name Type Priority Associated Diagnoses Orde r Schedule DUAL-LEAD DEFIBRILLATOR + REPROGRAM Procedures Routine ICD (implantable cardioverter-defibrilla tor) in place Paroxysmal atrial fibrillation (HCC) Ordered: 09/27/2024 Health Maintenance Due Date Last Done Comments [...] as of this encounter Visit Diagnoses Diagnosis ICD (implantable cardioverter-defibrillator) in place- Primary Paroxysmal atrial fibrillation (HCC) Atrial fibrillation documented in this encounter Care Teams Radon Inspector Relationship Specialty Start Date End Date Kelvin Gongora MD [address] [place] [address] PCP - General Family Medicine 08/30/24 documented as of this encounter
--- OUTSIDE RECORDS SUMMARY | 2025-02-14 09:46 | External Medical Summary | Summary of Care ---
Author Name Unknown Organization [facility] Address [address] [place] [address] Phone [phone] Care Team Providers Care Home Restoration Service Cleaner Name Role Phone Kelvin Gongora MD Primary Care Provider Reason for Referral * Ancillary Services (Within 10 days (routine)) - Pending Review Specialty Diagnoses / Procedures Referred By Contac t Referred To Contact Gastroenterology Diagnoses Positive colorectal cancer screening using DNA-based stool test Kelvin Gongora MD [address] [place] [address] Referral ID Status Reason Start Date Expiration Date Visits Requested Visits Authorized [id number] Pending Review Ancillary Services Required [phone] Question Answer Referral Priority Within 10 days (routine) Where should this appointment be scheduled? [facility] Comments ALERT: Do not order for pediatric patients (18 years or younger). Cancel off screen and order PEDS GASTROENTEROLOGY CONSULT (Type: 1 visit only-Evaluate and Treat) The following Pt. Instructions are available: - Gastro Colonoscopy Prep Instructions [[id number]] - Gastro Colonoscopy Prep Instructions (Amharic Version) [[id number]] Go to the Pt. Instructions section within the Visit Navigator to access. Colonoscopy ASGE Guidelines: Average risk screening (begin at age 50, 10 year intervals) and Positive Cologuard ADDITIONAL INFORMATION 1. Is the patient on Coumadin? No 2. Is the patient on Pradaxa? No Reason for Visit * Reason Onset Date Comments Abnormal Test Results 09/14/2024 Encounter Details Date Type Department Care Team ([facility] Contact Info) Description 09/14/2024 Telephone Family Practice [facility] [address] [place] [address] Kelvin Gongora MD [address] [place] [address] Abnormal Test Results Allergies No known active allergiesdocumented as of this encounter (statuses as of 09/14/2024) Medications Medication Sig Dispensed Refills Start Date [...] hemoglobin A1c goal of less than 7.0% ([facility]) TAKE 2 TABLETS BY MOUTH TWICE A DAY WITH MORNING AND EVENING MEAL 360 Tablet 3 08/16/2024 Active Entresto 24-26 MG Oral TabletIndications:He art failure, systolic, due to CAD (HCC),HTN, goal below 130/80,Coronary artery disease involving [place] coronary artery of [place] heart without angina pectoris Take 1 Tablet [...] as of this encounter (statuses as of 09/14/2024) Active Problems Problem Noted Date Diagnosed Date [...] 130/80 11/30/2018 Coronary artery disease invo lving [place] coronary artery of [place] heart without angina pectoris 11/30/2018 Old [place] (myocardial infarction) 11/30/2018 documented as of this encounter (statuses as of 09/14/2024) Social History Tobacco Use Types Packs/Day Years [...] No 08/30/2024 Does the household have a [facility] source [facility] income? (Household - for [...] encounter Miscellaneous Notes * Telephone Encounter - Kelvin Gongora MD - 09/14/2024 12:44 PM EDT + cologuard. Referral created for colonoscopy. AC will need to help for procedure. documented in this encounter Plan of Treatment Upcoming Encounters Date Type Department Care Team (Late st Contact Info) Description 09/27/2024 7:15 AM EST Cardiac Studies Cardiac Studies, [address] [place] [address] 11/10/2024 3:30 PM EST Office Visit Cardiology, [facility] 132 [facility] [place] [address] Thu Aguila CRNP [address] [place] [address] [place] [address] Scheduled Referrals Name Type Priority Associated Diagnoses [...] Primary documented in this encounter Care Teams Home Restoration Service Cleaner Relationship Specialty Start Date End Date Kelvin Gongora MD [address] [place] [address] PCP - General Family Medicine 08/30/24 documented as of this encounter
--- OUTSIDE RECORDS SUMMARY | 2025-02-14 09:46 | External Medical Summary | Summary of Care ---
Author Name Unknown Organization [facility] Address [address] [facility] [place] [address] Phone [phone] Care Team Providers Care Animal Cruelty Investigation Supervisor Name Role Phone Kelvin Gongora MD Primary Care Provider Reason for Visit * Reason Comments eRx-Medication Refill Encounter Details Date Type Department Care Team (Late st Contact Info) Description 09/19/2024 Refill Family Practice [facility] [address] [place] [address] Zachary Lagos MD [address] [place] [address] Dyslipidemia Allergies No known active allergiesdocumented as of this encounter (statuses as of 09/20/2024) Medications Medication Sig Dispensed Refills Start Date [...] Oral Tablet Extended Release 24 Hour (Glucophage XR)Indications:Ty pe 2 diabetes mellitus with hemoglobin A1c goal of less than 7.0% (HCC) TAKE 2 TABLETS BY MOUTH TWICE A DAY WITH MORNING AND EVENING MEAL 360 Tablet 3 08/16/2024 Active Entresto 24-26 MG Oral TabletIndications :Heart failure, systolic, due to CAD (HCC),HTN, goal below 130/80,Coronary artery disease involving [place] coronary artery of [place] heart without angina pectoris Take 1 Tablet by mouth in the morning and 1 Tablet before bedtime. 180 Tablet 08/24/2024 Active Empagliflozin 10 MG Oral Tablet (Jardiance)Indica tions:Type 2 diabetes mellitus with hemoglobin A1c goal [...] Active Atorvastatin Calcium 80 MG Oral Tablet (Lipitor)Indicati ons:Dyslipidemia TAKE 1 TABLET BY MOUTH EVERY DAY 90 Tablet 3 09/20/2024 Active Atorvastatin Calcium 80 MG Oral Tablet (Lipitor)Indicati ons:Dyslipidemia TAKE 1 TABLET BY MOUTH EVERY DAY 90 Tablet 06/21/2024 09/20/2024 Discontinued documented as of this encounter (statuses as of 09/20/2024) Active Problems Problem Noted Date Diagnosed Date [...] 130/80 11/30/2018 Coronary artery disease invo lving [place] coronary artery of [place] heart without angina pectoris 11/30/2018 Old [place] (myocardial infarction) 11/30/2018 documented as of this encounter (statuses as of 09/20/2024) Social History Tobacco Use Types Packs/Day Years [...] encounter Miscellaneous Notes * Telephone Encounter - Jesús Galeano [facility] - 09/20/2024 9:54 AM EDTSigned Prescriptions: Disp Refills Atorvastatin Calcium 80 MG Oral Tablet (Li*90 Tab*3 Sig: TAKE 1 TABLET BY MOUTH EVERY DAYAuthorizing Provider: KELVIN GONGORA User: JESÚS GALEANO documented in this encounter Plan of Treatment Upcoming Encounters Date Type Department Care Team (Late st Contact Info) Description 09/27/2024 7:15 AM EST Cardiac Studies [address] [place] [address] 11/10/2024 3:30 PM EST Office [address] Card[address], [address] [place] [address] Thu Aguila CRNP [address] [facility] [place] [id number] Health Maintenance Due Date Last Done Comments [...] hyperlipidemia documented in this encounter Care Teams Animal Cruelty Investigation Supervisor Relationship Specialty Start Date End Date Kelvin Gongora MD [address] [place] [address] PCP - General Family Medicine 08/30/24 documented as of this encounter
--- OUTSIDE RECORDS SUMMARY | 2025-02-14 09:46 | External Medical Summary | Summary of Care ---
Author Name Unknown Organization [facility] Address [address] [facility] [place] [address] Phone [phone] Care Team Providers Care Builder Operator Name Role Phone Kelvin Gongora MD Primary Care Provider Encounter Details Date Type Department Care Team (Late st Contact Info) Description 10/26/2024 Result Scan Unspecified Department Belen Lopez, DO [address] [facility] [place] [address] <No scans attached> Allergies No known active allergiesdocumented as of this encounter (statuses as of 10/27/2024) Medications aspirin enteric coated 81 MG TBEC [...] TabletIndicatio ns:Heart failure, systolic, due to CAD ([facility]),HTN, goal below 130/80,Coronary artery disease involving [place] coronary artery of [place] heart without angina pectoris Take 1 Tablet by mouth in the morning and 1 Tablet before bedtime. 180 Tablet 08/24/2024 Active Empagliflozin 10 MG Oral Tablet (Jardiance)Chantel cations:Type 2 diabetes mellitus with hemoglobin A1c goal of less than 7.0% ([facility]) Take 1 Tablet by mouth in the [...] as of this encounter (statuses as of 10/27/2024) Active Problems Problem Noted Date Diagnosed Date [...] 130/80 11/30/2018 Coronary artery disease invo lving [place] coronary artery of [place] heart without angina pectoris 11/30/2018 Old [place] (myocardial infarction) 11/30/2018 documented as of this encounter (statuses as of 10/27/2024) Social History Tobacco Use Types Packs/Day Years [...] as of this encounter Plan of Treatment Upcoming Encounters Date Type Department Care Team (Late st Contact Info) Description 11/10/2024 3:30 PM EST Office Visit Cardiology, [facility] [address] [place] [address] Thu Aguila CRNP [address] [place] [address] Health Maintenance Due Date [...] Date/Time Associated Diagnosis Comments CARDIOLOGY SCANNED RESULT 10/26/2024 documented in this encounter Results * CARDIOLOGY SCANNED RESULT (10/26/2024) 10/26/2024 Belen Lopez DO OTHER Final R esult documented in this encounter Care Teams Builder Operator Relationship Specialty Start Date End Date Kelvin Gongora MD 132 [facility] [place] [address] PCP - General Family Medicine 08/30/24 documented as of this encounter
--- OUTSIDE RECORDS SUMMARY | 2025-02-14 09:46 | External Medical Summary | Summary of Care ---
Author Name Unknown Organization [facility] Address [address] [facility] [place] [address] Phone [phone] Care Team Providers Care Manager Civil Name Role Phone Kelvin Gongora MD Primary Care Provider Reason for Visit * Reason Onset Date Comments Medication Refill 10/25/2024 Encounter Details Date Type Department Care Team (Late st Contact Info) Description 10/25/2024 Refill Cardiology, [place] [address] [place] [address] Connie mAaral PA-C 400 [facility] [place] [phone] Allergies No known active allergiesdocumented as of this encounter (statuses as of 10/26/2024) Medications aspirin enteric coated 81 MG TBEC [...] TabletIndicatio ns:Heart failure, systolic, due to CAD ([facility]),HTN, goal below 130/80,Coronary artery disease involving [place] coronary artery of [place] heart without angina pectoris Take 1 Tablet [...] as of this encounter (statuses as of 10/26/2024) Active Problems Problem Noted Date Diagnosed Date [...] 130/80 11/30/2018 Coronary artery disease invo lving [place] coronary artery of [place] heart without angina pectoris 11/30/[address] (myocardial infarction) 11/30/2018 documented as of this encounter (statuses as of 10/26/2024) Social History Tobacco Use Types Packs/Day Years [...] encounter Miscellaneous Notes * Telephone Encounter - Puma Mason RP - 10/26/2024 2:12 PM EST Refused Prescriptions: Disp Refills Apixaban 5 MG Oral Tablet (Eliquis) 180 Ta*3 Sig: Take 1 Tablet by mouth in the morning and 1 Tablet before bedtime.Refused By: PUMA MASON for Refusal: Too soon * Telephone Encounter - Karli Figueroa two - 10/26/2024 5:43 AM ESTPending Prescriptions: Disp Refills Apixaban 5 MG Oral Tablet (Eliquis) 180 Ta*3 Sig: Take 1 Tablet by mouth in the morning and 1 Tablet before bedtime. * Telephone Encounter - Karli Figueroa - 10/26/2024 5:41 AM EST Did you pend patient's preferred pharmacy and medication before forwarding?yes Pharmacy: [facility] [place] [id number] [place] [address] Pending Prescriptions: Disp Refills Apixaban 5 MG Oral Tablet (Eliquis) 180 Ta*3 Sig: Take 1 Tablet by mouth in the morning and 1 Tablet before bedtime. Last Visit: 08/09/2024 (in office), Visit date not found (telemedicine) Next Visit: Visit date not found If no future appointments scheduled, and last appointment is greater than a year ago, please schedule patient for a follow-up appointment Last date the medication was ordered: 08/09/2024 Is this request for a controlled substance?No Urine Drug Screen:No results found for this or any previous visit. Patient Phone Numbers Labs: Lab Results Component Value Date/Time CREAT 1.1 08/10/2024 03:52 PM CREAT 0.9 12/05/2020 11:39 AM POTASSIUM 4.5 08/10/2024 03:52 PM POTASSIUM 4.9 12/05/2020 11:39 AM TSH 1.52 08/10/2024 03:52 PM LDL 96 03/29/2024 01:19 PM LDL 89 12/01/2018 10:32 AM LDL NOT APPLICABLE 12/01/2018 10:32 AM ALT 84 (H) 08/10/2024 03:52 PM ALT 32 10/10/2007 01:45 PM HGBA1C 7.2 (H) 07/31/2024 10:12 AM HGBA1C 6.5 (H) 12/01/2018 10:32 AM documented in this encounter Plan of Treatment Upcoming Encounters Date Type Department Care Team (Late st Contact Info) Description 11/10/2024 3:30 PM EST Office Visit Cardiology, [facility] 132 [facility] [place] [address] Thu Aguila CRNP [address] [place] [address] [place] [address] Health Maintenance Due Date Last Done Comments DTap/Tdap Vaccines (1 - Tdap) 1979 Colonoscopy 2005 Fecal Occult Blood Test 2005 Sigmoidoscopy 2005 Influenza Vaccine (FLU shot) (#1) 2024 HbA1c 01/28/2025 07/31/2024, 050 06/2024, 03/03/2023, Additional [...] filedocumented as of this encounter Care Teams Manager Civil Relationship Specialty Start Date End Date Kelvin Gongora MD [address] [place] [address] PCP - General Family Medicine 08/30/24 documented as of this encounter
--- OUTSIDE RECORDS SUMMARY | 2025-02-14 09:46 | External Medical Summary | Summary of Care ---
Author Name Unknown Organization [facility] Address [address] [place] [address] Phone [phone] Care Team Providers Care Corset Maker Name Role Phone Kelvin Gongora MD Primary Care Provider Reason for Referral * Ancillary Services (Within 10 days (routine)) - Pending Review Specialty Diagnoses / Procedures Referred By Contac t Referred To Contact Gastroenterology Diagnoses Positive colorectal cancer screening using DNA-based stool test Kelvin Gongora MD [address] [place] [address] Phone: tel: fax: Referral ID Status Reason Start Date Expiration Date Visits Requested Visits Authorized [id number] Pending Review Ancillary Services Required [phone] Question Answer Referral Priority Within 10 days (routine) Where should this appointment be scheduled? [facility] Comments ALERT: Do not order for pediatric patients (18 years or younger). Cancel off screen and order PEDS GASTROENTEROLOGY CONSULT (Type: 1 visit only-Evaluate and Treat) The following Pt. Instructions are available: - Gastro Colonoscopy Prep Instructions [[id number]] - Gastro Colonoscopy Prep Instructions (English Version) [[id number]] Go to the Pt. Instructions section within [...] Care Team (Late st Contact Info) Description 09/14/2024 Telephone Family Practice [facility] [address] [place] [address] Kelvin Gongora MD [address] [place] [address] Abnormal Test Results Allergies No known active allergiesdocumented as of this encounter (statuses as of 10/10/2024) Medications aspirin enteric coated 81 MG TBEC [...] EVENING MEAL 360 Tablet 3 4 Active Entresto 24-26 MG Oral TabletIndicati ons:Heart failure, systolic, due to CAD (HCC),HTN, goal below 130/80,Coronar y artery disease involving [place] coronary artery of [place] heart without angina pectoris Take 1 Tablet by mouth in the morning and 1 Tablet before bedtime. 180 Tablet 4 Active Empagliflozin 10 MG Oral Tablet [...] the morning. 90 Tablet 3 4 Active Atorvastatin Calcium 80 MG Oral Tablet (Lipitor)Indic ations:Dyslipi demia TAKE 1 TABLET BY MOUTH EVERY DAY 90 Tablet 4 09/20/20 24 Discontinued documented as of this encounter (statuses as of 10/10/2024) Active Problems Problem Noted Date Diagnosed Date [...] 130/80 11/30/2018 Coronary artery disease invo lving [place] coronary artery of [place] heart without angina pectoris 11/30/2018 Old [place] (myocardial infarction) 11/30/2018 documented as of this encounter (statuses as of 10/10/2024) Social History Tobacco Use Types Packs/Day Years [...] 08/30/2024 Does the household have a re lar source of income? (Household - for ages [...] encounter Miscellaneous Notes * Telephone Encounter - Bernadette Castanon OSA - 10/10/2024 3:28 PM EST [facility] Letter sent KEVIN Vergara 10/10/2024 3:28 PM * Telephone Encounter - Amanda Hinojosa OSA [...] 11/10/2024 3:30 PM EST Office Visit Cardiology, [facility] [address] [place] [phone] Thu Aguila CRNP [address] [place] [address] [place] [address] Scheduled Referrals Name Type Priority Associated Diagnoses [...] Primary documented in this encounter Care Teams Corset Maker Relationship Specialty Start Date End Date Kelvin Gongora MD [address] [place] [address] PCP - General Family Medicine 08/30/24 documented as of this encounter
--- OUTSIDE RECORDS SUMMARY | 2025-02-14 09:46 | External Medical Summary | Summary of Care ---
Author Name Unknown Organization [facility] Address [address] [place] [address] Phone [phone] Care Team Providers Care Cloth Shrinking Machine Operator Helper Name Role Phone Kelvin Gongora MD Primary Care Provider Reason for Referral * Ancillary Services (Within 10 days (routine)) - Pending Review Specialty Diagnoses / Procedures Referred By Contac t Referred To Contact Gastroenterology Diagnoses Positive colorectal cancer screening using DNA-based stool test Kelvin Gongora MD [address] [place] [address] Referral ID Status Reason Start Date Expiration Date Visits Requested Visits Authorized [id number] Pending Review Ancillary Services Required [phone] Question Answer Referral Priority Within 10 days (routine) Where should this appointment be scheduled? [facility] Comments ALERT: Do not order for pediatric patients (18 years or younger). Cancel off screen and order PEDS GASTROENTEROLOGY CONSULT (Type: 1 visit only-Evaluate and Treat) The following Pt. Instructions are available: - Gastro Colonoscopy Prep Instructions [[id number]] - Gastro Colonoscopy Prep Instructions (Arabic Version) [[id number]] Go to the Pt. Instructions section within the Visit Navigator to access. Colonoscopy ASGE Guidelines: Average risk screening (begin at age 50, 10 year intervals) and Positive Cologuard ADDITIONAL INFORMATION 1. Is the patient on Coumadin? No 2. Is the patient on Pradaxa? No Reason for Visit * Reason Onset Date Comments Abnormal Test Results 09/14/2024 Encounter Details Date Type Department Care Team ([facility] Contact Info) Description 09/14/2024 Telephone Family Practice [facility] [address] [place] [address] Kelvin Gongora MD [address] [place] [address] Abnormal Test Results Allergies No known active [...] goal of less than 7.0% ([facility]) TAKE 2 TABLETS BY MOUTH TWICE A DAY WITH MORNING AND EVENING MEAL 360 Tablet 3 08/16/2024 Active Entresto 24-26 MG Oral TabletIndications:He art failure, systolic, due to CAD (HCC),HTN, goal below 130/80,Coronary artery disease involving [place] coronary artery of [place] heart without angina pectoris Take 1 Tablet [...] 130/80 11/30/2018 Coronary artery disease invo lving [place] coronary artery of [place] heart without angina pectoris 11/30/2018 [place] (myocardial infarction) 11/30/2018 documented as of this [...] No 08/30/2024 Does the [facility] have a [facility] source [facility]? (Household - for [...] 7:15 AM EST Cardiac Studies Cardiac Studies, [facility] [address] [facility] [place] [address] 11/10/2024 3:30 PM EST Office Visit Cardiology, [facility] [address] [facility] [place] [address] Thu Aguila CRNP [address] [place] [phone] Scheduled Referrals Name Type Priority Associated Diagnoses [...] Primary documented in this encounter Care Teams Cloth Shrinking Machine Operator Helper Relationship Specialty Start Date End Date Kelvin Gongora MD [address] [place] [address] PCP - General Family Medicine 08/30/24 documented as of this encounter
--- OUTSIDE RECORDS SUMMARY | 2025-02-14 09:46 | External Medical Summary | Summary of Care ---
Author Name Unknown Organization [facility] Address [address] [place] [facility] [place] [address] Phone [phone] Care Team Providers Care Music Mixer Name Role Phone Kelvin Gongora MD Primary Care Provider Reason for Visit * Reason Comments eRx-Medication Refill Encounter Details Date Type Department Care Team (Late st Contact Info) Description 11/09/2024 Refill [address]iology, [facility] [address] [place] [address] Thom Sevilla, [address] [place] [address] Heart failure, systolic, due to CAD (HCC); HTN, goal below 130/80; Coronary artery disease involving [place] coronary artery of [place] heart without angina pectoris Allergies No known active allergiesdocumented as of this encounter (statuses as of 11/12/2024) Medications aspirin enteric coated 81 MG TBEC [...] MOUTH EVERY DAY 90 Tablet 3 4 Active Entresto 24-26 MG Oral TabletIndicati ons:Heart failure, systolic, due to CAD (HCC),HTN, goal below 130/80,Coronar y artery disease involving [place] coronary artery of [place] heart without angina pectoris TAKE 1 TABLET BY MOUTH IN THE MORNING AND BEFORE BEDTIME 180 Tablet 1 4 Active Entresto 24-26 MG Oral TabletIndicati ons:Heart failure, systolic, due to CAD (HCC),HTN, goal below 130/80,Coronar y artery disease involving [place] coronary artery of [place] heart without angina pectoris Take 1 Tablet by mouth in the morning and 1 Tablet before bedtime. 180 Tablet 4 11/12/20 24 Discontinued documented as of this encounter (statuses as of 11/12/2024) Active Problems Problem Noted Date Diagnosed Date [...] 130/80 11/30/2018 Coronary artery disease invo lving [place] coronary artery of [place] heart without angina pectoris 11/30/2018 [place] (myocardial infarction) 11/30/2018 documented as of this encounter (statuses as of 11/12/2024) Social History Tobacco Use Types Packs/Day Years [...] encounter Miscellaneous Notes * Telephone Encounter - Ileana Reeder [facility] - 11/12/2024 4:46 PM ESTSigned Prescriptions: Disp Refills Entresto 24-26 MG Oral Tablet 180 Ta*1 Sig: TAKE 1 TABLET BY MOUTH IN THE MORNING AND BEFORE BEDTIME Authorizing Provider: LAUREN NOVAK User: ILEANA REEDER * Telephone Encounter - Marielena King [facility] - 11/11/2024 3:45 PM ESTPending Prescriptions: Disp Refills Entresto 24-26 MG Oral Tablet 180 Ta*1 Sig: TAKE 1 TABLET BY MOUTH IN THE MORNING AND BEFORE BEDTIME documented in this encounter Plan of Treatment [...] as of this encounter Visit Diagnoses Diagnosis Heart failure, systolic, due to CAD (HCC) Unspecified systolic heart failure HTN, goal below 130/80 Unspecified essential hypertension Coronary artery disease involving [place] coronary artery of [place] heart without angina pectoris documented in this encounter Care Teams Music Mixer Relationship Specialty Start Date End Date Kelvin Gongora MD [address] [place] [address] PCP - General Family Medicine 08/30/24 documented as of this encounter
--- OUTSIDE RECORDS SUMMARY | 2025-02-14 09:46 | External Medical Summary | Summary of Care ---
Author Name Unknown Organization [facility] Address [address] [place] [address] Phone [phone] Care Team Providers Care Data Processing Clerk Name Role Phone Kelvin Gongora MD Primary Care Provider Reason for Visit * Reason Comments Follow Up Encounter Details Date Type Department Care Team (Late st Contact Info) Description 11/10/2024 3:30 PM EST Office Visit Cardiology, [facility] [address] [facility] [place] [id number] Thu Aguila CRNP [address] [place] [address] Paroxysmal atrial fibrillation (HCC)*; Coronary artery disease involving [place] coronary artery of [place] heart without angina pectoris; HFrEF (heart failure with reduced ejection fraction) ([facility]); HTN, goal below 130/80; ICD (implantable cardioverter-defibril lator) in place; Ischemic cardiomyopathy; Type 2 diabetes mellitus with hemoglobin A1c goal of less than 7.0% ([facility]) Allergies No known active allergiesdocumented as of this encounter (statuses as of 11/10/2024) Medications aspirin enteric coated 81 MG TBEC [...] hemoglobin A1c goal of less than 7.0% ([facility]) TAKE 2 TABLETS BY MOUTH TWICE A DAY WITH MORNING AND EVENING MEAL 360 Tablet 3 08/16/2024 Active Entresto 24-26 MG Oral TabletIndicatio ns:Heart failure, systolic, due to CAD ([facility]),HTN, goal below 130/80,Coronary artery disease involving [place] coronary artery of [place] heart without angina pectoris Take 1 Tablet by mouth in the morning and 1 Tablet before bedtime. 180 Tablet 08/24/2024 Active Empagliflozin 10 MG Oral Tablet (Jardiance)Chantel cations:Type 2 diabetes mellitus with hemoglobin A1c goal of less than 7.0% ([facility]) Take 1 Tablet by mouth in the [...] as of this encounter (statuses as of 11/10/2024) Active Problems Problem Noted Date Diagnosed Date [...] 130/80 11/30/2018 Coronary artery disease invo lving [place] coronary artery of [place] heart without angina pectoris 11/30/2018 Old MD (myocardial infarction) 11/30/2018 documented as of this encounter (statuses as of 11/10/2024) Social History Tobacco Use Types Packs/Day Years [...] fi le documented as of this encounter Last Filed Vital Signs Vital Sign Reading Time Taken Comments Blood Pressure 102/58 11/10/2024 3:25 PM EST Pulse 86 11/10/2024 3:25 PM EST Temperature - - Respiratory Rate 16 11/10/2024 3:25 PM EST Oxygen Saturation - - Inhaled Oxygen Concentration - - Weight 97.4 kg (214 lb 11.2 oz) 11/10/2024 3:25 PM EST Height - - Body Mass Index 29.53 08/30/2024 11:52 AM EDT documented in this encounter Patient Instructions * Patient Instructions* Thu Aguila CRNP - 11/10/2024 3:38 PM EST Can try saline nasal spray and or [place] nasal gel to help alleviate the nose bleeds Please call if you develop any of the following, which can be signs of worsening heart failure: -Increasing or new shortness of breath -New or worsened cough, especially if you are coughing up frothy or bloody material -An increase in leg or ankle swelling -Weight gain of 2 to 3 pounds (1 kilogram) in one day or five pounds (2 kg) in one week -A fast or irregular heartbeat -You should limit your fluid intake to 64 ounces -This includes anything that turns to liquid at room temp such as ice chips, ice cream, broth, popsicles, and Jell-O. documented in this encounter Progress Notes * Thu Aguila CRNP - 11/10/2024 3:26 PM EST Images from the original note were not included. Subjective Chuy Danielle Underwood is a 64 year old male. Chief Complaint Patient presents with Follow Up Cardiac Problems: CAD s/p PCI of LAD ICM s/p SC ICD 01/25/2019 Hx apical thrombus pAF HTN DM II HLD History of tobacco use HPI: 64-year-old male presents today for routine Cardiology follow up. He was last seen in the clinic approximately 3 months ago. Overall feeling well from a cardiac perspective. Continues to struggle with nosebleeds reporting but not happening as often or lasting as long as when he was on the warfarin. Denies chest pain, SOB, palpitations, dizziness, syncope, edema, orthopnea and PND. No change in activity tolerance. After being restarted on furosemide by his PCP earlier in the fall he feels that his fluid status is back to baseline. Reports compliance with medications without any untoward side effects, or difficulty with affordability. PMH: Patient Active Problem List Diagnosis Type 2 diabetes mellitus with hemoglobin A1c goal of less than 7.0% ([facility]) Dyslipidemia HTN, goal below 130/80 Coronary artery disease involving [place] coronary artery of [place] heart without angina pectoris Old MD (myocardial infarction) History of coronary artery stent placement Heart failure, systolic, due to CAD ([facility]) Presence of single chamber implantable cardioverter-defibrillator (ICD) Ischemic cardiomyopathy Apical mural thrombus Current Outpatient Medications Medication Sig Dispense Refill aspirin enteric coated 81 MG TBEC Take 1 Tablet by mouth in the morning. Metoprolol Succinate ER 25 MG Oral Tablet Extended Release 24 Hour (toPROL XL) Take 1 Tablet by mouth in the morning. CoQ10 100 MG Oral Capsule Take by mouth at bedtime. Vitamin C 500 MG Oral Capsule Take 1 Capsule by mouth in the morning. Vitamin D-3 25 MCG (1000 UT) Oral Capsule Take 1 Capsule by mouth in the morning. Apixaban 5 MG Oral Tablet (Eliquis) Take 1 Tablet by mouth in the morning and 1 Tablet before bedtime. 180 Tablet 3 metFORMIN HCl ER 500 MG Oral Tablet Extended Release 24 Hour (Glucophage XR) TAKE 2 TABLETS BY MOUTH TWICE A DAY WITH MORNING AND EVENING MEAL 360 Tablet 3 Entresto 24-26 MG Oral Tablet Take 1 Tablet by mouth in the morning and 1 Tablet before bedtime. 180 Tablet 0 Empagliflozin 10 MG Oral Tablet (Jardiance) Take 1 Tablet by mouth in the morning. 90 Tablet 3 Furosemide 40 MG Oral Tablet (Lasix) Take 1 Tablet by mouth in the morning. 90 Tablet 3 Spironolactone 25 MG Oral Tablet (Aldactone) Take 1 Tablet by mouth in the morning. 90 Tablet 3 Atorvastatin Calcium 80 MG Oral Tablet (Lipitor) TAKE 1 TABLET BY MOUTH EVERY DAY 90 Tablet 3 No current facility-administered medications for this visit. Past Medical History: Diagnosis Date Coronary artery disease involving [place] coronary artery of [place] heart without angina pectoris 11/30/2018 Diabetes type 2, controlled ([facility]) Dyslipidemia 11/30/2018 Heart failure, systolic, due to CAD ([facility]) 12/30/2018 EF 25% on echo from 12/2018 History of coronary artery stent placement 12/01/2018 HTN, goal below 130/80 11/30/2018 Hyperlipidemia Ischemic cardiomyopathy 02/01/2019 Myocardial infarct (HCC) 09/16/2018 Old MD (myocardial infarction) 11/30/2018 Presence of single chamber implantable cardioverter-defibrillator (ICD) 02/01/2019 Type 2 diabetes mellitus with hemoglobin A1c goal of less than 7.0% ([facility]) 11/30/2018 Past Surgical History: Procedure Laterality Date OTHER (INFORMATION) wisdom teeth removed Review of patient's allergies indicates: No Known Allergies Family History Problem Relation Name Age of Onset Cancer Mother throat Other (dm) Grandmother (Maternal) Family Status Relation Status Mo Alive Fa at age 48 Diabetes PGMA Diabetes MGMA (Not Specified) Social History Socioeconomic History Marital status: Spouse name: Not on file Number of children: Not on file Years of education: Not on file Highest education level: Not on file Occupational History 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 Tobacco Use Smoking status: Former Current packs/day: 0.00 Average packs/day: 0.5 packs/day for 5.0 years (2.5 ttl pk-yrs) Types: Cigarettes Start date: 06/22/2001 Quit date: 06/22/2006 Years since quittin.4 Smokeless tobacco: Never Substance and Sexual Activity Alcohol use: Yes Comment: glass of wine twice weekly Drug use: Never Sexual activity: Not on file Other Topics Concern Not on file Social History Narrative Not on file Social Needs Financial Resource Strain: Low Risk (08/30/2024) Financial Resource Strain Do you have any trouble paying for your medications, or do you think you might in the future? (Adult - for ages 18 years and over): No Does your family have trouble paying for medicine? (Household - for ages 0-17 years): Not on file Food Insecurity: No Food Insecurity (08/30/2024) Food Insecurity Do you need food for this week? (Adult - for ages 18 years and over): No Are you able to get enough food for your family? (Household - for ages 0-17 years): Not on file Does your family need food this week? (Household - for ages 0-17 years): Not on file Do you always have enough food for your family? (Household - for ages 0-17 years): Not on file Transportation Needs: No Transportation Needs (08/30/2024) Transportation Needs Do you have trouble getting a ride to medical visits or work? (Adult - for ages 18 years and over):Not on file Does your family have a hard time getting a ride to doctors visits? (Household - for ages 0-17 years): Not on file Has lack of transportation kept you from medical appointments, meetings, work, or from getting things needed for daily living? Check all that apply. (Adult - for ages 18 years and over): No Do you (or your family) have trouble finding or paying for a ride (transportation)? (Household - for ages 0-17 years): Not on file Social Connections: Socially Integrated (08/30/2024) Social Connections How often do you feel lonely or isolated from those around you? (Adult - for ages 18 years and over): Never Housing Stability: Low Risk (08/30/2024) Housing Stability Do you currently live in a intermediate or have no steady place to sleep at night? (Adult - for ages 18 years and over): No Do you think you are at risk of becoming homeless? (Adult - for ages 18 years and over): Not on file Does your family worry about paying for your home or becoming homeless? (Household - for ages 0-17 years): Not on file Are you homeless or worried that you might be in the future? (Adult - for ages 18 years and over): No Are you (or your family) homeless or worried that you might be in the future? (Household - for ages0-17 years): Not on file Review of Systems Constitutional: Negative for activity change, fatigue and unexpected weight change. HENT: Positive for nosebleeds. Eyes: Negative for visual disturbance. Respiratory: Negative for shortness of breath and wheezing. Cardiovascular: Negative for chest pain, palpitations and leg swelling. Gastrointestinal: Negative for blood in stool, constipation, diarrhea, nausea and vomiting. Genitourinary: Negative for hematuria. Musculoskeletal: Negative for arthralgias and gait problem. Skin: Negative for wound. Neurological: Negative for dizziness and syncope. Objective BP 102/58 (BP Site: Left Arm, BP Position: Sitting) | Pulse 86 | Resp 16 | Wt 97.4 kg (214 lb 11.2 oz) | BMI 29.53 kg/m | BSA 2.22 m Wt Readings from Last 3 Encounters: 11/10/24 97.4 kg (214 lb 11.2 oz) 08/30/24 98.6 kg (217 lb 6.4 oz) 08/09/24 97.5 kg (215 lb) Physical Exam Vitals and nursing note reviewed. Constitutional: General: He is awake. He is not in acute distress. Appearance: Normal appearance. He is well-developed. He is not ill-appearing. HENT: Head: Normocephalic and atraumatic. Eyes: General: No scleral icterus. Extraocular Movements: Extraocular movements intact. Conjunctiva/sclera: Conjunctivae normal. Pupils: Pupils are equal, round, and reactive to light. Neck: Thyroid: No thyromegaly. Vascular: No carotid bruit or JVD. Cardiovascular: Rate and Rhythm: Normal rate. Rhythm irregularly irregular. Pulses: Normal pulses. Carotid pulses are 2+ on the right side and 2+ on the left side. Radial pulses are 2+ on the right side and 2+ on the left side. Posterior tibial pulses are 2+ on the right side and 2+ on the left side. Heart sounds: Normal heart sounds, S1 normal and S2 normal. No murmur heard. Pulmonary: Effort: Pulmonary effort is normal. No respiratory distress. Breath sounds: Normal breath sounds. No wheezing, rhonchi or rales. Chest: Comments: Left pectoral region; ICD site no evidence of threatened erosion. Skin intact. No erythema/edema Abdominal: General: Bowel sounds are normal. There is no distension. Palpations: Abdomen is soft. There is no mass. Tenderness: There is no abdominal tenderness. Musculoskeletal: General: No swelling. Cervical back: Neck supple. Right lower leg: No edema. Left lower leg: No edema. Skin: General: Skin is warm and dry. Capillary Refill: Capillary refill takes less than 2 seconds. Findings: No rash or wound. Neurological: General: No focal deficit present. Mental Status: He is alert and oriented to person, place, and time. Psychiatric: Attention and Perception: Attention and perception normal. Behavior: Behavior is cooperative. Judgment: Judgment normal. Results Labs & Imaging Reviewed Below: Device Interrogation: 10/23/24 [employer]ATING [employer]ER 0.06% 100% atrial fibrillation noted on 09/26 (initiated on 09/10/24) ECG Today A Fib RBBB 88 bpm QTc 500 ms 04/28/23 SB, 1st Deg AV Block 59 bpm QTc 459 ms 10/03/20 NSR/SA 70 bpm QTc 442 ms Echocardiograms 09/27/24 The examination is adequate to evaluate the referral indication. Rate controlled atrial fibrillation/flutter was present during the echocardiogram study. The left ventricular cavity is severely dilated (LVED volume >100 ml/m^2). There is diffuse myocardial thinning. There is severe diffuse left ventricular hypokinesis. The qualitative LV ejection fraction is <20% (severely reduced). The left atrium is severely enlarged (>48 ml/m^2,). Mild mitral regurgitation is present. Moderate tricuspid regurgitation is present. Intermediate IVC size and collapsability. Right atrial pressure estimated at 8 mmHg. [id number] pulmonary hypertension is present (likely related to elevated left-sided filling pressure. The pulmonary artery systolic pressure is estimated to be 50 mm Hg. The aortic root is mildly enlarged, 4.3 cm. The proximal ascending thoracic aorta is mildly enlarged, 4.2 cm. Compared to the previous study performed on 05/14/2022, there has been a subtle further decline in the ejection fraction. The pulmonary artery systolic pressure was estimated be 46 mm Hg at that time. The aortic root and proximal ascending aorta diameters are relatively unchanged 05/14/22 The examination is adequate to evaluate the referral indication. The qualitative LV ejection fraction is 20-24% (severely reduced). The left ventricular cavity is severely dilated (LVED volume >100 ml/m^2). There is a large sized apical, septal, anteroseptal, anterior, inferior, posterior, and lateral wall motion abnormality with hypokinesis to dyskinesis of the segments. There is a moderate sized apical and anteroseptal scar. The left atrium is severely enlarged (>48 ml/m^2,). The left ventricular diastolic function is severely abnormal (grade III). Mild mitral regurgitation is present. Mild tricuspid regurgitation is present. The estimated pulmonary artery systolic pressure is 46mm Hg. The aortic root and proximal ascending aorta are mildly enlarged. Compared to last available study changes are noted as follows: Mild pulmonary hypertension now present. 10/05/21 This study has what is deemed to be a "significant abnormality" consistent with ACT 112. See additional documentation regarding notification of patient and ordering provider. The qualitative LV ejection fraction is 20-24% (severely reduced). There is a large sized apical, septal, anteroseptal, anterior, inferior, posterior, and lateral wall motion abnormality with hypokinesis to akinesis of the segments. There is a moderate sized apical and anteroseptal scar. Mild mitral regurgitation is present. Mild tricuspid regurgitation is present. The aortic root and proximal ascending aorta are mildly enlarged. Compared to last available study changes are noted as follows: Small apical left ventricular thrombus now present. Cardiac Cath 01/23/2019 at [facility] Labs Latest Reference Range & Units 03/29/24 13:19 07/31/24 10:12 08/10/24 15:52 Triglycerides <=174 mg/dL 53 Cholesterol <200 mg/dL 180 Non-HDL Cholesterol <=159 mg/dL 107 HDL Cholesterol >39 mg/dL 73 LDL Cholesterol <=129 mg/dL 96 SODIUM 135 - 146 mmol/L 144 138 141 POTASSIUM 3.5 - 5.1 mmol/L 4.5 4.8 4.5 CHLORIDE 98 - 107 mmol/L 105 104 103 CO2 22 - 32 mmol/L 22 23 26 BUN 6 - 20 mg/dL 13 19 24 (H) CREATININE 0.6 - 1.2 mg/dL 0.8 1.0 1.1 EGFR >=60 mL/min >90 86 78 ANION GAP 7 - 15 mmol/L 17 (H) 11 12 GLUCOSE 70 - 120 mg/dL 146 (H) 111 151 (H) CALCIUM 8.4 - 10.2 mg/dL 9.8 9.2 10.1 Magnesium 1.5 - 2.6 mg/dL 2.2 Phosphorus 2.5 - 4.8 mg/dL 3.4 Protein 6.0 - 8.3 g/dL 7.0 Estimated Average Glucose <126 mg/dL 157 (H) 160 (H) INR 0.8 - 1.2 1.2 Prothrombin Time 11.6 - 15.2 seconds 14.7 Hemoglobin A1C 4.0 - 5.6 % 7.1 (H) 7.2 (H) TSH 0.27 - 4.20 uIU/mL 1.52 TSH WITH FREE T4 IF INDICATED Rpt CBC Rpt Rpt WBC 4.00 - 10.80 K/uL 7.75 10.09 RBC 4.50 - 5.25 M/uL 5.38 5.56 HGB 14.0 - 16.8 g/dL 14.1 14.4 HCT 40.0 - 48.4 % 44.9 45.7 MCV 82.0 - 99.5 fL 83.5 82.2 MCH 27.0 - 34.0 pg 26.2 25.9 MCHC 32.0 - 36.0 g/dL 31.4 31.5 RDW 11.5 - 15.5 % 17.0 16.9 PLT 140 - 400 K/uL 235 350 MPV 6.6 - 11.1 fL 9.3 8.9 Vitamin B12 232 - 1,245 pg/mL 449 Albumin 3.8 - 5.0 g/dL 4.1 4.3 AST 10 - 50 U/L 53 (H) ALT 10 - 50 U/L 84 (H) Alkaline Phosphatase 35 - 130 U/L 263 (H) Bilirubin, Total <=1.2 mg/dL 0.9 Impression CAD s/p PCI of LAD ICM s/p SC ICD 01/25/2019 Hx apical thrombus pAF now likely becoming more persistent/permanent HTN DM II HLD History of tobacco use Plan: -HR and BP well controlled -device checks reveal stable pacing thresholds with adequate pacing burden. -continue to follow with device clinic -does appear that his AFib burden on device interrogations is increasing and he likely has been in AFib since sometime in August, remains asymptomatic despite the atrial dysrhythmia -ECG today indicates AFib with adequate rate control -continue atorvastatin, Jardiance, furosemide, spironolactone, Entresto, apixaban, aspirin and metoprolol -discussed goal of heart rate management around 80 beats per minute, specifically encouraged to reach out if he notices his heart rates are maintaining above 100 for long periods of time as at that juncture we should likely up titrate his beta-mariely -also discussed use of saline nasal spray and nasal gel to help alleviate nosebleeds on therapeuticanticoagulation -may also be helpful to use a humidifier also; particularly during the colder months -CHF education reinforced, specifically discussed importance of avoiding sodium -Educated patient on caution with change in positions to minimize symptomatic orthostatic hypotension -Discussed importance of diet & exercise with the patient. -Discussed with patient subtle changes in how they are feeling or completing daily activities to contact us sooner; don't wait days or weeks. DISPOSITION: Follow up 6 months or if symptoms worsen/fail to improve. All questions were answered to the patients satisfaction. Patient advised to report to ED with any and all emergencies. The patient agrees to the above plan and will call with additional questions or concerns. [facility], [address] [address] This chart was completed in part utilizing [employer] Speech Voice Recognition Software. Grammatical errors, random word insertions, pronoun errors, and incomplete sentences are an occasional consequence of this system due to software limitations, ambient noise, and hardware issues. Any formal questions or concerns about the content, text, or information contained within the body of this dictation should be directly addressed to the provider for clarification. documented in this encounter Nursing Notes * Chantell Ramirez CMA - 11/10/2024 3:24 PM EST Examination Room: 16 Name: Chuy Underwood Date of : (1960). Reason for Visit: follow up Interim Hospitalization(s): denies Problems/Concerns: denies Chest Pain/SOB: denies [facility] Discussed: Not applicable [facility] is a way you can talk to your provider online through e-mail. Would you like to sign up? I can activate it for you? ALREADY ACTIVE Patient was instructed to not get up on the exam table until directed and assisted by their provider; patient is to remain seated in the chair/ wheelchair/ exam table for fall prevention and safety reasons. Patient is aware to have assistance to step down off exam table with personnel. Patient voiced full comprehension of instructions. documented in this encounter Plan of Treatment Scheduled Orders Name Type Priority Associated Diagnoses Orde r Schedule EKG EKG Routine Paroxysmal atrial fibrillation (HCC) Coronary artery disease involving [place] coronary artery of [place] heart without angina pectoris HFrEF (heart failure with reduced ejection fraction) ([facility]) HTN, goal below 130/80 ICD (implantable cardioverter-defibrillator) in place Ischemic cardiomyopathy Type 2 diabetes mellitus with hemoglobin A1c goal of less than 7.0% ([facility]) Expected: 11/10/2024 (Approximate), Expires: 12/11/2025 Health Maintenance Due Date Last Done Comments [...] as of this encounter Visit Diagnoses Diagnosis Paroxysmal atrial fibrillation (HCC)- Primary Atrial fibrillation Coronary artery disease involving [place] coronary artery of [place] heart without angina pectoris HFrEF (heart failure with reduced ejection fraction) (HCC) HTN, goal below 130/80 Unspecified essential hypertension ICD (implantable cardioverter-defibrillator) in place Ischemic cardiomyopathy Other specified forms of chronic ischemic heart disease Type 2 diabetes mellitus with hemoglobin A1c goal of less than 7.0% (HCC) documented in this encounter Care Teams Data Processing Clerk Relationship Specialty Start Date End Date Kelvin Gongora MD [address] [facility] [place] [id number] PCP - General Family Medicine 08/30/24 documented as of this encounter
--- OUTSIDE RECORDS SUMMARY | 2025-02-14 09:47 | External Medical Summary | Summary of Care ---
Author Name Unknown Organization [facility] Address [address] [facility] [address] Phone [phone] Care Team Providers Care Pipe Assembly Worker Name Role Phone Zachary Lagos MD Primary Care Provider [phone] Reason for Visit * Reason Onset Date Comments Test Results 08/11/2024 Encounter Details Date Type Department Care Team (Late st Contact Info) Description 08/11/2024 Telephone Cardiology, [facility] 132 [facility] [place] [address] oCnnie Amaral PA-C [address] [facility] [place] [address] Test Results Allergies No known active allergiesdocumented as of this encounter (statuses as of 08/21/2024) Medications Medication Sig Dispensed Refills Start Date End Date Status aspirin enteric coated 81 MG TBEC Take 1 Tablet by mouth in the morning. 01/12/2019 Active Metoprolol Succinate ER 25 MG Oral Tablet Extended Release 24 Hour (toPROL XL) Take 1 Tablet by mouth in the morning. 01/02/2023 Active Entresto 24-26 MG Oral TabletIndications :Heart failure, systolic, due to CAD (HCC),HTN, goal below 130/80,Coronary artery disease involving [place] coronary artery of [place] heart without angina pectoris Take 1 Tablet by mouth in the morning and 1 Tablet before bedtime. 180 Tablet 05/22/2024 Active Empagliflozin 10 MG Oral Tablet (Jardiance)Indica tions:Type 2 diabetes mellitus with hemoglobin A1c goal of less than 7.0% (HCC) Take 1 Tablet by mouth in the morning. 90 Tablet 3 05/31/2024 Active Atorvastatin Calcium 80 MG Oral Tablet (Lipitor)Indicati ons:Dyslipidemia TAKE 1 TABLET BY MOUTH EVERY DAY 90 Tablet 06/21/2024 Active CoQ10 100 MG Oral Capsule Take by mouth at bedtime. Active Vitamin C 500 MG Oral Capsule Take 1 Capsule by mouth in the morning. Active Vitamin D-3 25 MCG (1000 UT) Oral Capsule Take 1 Capsule by mouth in the morning. Active Spironolactone 25 MG Oral Tablet (Aldactone) Take 1 Tablet by mouth in the morning. 30 Tablet 07/31/2024 Active Furosemide 40 MG Oral Tablet (Lasix) Take 1 Tablet by mouth in the morning. 30 Tablet 07/31/2024 Active Apixaban 5 MG Oral Tablet (Eliquis) Take 1 Tablet by mouth in the morning and 1 Tablet before bedtime. 180 Tablet 3 08/09/2024 Active metFORMIN HCl ER 500 MG Oral Tablet Extended Release 24 Hour (Glucophage XR)Indications:Ty pe 2 diabetes mellitus with hemoglobin A1c goal of less than 7.0% (HCC) Take 2 Tablets by mouth 2 times a day with morning and evening meals. 360 Tablet 05/10/2024 08/16/2024 Discontinued documented as of this encounter (statuses as of 08/21/2024) Active Problems Problem Noted Date Diagnosed Date [...] 11/30/2018 Coronary artery disease invo lving [place] coronary artery of [place] heart without angina pectoris 11/30/2018 Old [place] (myocardial infarction) 11/30/2018 documented as of this encounter (statuses as of 08/21/2024) Social History Tobacco Use Types Packs/Day Years Used Date Smoking Tobacco: Former Cigarettes 0.5 5 0 06/22/2001 - 06/22/2006 Smokeless Tobacco: Never Alcohol Use Standard Drinks/Week Comments Yes 0 (1 standard drink = 0.6 oz pur e alcohol) glass of wine twice weekly PHQ-2 Answer Date Recorded PHQ Adult Total Score 0 04/08/2023 Hunger Vital Sign Answer Date Recorded Within the past 12 months, y ou worried that your food would run out before you got the money to buy more. Never true 04/08/20 23 Within the past 12 months, t he food you bought just didn't last and you didn't have money to get more. Never true 04/08/2023 Utilities Answer Date Recorded Do you have trouble paying y our heating, water, or electric bill? (Adult - for ages 18 years and over) Not on file 05/09/2024 Is your family able to pay t he heat, water, or electric bill? (Household - for ages 0-17 years) Not on file 05/09/2024 Does your family have access to good internet? (Household - for ages 0-17 years) Not on file 05/09/2024 Social Connections Answer Date Recorded How often do you feel lonely or isolated from those around you? (Adult - for ages 18 years and over) Not on file 05/09/2024 Sex and Gender Information Value Date Recorded Sex Assigned at Male 04/08/2023 2:07 PM EDT Gender Identity Male 04/08/2023 2:07 PM EDT Sexual Orientation Straight 04/08/2023 2: 07 PM EDT Job Start Date Occupation Industry Not on file Not on file Not on file documented as of this encounter Miscellaneous Notes * Telephone Encounter - Jitendra Morgan LPN - 08/21/2024 8:37 AM EDT Sent patient a letter to follow up on unread [employer] message. * Telephone Encounter - Jitendra Morgan LPN - 08/11/2024 12:58 PM EDT Sent patient a MyChart message to make aware. ----- Message from Brenda Thompson sent at 08/11/2024 12:57 PM EDT ----- Covering for Connie Peralta PA-C Kidney function, electrolytes are normal Liver function is stable Thyroid function is normal Magnesium is normal Blood count is normal documented in this encounter Plan of Treatment Upcoming Encounters Date Type Department Care Team (Late st Contact Info) Description 08/30/2024 11:40 AM EDT Office Visit Family Practice [facility] 132 [facility] [place] [address] Kelvin Gongora MD 132 [facility] [place] [address] 09/27/2024 7:15 AM EST Cardiac Studies Cardiac Studies, [facility] 132 [facility] [place] [address] 11/10/2024 3:30 PM EST Office Visit Cardiology, [facility] 132 [facility] [place] [address] Thu Aguila CRNP [address] [place] [address] [place] [address] Health Maintenance Due Date Last Done Comments Pneumococcal Vaccine: Pediatrics (0 to 5 Years) and At-Risk Patients (6 to 64 Years) (1 of 2 - PCV) 1966 Diabetic Eye Exam 1978 DTap/Tdap Vaccines (1 - Tdap) 1979 Cologuard 2005 Colonoscopy 2005 Colorectal Cancer Screening 2005 Fecal Occult Blood Test 2005 Sigmoidoscopy 2005 Zoster Vaccines (1 of 2) 2010 Depression Screening 04/08/2024 04/08/2023 Influenza Vaccine (FLU shot) (#1) 2024 HbA1c 01/28/2025 07/31/2024, 05/0 06/2024, 03/03/2023, Additional history exists Albumin/Creatinine Ratio 03/29/2025 03/29/2024 B-12 03/29/2025 03/29/2024, 03/23, 12/01/2018 Diabetic Foot Exam 07/31/2025 07/31/2024, 07/31/2024 GFR 08/10/2025 08/10/2024, 07/2024, 03/29/2024, Additional history exists COVID-19 Vaccine Discontinued HIV Screening Discontinued HPV (Gardasil) Vaccine Aged Out No lo nger eligible based on patient's age to complete this topic Hepatitis B Vaccine Aged Out No longe r eligible based on patient's age to complete this topic Hepatitis C Screening Discontinued MENINGOCOCCAL (MENACTRA/MENVEO) Aged Out No longer eligible based on patient's age to complete this topic documented as of this encounter Medical Devices Not on filedocumented as of this encounter Care Teams Pipe Assembly Worker Relationship Specialty Start Date End Date Zachary Lagos MD [address] [place] [address] PCP - General Family Medicine 05/17/20 documented as of this encounter
--- OUTSIDE RECORDS SUMMARY | 2025-02-14 09:47 | External Medical Summary | Summary of Care ---
Author Name Unknown Organization [facility] Address [address] [place] [facility] [place] [address] Phone [phone] Care Team Providers Care Internet Application Developer Name Role Phone Kelvin Gongora MD Primary Care Provider Reason for Visit * Reason Comments Follow Up Pt here for a 4 wk f /u. No concerns voiced for today. Encounter Details Date Type Department Care Team (Late st Contact Info) Description 08/30/2024 11:40 AM EDT Office Visit Family Practice [facility] [address] [place] [address] Kelvin Gongora MD [address] [place] [address] Acute on chronic systolic congestive heart failure (HCC)*; Type 2 diabetes mellitus with hemoglobin A1c goal of less than 7.0% (HCC); Screening for colon cancer Allergies No known active allergiesdocumented as of this encounter (statuses as of 08/30/2024) Medications Medication Sig Dispensed Refills Start Date [...] (HCC),HTN, goal below 130/80,Coronary artery disease involving [place] [...] the morning. 90 Tablet 3 08/30/2024 Active Empagliflozin 10 MG Oral Tablet (Jardiance)Indica tions:Type 2 diabetes mellitus with hemoglobin A1c goal of less than 7.0% (HCC) Take 1 Tablet by mouth in the morning. 90 Tablet 3 05/31/2024 08/30/2024 Discontinued (Refill) Spironolactone 25 MG Oral Tablet (Aldactone) Take 1 Tablet by mouth in the morning. 30 Tablet 07/31/2024 08/30/2024 Discontinued (Refill) Furosemide 40 MG Oral Tablet (Lasix) Take 1 Tablet by mouth in the morning. 30 Tablet 07/31/2024 08/30/2024 Discontinued (Refill) documented as of this encounter (statuses as of 08/30/2024) Active Problems Problem Noted Date Diagnosed Date [...] [place] heart without angina pectoris 11/30/2018 Old [place] (myocardial infarction) 11/30/2018 documented as of this encounter (statuses as of 08/30/2024) Social History Tobacco Use Types Packs/Day Years [...] on file documented as of this encounter Last Filed Vital Signs Vital Sign Reading Time Taken Comments Blood Pressure 122/66 08/30/2024 11:52 AM EDT Pulse 80 08/30/2024 11:52 AM EDT Temperature 36.9 C (98.4 F) 08/30/2024 11:52 AM E DT Respiratory Rate 16 08/30/2024 11:52 AM EDT Oxygen Saturation 97% 08/30/2024 11:52 AM EDT Inhaled Oxygen Concentration - - Weight 98.6 kg (217 lb 6.4 oz) 08/30/2024 11:52 AM EDT Height 181.6 cm (5' 11.5") 08/30/2024 11:52 AM E DT Body Mass Index 29.9 08/30/2024 11:52 AM EDT documented in this encounter Progress Notes * Kelvin Gongora MD - 08/30/2024 12:19 PM EDT Images from the original note were not included. History of Present Illness Chuy Underwood is a 64 year old male that presents for Follow Up (Pt here for a 4 wk f/u. No concerns voiced for today.) Patient here for DM f/u and HF follow up. Interval notes reviewed and discussed. Physical Exam BP 122/66 (BP Site: Left Arm, BP Position: Sitting, BP Cuff Size: Regular) | Pulse 80 | Temp 36.9 C (98.4 F) (Tympanic) | Resp 16 | Ht 1.816 m (5' 11.5") | Wt 98.6 kg (217 lb 6.4 oz) | SpO2 97% |BMI 29.90 kg/m | BSA 2.23 m AAOx3 Normal affect NCAT/ PERRL Neck supple Throat clear RRR Lungs CTABL Abd soft +BS Ext warm and well perfused No gross neuro deficits Normal gait I have reviewed most recent labs CMP, Hemoglobin A1C, and CBC Assessment and Plan Acute on chronic systolic congestive heart failure (HCC) - no signs exac. Feeling much better. Down 15-20 lbs. Cont diuretic and other medical therapy. Type 2 diabetes mellitus with hemoglobin A1c goal of less than 7.0% (HCC) - 7.2% - Empagliflozin 10 MG Oral Tablet (Jardiance); Take 1 Tablet by mouth in the morning. Screening for colon cancer - cologuard ordered - COLOGUARD Wrap-Up F/u end of December with me, prn sooner F/u labs ordered for next visit Time: I spent a total of 30-39 minutes (exact time 33 mins) on the date of service in preparation, delivery, and documentation of the care provided to Chuy Underwood excluding any time spent in the performance of separately billed services. documented in this encounter Plan of Treatment Upcoming Encounters Date Type Department Care Team (Late st Contact Info) Description 09/06/2024 8:30 AM EDT Nurse Only Ancillary [address] [place] [address] Ceron, Nurse [address] [place] [address] 09/27/2024 7:15 AM EST Cardiac Studies Cardiac Studies, [address] [place] [address] 11/10/2024 3:30 PM EST Office Visit Cardiology, [address] [place] [address] Thu Aguila CRNP [address] [facility] [place] [address] Scheduled Orders Name Type Priority Associated Diagnoses Orde r Schedule COLOGUARD Lab Unrestricted Lab Screening for colon cancer Ordered: 08/30/2024 HEMOGLOBIN A1C Lab Routine Type 2 diabetes mellitus with hemoglobin A1c goal of less than 7.0% (HCC) Expected: 12/25/2024 (Approximate), Expires: 08/30/2025 RENAL FUNCTION PANEL Lab Routine Acute on chronic systolic congestive heart failure (HCC) Expected: 12/25/2024 (Approximate), Expires: 08/30/2025 CBC Lab Routine Acute on chronic systolic congestive heart failure (HCC) Expected: 12/25/2024 (Approximate), Expires: 08/30/2025 Health Maintenance Due Date Last Done Comments Diabetic Eye Exam 1978 Cologuard 2005 Colonoscopy 2005 Colorectal Cancer Screening 2005 Fecal Occult Blood Test 2005 Sigmoidoscopy 2005 Influenza Vaccine (FLU shot) (#1) 2024 DTap/Tdap Vaccines (1 - Tdap) 08/31/2024 Postponed from 1979 (Patient Declined After Education) HbA1c 01/28/2025 07/31/2024, 0 06/2024, 03/03/2023, Additional history exists Albumin/Creatinine Ratio 03/29/2025 03/29/2024 B-12 03/29/2025 03/29/2024, 2 01/2022, 12/01/2018 Diabetic Foot Exam 07/31/2025 07/31/2024, 07/31/2024 GFR 08/10/2025 08/10/2024, 0 07/2024, 03/29/2024, Additional history exists Depression Screening 08/30/2025 08/30/2024 COVID-19 Vaccine Discontinued HIV Screening Discontinued HPV [...] as of this encounter Visit Diagnoses Diagnosis Acute on chronic systolic congestive heart failure (HCC)- Primary Acute on chronic systolic heart failure Type 2 diabetes mellitus with hemoglobin A1c goal of less than 7.0% (HCC) Screening for colon cancer Special screening for malignant neoplasms, colon documented in this encounter Care Teams Internet Application Developer Relationship Specialty Start Date End Date Kelvin Gongora MD [address] [place] [address] PCP - General Family Medicine 08/30/24 documented as of this encounter
--- OUTSIDE RECORDS SUMMARY | 2025-02-14 09:47 | External Medical Summary | Summary of Care ---
Author Name Unknown Organization [facility] Address [address] [place] [address] Phone [phone] Care Team Providers Care Lime Mixer Name Role Phone Kelvin Gongora MD Primary Care Provider Reason for Visit * Reason Comments Nurse Documentation Encounter Details Date Type Department Care Team (Late st Contact Info) Description 09/06/2024 8:30 AM EDT Nurse Only Ancillary Ban C[place] 132 [place] [address] Nurse [facility] Hannah Barros [address] [place] [address] Nurse Documentation Allergies No known active allergiesdocumented as of this encounter (statuses as of 09/06/2024) Medications Medication Sig Dispensed Refills Start Date [...] (HCC),HTN, goal below 130/80,Coronary artery disease involving [place] coronary artery of marsh[place] heart without angina pectoris Take 1 Tablet [...] as of this encounter (statuses as of 09/06/2024) Active Problems Problem Noted Date Diagnosed Date [...] 130/80 11/30/2018 Coronary artery disease invo lving [place] coronary artery of marshall heart without angina pectoris 11/30/2018 Old [place] (myocardial infarction) 11/30/2018 documented as of this encounter (statuses as of 09/06/2024) Social History Tobacco Use Types Packs/Day Years [...] as of this encounter Progress Notes * Kierra Hernandez LPN - 09/06/2024 8:35 AM EDT Diabetic eye camera completed. documented in this encounter Plan of Treatment Upcoming Encounters Date Type Department Care Team (Late st Contact Info) Description 09/27/2024 7:15 AM EST Cardiac Studies Cardiac Studies, [facility] 132 [facility] [place] [address] 11/10/2024 3:30 PM EST Office Visit Cardiology, [address] [place] [address] Thu Aguila CRNP [address] [place] [address] [place] [address] Health Maintenance Due Date Last Done Comments Diabetic Eye Exam 1978 09/06/2024 DTap/Tdap Vaccines (1 - Tdap) 1979 Cologuard [...] Procedure Name Priority Date/Time Associated Diagnosis Comments TELEMEDICINE DIABETIC EYE Routine 09/06/2024 Type 2 diabetes mellitus with hemoglobin A1c goal of less than 7.0% (HCC) documented in this encounter Results * TELEMEDICINE DIABETIC EYE (09/06/2024) 09/06/2024 Kelvin Gongora MD DIGITAL PHOTOG RAJINDER documented in this encounter Visit Diagnoses Diagnosis Type 2 diabetes mellitus with hemoglobin A1c goal of less than 7.0% (HCC)- Primary documented in this encounter Care Teams Lime Mixer Relationship Specialty Start Date End Date Kelvin Gongora MD 132 [facility] [place] [address] PCP - General Family Medicine 08/30/24 documented as of this encounter
--- OUTSIDE RECORDS SUMMARY | 2025-02-14 09:47 | External Medical Summary | Summary of Care ---
Author Name Unknown Organization [facility] Address [address] [place] [address] Phone [phone] Care Team Providers Care Field Contact Person Name Role Phone Zachary Lagos MD Primary Care Provider [phone] Reason for Visit * Reason Onset Date Comments Medication Refill 08/21/2024 Encounter Details Date Type Department Care Team (Late st Contact Info) Description 08/21/[address] [facility] [address] [place] [address] Zachary Lagos MD [address] [place] [address] Type 2 diabetes mellitus with hemoglobin A1c goal of less than 7.0% ([facility]) Allergies No known active allergiesdocumented as of this encounter (statuses as of 08/23/2024) Medications Medication Sig Dispensed Refills Start Date End Date Status aspirin enteric coated 81 MG TBEC Take 1 Tablet by mouth in the morning. 01/12/2019 Active Metoprolol Succinate ER 25 MG Oral Tablet Extended Release 24 Hour (toPROL XL) Take 1 Tablet by mouth in the morning. 01/02/2023 Active Entresto 24-26 MG Oral TabletIndications:He art failure, systolic, due to CAD ([facility]),HTN, goal below 130/80,Coronary artery disease involving [place] coronary artery of [place] heart without angina pectoris Take 1 Tablet by mouth in the morning and 1 Tablet before bedtime. 180 Tablet 05/22/2024 Active Empagliflozin 10 MG Oral Tablet (Jardiance)Indicatio [...] EVENING MEAL 360 Tablet 3 08/16/2024 Active documented as of this encounter (statuses as of 08/23/2024) Active Problems Problem Noted Date Diagnosed Date [...] 130/80 11/30/2018 Coronary artery disease invo lving [place] coronary artery of [place] heart without angina pectoris 11/30/2018 Old [place] (myocardial infarction) 11/30/2018 documented as of this encounter (statuses as of 08/23/2024) Social History Tobacco Use Types Packs/Day Years [...] encounter Miscellaneous Notes * Telephone Encounter - Nena Ferris [facility] - 08/23/2024 9:29 AM EDT Refused Prescriptions: Disp Refills Empagliflozin 10 MG Oral Tablet (Jardiance)90 Tab*3 Sig: Take 1Tablet by mouth in the morning.Refused By: NENA FERRIS for Refusal: Duplicate Reque st documented in this encounter Plan of Treatment Upcoming Encounters Date Type Department Care Team (Late st Contact Info) Description 08/30/2024 11:40 AM EDT Office Visit Family Practice [facility] 132 [facility] [place] [address] Kelvin Gongora MD 132 [facility] [place] [address] 09/27/2024 7:15 AM EST Cardiac Studies Cardiac Studies, [facility] 132 [facility] [place] [address] 11/10/2024 3:30 PM EST Office Visit Cardiology, [facility] 132 [facility] [place] [address] Thu Aguila CRNP [address] [place] [address] Health Maintenance Due Date Last Done Comments [...] (HCC) documented in this encounter Care Teams Field Contact Person Relationship Specialty Start Date End Date Zachary Lagos MD [address] [place] [address] PCP - General Family Medicine 05/17/20 documented as of this encounter
--- OUTSIDE RECORDS SUMMARY | 2025-02-14 09:47 | External Medical Summary | Summary of Care ---
Author Name Unknown Organization [facility] Address [address] [place] [address] Phone [phone] Care Team Providers Care Project Development Leader Name Role Phone Zachary Lagso MD Primary Care Provider [phone] Reason for Visit * Reason Onset Date Comments Medication Refill 08/21/2024 Encounter Details Date Type Department Care Team (Late st Contact Info) Description 08/21/2024 Refill Cardiology, [facility] [address] [place] [address] Katie Mohan, [address] [place] [address] Heart failure, systolic, due to CAD (HCC); HTN, goal below 130/80; Coronary artery disease involving [place] coronary artery of [place] heart without angina pectoris Allergies No known active allergiesdocumented as of this encounter (statuses as of 08/24/2024) Medications Medication Sig Dispensed Refills Start Date End Date Status aspirin enteric coated 81 MG TBEC Take 1 Tablet by mouth in the morning. 01/12/2019 Active Metoprolol Succinate ER 25 MG Oral Tablet Extended Release 24 Hour (toPROL XL) Take 1 Tablet by mouth in the morning. 01/02/2023 Active Empagliflozin 10 MG Oral Tablet (Jardiance)Indica [...] (HCC),HTN, goal below 130/80,Coronary artery disease involving [place] coronary artery of [place] heart without angina pectoris Take 1 Tablet by mouth in the morning and 1 Tablet before bedtime. 180 Tablet 08/24/2024 Active Entresto 24-26 MG Oral TabletIndications :Heart failure, systolic, due to CAD (HCC),HTN, goal below 130/80,Coronary artery disease involving [place] coronary artery of [place] heart without angina pectoris Take 1 Tablet by mouth in the morning and 1 Tablet before bedtime. 180 Tablet 05/22/2024 08/21/2024 Discontinued (Refill) documented as of this encounter (statuses as of 08/24/2024) Active Problems Problem Noted Date Diagnosed Date [...] 130/80 11/30/2018 Coronary artery disease invo lving [place] coronary artery of [place] heart without angina pectoris 11/30/2018 Old [place] (myocardial infarction) 11/30/2018 documented as of this encounter (statuses as of 08/24/2024) Social History Tobacco Use Types Packs/Day Years [...] encounter Miscellaneous Notes * Telephone Encounter - Alfonso Vazquez, [facility] - 08/24/2024 8:50 AM EDT Signed Prescriptions: Disp Refills Entresto 24-26 MG Oral Tablet 180 Ta*0 Sig: Take 1 Tablet by mouth in the morning and 1 Tablet before bedtime. Authorizing Provider: KATIE MOHAN User: ALFONSO VAZQUEZ * Telephone Encounter - Denise Norton [facility] - 08/24/2024 8:23 AM EDTPending Prescriptions: Disp Refills Entresto 24-26 MG Oral Tablet 180 Ta*0 Sig: Take 1 Tablet by mouth in the morning and 1 Tablet before bedtime. documented in this encounter Plan of Treatment Upcoming Encounters Date Type Department Care Team (Late st Contact Info) Description 08/30/2024 11:40 AM EDT Office Visit Family Practice [facility] [address] [place] [address] Kelvin Gongora MD [address] [place] [address] 09/27/2024 7:15 AM EST Cardiac Studies Cardiac Studies, [facility] [address] [place] [address] 11/10/2024 3:30 PM EST Office Visit Cardiology, [facility] [address] [place] [address] Thu Aguila CRNP [address] [place] [address] Health Maintenance Due Date Last Done Comments [...] Unspecified essential hypertension Coronary artery disease involving [place] coronary artery of [place] heart without angina pectoris documented in this encounter Care Teams Project Development Leader Relationship Specialty Start Date End Date Zachary Lagos MD [address] [place] [address] PCP - General Family Medicine 05/17/20 documented as of this encounter
--- NOTE | 2025-02-14 09:55 | Electrocardiogram Report ---
Test Reason : Blood Pressure : */* mmHG Vent. Rate : 97 BPM Atrial Rate : * BPM P-R Int : * ms QRS Dur : 144 ms QT Int : 378 ms P-R-T Axes : * -69 95 degrees QTcB Int : 480 ms Atrial fibrillation Left axis deviation Right bundle branch block Anteroseptal infarct (cited on or before 15-Sep-2018) Abnormal ECG When compared with ECG of 31-Jul-2024 19:43, No significant change was found Confirmed by Tomasz Rodriguez ([id number]) on 02/14/2025 9:54:47 AM Referred By: Paula Siegel Confirmed By: Tomasz Rodriguez
--- NOTE | 2025-02-14 10:04 | Hospitalist Progress Note ---
Date of Service February 14, 2025 Assessment & Plan (1) Acute HFrEF (heart failure with reduced ejection fraction): (2) Hyperkalemia: (3) History of atrial fibrillation: (4) DM type 2 (diabetes mellitus, type 2): (5) HLD (hyperlipidemia): (6) HTN (hypertension): Plan 65 year old male with PMH significant for CAD s/p PCI of LAD, ICM s/p SC ICD (2018), HFrEF, atrial fibrillation, DMII, HTN, and HLD who presented to the ED on 02/13 with weight gain, edema, and SOB and was found to be in acute on chronic heart failure. Acute HFrEF Hemodynamically stable. CXR in ED revealed pulmonary edema and cardiomegaly Daily weights, accurate I&Os Received IV lasix 40mg in the ED and will continue bid dosing per Cardiology recs Holding Entresto and spironolactone due to hyperkalemia per Cardiology recs Hyperkalemia K 6.3 on arrival to ED. Recheck K 5.5 after calcium gluconate and insulin Veltassa ordered with K recheck at 1600 per Cardiology recs Holding Entresto and spironolactone per Cardiology recs Atrial fibrillation Continue Eliquis and metoprolol Increase metoprolol to 25mg bid per Cardiology recs Microcytic anemia CBC with low Hgb, Hct, MCV and high RDW Ordered iron panel and vitamin B12 in am DMII HgbA1C 8.1 Sliding scale insulin Holding metformin Continue Jardiance HLD Continue baby aspirin and atorvastatin HTN BPs stable DVT Prophylaxis: on Eliquis Code Status: FULL CODE PCP: Dr Kelvin Gongora MD Disposition: Not medically cleared for discharge. Continue IV diuresis. Patient seen in collaboration with Dr Edwards. Please see addendum. I spent a total of 50 minutes coordinating, documenting and providing care for this patient excluding time spent in the performance of separately billed services or time spent by another provider/QHP. Admission and Anticipated Discharge Date Admission Date: February 13, 2025 Supervising Physician Co-Signing Physician Notes Patient seen and examined at bedside. Patient doing better today. Feels less SOB. On exam, JVP elevated, 2+ pitting edema up to knees, notable hyperkalemia. Appreciate cardiology recs, hold entresto and aldactone as above, continue diure sis. I have seen and discussed the case with the collaborating advanced practitioner. I agree with the above H&P. I have reviewed and confirmed the patients medical history, the findings on physical examination, and the patients diagnosis and treatment plan with Raven PEREZ and agree with the information documented. I spent a total of 20 minutes coordinating, documenting, and providing care for this patient excluding time spent in the performance of separately billed services. All of the aforementioned completed outside of collaborating with the assigned advanced practitioner for a full treatment plan. I have reviewed the advanced practitioner's documentation, and I agree with, and take responsibility for the plan of care Subjective Patient seen laying down in bed Reports he is doing well and not having any SOB at rest Denies chest pain, palpitations, orthopnea, abdominal pain, N/V/D Endorses weight gain and edema Eating and drinking well Review of Systems Review of Systems: All systems reviewed & are unremarkable except as noted in HPI & below Physical Exam Physical Exam: VITALS: Reviewed and VSS, except for tachycardia. GEN: Healthy appearing, well-developed, male, NAD. PSYCH: Good Judgment. AOx3. Normal memory, mood, and affect. HEENT: Head NC/AT. Sclera white and conjunctiva pink. Nares without rhinorrhea. Nasal and oral mucosa pink. NECK: Supple, with no masses. CV: Irregular rate and rhythm, no m/r/g. LUNGS: CTAB, no w/r/c. ABD: Soft, NT/ND, NBS, no masses or organomegaly. SKIN: Warm, well perfused. No skin rashes or abnormal lesions. MSK: No deformities, Normal gait. EXT: No clubbing or cyanosis. 3+ bilateral pretibial edema NEURO: Ambulating with no limitations. Normal muscle strength and tone. No focal deficits. Results & Data Results & Data Vital Signs (Past 12 Hours) Vital Signs Temp Pulse Pulse Resp BP BP Pulse Ox 02/14/25 07:00 36.5 C 100 H 20 100/67 94 02/14/25 03:45 36.8 C 96 H 19 106/66 96 02/14/25 00:01 111 H 02/14/25 00:01 02/13/25 23:42 36.5 C 92 H 18 113/70 98 02/13/25 23:26 02/13/25 22:01 97 H 20 106/81 98 O2 Del Method 03/26/25 07:00 Room Air 02/14/25 03:45 Room Air 02/14/25 00:01 02/14/25 00:01 Room Air 02/13/25 23:42 Room Air 02/13/25 23:26 Room Air 02/13/25 22:01 Laboratory Results Short CBC 02/13/25 02/14/25 Range/Units 19:33 06:07 WBC 8.66 8.41 (4.8-10.8) K/ul Hgb 12.3 L 11.4 L (14.0-18.0) g/dl Hct 41.0 L 38.1 L (42.0-52.0) % Plt Count 324 299 (130-400) K/uL BMP 02/13/25 02/14/25 19:33 06:07 Sodium 134 L 134 L Potassium 6.3 H* 5.5 H Chloride 103 104 Carbon Dioxide 22 23 BUN 43 H 45 H Creatinine 1.24 1.11 Glucose 133 H 109 H Calcium 9.8 9.3 Liver Function 02/13/25 Range/Units 19:33 Total Bilirubin 1.4 H (0.2-1.0) mg/dl AST 49 H (13-39) U/L ALT 29 (7-52) U/L Alkaline Phosphatase 300 H (34-104) U/L Albumin 4.4 (3.4-5.0) gm/dl I have independently reviewed and interpreted patient's labs including CBC, BMP, mag. Diagnostic Findings Chest X-Ray 02/13/25 19:19 Exam(s): XR CXR 1 VIEW EXAM: XR Chest, 1 View CLINICAL HISTORY: Reason for exam: Chest pain, nonspecific. TECHNIQUE: Frontal view of the chest. COMPARISON: 01/20/19 FINDINGS: Lungs: Vascular congestion and interstitial prominence suggesting pulmonary edema. Pleural space: No pleural effusion or pneumothorax. Heart: Cardiomegaly. Bones/joints: No acute fracture. No dislocation. Tubes, lines and devices: Left chest wall ICD with single right ventricular lead. IMPRESSION: 1. Vascular congestion and interstitial prominence suggesting pulmonary edema. 2. Cardiomegaly. Electronically signed by: Tung Garzon M.D. 02/13/25 21:10 PM Medications Administered Current Inpatient Medications Acetaminophen (Acetaminophen 325 Mg Tab) 650 mg PO Q4H PRN PRN Reason: Pain or Fever Stop: 03/15/25 23:41 Apixaban (Apixaban 5 Mg Tablet) 5 mg PO BID [facility] Stop: 03/16/25 08:59 Last Admin: 02/14/25 09:05 Dose: 5 mg Ascorbic Acid (Ascorbic Acid 500 Mg Tab) 500 mg PO DAILY [facility] Stop: 03/16/25 08:59 Last Admin: 02/14/25 09:07 Dose: 500 mg Aspirin (Aspirin 81 Mg Ectab) 81 mg PO QAM [facility] Stop: 03/16/25 08:59 Last Admin: 02/14/25 09:07 Dose: 81 mg Atorvastatin Calcium (Atorvastatin 40 Mg Tab) 80 mg PO HS [facility] Stop: 03/16/25 20:59 Dextrose (Dextrose 50% 50 Ml Syringe) 25 - 50 ml IV UD PRN; Protocol PRN Reason: Hypoglycemia Protocol Stop: 03/15/25 23:41 Furosemide (Furosemide 40 Mg/4 Ml Vial) 40 mg IV [id number] [facility] Stop: 03/16/25 08:59 Last Admin: 02/14/25 09:05 Dose: 40 mg Glucagon (Glucagon For Inj 1 Mg Vial) 1 mg SQ UD PRN; Protocol PRN Reason: Hypoglycemia Protocol Stop: 03/15/25 23:41 Glucose (Glucose 40% Gel 15 Gm Tube) 15 - 30 gm PO UD PRN; Protocol PRN Reason: Hypoglycemia Protocol Stop: 03/15/25 23:41 Glucose (Glucose 10 Tab/Tube) 4 - 8 tab PO UD PRN; Protocol PRN Reason: Hypoglycemia Protocol Stop: 03/15/25 23:41 Insulin Aspart (Insulin Aspart Per Unit Charge) 0 units SC ACHS [facility] Stop: 03/16/25 07:29 Last Admin: 02/14/25 09:04 Dose: 1 units Magnesium Hydroxide (Magnesium Hydroxide Susp 30 Ml Udc) 30 ml PO Q12H PRN PRN Reason: Constipation Stop: 03/15/25 23:41 Metoprolol Succinate (Metoprolol Succ 25mg Ext Rel Tab) 25 mg PO QAM [facility] Stop: 03/16/25 08:59 Last Admin: 02/14/25 09:06 Dose: 25 mg Miscellaneous (Jardiance 10mg - Order Awaiting Action) 1 each N/A QS [facility] Stop: 03/16/25 07:59 Last Admin: 02/14/25 09:05 Dose: Not Given Miscellaneous (Carbohydrates For Hypoglycemia ) 15 - 30 gm PO UD PRN PRN Reason: Hypoglycemia Protocol Stop: 03/15/25 23:41 Nitroglycerin (Nitroglycerin Sl 0.4 Mg/Tab Tab) 0.4 mg SL Q5M PRN PRN Reason: Chest Pain Stop: 03/15/25 23:41 Ondansetron HCl (Ondansetron Inj 2 Mg/Ml 2 Ml Vial) 4 mg IV Q6H PRN PRN Reason: Nausea Stop: 03/15/25 23:41 Patiromer (Patiromer Calcium Sorbitex 8.4 Gm Pack) 8.4 gm PO DAILY@1200 [facility] Stop: 03/16/25 11:59 Polyethylene Glycol (Polyethylene (Miralax) 17 Gm Pack) 17 gm PO DAILY PRN PRN Reason: Constipation Stop: 03/15/25 23:41 Vitamin D (Cholecalciferol 25 Mcg (1000 Units) Tab) 25 mcg PO DAILY [facility] Stop: 03/16/25 08:59 Last Admin: 02/14/25 09:05 Dose: 25 mcg
[2025-02-14] MEDS: PATIROMER CALCIUM SORBITEX 8.4 GM PACK PO SCH (12:11)
[2025-02-14] MEDS: ATORVASTATIN 40 MG TAB PO SCH (20:48)
[2025-02-15 06:45] LABS: Hematocrit (blood only) 40.1 % (42.0-52.0); Hemoglobin 11.8 g/dl (14.0-18.0); Mean Corpuscular Hemoglobin 21.4 pg (25.0-34.0); Mean Corpuscular Hgb Conc 29.4 g/dL (32.0-36.0); Mean Corpuscular Volume 72.6 fL (80.0-100.0); Mean Platelet Volume 9.2 fL (9.4-12.4); Nucleated RBC # (auto) 0.03 K/uL (0.00-0.12); Nucleated RBC % (auto) 0.4 %; Platelet Count 283 K/uL (130-400); RDW Coefficient of Variation 18.8 % (11.5-14.5); RDW Standard Deviation 46.5 fL (36.4-46.3); Red Blood Count 5.52 M/uL (4.70-6.10); White Blood Count 8.48 K/ul (4.8-10.8)
[2025-02-15 07:04] LABS: BUN Creatinine Ratio 38.3 (10-20); Calcium 9.3 mg/dl (8.6-10.3); Creatinine Clr Calc Pharmacy 69.1 ml/min; Potassium 5.2 mmol/L (3.5-5.1)
[2025-02-15 07:24] LABS: Ferritin 15.5 ng/ml (8-388)
[2025-02-15 07:26] LABS: Magnesium 2.1 mg/dl (1.7-2.4)
[2025-02-15] MEDS ORDERED: EMPAGLIFLOZIN 10 MG TAB PO SCH (09:00)
[2025-02-15] MEDS: EMPAGLIFLOZIN 10 MG TAB PO SCH (09:09)
[2025-02-15] MEDS: FERROUS SULFATE 325 MG TAB PO ONE (09:24)
--- NOTE | 2025-02-15 10:52 | Hospitalist Progress Note ---
Date of Service February 15, 2025 Assessment & Plan (1) Acute HFrEF (heart failure with reduced ejection fraction): (2) Hyperkalemia: (3) History of atrial fibrillation: (4) DM type 2 (diabetes mellitus, type 2): (5) HLD (hyperlipidemia): (6) HTN (hypertension): Plan 65 year old male with PMH significant for CAD s/p PCI of LAD, ICM s/p SC ICD (2018), HFrEF, atrial fibrillation, DMII, HTN, and HLD who presented to the ED on 02/13 with weight gain, edema, and SOB and was found to be in acute on chronic heart failure. Acute HFrEF Hemodynamically stable. CXR in ED revealed pulmonary edema and cardiomegaly Echo unchanged from previous in Dec 2022 Daily weights: down ~1kg Accurate I&Os: -3L cumulative Continue IV lasix 40mg bid dosing per Cardiology recs Holding Entresto and spironolactone due to hyperkalemia per Cardiology recs Hyperkalemia K 6.3 on arrival to ED. Received calcium gluconate and insulin in ED and Veltassa on the unit K 5.2 this am. Continue Veltassa daily per Cardiology recs Holding Entresto and spironolactone per Cardiology recs Atrial fibrillation Continue Eliquis and metoprolol at 25mg bid per Cardiology recs Iron deficiency anemia, new onset Iron level 29, TIBC 562, Ferritin 15.5 Ordered ferrous sulfate 325mg PO qod DMII HgbA1C 8.1 Sliding scale insulin Holding metformin Continue Jardiance HLD Continue baby aspirin and atorvastatin HTN BPs on the lower side Holding Entresto and spironolactone per Cardiology recs DVT Prophylaxis: on Eliquis Code Status: FULL CODE PCP: Dr Kelvin Gongora MD Disposition: Not medically cleared for discharge. Continue IV diuresis. Patient seen in collaboration with Dr Edwards. Please see addendum. I spent a total of 50 minutes coordinating, documenting and providing care for this patient excluding time spent in the performance of separately billed services or time spent by another provider/QHP. Admission and Anticipated Discharge Date Admission Date: February 13, 2025 Supervising Physician Co-Signing Physician Notes Patient seen and examined at bedside. Feeling better today overall, feels leg swelling improved as well. On exam, 1+ pitting edema in legs bilaterally, mildly elevated JVP, both improved from yesterday. Will continue with IV diuresis x1 day, appreciate cardiology assistance, with consideration of discharge before weekend. I have seen and discussed the case with the collaborating advanced practitioner. I agree with the above H&P. I have reviewed and confirmed the patients medical history, the findings on physical examination, and the patients diagnosis and treatment plan with Raven PEREZ and agree with the information documented. I spent a total of 20 minutes coordinating, documenting, and providing care for this patient excluding time spent in the performance of separately billed services. All of the aforementioned completed outside of collaborating with the assigned advanced practitioner for a full treatment plan. I have reviewed the advanced practitioner's documentation, and I agree with, and take responsibility for the plan of care Subjective Patient seen laying down in bed Reports he is doing well and feels like his edema is improving Denies chest pain, SOB, palpitations, orthopnea, abdominal pain, N/V/D Eating and drinking well Review of Systems Review of Systems: All systems reviewed & are unremarkable except as noted in HPI & below Physical Exam Physical Exam: VITALS: Reviewed and VSS. GEN: Healthy appearing, well-developed, male, NAD. PSYCH: Good Judgment. AOx3. Normal memory, mood, and affect. HEENT: Head NC/AT. Sclera white and conjunctiva pink. Nares without rhinorrhea. Nasal and oral mucosa pink. NECK: Supple, with no masses. CV: Irregular rate and rhythm, no m/r/g. LUNGS: CTAB, no w/r/c. ABD: Soft, NT/ND, NBS, no masses or organomegaly. SKIN: Warm, well perfused. No skin rashes or abnormal lesions. MSK: No deformities, Normal gait. EXT: No clubbing or cyanosis. 3+ right pretibial edema, 2+ left pretibial edema NEURO: Ambulating with no limitations. Normal muscle strength and tone. No focal deficits. Results & Data Results & Data Vital Signs (Past 12 Hours) Vital Signs Temp Pulse Pulse Resp BP Pulse Ox O2 Del Method 02/15/25 09:29 83 02/15/25 07:36 36.6 C 82 19 103/71 90 Room Air 02/15/25 03:00 36.7 C 69 17 112/64 96 Room Air 02/14/25 23:00 88 Laboratory Results Short CBC 02/15/25 Range/Units 06:13 WBC 8.48 (4.8-10.8) K/ul Hgb 11.8 L (14.0-18.0) g/dl Hct 40.1 L (42.0-52.0) % Plt Count 283 (130-400) K/uL BMP 02/14/25 02/15/25 16:06 06:13 Sodium 133 L Potassium 5.4 H 5.2 H Chloride 102 Carbon Dioxide 25 BUN 51 H Creatinine 1.33 Glucose 128 H Calcium 9.3 I have independently reviewed and interpreted patient's labs including CBC, BMP, mag, and iron profile. Medications Administered Current Inpatient Medications Acetaminophen (Acetaminophen 325 Mg Tab) 650 mg PO Q4H PRN PRN Reason: Pain or Fever Stop: 03/15/25 23:41 Apixaban (Apixaban 5 Mg Tablet) 5 mg PO BID [facility] Stop: 03/16/25 08:59 Last Admin: 02/15/25 09:09 Dose: 5 mg Aspirin (Aspirin 81 Mg Ectab) 81 mg PO QAM [facility] Stop: 03/16/25 08:59 Last Admin: 02/15/25 09:09 Dose: 81 mg Atorvastatin Calcium (Atorvastatin 40 Mg Tab) 80 mg PO HS [facility] Stop: 03/16/25 20:59 Last Admin: 02/14/25 20:48 Dose: 80 mg Dextrose (Dextrose 50% 50 Ml Syringe) 25 - 50 ml IV UD PRN; Protocol PRN Reason: Hypoglycemia Protocol Stop: 03/15/25 23:41 Empagliflozin (Empagliflozin 10 Mg Tab) 10 mg PO DAILY [facility] Stop: 03/17/25 08:59 Last Admin: 02/15/25 09:09 Dose: 10 mg Furosemide (Furosemide 40 Mg/4 Ml Vial) 40 mg IV BID17 [facility] Stop: 03/16/25 08:59 Last Admin: 02/15/25 09:09 Dose: 40 mg Glucagon (Glucagon For Inj 1 Mg Vial) 1 mg SQ UD PRN; Protocol PRN Reason: Hypoglycemia Protocol Stop: 03/15/25 23:41 Glucose (Glucose 40% Gel 15 Gm Tube) 15 - 30 gm PO UD PRN; Protocol PRN Reason: Hypoglycemia Protocol Stop: 03/15/25 23:41 Glucose (Glucose 10 Tab/Tube) 4 - 8 tab PO UD PRN; Protocol PRN Reason: Hypoglycemia Protocol Stop: 03/15/25 23:41 Insulin Aspart (Insulin Aspart Per Unit Charge) 0 units SC ACHS [facility] Stop: 03/16/25 07:29 Last Admin: 02/15/25 09:24 Dose: 7 units Metoprolol Succinate (Metoprolol Succ 25mg Ext Rel Tab) 25 mg PO BID [facility] Stop: 03/16/25 20:59 Last Admin: 02/15/25 09:09 Dose: 25 mg Miscellaneous (Carbohydrates For Hypoglycemia ) 15 - 30 gm PO UD PRN PRN Reason: Hypoglycemia Protocol Stop: 03/15/25 23:41 Nitroglycerin (Nitroglycerin Sl 0.4 Mg/Tab Tab) 0.4 mg SL Q5M PRN PRN Reason: Chest Pain Stop: 03/15/25 23:41 Ondansetron HCl (Ondansetron Inj 2 Mg/Ml 2 Ml Vial) 4 mg IV Q6H PRN PRN Reason: Nausea Stop: 03/15/25 23:41 Patiromer (Patiromer Calcium Sorbitex 8.4 Gm Pack) 8.4 gm PO DAILY@1200 [facility] Stop: 03/16/25 11:59 Last Admin: 02/14/25 12:11 Dose: 8.4 gm Polyethylene Glycol (Polyethylene (Miralax) 17 Gm Pack) 17 gm PO DAILY PRN PRN Reason: Constipation Stop: 03/15/25 23:41 Vitamin D (Cholecalciferol 25 Mcg (1000 Units) Tab) 25 mcg PO DAILY [facility] Stop: 03/16/25 08:59 Last Admin: 02/15/25 09:09 Dose: 25 mcg
--- NOTE | 2025-02-15 14:42 | Cardiology Progress Note ---
Date of Service February 15, 2025 Assessment & Plan (1) Acute HFrEF (heart failure with reduced ejection fraction): (2) Hyperkalemia: (3) Atrial fibrillation with RVR: Plan Hyperkalemia noted admission -Hold spironolactone -Hold Entresto -Continue Furosemide 40 mg IV twice daily -He received calcium gluconate and insulin on admission -Veltassa Administered 02/14/2025 and again on 02/15/2025. Potassium down to 5.2 mmol/L this a.m. Admission and Anticipated Discharge Date Admission Date: February 13, 2025 Subjective Patient feeling subjectively improved. 2.5 L of urine output noted yesterday. Telemetry reveals atrial fibrillation in the 80s. Physical Exam Constitutional: no acute distress Respiratory: no labored breathing Auscultation: + diminished lung sounds and + crackles (faint bibasilar) Cardiovascular: Rate/Rhythm: + irregularly irregular Heart Sounds: normal S1 and normal S2; no murmur Vessels: + JVD Extremities: + edema (2+ edema b/l to knees) Gastrointestinal (Abdomen): normal bowel sounds, soft, nontender, no hepatosplenomegaly Skin: no rashes, warm and dry Neurologic: PERRL, EOMI, accommodation nl, no face palsy, no dysarthria Results & Data Vital Signs (Past 12 Hours) Vital Signs Temp Pulse Pulse Resp BP Pulse Ox O2 Del Method 02/15/25 10:49 36.5 C 80 20 101/67 95 Room Air 02/15/25 09:29 83 02/15/25 07:36 36.6 C 82 19 103/71 90 Room Air 02/15/25 03:00 36.7 C 69 17 112/64 96 Room Air Laboratory Results CBC 02/15/25 Range/Units 06:13 WBC 8.48 (4.8-10.8) K/ul RBC 5.52 (4.70-6.10) M/uL Hgb 11.8 L (14.0-18.0) g/dl Hct 40.1 L (42.0-52.0) % Plt Count 283 (130-400) K/uL Comprehensive Metabolic Panel 02/14/25 02/15/25 Range/Units 16:06 06:13 Sodium 133 L (136-145) mmol/L Potassium 5.4 H 5.2 H (3.5-5.1) mmol/L Chloride 102 (98-107) mmol/L Carbon Dioxide 25 (21-32) mmol/L BUN 51 H (6-23) mg/dl Creatinine 1.33 (0.6-1.4) mg/dl Glucose 128 H (70-99(Fasting)) mg/dl Calcium 9.3 (8.6-10.3) mg/dl Intake and Output 02/14/25 02/15/25 02/15/25 22:59 06:59 14:59 Intake Total 200 / 910 200 / 910 Output Total 1500 / 2500 1000 / 2500 850 / 850 Balance -1300 / -1590 -800 / -1590 -850 / -850 Intake: Oral 200 / 910 200 / 910 Output: Urine 1500 / 2500 1000 / 2500 850 / 850 Other: Weight 104.3 kg 103.2 kg Weight Measurement Method Built in [facility] Patient Weight 02/16/25 06:59 Weight 103.2 kg
[2025-02-16 08:20] LABS: Hematocrit (blood only) 37.3 % (42.0-52.0); Hemoglobin 11.1 g/dl (14.0-18.0); Mean Corpuscular Hemoglobin 21.4 pg (25.0-34.0); Mean Corpuscular Hgb Conc 29.8 g/dL (32.0-36.0); Mean Platelet Volume 9.2 fL (9.4-12.4); Platelet Count 260 K/uL (130-400); RDW Coefficient of Variation 18.7 % (11.5-14.5); RDW Standard Deviation 45.7 fL (36.4-46.3); Red Blood Count 5.18 M/uL (4.70-6.10); White Blood Count 6.36 K/ul (4.8-10.8)
[2025-02-16 08:35] LABS: BUN Creatinine Ratio 37.7 (10-20); Calcium 8.9 mg/dl (8.6-10.3); Creatinine Clr Calc Pharmacy 74.8 ml/min; Magnesium 2.1 mg/dl (1.7-2.4); Potassium 4.5 mmol/L (3.5-5.1)
[2025-02-16] MEDS: FERROUS SULFATE 325 MG TAB PO SCH (08:37)
[2025-02-16] MEDS: VALSARTAN/SACUBITRIL 26/24MG TAB PO SCH (10:53)
--- NOTE | 2025-02-16 13:15 | Hospitalist Progress Note ---
Date of Service February 16, 2025 Assessment & Plan (1) Acute HFrEF (heart failure with reduced ejection fraction): (2) Hyperkalemia: (3) History of atrial fibrillation: (4) DM type 2 (diabetes mellitus, type 2): (5) HLD (hyperlipidemia): (6) HTN (hypertension): Plan 65 year old male with PMH significant for CAD s/p PCI of LAD, ICM s/p SC ICD (2018), HFrEF, atrial fibrillation, DMII, HTN, and HLD who presented to the ED on 02/13 with weight gain, edema, and SOB and was found to be in acute on chronic heart failure. Acute HFrEF Hemodynamically stable. CXR in ED revealed pulmonary edema and cardiomegaly Echo unchanged from previous in Dec 2022 Daily weights: down 2.3kg since admission Accurate I&Os: -7L cumulative Continue IV lasix 40mg bid dosing per Cardiology recs Restart Entresto per Cardiology recs Holding spironolactone due to hyperkalemia per Cardiology recs Hyperkalemia K 6.3 on arrival to ED. Received calcium gluconate and insulin in ED and Veltassa on the unit K 4.5 this am. Restart Entresto per Cardiology recs Holding spironolactone per Cardiology recs Atrial fibrillation Continue Eliquis and metoprolol at 25mg bid per Cardiology recs Iron deficiency anemia, new onset Iron level 29, TIBC 562, Ferritin 15.5 Ordered ferrous sulfate 325mg PO qod DMII HgbA1C 8.1 Sliding scale insulin Holding metformin Continue Jardiance HLD Continue baby aspirin and atorvastatin HTN BPs on the lower side Restart Entresto per Cardiology recs Holding spironolactone per Cardiology recs DVT Prophylaxis: on Eliquis Code Status: FULL CODE PCP: Dr Kelvin Gongora MD Disposition: Possible discharge tomorrow pending tolerance of Entresto and continued improvement Patient seen in collaboration with Dr Edwards. Please see addendum. I spent a total of 50 minutes coordinating, documenting and providing care for this patient excluding time spent in the performance of separately billed services or time spent by another provider/QHP. Admission and Anticipated Discharge Date Admission Date: February 13, 2025 Supervising Physician Co-Signing Physician Notes Patient seen and examined at bedside. Patient doing well today. States he feels less SOB and that his legs are swelling less. On exam, 1+ pitting edema improved from yesterday, clear to auscultation bilaterally. Appreciate cardiology input, continue diuresis, placing judge response to entresto in regards to potassium before homegoing. I have seen and discussed the case with the collaborating advanced practitioner. I agree with the above H&P. I have reviewed and confirmed the patients medical history, the findings on physical examination, and the patients diagnosis and treatment plan with Raven PEREZ and agree with the information documented. I spent a total of 20 minutes coordinating, documenting, and providing care for this patient excluding time spent in the performance of separately billed services. All of the aforementioned completed outside of collaborating with the assigned advanced practitioner for a full treatment plan. I have reviewed the advanced practitioner's documentation, and I agree with, and take responsibility for the plan of care Subjective Patient seen resting in bed Reports he feels like he is improving Denies chest pain, SOB, dizziness, lightheadedness, abdominal pain, N/V Eating and drinking well Review of Systems Review of Systems: All systems reviewed & are unremarkable except as noted in HPI & below Physical Exam Physical Exam: VITALS: Reviewed and VSS. GEN: Healthy appearing, well-developed, male, NAD. PSYCH: Good Judgment. AOx3. Normal memory, mood, and affect. HEENT: Head NC/AT. Sclera white and conjunctiva pink. Nares without rhinorrhea. Nasal and oral mucosa pink. NECK: Supple, with no masses. CV: Irregular rate and rhythm, no m/r/g. LUNGS: CTAB, no w/r/c. ABD: Soft, NT/ND, NBS, no masses or organomegaly. SKIN: Warm, well perfused. No skin rashes or abnormal lesions. MSK: No deformities, Normal gait. EXT: No clubbing or cyanosis. 1+ bilateral pretibial edema NEURO: Ambulating with no limitations. Normal muscle strength and tone. No focal deficits. Results & Data Results & Data Vital Signs (Past 12 Hours) Vital Signs Temp Pulse Resp BP Pulse Ox O2 Del Method 02/16/25 10:47 36.5 C 95 H 16 94/66 L 97 Room Air 02/16/25 07:30 36.4 C L 73 16 109/68 95 Room Air 02/16/25 04:40 36.6 C 85 16 104/66 97 Room Air Laboratory Results Short CBC 02/16/25 Range/Units 07:27 WBC 6.36 (4.8-10.8) K/ul Hgb 11.1 L (14.0-18.0) g/dl Hct 37.3 L (42.0-52.0) % Plt Count 260 (130-400) K/uL BMP 02/15/25 02/16/25 15:55 07:27 Sodium 135 L Potassium 4.6 4.5 Chloride 103 Carbon Dioxide 25 BUN 46 H Creatinine 1.22 Glucose 111 H Calcium 8.9 Liver Function 02/15/25 Range/Units 06:13 GGT 281 H (3-70) U/L I have independently reviewed and interpreted patient's admitting labs including CBC, BMP, mag, GGT. Medications Administered Current Inpatient Medications Acetaminophen (Acetaminophen 325 Mg Tab) 650 mg PO Q4H PRN PRN Reason: Pain or Fever Stop: 03/15/25 23:41 Apixaban (Apixaban 5 Mg Tablet) 5 mg PO BID LAURI Stop: 03/16/25 08:59 Last Admin: 02/16/25 08:37 Dose: 5 mg Aspirin (Aspirin 81 Mg Ectab) 81 mg PO QAM LAURI Stop: 03/16/25 08:59 Last Admin: 02/16/25 08:37 Dose: 81 mg Atorvastatin Calcium (Atorvastatin 40 Mg Tab) 80 mg PO HS LAURI Stop: 03/16/25 20:59 Last Admin: 02/15/25 20:27 Dose: 80 mg Dextrose (Dextrose 50% 50 Ml Syringe) 25 - 50 ml IV UD PRN; Protocol PRN Reason: Hypoglycemia Protocol Stop: 03/15/25 23:41 Empagliflozin (Empagliflozin 10 Mg Tab) 10 mg PO DAILY LAURI Stop: 03/17/25 08:59 Last Admin: 02/16/25 08:37 Dose: 10 mg Ferrous Sulfate (Ferrous Sulfate 325 Mg Tab) 325 mg PO QAM LAURI Stop: 03/18/25 08:59 Last Admin: 02/16/25 08:37 Dose: 325 mg Furosemide (Furosemide 40 Mg/4 Ml Vial) 40 mg IV BID17 LAURI Stop: 03/16/25 08:59 Last Admin: 02/16/25 08:37 Dose: 40 mg Glucagon (Glucagon For Inj 1 Mg Vial) 1 mg SQ UD PRN; Protocol PRN Reason: Hypoglycemia Protocol Stop: 03/15/25 23:41 Glucose (Glucose 40% Gel 15 Gm Tube) 15 - 30 gm PO UD PRN; Protocol PRN Reason: Hypoglycemia Protocol Stop: 03/15/25 23:41 Glucose (Glucose 10 Tab/Tube) 4 - 8 tab PO UD PRN; Protocol PRN Reason: Hypoglycemia Protocol Stop: 03/15/25 23:41 Insulin Aspart (Insulin Aspart Per Unit Charge) 0 units SC ACHS LAURI Stop: 03/16/25 07:29 Last Admin: 02/16/25 11:59 Dose: 6 units Metoprolol Succinate (Metoprolol Succ 25mg Ext Rel Tab) 25 mg PO BID LAURI Stop: 03/16/25 20:59 Last Admin: 02/16/25 08:37 Dose: 25 mg Miscellaneous (Carbohydrates For Hypoglycemia ) 15 - 30 gm PO UD PRN PRN Reason: Hypoglycemia Protocol Stop: 03/15/25 23:41 Nitroglycerin (Nitroglycerin Sl 0.4 Mg/Tab Tab) 0.4 mg SL Q5M PRN PRN Reason: Chest Pain Stop: 03/15/25 23:41 Ondansetron HCl (Ondansetron Inj 2 Mg/Ml 2 Ml Vial) 4 mg IV Q6H PRN PRN Reason: Nausea Stop: 03/15/25 23:41 Polyethylene Glycol (Polyethylene (Miralax) 17 Gm Pack) 17 gm PO DAILY PRN PRN Reason: Constipation Stop: 03/15/25 23:41 Sacubitril/Valsartan (Valsartan/Sacubitril 26/24mg Tab) 0.5 tab PO BID LAURI Stop: 03/18/25 09:59 Last Admin: 02/16/25 10:53 Dose: 0.5 tab Vitamin D (Cholecalciferol 25 Mcg (1000 Units) Tab) 25 mcg PO DAILY LAURI Stop: 03/16/25 08:59 Last Admin: 02/16/25 08:37 Dose: 25 mcg
--- NOTE | 2025-02-16 14:46 | Cardiology Progress Note ---
Date of Service February 16, 2025 Assessment & Plan (1) Acute HFrEF (heart failure with reduced ejection fraction): (2) Hyperkalemia: (3) Atrial fibrillation with RVR: Plan Net -2.4 L on 02/16/2025 and -3.2 L on 02/17/2025. Potassium now improved down to 4.5 mmol/L. Veltassa therefore discontinued. -Continue furosemide 40 mg IV twice daily -Continue [employer] medications including metoprolol, Jardiance. -Resume Entresto 26/24 mg, 1/2 tablet twice daily and repeat basic metabolic p adrianna in the morning. -Hold spironolactone for now. -Possible discharge on 02/17/2025 on [employer] dose of Entresto without spironolactone. -Will need Close follow-up of his potassium as an outpatient. Admission and Anticipated Discharge Date Admission Date: February 13, 2025 Subjective Patient seen cardiology follow-up. Subjectively improved. Walked in the hallway yesterday and again today without lightheadedness or dizziness. Denies subjective palpitations. Telemetry reveals rate controlled atrial fibrillation in the 80s with occasional PVCs. Review of Systems Review of Systems: All systems reviewed & are unremarkable except as noted in HPI & below Physical Exam Constitutional: no acute distress Respiratory: no labored breathing Auscultation: + diminished lung sounds and + crackles (faint bibasilar) Cardiovascular: Rate/Rhythm: + irregularly irregular Heart Sounds: normal S1 and normal S2; no murmur Vessels: + JVD Extremities: + edema (2+ edema b/l to knees) Gastrointestinal (Abdomen): normal bowel sounds, soft, nontender, no hepatosplenomegaly Skin: no rashes, warm and dry Neurologic: PERRL, EOMI, accommodation nl, no face palsy, no dysarthria Results & Data Vital Signs (Past 12 Hours) Vital Signs Temp Pulse Pulse Resp BP Pulse Ox O2 Del Method 02/16/25 14:18 84 02/16/25 12:44 89 02/16/25 10:47 36.5 C 95 H 16 94/66 L 97 Room Air 02/16/25 07:30 36.4 C L 73 16 109/68 95 Room Air 02/16/25 04:40 36.6 C 85 16 104/66 97 Room Air
[2025-02-17 07:02] LABS: BUN Creatinine Ratio 36.4 (10-20); Calcium 8.8 mg/dl (8.6-10.3); Creatinine Clr Calc Pharmacy 76.7 ml/min; Magnesium 2.1 mg/dl (1.7-2.4); Potassium 3.8 mmol/L (3.5-5.1)
[2025-02-17 07:12] VITALS: RESP 18
[2025-02-17 11:37] VITALS: PULSE 84; TEMP 98.2; O2SAT 95
[2025-02-17 11:49] VITALS: BP 102/60
--- NOTE | 2025-02-17 13:12 | Discharge Summary ---
Discharge Summary Date of Service February 17, 2025 Principal Dx & Hospital Course #1 = Principal Diagnosis (1) Acute HFrEF (heart failure with reduced ejection fraction): (2) Hyperkalemia: (3) History of atrial fibrillation: (4) DM type 2 (diabetes mellitus, type 2): (5) HLD (hyperlipidemia): (6) HTN (hypertension): Plan 65 year old male with PMH significant for CAD s/p PCI of LAD, ICM s/p SC ICD (2019), HFrEF, atrial fibrillation, DMII, HTN, and HLD who presented to the ED on 02/13 with weight gain, edema, and SOB and was found to be in acute on chronic heart failure. Acute HFrEF -Hemodynamically stable. CXR in ED revealed pulmonary edema and cardiomegaly -Echo unchanged from previous in Dec 2022 Plan: -daily lasix at home -resume entresto daily Hyperkalemia -K 6.3 on arrival to ED. Received calcium gluconate and insulin in ED and Veltassa on the unit -Holding spironolactone on discharge per Cardiology recs Atrial fibrillation Continue Eliquis and metoprolol at 25mg bid per Cardiology recs Iron deficiency anemia, new onset Iron level 29, TIBC 562, Ferritin 15.5 Ordered ferrous sulfate 325mg PO qod DMII HgbA1C 8.1 Sliding scale insulin Holding metformin Continue Jardiance HLD Continue baby aspirin and atorvastatin HTN BPs on the lower side Restart Entresto per Cardiology recs Holding spironolactone per Cardiology recs DVT Prophylaxis: on Eliquis Code Status: FULL CODE PCP: Dr Kelvin Gongora MD Notes For Next Care Provider Chuy Underwood is a 62-year-old male with PMH of 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 On medicine, cardiology consulted, recommended IV diuresis, stop aldactone/entresto in setting of hyperkalemia. Potassium came down, recheck after starting entresto reassuring. On 02/17/2025 cardiology and medicine patient medically stable for discharge. 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 He presents to the ED for evaluation of weight gain, edema and shortness of breath. Patient reports symptoms began about 1 weeks ago. Patient notes increasing lower extremity edema up to abdomen and worsening shortness of breath on exertion. Patient also reports orthopnea. Patient states that he has had weight gain in the past week. Patient denies any changes in dietary habits or medication adjustments. Patient denies chest pain and palpitations. No lightheadedness, dizziness, diaphoresis, syncopal events. Denies any other recent illnesses, fevers, chills. No abdominal pain, nausea, vomiting, diarrhea. Denies urinary symptoms. In the ED, patient was found to be hyperkalemic. He was given calcium gluconate and insulin. Labs show glucose 133, total bili 1.4, HS troponin 46.85, proBNP 1425. CXR shows pulmonary vascular congestion, interstitial prominence and cardiomegaly. Patient was given Lasix 40 mg IV in the ED. Discharge Exam Gen: A&O 3 NAD HEENT: NCAT, EOMI, not icteric. External ears normal. No rhinorrhea. Moist mucous membranes. JVP slightly above base Neck: Supple, full range of motion, no observable masses, No meningeal sign. Lungs: No Respiratory distress. CV: RRR, no edema. Abdomen: Soft, nondistended, No rebound tenderness. MSK: No joint swelling, no redness. trace pitting edema bilaterally Skin: No rashes, petechiae, lesions. Normal color per patient. Neuro: Normal Gait, Grossly intact. Psych: Appropriate for situation. Updated Medication List Medication Instructions Recorded Confirmed Type aspirin 81 mg tablet,delayed 81 mg PO QAM #30 tabs 09/17/18 02/13/25 Rx release (Ecotrin Low Strength) atorvastatin 80 mg tablet 80 mg PO HS 01/20/19 02/13/25 History apixaban 5 mg tablet (Eliquis) 5 mg PO BID 02/13/25 02/13/25 History ascorbic acid (vitamin C) 500 mg 500 mg PO DAILY 02/13/25 02/13/25 History capsule,extended release cholecalciferol (vitamin D3) 25 25 mcg PO DAILY 02/13/25 02/13/25 History mcg (1,000 unit) capsule (Vitamin D3) coenzyme Q10 100 mg capsule 100 mg PO DAILY 02/13/25 02/13/25 History (CoQ-10) furosemide 40 mg tablet 40 mg PO QAM 02/13/25 02/13/25 History metformin 500 mg tablet,extended 1,000 mg PO BID 02/13/25 02/13/25 History release 24 hr metoprolol succinate 25 mg 25 mg PO QAM 02/13/25 02/13/25 History tablet,extended release 24 hr empagliflozin 10 mg tablet 10 mg PO DAILY #30 tabs 02/17/25 Rx (Jardiance) ferrous sulfate 325 mg (65 mg 325 mg PO QAM #30 tabs 02/17/25 Rx iron) tablet,delayed release sacubitril 24 mg-valsartan 26 mg 1 tab PO DAILY #0 tabs 02/17/25 02/13/25 Rx tablet (Entresto) Hospital Stay Data Consultations 02/13/25 21:14 ED Decision to Admit Stat 02/13/25 23:42 Consult Cardiology Routine Pending Results Patient Have Any Pending Studies at Discharge: No Discharge Instructions Given to Patient (Per Discharging Provider) You were admitted to the hospital for an exacerbation of heart failure. You had a chest x-ray that was consistent with heart failure and an echocardiogram that had no changes compared to your last echo in Dec 2022. We gave you IV lasix and your swelling improved and weight decreased. When you got to the hospital, your potassium level was high. You were given medicine to lower your potassium level and we held your Entresto and spironolactone as these both can cause elevated potassium levels. We restarted your Entresto yesterday. Your labs in the hospital were also consistent with new iron deficiency anemia. You were started on oral iron and will continue to take this outpatient. MEDICATION CHANGES: Please take ferrous sulfate (iron) 325mg by mouth every other day. This medication can cause constipation so you may use OTC stool softeners (Colace) as needed. You may resume your spironolactone that we held during your hospitalization. Please continue taking all of your other home medications as prescribed SUMMARY OF TEST RESULTS: See above PENDING TEST RESULTS: None RECOMMENDATIONS FOR FOLLOW-UP: Please follow up with your PCP as scheduled on 02/22. Recommend discussing your new iron deficiency anemia so they can manage this outpatient. Please follow up with Cardiology OTHER INSTRUCTIONS: Seek medical attention if you have: * temperature above 101 * chest pain or trouble breathing * abdominal pain, nausea, vomiting * diarrhea, dark stools or bloody stools * any unanswered questions or concerns Call 911 if symptoms are severe. It has been a pleasure taking care of you. Please take care of yourself. If you have any questions regarding your recent hospitalization please contact [facility] and request [facility] @ [phone]. Total Time Total Time Spent Total Time Spent (In Minutes): I spent a total of 35 minutes in direct patient care, including [id number] time with the patient and/or family, reviewing medical records, ordering and reviewing diagnostic tests, and coordinating care with other healthcare providers. This time includes: history taking, physical examination, medical decision making, counseling, ECG interpretation, imaging interpretation, lab interpretation, orders, and education, excluding time spent in the performance of separately billed services.
== END 2025-02-17 15:11 | disposition home or self-care (01) | DRG 291 ==
LOC: ED 19:09 → SUATTDRO 22:23 → 2S 22:23